=== PATIENT | male | born 1940 | race Caucasian/White ===

== ENCOUNTER 2018-03-21 10:46 | Observation (INO) | payer MEDICARE ==
[2018-03-21] MEDS ORDERED: SODIUM CHLORIDE 0.9% 500 ML 500 ML IV STA (11:12)
--- NOTE | 2018-03-21 11:24 | ED ---
Syncope HPI - General Chief Complaint: Syncope Stated Complaint: Syncope Time Seen by Provider: 03/21/18 11:11 Source: patient Mode of arrival: ambulatory Limitations: no limitations - History of Present Illness Initial Comments: 77-year-old male past medical history of coronary artery disease, hypertension, hyperlipidemia and lung cancer in remission presenting today for chief complaint of syncope. Patient states that he was in a seated position and went to get up to move around when he felt faint, he states his and daughter grabbed him bringing him to a chair when he passed out. They deny head injury. They state that by time they called emergency department he was alert and oriented 3. Patient denies any chest pain, dyspnea, dyspnea on exertion, lower extremity edema, hemoptysis, cough, nausea, vomiting, upper extremity or paresthesias. He states he doesn't think he has had decreased oral intake. He states that this has happened a couple times in the past 2-3 months upon ambulation. He states he was able to sit down and the symptoms resolved. Patient denies any history of recent chest pain. Remaining review of systems negative, patient denies any recent fever, chills, back pain, abdominal pain, nausea or vomiting, numbness or tingling, dysuria or hematuria, constipation or diarrhea, headaches or visual changes, or any other complaints. Upon arrival pt is well appearing. VS within normal limits. - Related Data Home Medications Medication Instructions Recorded Confirmed Ascorbic Acid [Vitamin C] 500 mg PO DAILY 07/25/15 03/21/18 Aspirin [Adult Low Dose Aspirin EC] 81 mg PO DAILY 07/25/15 03/21/18 Atenolol 25 mg PO DAILY 07/25/15 03/21/18 Atorvastatin [Lipitor] 40 mg PO HS 07/25/15 03/21/18 Levothyroxine Sodium [Synthroid] 100 mcg PO DAILY 07/25/15 03/21/18 Multivitamin [Men's Multi-Vitamin] 1 each PO DAILY 07/25/15 03/21/18 Alendronate Sodium [Fosamax] 70 mg PO TU 03/21/18 03/21/18 Calcium Carbonate/Vitamin D3 1 tab PO DAILY 03/21/18 03/21/18 [Calcium 600-Vit D3 400 Caplet] Cyclobenzaprine [Flexeril] 10 mg PO TID 03/21/18 03/21/18 Gabapentin [Neurontin] 300 mg PO TID 03/21/18 03/21/18 Meloxicam [Mobic] 7.5 mg PO BID 03/21/18 03/21/18 Multivitamins, Thera [Multivitamin 1 tab PO DAILY 03/21/18 03/21/18 (formulary)] Sharon 3-6-9 1 cap PO DAILY 03/21/18 03/21/18 diphenhydrAMINE [Benadryl] 25 mg PO QID PRN 03/21/18 03/21/18 Allergies Allergy/AdvReac Type Severity Reaction Status Date / Time No Known Allergies Allergy Verified 03/21/18 11:48 Review of Systems ROS Statement: Those systems with pertinent positive or pertinent negative responses have been documented in the HPI. ROS Other: All systems not noted in ROS Statement are negative. Past Medical History Past Medical History: Coronary Artery Disease (CAD), Cancer, Chest Pain / Angina , Hearing Disorder / Deafness, Hyperlipidemia, Hypertension, Osteoarthritis (OA) , Thyroid Disorder Additional Past Medical History / Comment(s): LUNG History of Any Multi-Drug Resistant Organisms: None Reported Past Surgical History: Cholecystectomy, Heart Catheterization With Stent, Joint Replacement Additional Past Surgical History / Comment(s): LUNG RESECTION TOP OF LEFT LUNG, LEFT WRIST ORIF 2007, HIP X 2 LEFT HIP, Past Anesthesia/Blood Transfusion Reactions: No Reported Reaction Date of Last Stent Placement:: Past Psychological History: No Psychological Hx Reported Smoking Status: Current every day smoker Past Alcohol Use History: None Reported, Rare Past Drug Use History: None Reported General Exam - General Exam Comments Initial Comments: General: The patient is awake and alert, in no distress, and does not appear acutely ill. Eye: Pupils are equal, round and reactive to light, extra-ocular movements are intact. No nystagmus. There is normal conjunctiva bilaterally. No signs of icterus. Ears, nose, mouth and throat: There are moist mucous membranes and no oral lesions. Neck: The neck is supple, there is no tenderness or JVD. Cardiovascular: There is a regular rate and rhythm. No murmur, rub or gallop is appreciated. Respiratory: Lungs are clear to auscultation, respirations are non-labored, breath sounds are equal. No wheezes, stridor, rales, or rhonchi. Gastrointestinal: Soft, non-distended, non-tender abdomen without masses or organomegaly noted. There is no rebound or guarding present. No CVA tenderness. Bowel sounds are unremarkable. Musculoskeletal: Normal ROM, no tenderness. Strength 5/5. Sensation intact. Radial and DP pulses equal bilaterally 2+. Neurological: A&O x 3. CN II-XII intact, There are no obvious motor or sensory deficits. Coordination appears grossly intact. Speech is normal. Skin: Skin is warm and dry and no rashes or lesions are noted. No lower extremity edema, negative Homans bilaterally Psychiatric: Cooperative, appropriate mood & affect, normal judgment. Limitations: no limitations Course Vital Signs 03/21/18 03/21/18 03/21/18 10:59 11:55 14:34 Temperature 97.0 F L Pulse Rate 70 Pulse Rate [ 79 Horticulture Instructor ] Pulse Rate [ 73 Sitting] Pulse Rate [ 84 Standing] Pulse Rate [ 75 Supine] Respiratory 18 18 Rate Blood Pressure 127/76 Blood Pressure 131/79 [Left Arm Supine] Blood Pressure 126/80 [Sitting] Blood Pressure 104/69 [Standing] O2 Sat by Pulse 98 Oximetry 03/21/18 03/21/18 14:36 17:01 Temperature Pulse Rate 84 87 Pulse Rate [ Horticulture Instructor ] Pulse Rate [ Sitting] Pulse Rate [ Standing] Pulse Rate [ Supine] Respiratory 18 16 Rate Blood Pressure 104/69 140/92 Blood Pressure [Left Arm Supine] Blood Pressure [Sitting] Blood Pressure [Standing] O2 Sat by Pulse 97 94 L Oximetry EKG Findings - EKG Comments: EKG Findings:: A 12-lead EKG was performed and shows the following: Rate is 67bpm, and rhythm is normal sinus. There are normal QRS complexes. ST segments have no elevation or depression, and SD segments appear normal. Nonspecific T- wave. Medical Decision Making - Medical Decision Making Well-appearing 77-year-old male presenting for syncope. EKG revealed no findings concerning for acute coronary syndrome. Troponin negative. Chest x- ray negative. Glucose low given juice, improvement of glucose. Patient did have a systolic drop of >20mmghg after IV hydration consistent with possible orthostatic hypotension. However given patient's coronary artery disease history, with vital episodes throughout the past 2-3 months the patient should be admitted to observation for evaluation by cardiology, as well as telemetry. I discussed the case attending provider Dr. Curtis who agreed to impression and plan. Patient preferred admission, agreed with plan. Continues to deny any symptoms stating he is feeling better. Patient transferred to the floor in stable condition appearing well admission was accepted by admitting provider Dr Zhang - Lab Data Result diagrams: 03/21/18 11:55 03/21/18 11:55 Lab Results 03/21/18 03/21/18 03/21/18 Range/Units 11:55 11:55 11:55 WBC 7.2 (3.8-10.6) k/uL RBC 3.89 L (4.30-5.90) m/uL Hgb 12.3 L (13.0-17.5) gm/dL Hct 35.6 L (39.0-53.0) % MCV 91.7 (80.0-100.0) fL MCH 31.6 (25.0-35.0) pg MCHC 34.5 (31.0-37.0) g/dL RDW 13.5 (11.5-15.5) % Plt Count 217 (150-450) k/uL Neutrophils % 72 % Lymphocytes % 14 % Monocytes % 8 % Eosinophils % 4 % Basophils % 1 % Neutrophils # 5.1 (1.3-7.7) k/uL Lymphocytes # 1.0 (1.0-4.8) k/uL Monocytes # 0.6 (0-1.0) k/uL Eosinophils # 0.3 (0-0.7) k/uL Basophils # 0.1 (0-0.2) k/uL PT (9.0-12.0) sec INR (<1.2) APTT (22.0-30.0) sec Sodium 135 L (137-145) mmol/L Potassium 4.0 (3.5-5.1) mmol/L Chloride 103 (98-107) mmol/L Carbon Dioxide 24 (22-30) mmol/L Anion Gap 8 mmol/L BUN 26 H (9-20) mg/dL Creatinine 0.92 (0.66-1.25) mg/dL Est GFR (CKD-EPI)AfAm >90 (>60 ml/min/1.73 sqM) Est GFR (CKD-EPI)NonAf 80 (>60 ml/min/1.73 sqM) Glucose 63 L (74-99) mg/dL POC Glucose (mg/dL) (75-99) mg/dL POC Glu Aquatic Scientist ID Calcium 8.6 (8.4-10.2) mg/dL Magnesium 1.9 (1.6-2.3) mg/dL Total Bilirubin 0.7 (0.2-1.3) mg/dL AST 44 (17-59) U/L ALT 44 (21-72) U/L Alkaline Phosphatase 89 (38-126) U/L Total Creatine Kinase 116 (55-170) U/L CK-MB (CK-2) 2.0 (0.0-2.4) ng/mL CK-MB (CK-2) Rel Index 1.7 Troponin I <0.012 (0.000-0.034) ng/mL Total Protein 7.1 (6.3-8.2) g/dL Albumin 3.7 (3.5-5.0) g/dL 03/21/18 03/21/18 Range/Units 11:55 15:04 WBC (3.8-10.6) k/uL RBC (4.30-5.90) m/uL Hgb (13.0-17.5) gm/dL Hct (39.0-53.0) % MCV (80.0-100.0) fL MCH (25.0-35.0) pg MCHC (31.0-37.0) g/dL RDW (11.5-15.5) % Plt Count (150-450) k/uL Neutrophils % % Lymphocytes % % Monocytes % % Eosinophils % % Basophils % % Neutrophils # (1.3-7.7) k/uL Lymphocytes # (1.0-4.8) k/uL Monocytes # (0-1.0) k/uL Eosinophils # (0-0.7) k/uL Basophils # (0-0.2) k/uL PT 9.8 (9.0-12.0) sec INR 0.9 (<1.2) APTT 23.5 (22.0-30.0) sec Sodium (137-145) mmol/L Potassium (3.5-5.1) mmol/L Chloride (98-107) mmol/L Carbon Dioxide (22-30) mmol/L Anion Gap mmol/L BUN (9-20) mg/dL Creatinine (0.66-1.25) mg/dL Est GFR (CKD-EPI)AfAm (>60 ml/min/1.73 sqM) Est GFR (CKD-EPI)NonAf (>60 ml/min/1.73 sqM) Glucose (74-99) mg/dL POC Glucose (mg/dL) 135 H (75-99) mg/dL POC Glu Aquatic Scientist ID Ethel Lind Calcium (8.4-10.2) mg/dL Magnesium (1.6-2.3) mg/dL Total Bilirubin (0.2-1.3) mg/dL AST (17-59) U/L ALT (21-72) U/L Alkaline Phosphatase (38-126) U/L Total Creatine Kinase (55-170) U/L CK-MB (CK-2) (0.0-2.4) ng/mL CK-MB (CK-2) Rel Index Troponin I (0.000-0.034) ng/mL Total Protein (6.3-8.2) g/dL Albumin (3.5-5.0) g/dL Disposition Clinical Impression: Syncope Disposition: ADMITTED IP TO THIS [facility] Is patient prescribed a controlled substance at d/c from ED?: No Time of Disposition: 14:00 Decision to Admit Reason: Admit from EC Decision Date: 03/21/18 Decision Time: 14:00
[2018-03-21 12:04] LABS: Basophils # (A) 0.1 k/uL (0-0.2); Basophils % (A) 1 %; Eosinophils # (A) 0.3 k/uL (0-0.7); Eosinophils % (A) 4 %; HCT 35.6 % (39.0-53.0); HGB 12.3 gm/dL (13.0-17.5); Lymphocytes % (A) 14 %; MCH 31.6 pg (25.0-35.0); MCHC 34.5 g/dL (31.0-37.0); MCV 91.7 fL (80.0-100.0); Mean Platelet Volume 8.7; Monocytes # (A) 0.6 k/uL (0-1.0); Monocytes % (A) 8 %; Neutrophils # (A) 5.1 k/uL (1.3-7.7); Neutrophils % (A) 72 %; Platelet Count 217 k/uL (150-450); RBC 3.89 m/uL (4.30-5.90); RDW 13.5 % (11.5-15.5); WBC 7.2 k/uL (3.8-10.6)
[2018-03-21 12:10] LABS: ALT 44 U/L (21-72); AST 44 U/L (17-59); Albumin 3.7 g/dL (3.5-5.0); Alkaline Phosphatase 89 U/L (38-126); Anion Gap 8 mmol/L; Blood Urea Nitrogen 26 mg/dL (9-20); Calcium 8.6 mg/dL (8.4-10.2); Carbon Dioxide 24 mmol/L (22-30); Chloride 103 mmol/L (98-107); Glucose 63 mg/dL (74-99); Magnesium 1.9 mg/dL (1.6-2.3); Sodium 135 mmol/L (137-145); Total Bilirubin 0.7 mg/dL (0.2-1.3); Total Protein 7.1 g/dL (6.3-8.2)
[2018-03-21 12:15] LABS: INR 0.9 (<1.2); Partial Thromboplastin Time 23.5 sec (22.0-30.0); Prothrombin Time 9.8 sec (9.0-12.0)
[2018-03-21 12:18] LABS: Creatine Kinase 116 U/L (55-170)
[2018-03-21 12:31] LABS: Troponin I <0.012 ng/mL (0.000-0.034)
--- NOTE | 2018-03-21 13:42 | XR ---
EXAMINATION TYPE: XR chest 2V DATE OF EXAM: 03/21/2018 COMPARISON: 11/28/2013 HISTORY: Shortness of breath TECHNIQUE: Frontal and lateral views of the chest are obtained. FINDINGS: Scattered senescent parenchymal changes noted. Hyperinflation compatible with COPD. Underlying fibrot ic change noted. No evidence for infiltrate. No evidence for atelectasis. Heart size is stable. Mediastinal structures are stable and grossly unremarkable. No evidence for hilar prominence. Degenerative changes dorsal spine. IMPRESSION: 1. No evidence for acute pulmonary disease. Basilar pulmonary fibrosis.
[2018-03-21] MEDS ORDERED: NALOXONE 0.4 MG/ML 1 ML VIAL IV PRN (15:38)
[2018-03-21] MEDS ORDERED: SODIUM CHLORIDE 0.9% 1,000 ML IV SCH (15:45)
[2018-03-21 15:52] LABS: Glucose,Whole Blood 135 mg/dL (75-99)
--- NOTE | 2018-03-21 17:27 | P.HPIM ---
History of Present Illness Patient is a pleasant 77-year-old gentleman came in with the complaints of lightheadedness and a syncopal episode patient stood up in the after which patient felt lightheaded and the pale and lost consciousness patient does have positive orthostatic vitals patient blood sugar is 65 doesn't take anything for blood sugar patient is on atenolol patient denied any diarrhea nausea vomiting abdominal pain fever chills dysuria. No signs or symptoms of infection area did I do not have an EKG available in a committed will obtain EKG will obtain echo Monitored overnight. Patient denied any chest pain at this time. Review of Systems REVIEW OF SYSTEMS: CONSTITUTIONAL: No fever, no malaise, no fatigue. HEENT: No recent visual problems or hearing problems. Denied any sore throat. CARDIOVASCULAR: No chest pain, orthopnea, PND, no palpitations, PULMONARY: No shortness of breath, no cough, no hemoptysis. GASTROINTESTINAL: No diarrhea, no nausea, no vomiting, no abdominal pain. NEUROLOGICAL: No headaches, no weakness, no numbness. HEMATOLOGICAL: Denies any bleeding or petechiae. GENITOURINARY: Denies any burning micturition, frequency, or urgency. MUSCULOSKELETAL/RHEUMATOLOGICAL: Denies any joint pain, swelling, or any muscle pain. ENDOCRINE: Denies any polyuria or polydipsia. The rest of the 14-point review of systems is negative. Past Medical History Past Medical History: Coronary Artery Disease (CAD), Cancer, Chest Pain / Angina , Hearing Disorder / Deafness, Hyperlipidemia, Hypertension, Osteoarthritis (OA) , Thyroid Disorder Additional Past Medical History / Comment(s): LUNG History of Any Multi-Drug Resistant Organisms: None Reported Past Surgical History: Cholecystectomy, Heart Catheterization With Stent, Joint Replacement Additional Past Surgical History / Comment(s): LUNG RESECTION TOP OF LEFT LUNG, LEFT WRIST ORIF 2007, HIP X 2 LEFT HIP, Past Anesthesia/Blood Transfusion Reactions: No Reported Reaction Date of Last Stent Placement:: Past Psychological History: No Psychological Hx Reported Smoking Status: Current every day smoker Past Alcohol Use History: None Reported, Rare Past Drug Use History: None Reported Medications and Allergies Home Medications Medication Instructions Recorded Confirmed Type Ascorbic Acid [Vitamin C] 500 mg PO DAILY 07/25/15 03/21/18 History Aspirin [Adult Low Dose Aspirin EC] 81 mg PO DAILY 07/25/15 03/21/18 History Atenolol 25 mg PO DAILY 07/25/15 03/21/18 History Atorvastatin [Lipitor] 40 mg PO HS 07/25/15 03/21/18 History Levothyroxine Sodium [Synthroid] 100 mcg PO DAILY 07/25/15 03/21/18 History Multivitamin [Men's Multi-Vitamin] 1 each PO DAILY 07/25/15 03/21/18 History Alendronate Sodium [Fosamax] 70 mg PO TU 03/21/18 03/21/18 History Calcium Carbonate/Vitamin D3 1 tab PO DAILY 03/21/18 03/21/18 History [Calcium 600-Vit D3 400 Caplet] Cyclobenzaprine [Flexeril] 10 mg PO TID 03/21/18 03/21/18 History Gabapentin [Neurontin] 300 mg PO TID 03/21/18 03/21/18 History Meloxicam [Mobic] 7.5 mg PO BID 03/21/18 03/21/18 History Multivitamins, Thera [Multivitamin 1 tab PO DAILY 03/21/18 03/21/18 History (formulary)] [place] 3-6-9 1 cap PO DAILY 03/21/18 03/21/18 History diphenhydrAMINE [Benadryl] 25 mg PO QID PRN 03/21/18 03/21/18 History Allergies Allergy/AdvReac Type Severity Reaction Status Date / Time No Known Allergies Allergy Verified 03/21/18 11:48 Physical Exam Vitals: Vital Signs Temp Pulse Pulse Pulse Pulse Pulse Resp 03/21/18 17:02 87 16 03/21/18 17:01 87 16 03/21/18 14:36 84 18 03/21/18 14:34 73 84 75 18 03/21/18 11:55 79 03/21/18 10:59 97.0 F L 70 18 BP BP BP BP Pulse Ox 03/21/18 17:02 140/92 94 L 03/21/18 17:01 140/92 94 L 03/21/18 14:36 104/69 97 03/21/18 14:34 131/79 126/80 104/69 03/21/18 11:55 03/21/18 10:59 127/76 98 Intake and Output 03/21/18 03/21/18 03/21/18 06:59 14:59 22:59 Other: Weight 66.179 kg PHYSICAL EXAMINATION: GENERAL: The patient is alert and oriented x3, not in any acute distress. Well developed, well nourished. HEENT: Pupils are round and equally reacting to light. EOMI. No scleral icterus. No conjunctival pallor. Normocephalic, atraumatic. No pharyngeal erythema. No thyromegaly. CARDIOVASCULAR: S1 and S2 present. Patient does have a somewhat systolic murmur in the mitral area pansystolic murmur, loud P2. PULMONARY: Chest is clear to auscultation, no wheezing or crackles. ABDOMEN: Soft, nontender, nondistended, normoactive bowel sounds. No palpable organomegaly. MUSCULOSKELETAL: No joint swelling or deformity. EXTREMITIES: No cyanosis, clubbing, or pedal edema. NEUROLOGICAL: Gross neurological examination did not reveal any focal deficits. SKIN: No rashes. Results CBC & Chem 7: 03/21/18 11:55 03/21/18 11:55 Labs: Abnormal Lab Results - Last 24 Hours (Table) 03/21/18 03/21/18 03/21/18 Range/Units 11:55 11:55 15:04 RBC 3.89 L (4.30-5.90) m/uL Hgb 12.3 L (13.0-17.5) gm/dL Hct 35.6 L (39.0-53.0) % Sodium 135 L (137-145) mmol/L BUN 26 H (9-20) mg/dL Glucose 63 L (74-99) mg/dL POC Glucose (mg/dL) 135 H (75-99) mg/dL Assessment and Plan Plan: -Syncope probably due to intravascular volume depletion patient doesn't have any diarrhea patient was started on IV fluids hold off on atenolol for now temporarily will obtain echo cardiac exam monitored on telemetry bed -Coronary artery disease -hypertension -Hyperlipidemia -hypothyroidism For above-mentioned chronic medical problems patient will be resumed on appropriate home medications.
[2018-03-21 17:43] VITALS: BMI 23.5
[2018-03-21] MEDS: CYCLOBENZAPRINE 10 MG TAB PO SCH (20:18)
[2018-03-21] MEDS: GABAPENTIN 300 MG CAP PO SCH (20:18)
[2018-03-21] MEDS ORDERED: ATORVASTATIN 40 MG TAB PO SCH (21:00)
[2018-03-22] MEDS ORDERED: LEVOTHYROXINE 100 MCG TAB PO SCH (06:30)
[2018-03-22 07:36] VITALS: RESP 18
[2018-03-22] MEDS ORDERED: ASPIRIN 81 MG PO SCH (09:00)
[2018-03-22] MEDS ORDERED: OMEGA PO SCH (09:00)
--- NOTE | 2018-03-22 09:07 | CT ---
EXAMINATION TYPE: CT brain wo con DATE OF EXAM: 03/22/2018 HISTORY: Syncope with history of Lung Cancer CT DLP: 1231.4 mGycm. Automated Exposure Control for Dose Reduction was Utilized. TECHNIQUE: CT scan of the head is performed without contrast. COMPARISON: None. FINDINGS: There is no acute intracranial hemorrhage or midline shift identified. There is diffuse v entricular and sulcal prominence consistent with diffuse age-related cerebral atrophy. There is low- attenuation in the periventricular white matter consistent with chronic small vessel ischemic change. Dominant left vertebral artery incidentally noted The globes are intact and the visualized sinuses a re clear. IMPRESSION: No acute intracranial hemorrhage or midline shift. There is moderate diffuse age-relate d cerebral atrophy and mild chronic small vessel ischemic change noted.
[2018-03-22] MEDS: GABAPENTIN 300 MG CAP PO SCH (09:28)
[2018-03-22] MEDS: CYCLOBENZAPRINE 10 MG TAB PO SCH (09:28)
--- NOTE | 2018-03-22 09:48 | P.CRDCN ---
History of Present Illness History of present illness: This is a pleasant 77-year-old male past medical history significant for coronary artery disease s/p stent to LAD in setting of NSTEMI 1997, hypertension, dyslipidemia, history of lung cancer s/p left lobectomy and former nicotine dependence. He used to follow with Dr. Nugent in the office but hasn't been to the office since 2012. We have been asked to see him in consultation secondary to a near syncopal event yesterday at home. The patient states he was at home and he started feeling extremely weak and fatigued. He then started feeling light headed and had to be lowered to the chair by his family members. He states they told him he briefly passed out. However he is unclear if there was any actual LOC. He denies feeling chest pain, shortness of breath, nausea, vomiting, palpitations or diaphoresis prior to or thereafter this episode. He has had no further dizziness since arriving to the ED. He is seen and examined sitting up in bed in no acute distress. He has a generalized tremor. felt increasingly weak and light headed, was able to lower himself to the chair and then his daughter states he passed out briefly. No evidence of arrhythmia on telemetry thus far. EKG reveals sinus mechanism with early repolarization, no acute ST or T-wave abnormalities noted. Chest xray with no acute cardiopulmonary process with pulmonary fibrosis noted. Laboratory data reviewed, WBC 7.2, hemoglobin 12.3, platelets 217, sodium 135, potassium 4.0, creatinine 0.92, magnesium 1.9, cardiac enzymes negative 1. Bilateral carotid duplex study obtained in the office 2012 reveals right with 16 -49% stenosis with greater than 20% diameter stenosis noted, left with 16-49% stenosis greater than 20% diameter stenosis noted. This is unchanged from previous study. Most recent stress test performed in the office 2012 with a Lexiscan stress test which was negative for reversible cardiac ischemia. At the time of my exam: CONSTITUTIONAL: Denies fever. Denies chills. EYES: Denies blurred vision. Denies vision changes. Denies eye pain. EARS, NOSE, MOUTH & THROAT: Denies headache. Denies sore throat. Denies ear pain. CARDIOVASCULAR: Denies chest pain. Denies shortness of breath. Denies orthopnea. Denies PND. Denies palpitations. RESPIRATORY: Denies cough. GASTROINTESTINAL: Denies abdominal pain. Denies diarrhea. Denies constipation. Denies nausea. Denies vomiting. MUSCULOSKELETAL: Denies myalgias. INTEGUMENTARY: Denies pruitis. Denies rash. NEUROLOGIC: Denies numbness. Denies tingling. Denies weakness. PSYCHIATRIC: Denies anxiety. Denies depression. ENDOCRINE: Denies fatigue. Denies weight change. Denies polydipsia. Denies polyurina. GENITOURINARY: Denies burning, hematuria or urgency with micturation. HEMATOLOGIC: Denies history of anemia. Denies bleeding. Blood pressure 126/79 heart rate 74 afebrile maintaining oxygen saturation on room air GENERAL: This is a 77-year-old male in no apparent distress at the time of my examination. HEENT: Head is atraumatic, normocephalic. Pupils are equal, round. Sclerae anicteric. Conjunctivae are clear. Mucous membranes of the mouth are moist. Neck is supple. There is no jugular venous distention. No carotid bruit is heard. LUNGS: Faint rhonchi noted to the right. Clear to auscultation on the left. No rales or wheezes noted bilaterally. No chest wall tenderness is noted on palpation or with deep breathing. Diminished bilaterally. HEART: Regular rate and rhythm without murmurs, rubs or gallops. S1 and S2 heard. ABDOMEN: Soft, nontender. Bowel sounds are heard. No organomegaly noted. EXTREMITIES: No evidence of peripheral edema and no calf tenderness noted. VASCULAR: Radial and dorsalis pedis pulses palpated, no evidence of clubbing. NEUROLOGIC: Patient is awake, alert and oriented x3. ASSESSMENT Near syncope secondary to orthostatic hypotension. Dyslipidemia Hypertension History of lung cancer s/p left lobectomy Hyponatremia History of coronary artery disease s/p stent placement to LAD [address] brain to rule out malignancy considering his history of lung cancer. Obtain 2D echocardiogram and doppler study to assess cardiac structure and function. Repeat orthostatic vital signs. Check d-dimer and second troponin to rule out an acute coronary event. He has received IV hydration since admission which will hopefully improve his orthostatic changes. Increase activity and ambulation in the halls as tolerated. Thank you kindly for this consultation. The above impression and plan of care have been discussed and directed by the signing physician. Debra Conner, nurse practitioner, acting as scribe for signing physician. Past Medical History Past Medical History: Coronary Artery Disease (CAD), Cancer, Chest Pain / Angina , Hearing Disorder / Deafness, Hyperlipidemia, Hypertension, Osteoarthritis (OA) , Thyroid Disorder Additional Past Medical History / Comment(s): LUNG History of Any Multi-Drug Resistant Organisms: None Reported Past Surgical History: Cholecystectomy, Heart Catheterization With Stent, Joint Replacement Additional Past Surgical History / Comment(s): LUNG RESECTION TOP OF LEFT LUNG, LEFT WRIST ORIF 2007, HIP X 2 LEFT HIP, Past Anesthesia/Blood Transfusion Reactions: No Reported Reaction Date of Last Stent Placement:: Past Psychological History: No Psychological Hx Reported Smoking Status: Current every day smoker Past Alcohol Use History: None Reported, Rare Past Drug Use History: None Reported Medications and Allergies Home Medications Medication Instructions Recorded Confirmed Type Ascorbic Acid [Vitamin C] 500 mg PO DAILY 07/25/15 03/21/18 History Aspirin [Adult Low Dose Aspirin EC] 81 mg PO DAILY 07/25/15 03/21/18 History Atenolol 25 mg PO DAILY 07/25/15 03/21/18 History Atorvastatin [Lipitor] 40 mg PO HS 07/25/15 03/21/18 History Levothyroxine Sodium [Synthroid] 100 mcg PO DAILY 07/25/15 03/21/18 History Multivitamin [Men's Multi-Vitamin] 1 each PO DAILY 07/25/15 03/21/18 History Alendronate Sodium [Fosamax] 70 mg PO TU 03/21/18 03/21/18 History Calcium Carbonate/Vitamin D3 1 tab PO DAILY 03/21/18 03/21/18 History [Calcium 600-Vit D3 400 Caplet] Cyclobenzaprine [Flexeril] 10 mg PO TID 03/21/18 03/21/18 History Gabapentin [Neurontin] 300 mg PO TID 03/21/18 03/21/18 History Meloxicam [Mobic] 7.5 mg PO BID 03/21/18 03/21/18 History Multivitamins, Thera [Multivitamin 1 tab PO DAILY 03/21/18 03/21/18 History (formulary)] [place] 3-6-9 1 cap PO DAILY 03/21/18 03/21/18 History diphenhydrAMINE [Benadryl] 25 mg PO QID PRN 03/21/18 03/21/18 History Allergies Allergy/AdvReac Type Severity Reaction Status Date / Time No Known Allergies Allergy Verified 03/21/18 11:48 Physical Exam Vitals: Vital Signs Temp Pulse Pulse Pulse Pulse Pulse Pulse 03/22/18 07:10 97.6 F 74 03/22/18 03:54 98.0 F 80 03/22/18 03:15 03/22/18 00:00 03/21/18 23:51 98.3 F 76 03/21/18 20:00 03/21/18 19:52 97.5 F L 74 03/21/18 17:51 79 78 73 84 75 03/21/18 17:23 97.9 F 78 03/21/18 17:02 97.9 F 87 03/21/18 17:01 87 03/21/18 14:36 84 03/21/18 14:34 73 84 75 03/21/18 11:55 79 03/21/18 10:59 97.0 F L 70 Resp BP BP BP BP BP Pulse Ox 03/22/18 07:10 18 126/79 95 03/22/18 03:54 16 125/64 96 03/22/18 03:15 18 03/22/18 00:00 18 03/21/18 23:51 18 122/70 96 03/21/18 20:00 18 03/21/18 19:52 18 137/82 100 03/21/18 17:51 18 03/21/18 17:23 18 157/72 96 03/21/18 17:02 18 140/92 96 03/21/18 17:01 16 140/92 94 L 03/21/18 14:36 18 104/69 97 03/21/18 14:34 18 131/79 126/80 104/69 03/21/18 11:55 03/21/18 10:59 18 127/76 98 Intake and Output 03/21/18 03/22/18 03/22/18 22:59 06:59 14:59 Intake Total 118 Balance 118 Intake: Oral 118 Other: Voiding Method Toilet Toilet # Voids 1 Results 03/21/18 11:55 03/21/18 11:55 Cardiac Enzymes 03/21/18 03/21/18 Range/Units 11:55 11:55 AST 44 (17-59) U/L CK-MB (CK-2) 2.0 (0.0-2.4) ng/mL Troponin I <0.012 (0.000-0.034) ng/mL Coagulation 03/21/18 Range/Units 11:55 PT 9.8 (9.0-12.0) sec APTT 23.5 (22.0-30.0) sec CBC 03/21/18 Range/Units 11:55 WBC 7.2 (3.8-10.6) k/uL RBC 3.89 L (4.30-5.90) m/uL Hgb 12.3 L (13.0-17.5) gm/dL Hct 35.6 L (39.0-53.0) % Plt Count 217 (150-450) k/uL Comprehensive Metabolic Panel 03/21/18 Range/Units 11:55 Sodium 135 L (137-145) mmol/L Potassium 4.0 (3.5-5.1) mmol/L Chloride 103 (98-107) mmol/L Carbon Dioxide 24 (22-30) mmol/L BUN 26 H (9-20) mg/dL Creatinine 0.92 (0.66-1.25) mg/dL Glucose 63 L (74-99) mg/dL Calcium 8.6 (8.4-10.2) mg/dL AST 44 (17-59) U/L ALT 44 (21-72) U/L Alkaline Phosphatase 89 (38-126) U/L Total Protein 7.1 (6.3-8.2) g/dL Albumin 3.7 (3.5-5.0) g/dL Current Medications Generic Name Dose Route Start Last Admin Trade Name Freq PRN Reason Stop Dose Admin Aspirin 81 mg 03/22/18 09:00 Aspirin PO DAILY NILSON Atorvastatin Calcium 40 mg 03/21/18 21:00 03/21/18 20:18 Lipitor PO 40 mg HS NILSON Administration Cyclobenzaprine HCl 10 mg 03/21/18 22:00 03/21/18 20:18 Flexeril PO 10 mg TID NILSON Administration Gabapentin 300 mg 03/21/18 22:00 03/21/18 20:18 Neurontin PO 300 mg TID NILSON Administration Sodium Chloride 1,000 mls @ 100 mls/hr 03/21/18 15:45 03/21/18 17:30 Saline 0.9% IV 100 mls/hr .Q10H NILSON Administration Levothyroxine Sodium 100 mcg 03/22/18 06:30 03/22/18 06:10 Synthroid PO 100 mcg DAILY@0630 NILSON Administration Naloxone HCl 0.2 mg 03/21/18 15:38 Narcan IV Q2M PRN Opioid Reversal Intake and Output 03/21/18 03/22/18 03/22/18 22:59 06:59 14:59 Intake Total 118 Balance 118 Intake: Oral 118 Other: Voiding Method Toilet Toilet # Voids 1 03/21/18 11:55 03/21/18 11:55
--- NOTE | 2018-03-22 10:27 | ECHOF ---
Referral Reason:syncope MEASUREMENTS -------- HEIGHT: 167.6 cm WEIGHT: 65.8 kg BP: 125/64 IVSd: 1.4 cm (0.6 - 1.1) LVIDd: 3.0 cm (3.9 - 5.3) LVPWd: 1.3 cm (0.6 - 1.1) IVSs: 1.6 cm LVIDs: 1.9 cm LVPWs: 1.8 cm LAESV Index (A-L): 22.90 ml/m Ao Diam: 3.0 cm (2.0 - 3.7) AV Cusp: 2.0 cm (1.5 - 2.6) LA Diam: 4.1 cm (2.7 - 3.8) MV EXCURSION: 16.269 mm (> 18.000) MV EF SLOPE: 73 mm/s (70 - 150) EPSS: 0.6 cm MV E Javed: 0.64 m/s MV DecT: 306 ms MV A Javed: 1.04 m/s MV E/A Ratio: 0.61 AR PHT: 573 ms RAP: 5.00 mmHg RVSP: 28.65 mmHg FINDINGS -------- Sinus rhythm. This was a technically good study. The left ventricular size is normal. There is moderate concentric left ventricular hypertrophy. O verall left ventricular systolic function is normal with, an EF between 55 - 60 %. The right ventricle is normal in size and function. Normal LA size by volume 22+/-6 ml/m2. The right atrium is normal in size. Aortic valve is trileaflet and is mildly thickened. There is mild aortic regurgitation. The mitral valve leaflets are mildly thickened. Mild mitral annular calcification present. Mild m itral regurgitation is present. Mild tricuspid regurgitation present. The right ventricular systolic pressure, as measured by Doppl er, is 28.65mmHg. Trace/mild (physiologic) pulmonic regurgitation. The aortic root size is normal. IVC Not well visulized. The pericardium is normal. CONCLUSIONS -------- 1. Sinus rhythm. 2. This was a technically good study. 3. The left ventricular size is normal. 4. There is moderate concentric left ventricular hypertrophy. 5. Overall left ventricular systolic function is normal with, an EF between 55 - 60 %. 6. The right ventricle is normal in size and function. 7. Normal LA size by volume 22+/-6 ml/m2. 8. The right atrium is normal in size. 9. Aortic valve is trileaflet and is mildly thickened. 10. There is mild aortic regurgitation. 11. The mitral valve leaflets are mildly thickened. 12. Mild mitral annular calcification present. 13. Mild mitral regurgitation is present. 14. Mild tricuspid regurgitation present. 15. The right ventricular systolic pressure, as measured by Doppler, is 28.65mmHg. 16. Trace/mild (physiologic) pulmonic regurgitation. 17. The aortic root size is normal. 18. IVC Not well visulized. 19. The pericardium is normal. PHP CONSULTANT: Raquel Mcmahan RDCS
[2018-03-22 11:53] VITALS: BP 157/76; PULSE 73; TEMP 97.2
--- NOTE | 2018-03-22 13:53 | CT ---
EXAMINATION TYPE: CT angio chest DATE OF EXAM: 03/22/2018 COMPARISON: NONE HISTORY: Elevated d-dimer with syncope and weakness. History of partial left-sided pneumonectomy. CT DLP: 2 647.4 mGycm. Automated Exposure Control for Dose Reduction was Utilized. CONTRAST: CTA scan of the thorax is performed with IV Contrast, patient injected with 55 mL of Isovue 370, pulm onary embolism protocol. MIP Images are created on CT scanner and reviewed. FINDINGS: LUNGS: Moderate to advanced underlying emphysematous change is present. There is honeycombing lateral ly in the left mid to lower lungs with additional end-stage honeycombing in the right lung base. Elev ated left hemidiaphragm is noted. No suspicious nodules or masses are identified. No pleural effusion or pneumothorax is seen. Some areas of mild pleural thickening throughout the left lung are present. Tracheobronchial tree is patent. MEDIASTINUM: There is satisfactory enhancement of the pulmonary artery and its branches, there is no CT evidence for pulmonary embolism. There are enlarged bilateral hilar lymph nodes which may warrant further clinical workup. No suspicious mediastinal adenopathy is seen. No cardiomegaly or pericardi al effusion is seen. There is fairly severe coronary artery calcification noted. There is mild to mod erate calcified plaque of aorta with ectatic course identified. OTHER: Cholecystectomy clips are appreciated. Low dense thickening to left adrenal gland favors benig n hyperplasia. S-shaped scoliosis is seen. Osseous structures are demineralized. There is moderate co mpression fracture T12 level presumed chronic without suspicious lucency. IMPRESSION: 1. No acute pulmonary embolism. 2. Moderate to advanced emphysematous change with bibasilar scarring. No suspicious acute infiltrate.
[2018-03-22 16:17] LABS: T4, Free (Free Thyroxine) 2.17 ng/dL (0.78-2.19)
--- NOTE | 2018-03-22 16:33 | P.DS ---
Providers Date of admission: 03/21/18 15:52 Attending physician: Michelle Zhang Consults: 03/21/18 15:38 Consult Physician Stat Consulting Provider: Saurabh Morales Reason/Comments: syncope Do you want consulting provider notified?: Yes Primary care physician: [place] Hospital Course: Patient is a pleasant 77-year-old gentleman came in with the complaints of lightheadedness and a syncopal episode patient stood up in the after which patient felt lightheaded and the pale and lost consciousness patient does have positive orthostatic vitals patient blood sugar is 65 doesn't take anything for blood sugar patient is on atenolol patient denied any diarrhea nausea vomiting abdominal pain fever chills dysuria. No signs or symptoms of infection area did I do not have an EKG available in a committed will obtain EKG will obtain echo Monitored overnight. Patient denied any chest pain at this time. 03/22/2018 Patient had an echocardiogram which did not show any significant about the patient still has some postural orthostatic vitals patient was increased to drink fluids at home. If he has another syncopal episode will need further evaluation starting with a Holter monitor and probable to table testing as an outpatient. Patient does not have any significant rhythm abnormalities here. Patient had elevated d-dimer because of which underwent a CT angios the chest did not show any pulmonary embolism although he did show honeycombing probably because of that reason patient has some crackles in the right lower lung bases. Patient is being discharged today in stable medical condition to home PHYSICAL EXAMINATION: GENERAL: The patient is alert and oriented x3, not in any acute distress. Well developed, well nourished. HEENT: Pupils are round and equally reacting to light. EOMI. No scleral icterus. No conjunctival pallor. Normocephalic, atraumatic. No pharyngeal erythema. No thyromegaly. CARDIOVASCULAR: S1 and S2 present. No murmurs, rubs, or gallops. PULMONARY: Minimal crackles in right lower lung bases patient is advised to use incentive spirometry at home ABDOMEN: Soft, nontender, nondistended, normoactive bowel sounds. No palpable organomegaly. MUSCULOSKELETAL: No joint swelling or deformity. EXTREMITIES: No cyanosis, clubbing, or pedal edema. NEUROLOGICAL: Gross neurological examination did not reveal any focal deficits. SKIN: No rashes. Assessment and Plan Plan: -Syncope probably due to intravascular volume depletion . Received IV fluids for a day -Coronary artery disease -hypertension -Hyperlipidemia -hypothyroidism Plan - Discharge Summary Discharge Rx Participant: No New Discharge Prescriptions: No Action Atorvastatin [Lipitor] 40 mg PO HS Aspirin [Adult Low Dose Aspirin EC] 81 mg PO DAILY Ascorbic Acid [Vitamin C] 500 mg PO DAILY Levothyroxine Sodium [Synthroid] 100 mcg PO DAILY Atenolol 25 mg PO DAILY Multivitamin [Men's Multi-Vitamin] 1 each PO DAILY diphenhydrAMINE [Benadryl] 25 mg PO QID PRN PRN Reason: Allergy Symptoms Multivitamins, Thera [Multivitamin (formulary)] 1 tab PO DAILY Meloxicam [Mobic] 7.5 mg PO BID Alendronate Sodium [Fosamax] 70 mg PO [place] 3-6-9 1 cap PO DAILY Gabapentin [Neurontin] 300 mg PO TID Cyclobenzaprine [Flexeril] 10 mg PO TID Calcium Carbonate/Vitamin D3 [Calcium 600-Vit D3 400 Caplet] 1 tab PO DAILY Discharge Medication List Ascorbic Acid [Vitamin C] 500 mg PO DAILY 07/25/15 [History] Aspirin [Adult Low Dose Aspirin EC] 81 mg PO DAILY 07/25/15 [History] Atenolol 25 mg PO DAILY 07/25/15 [History] Atorvastatin [Lipitor] 40 mg PO HS 07/25/15 [History] Levothyroxine Sodium [Synthroid] 100 mcg PO DAILY 07/25/15 [History] Multivitamin [Men's Multi-Vitamin] 1 each PO DAILY 07/25/15 [History] Alendronate Sodium [Fosamax] 70 mg PO TU 03/21/18 [History] Calcium Carbonate/Vitamin D3 [Calcium 600-Vit D3 400 Caplet] 1 tab PO DAILY 12/27 [History] Cyclobenzaprine [Flexeril] 10 mg PO TID 03/21/18 [History] Gabapentin [Neurontin] 300 mg PO TID 03/21/18 [History] Meloxicam [Mobic] 7.5 mg PO BID 03/21/18 [History] Multivitamins, Thera [Multivitamin (formulary)] 1 tab PO DAILY 03/21/18 [History ] [place] 3-6-9 1 cap PO DAILY 03/21/18 [History] diphenhydrAMINE [Benadryl] 25 mg PO QID PRN 03/21/18 [History] Follow up Appointment(s)/Referral(s): [facility],Clinic [Primary Care Provider] - 1-2 days Discharge Disposition: HOME SELF-CARE
== END 2018-03-22 14:52 | disposition home or self-care (01) ==
LOC: EC 10:46 → 1SOBS 15:52
PROVIDERS: ADMIT Internal Medicine; ATTEND Internal Medicine
DX: R55 Syncope and collapse (principal); E86.9 Volume depletion, unspecified; E87.1 Hypo-osmolality and hyponatremia; R79.89 Other specified abnormal findings of blood chemistry; I25.10 Atherosclerotic heart disease of native coronary artery without angina pectoris; I10 Essential (primary) hypertension; E78.5 Hyperlipidemia, unspecified; E03.9 Hypothyroidism, unspecified; H91.90 Unspecified hearing loss, unspecified ear; M19.90 Unspecified osteoarthritis, unspecified site; R25.1 Tremor, unspecified; F17.200 Nicotine dependence, unspecified, uncomplicated; Z79.82 Long term (current) use of aspirin; Z79.890 Hormone replacement therapy; Z79.83 Long term (current) use of bisphosphonates; Z79.899 Other long term (current) drug therapy; Z85.118 Personal history of other malignant neoplasm of bronchus and lung; Z90.49 Acquired absence of other specified parts of digestive tract; Z95.5 Presence of coronary angioplasty implant and graft; Z96.60 Presence of unspecified orthopedic joint implant; I25.2 Old myocardial infarction; Z90.2 Acquired absence of lung [part of]
CPT/HCPCS: 99285; 36415; 93005; 93306; 85379; 84439; 80053; 84443; 82550; 82553; 83735; 84484 ×2; 85025; 85610; 85730; 71046; 70450; 71275; G0378 ×2; Q9967

== ENCOUNTER → 2018-09-13 | Outpatient (CLI) | payer OTHER ==
--- NOTE | 2018-09-13 10:50 | MR ---
EXAMINATION TYPE: MR hip RT wo con DATE OF EXAM: 09/13/2018 COMPARISON: rt hip pain HISTORY: age related osteoporosis Standard multiplanar, multisequence MRI departmental protocol Multiplanar, multisequence images of the right hip were acquired. FINDINGS: Marked narrowing of the right hip joint. Exam is severely limited due to artifact. There is marked deformity of the femoral head there is a edema and deformity of the articular surface of the head of the femur suggestive of osteonecrosis. Severe concentric narrowing of the joint space. Nonspecific marrow changes involving the acetabulum and pubic rami may be reactive. Extensive metal artifact is seen in the left hip prostheses distorting images of the pelvis which are nondiagnostic. Hypertrophic and degenerative change of the spine. IMPRESSION: 1. Severely limited exam due to motion artifact demonstrates severe arthropathy of the right hip with findings suspicious for osteonecrosis. 2. Nonspecific marrow changes involving the pubic rami and acetabulum felt most likely reactive secon basil to severe arthritic changes. Correlate with CT scan as clinically warranted given the limitation s of the exam.
== END | disposition home or self-care (01) ==
LOC: RADMRIMAIN 08:59
DX: M16.11 Unilateral primary osteoarthritis, right hip (principal); M81.0 Age-related osteoporosis without current pathological fracture

== ENCOUNTER → 2018-11-02 | Outpatient (CLI) | payer OTHER ==
--- NOTE | 2018-11-02 10:34 | US ---
EXAMINATION TYPE: US prostate transrectal DATE OF EXAM: 11/02/2018 COMPARISON: NONE CLINICAL HISTORY: R97.20 ELEVATED PROSTATE SPECIFIC ANTIGEN PSA. Elevated PSA This examination was performed using the transrectal probe. EXAM MEASUREMENTS: Gland Size: 4.3 x 2.8 x 4.9 cm Volume: 30.9 Predicted PSA: 3.7 Actual PSA (if available):Unknown. Calcifications visualized. Anechoic area in apex measuring .7 x .3 x .7 cm. Initial images of the seminal vesicles show slight prominence. Prostate gland is mildly enlarged with some central calcifications. There is simple thin-walled cyst measuring 7 x 3 mm in the lateral left apex. No suspicious hypoechoic nodule seen. IMPRESSION: As above. Predicted PSA = volume x 0.12 ng/ml Calculated Volume = 0.5236 x L x W x H
== END | disposition home or self-care (01) ==
LOC: RADUSWWP 09:33
PROVIDERS: ATTEND Family Medicine
DX: N42.83 Cyst of prostate (principal); N40.0 Benign prostatic hyperplasia without lower urinary tract symptoms; N42.89 Other specified disorders of prostate
CPT/HCPCS: 76872

== ENCOUNTER 2019-05-17 05:25 | Emergency (ER) | payer MEDICARE, OTHER ==
[2019-05-17 05:36] VITALS: TEMP 97.8
[2019-05-17] MEDS ORDERED: MORPHINE SULFATE 4 MG/ML SYRINGE IV STA (05:53)
--- NOTE | 2019-05-17 06:16 | ED ---
Extremity Problem HPI - General Chief complaint: Extremity Problem,Nontraumatic Stated complaint: Arm pain, SOB Time Seen by Provider: 05/17/19 05:45 Source: patient, EMS Limitations: no limitations - History of Present Illness Initial comments: This patient is 79-year-old man presenting with 2-3 days of worsening right shoulder and arm pain. The patient states she is here tonight because it has now become severe and constant. The pain he states does not seem to be in the s [place] joint itself. He states that he does have good range of motion with it. He is not recalling any sort of injury. He denies weakness or numbness of the arm. He denies fever or chills, cough or shortness of breath area no nausea, vomiting. MD Complaint: extremity pain Onset/Timin -: days(s) Location: right, upper extremity History of Same: No Severity scale (1-10): 10 Quality: aching Consistency: constant Improves with: nothing Worsens with: nothing Associated Symptoms: denies other symptoms - Related Data Home Medications Medication Instructions Recorded Confirmed Ascorbic Acid [Vitamin C] 500 mg PO DAILY 07/25/15 03/21/18 Aspirin [Adult Low Dose Aspirin EC] 81 mg PO DAILY 07/25/15 03/21/18 Atenolol 25 mg PO DAILY 07/25/15 03/21/18 Atorvastatin [Lipitor] 40 mg PO HS 07/25/15 03/21/18 Levothyroxine Sodium [Synthroid] 100 mcg PO DAILY 07/25/15 03/21/18 Multivitamin [Men's Multi-Vitamin] 1 each PO DAILY 07/25/15 03/21/18 Alendronate Sodium [Fosamax] 70 mg PO TU 03/21/18 03/21/18 Calcium Carbonate/Vitamin D3 1 tab PO DAILY 03/21/18 03/21/18 [Calcium 600-Vit D3 400 Caplet] Cyclobenzaprine [Flexeril] 10 mg PO TID 03/21/18 03/21/18 Gabapentin [Neurontin] 300 mg PO TID 03/21/18 03/21/18 Meloxicam [Mobic] 7.5 mg PO BID 03/21/18 03/21/18 Multivitamins, Thera [Multivitamin 1 tab PO DAILY 03/21/18 03/21/18 (formulary)] [place] 3-6-9 1 cap PO DAILY 03/21/18 03/21/18 diphenhydrAMINE [Benadryl] 25 mg PO QID PRN 03/21/18 03/21/18 Allergies Allergy/AdvReac Type Severity Reaction Status Date / Time No Known Allergies Allergy Verified 03/21/18 11:48 Review of Systems ROS Statement: Those systems with pertinent positive or pertinent negative responses have been documented in the HPI. ROS Other: All systems not noted in ROS Statement are negative. Constitutional: Denies: fever, chills, weakness Respiratory: Denies: cough, dyspnea Cardiovascular: Reports: as per HPI, chest pain. Denies: palpitations, edema, syncope Gastrointestinal: Denies: abdominal pain, nausea, vomiting Genitourinary: Denies: dysuria Musculoskeletal: Denies: back pain Skin: Denies: rash Neurological: Denies: headache, weakness, numbness Past Medical History Past Medical History: Coronary Artery Disease (CAD), Cancer, Chest Pain / Angina, Hearing Disorder / Deafness, Hyperlipidemia, Hypertension, Osteoarthrit is (OA), Thyroid Disorder Additional Past Medical History / Comment(s): LUNG CA History of Any Multi-Drug Resistant Organisms: None Reported Past Surgical History: Cholecystectomy, Heart Catheterization With Stent, Joint Replacement Additional Past Surgical History / Comment(s): LUNG RESECTION TOP OF LEFT LUNG, LEFT WRIST ORIF 2007, HIP X 2 LEFT HIP, Past Anesthesia/Blood Transfusion Reactions: No Reported Reaction Date of Last Stent Placement:: Past Psychological History: No Psychological Hx Reported Smoking Status: Current every day smoker Past Alcohol Use History: None Reported, Rare Past Drug Use History: None Reported General Exam Limitations: no limitations General appearance: alert, in no apparent distress Head exam: Present: atraumatic, normocephalic Eye exam: Present: normal appearance. Absent: scleral icterus, conjunctival injection Neck exam: Present: normal inspection, full ROM. Absent: tenderness Respiratory exam: Present: normal lung sounds bilaterally. Absent: respiratory distress, wheezes, rales, rhonchi, stridor Cardiovascular Exam: Present: regular rate, normal rhythm, normal heart sounds. Absent: systolic murmur, diastolic murmur, rubs, gallop GI/Abdominal exam: Present: soft. Absent: distended, tenderness, guarding, rebound, mass Extremities exam: Present: normal inspection, full ROM, normal capillary refill. Absent: tenderness Neurological exam: Present: alert. Absent: motor sensory deficit Skin exam: Present: warm, dry, intact, normal color. Absent: rash Course Vital Signs 05/17/19 05/17/19 05/17/19 05:26 06:30 07:15 Temperature 97.8 F Pulse Rate 71 72 Respiratory 22 18 18 Rate Blood Pressure 178/91 138/80 Blood Pressure 124/83 [Left Arm] Blood Pressure 118/77 [Right Arm] O2 Sat by Pulse 95 97 Oximetry Medical Decision Making - Lab Data Result diagrams: 05/17/19 06:05 05/17/19 06:05 Lab Results 05/17/19 05/17/19 05/17/19 Range/Units 06:05 06:05 06:05 WBC 14.0 H (3.8-10.6) k/uL RBC 3.70 L (4.30-5.90) m/uL Hgb 11.4 L (13.0-17.5) gm/dL Hct 34.2 L (39.0-53.0) % MCV 92.4 (80.0-100.0) fL MCH 30.9 (25.0-35.0) pg MCHC 33.4 (31.0-37.0) g/dL RDW 13.0 (11.5-15.5) % Plt Count 197 (150-450) k/uL Neutrophils % 83 % Lymphocytes % 7 % Monocytes % 7 % Eosinophils % 2 % Basophils % 1 % Neutrophils # 11.6 H (1.3-7.7) k/uL Lymphocytes # 1.0 (1.0-4.8) k/uL Monocytes # 0.9 (0-1.0) k/uL Eosinophils # 0.3 (0-0.7) k/uL Basophils # 0.1 (0-0.2) k/uL D-Dimer 5.26 H (<0.60) mg/L FEU Sodium 134 L (137-145) mmol/L Potassium 4.4 (3.5-5.1) mmol/L Chloride 100 (98-107) mmol/L Carbon Dioxide 25 (22-30) mmol/L Anion Gap 9 mmol/L BUN 18 (9-20) mg/dL Creatinine 0.69 (0.66-1.25) mg/dL Est GFR (CKD-EPI)AfAm >90 (>60 ml/min/1.73 sqM) Est GFR (CKD-EPI)NonAf >90 (>60 ml/min/1.73 sqM) Glucose 85 (74-99) mg/dL Calcium 8.5 (8.4-10.2) mg/dL Total Bilirubin 0.7 (0.2-1.3) mg/dL AST 42 (17-59) U/L ALT 27 (4-49) U/L Alkaline Phosphatase 125 (38-126) U/L Troponin I (0.000-0.034) ng/mL C-Reactive Protein 57.7 H (<10.0) mg/L Total Protein 7.1 (6.3-8.2) g/dL Albumin 3.6 (3.5-5.0) g/dL 05/17/19 Range/Units 06:05 WBC (3.8-10.6) k/uL RBC (4.30-5.90) m/uL Hgb (13.0-17.5) gm/dL Hct (39.0-53.0) % MCV (80.0-100.0) fL MCH (25.0-35.0) pg MCHC (31.0-37.0) g/dL RDW (11.5-15.5) % Plt Count (150-450) k/uL Neutrophils % % Lymphocytes % % Monocytes % % Eosinophils % % Basophils % % Neutrophils # (1.3-7.7) k/uL Lymphocytes # (1.0-4.8) k/uL Monocytes # (0-1.0) k/uL Eosinophils # (0-0.7) k/uL Basophils # (0-0.2) k/uL D-Dimer (<0.60) mg/L FEU Sodium (137-145) mmol/L Potassium (3.5-5.1) mmol/L Chloride (98-107) mmol/L Carbon Dioxide (22-30) mmol/L Anion Gap mmol/L BUN (9-20) mg/dL Creatinine (0.66-1.25) mg/dL Est GFR (CKD-EPI)AfAm (>60 ml/min/1.73 sqM) Est GFR (CKD-EPI)NonAf (>60 ml/min/1.73 sqM) Glucose (74-99) mg/dL Calcium (8.4-10.2) mg/dL Total Bilirubin (0.2-1.3) mg/dL AST (17-59) U/L ALT (4-49) U/L Alkaline Phosphatase (38-126) U/L Troponin I 0.018 (0.000-0.034) ng/mL C-Reactive Protein (<10.0) mg/L Total Protein (6.3-8.2) g/dL Albumin (3.5-5.0) g/dL - EKG Data -: EKG Interpreted by Nv EKG shows normal: sinus rhythm, axis (Normal), intervals (Normal), QRS complexes (Normal), ST-T waves (Normal) Rate: normal (Rate 67 bpm) Interpretation: LVH (Voltage criteria) Disposition Clinical Impression: Pain, arm, right, Lung mass Disposition: HOME SELF-CARE Condition: Fair Instructions (If sedation given, give patient instructions): Arm Pain (ED), Lung Cancer (DC) Is patient prescribed a controlled substance at d/c from ED?: No Referrals: [facility],Clinic [Primary Care Provider] - 1-2 days Keith Grace MD [STAFF PHYSICIAN] - 1-2 days
[2019-05-17 06:22] LABS: Basophils # (A) 0.1 k/uL (0-0.2); Basophils % (A) 1 %; Eosinophils # (A) 0.3 k/uL (0-0.7); Eosinophils % (A) 2 %; HCT 34.2 % (39.0-53.0); HGB 11.4 gm/dL (13.0-17.5); Lymphocytes % (A) 7 %; MCH 30.9 pg (25.0-35.0); MCHC 33.4 g/dL (31.0-37.0); MCV 92.4 fL (80.0-100.0); Mean Platelet Volume 9.4; Monocytes # (A) 0.9 k/uL (0-1.0); Monocytes % (A) 7 %; Neutrophils # (A) 11.6 k/uL (1.3-7.7); Neutrophils % (A) 83 %; Platelet Count 197 k/uL (150-450)
[2019-05-17 06:30] LABS: ALT 27 U/L (4-49); AST 42 U/L (17-59); African American GFR (CKD) >90 (>60 ml/min/1.73 sqM); Albumin 3.6 g/dL (3.5-5.0); Alkaline Phosphatase 125 U/L (38-126); Anion Gap 9 mmol/L; Blood Urea Nitrogen 18 mg/dL (9-20); C Reactive Protein 57.7 mg/L (<10.0); Calcium 8.5 mg/dL (8.4-10.2); Carbon Dioxide 25 mmol/L (22-30); Chloride 100 mmol/L (98-107); Glucose 85 mg/dL (74-99); Non-African American GFR(CKD) >90 (>60 ml/min/1.73 sqM); Potassium 4.4 mmol/L (3.5-5.1); Sodium 134 mmol/L (137-145); Total Bilirubin 0.7 mg/dL (0.2-1.3); Total Protein 7.1 g/dL (6.3-8.2)
[2019-05-17 07:02] VITALS: PULSE 72; RESP 18
[2019-05-17] MEDS ORDERED: KETOROLAC 30 MG/ML 1 ML VIAL IVP STA (07:12)
[2019-05-17] MEDS ORDERED: HYDROmorphone 0.5 MG/0.5 ML SYRINGE IVP STA (07:12)
--- NOTE | 2019-05-17 07:32 | CT ---
EXAMINATION TYPE: CT chest angio for PE DATE OF EXAM: 05/17/2019 COMPARISON: HISTORY: Shortness of breath and Right arm pain CT DLP: 621.8 mGycm CONTRAST: CT chest with contrast and 3D reconstruction with MIP imaging is performed with IV Contrast, patient injected with 125 mL of Isovue 370. Contrast-enhanced CT of the chest was performed through the course of the pulmonary arteries with michelle g and mediastinal window settings submitted. 3D reconstruction with MIP imaging was also performed. PULMONARY ARTERIES: The pulmonary arteries and their major tributaries are patent. I do not see david dence for sizable filling defect to suggest pulmonary embolic process. LUNGS: 3.4 cm right lower lobe pleural-based mass posteriorly. 7 mm right middle lobe pulmonary nodul e. 5 mm left upper lobe pleural-based pulmonary nodule. Left upper lobe pulmonary nodule posteriorly measuring 1.2 cm. 7 mm right upper lobe pulmonary nodule as well as a 4 mm right apical pulmonary nod ule. There are underlying emphysematous change. Scattered subpleural fibrosis. MEDIASTINUM: Perihilar peribronchial lymph nodes identified. Thoracic aorta is of normal caliber,how ever, evaluation is limited given timing of the contrast bolus. If there is concern for thoracic aor tic pathology consider YOLY. Correlate clinically . The heart is not enlarged. No evidence for media stinal mass. No mediastinal lymph nodes greater than 1cm. HILAR STRUCTURES: No evidence for mass. No hilar lymph nodes greater than 1 cm. UPPER ABDOMEN: Left adrenal mass measuring 4.1 cm suspicious for metastatic disease. IMPRESSION: 1. No evidence for Pulmonary embolism at this time. 2. Dominant pleural-based mass right lower lobe with scattered bilateral pulmonary nodules as well as left adrenal mass suspicious for primary pulmonary malignancy with metastatic disease.
[2019-05-17] MEDS ORDERED: NITROGLYCERIN SL TABS 0.4 MG TAB SUBLINGUAL PRN (07:48)
--- NOTE | 2019-05-17 07:59 | CT ---
EXAMINATION TYPE: CT angio upper extremity RT DATE OF EXAM: 05/17/2019 7:31 AM COMPARISON: None HISTORY: Shortness of breath and Right arm pain CT DLP: 621.8 mGycm Automated exposure control for dose reduction was used. TECHNIQUE: Performed with IV Contrast, patient injected with 125 mL of Isovue 370. Reconstruction imaging obtain ed at a separate workstation. . FINDINGS: The right subclavian, right axillary, brachial and deep brachial arteries are patent. There is poor o pacification of the radial and ulnar arteries at the level of the brachial bifurcation which may be t echnical in nature however high grade stenosis or thrombus difficult to exclude. Correlate clinically . Soft tissues are unremarkable. No evidence for fracture or osseous lesion. IMPRESSION: There is poor opacification of the radial and ulnar arteries at the level of the brachial bifurcation which may be technical in nature however high grade stenosis or thrombus difficult to exclude. Corre late clinically.
[2019-05-17] MEDS ORDERED: SODIUM CHLORIDE 0.9% 1,000 ML IV SCH (08:00)
[2019-05-17 08:20] VITALS: BP 115/72
[2019-05-18] MEDS ORDERED: ASPIRIN 325 MG TAB PO SCH (09:00)
== END 2019-05-17 08:23 | disposition home or self-care (01) ==
LOC: EC 05:25 → 3SCARD 07:48 → UNDOADMOB 07:48 → EC 08:23
DX: M79.601 Pain in right arm (principal); R91.8 Other nonspecific abnormal finding of lung field; M25.511 Pain in right shoulder; I25.119 Atherosclerotic heart disease of native coronary artery with unspecified angina pectoris; H91.90 Unspecified hearing loss, unspecified ear; E78.5 Hyperlipidemia, unspecified; I10 Essential (primary) hypertension; M19.90 Unspecified osteoarthritis, unspecified site; E07.9 Disorder of thyroid, unspecified; Z79.1 Long term (current) use of non-steroidal anti-inflammatories (NSAID); Z79.82 Long term (current) use of aspirin; Z79.890 Hormone replacement therapy; Z79.899 Other long term (current) drug therapy; Z85.118 Personal history of other malignant neoplasm of bronchus and lung; Z90.2 Acquired absence of lung [part of]; Z95.5 Presence of coronary angioplasty implant and graft; Z96.60 Presence of unspecified orthopedic joint implant
CPT/HCPCS: 36415; 93005; 85379; 80053; 84484; 85025; 86140; 71275; 73206; 99285; 96374; 96375 ×2; J2270; J1885; J1170; Q9967

== ENCOUNTER 2019-05-29 08:14 | Inpatient (IN) | payer OTHER, MEDICARE ==
[2019-05-29] MEDS ORDERED: HYDROmorphone 1 MG/ML 1 ML SYRINGE IVP STA (08:41)
--- NOTE | 2019-05-29 08:46 | ED ---
General Adult HPI - General Chief complaint: Extremity Injury, Upper Stated complaint: rt arm pain Time Seen by Provider: 05/29/19 08:20 Source: patient, family, RN notes reviewed, old records reviewed Mode of arrival: wheelchair Limitations: no limitations - History of Present Illness Initial comments: This is a 79-year-old male who presents emergency department with past medical history significant for lung cancer on the left side for which she had a lobectomy. Patient comes in today complaining of right arm pain for a little over 2 weeks. Patient states she was seen in emergency department 2 weeks ago and they did a CT of his chest and arm and they thought they might of found a new mass in his right lung. Patient states the arm pain is getting progressively worse. Patient states it starts in the shoulder and radiates down his arm patient states if he keeps in a certain position at his side it's a little better but movement makes it worse. He states his arm is also feeling numb. Patient denies any injury to the arm. Patient denies any fever chills per patient denies any shortness of breath or difficulty breathing. - Related Data Home Medications Medication Instructions Recorded Confirmed Ascorbic Acid [Vitamin C] 500 mg PO DAILY 07/25/15 03/21/18 Aspirin [Adult Low Dose Aspirin EC] 81 mg PO DAILY 07/25/15 03/21/18 Atenolol 25 mg PO DAILY 07/25/15 03/21/18 Atorvastatin [Lipitor] 40 mg PO HS 07/25/15 03/21/18 Levothyroxine Sodium [Synthroid] 100 mcg PO DAILY 07/25/15 03/21/18 Multivitamin [Men's Multi-Vitamin] 1 each PO DAILY 07/25/15 03/21/18 Alendronate Sodium [Fosamax] 70 mg PO TU 03/21/18 03/21/18 Calcium Carbonate/Vitamin D3 1 tab PO DAILY 03/21/18 03/21/18 [Calcium 600-Vit D3 400 Caplet] Cyclobenzaprine [Flexeril] 10 mg PO TID 03/21/18 03/21/18 Gabapentin [Neurontin] 300 mg PO TID 03/21/18 03/21/18 Meloxicam [Mobic] 7.5 mg PO BID 03/21/18 03/21/18 Multivitamins, Thera [Multivitamin 1 tab PO DAILY 03/21/18 03/21/18 (formulary)] [place] 3-6-9 1 cap PO DAILY 03/21/18 03/21/18 diphenhydrAMINE [Benadryl] 25 mg PO QID PRN 03/21/18 03/21/18 Allergies Allergy/AdvReac Type Severity Reaction Status Date / Time No Known Allergies Allergy Verified 03/21/18 11:48 Review of Systems ROS Statement: Those systems with pertinent positive or pertinent negative responses have been documented in the HPI. ROS Other: All systems not noted in ROS Statement are negative. Past Medical History Past Medical History: Coronary Artery Disease (CAD), Cancer, Chest Pain / Angina, Hearing Disorder / Deafness, Hyperlipidemia, Hypertension, Osteoarthritis (OA), Thyroid Disorder Additional Past Medical History / Comment(s): LUNG CA History of Any Multi-Drug Resistant Organisms: None Reported Past Surgical History: Cholecystectomy, Heart Catheterization With Stent, Joint Replacement Additional Past Surgical History / Comment(s): LUNG RESECTION TOP OF LEFT LUNG, LEFT WRIST ORIF 2007, HIP X 2 LEFT HIP, Past Anesthesia/Blood Transfusion Reactions: No Reported Reaction Date of Last Stent Placement:: Past Psychological History: No Psychological Hx Reported Smoking Status: Current every day smoker Past Alcohol Use History: None Reported, Rare Past Drug Use History: None Reported General Exam - General Exam Comments Initial Comments: GENERAL: Patient is well-developed and well-nourished. Patient is nontoxic and well- hydrated and is in moderate distress. ENT: Neck is soft and supple. No significant lymphadenopathy is noted. Neck has full range of motion without eliciting any pain. EYES: The sclera were anicteric and conjunctiva were pink and moist. Extraocular movements were intact and pupils were equal round and reactive to light. Eyelids were unremarkable. PULMONARY: Unlabored respirations. Good breath sounds bilaterally. No audible rales rhonchi or wheezing was noted. CARDIOVASCULAR: There is a regular rate and rhythm without any murmurs gallops or rubs. Patient has very good radial pulses ABDOMEN: Soft and nontender with normal bowel sounds. SKIN: Skin is clear with no lesions or rashes and otherwise unremarkable. NEUROLOGIC: Patient is alert and oriented x3. Cranial nerves II through XII are grossly intact. Motor and sensory are also intact. Normal speech, volume and content. Symmetrical smile. MUSCULOSKELETAL: Normal extremities with adequate strength and full range of motion. Patient's shoulders tender to palpation on the anterior aspect he does have full range of motion however he states it increases the pain. Patient states keeping his arm straight at his side seems to be the most comfortable. LYMPHATICS: No significant lymphadenopathy is noted PSYCHIATRIC: Normal psychiatric evaluation. Limitations: no limitations Course Vital Signs 05/29/19 05/29/19 08:17 09:50 Temperature 97.5 F L Pulse Rate 89 96 Respiratory 20 20 Rate Blood Pressure 137/79 123/86 O2 Sat by Pulse 97 99 Oximetry Medical Decision Making - Medical Decision Making CT of the brain shows no acute abnormality. CT of the C-spine shows severe compression fracture of C6. Patient has a very large white count of 31.9 thousand. Patient chest x-ray shows no acute abnormality. Spoke with because he wanted the patient admitted admitted the patient wrote admitting orders I started the patient on Decadron. - Lab Data Result diagrams: 05/29/19 08:51 05/29/19 08:51 Lab Results 05/29/19 05/29/19 05/29/19 Range/Units 08:51 08:51 09:45 WBC 31.9 H (3.8-10.6) k/uL RBC 4.26 L (4.30-5.90) m/uL Hgb 13.1 (13.0-17.5) gm/dL Hct 38.8 L (39.0-53.0) % MCV 91.0 (80.0-100.0) fL MCH 30.7 (25.0-35.0) pg MCHC 33.7 (31.0-37.0) g/dL RDW 13.1 (11.5-15.5) % Plt Count 302 (150-450) k/uL Neutrophils % (Manual) 85 % Band Neutrophils % 1 % Lymphocytes % (Manual) 6 % Monocytes % (Manual) 8 % Metamyelocytes % 1 % Neutrophils # (Manual) 27.40 H (1.3-7.7) k/uL Lymphocytes # (Manual) 1.91 (1.0-4.8) k/uL Monocytes # (Manual) 2.55 H (0-1.0) k/uL Metamyelocytes # (Man) 0.32 H (0) k/uL Nucleated RBCs 0 (0-0) /100 WBC Manual Slide Review Performed RBC Morphology Normal Sodium 130 L (137-145) mmol/L Potassium 4.4 (3.5-5.1) mmol/L Chloride 94 L (98-107) mmol/L Carbon Dioxide 27 (22-30) mmol/L Anion Gap 9 mmol/L BUN 34 H (9-20) mg/dL Creatinine 0.85 (0.66-1.25) mg/dL Est GFR (CKD-EPI)AfAm >90 (>60 ml/min/1.73 sqM) Est GFR (CKD-EPI)NonAf 83 (>60 ml/min/1.73 sqM) Glucose 93 (74-99) mg/dL Plasma Lactic Acid Jose (0.7-2.0) mmol/L Calcium 9.6 (8.4-10.2) mg/dL Total Bilirubin 0.5 (0.2-1.3) mg/dL AST 47 (17-59) U/L ALT 37 (4-49) U/L Alkaline Phosphatase 111 (38-126) U/L Total Protein 7.1 (6.3-8.2) g/dL Albumin 3.6 (3.5-5.0) g/dL Urine Color Yellow Urine Appearance Clear (Clear) Urine pH 5.5 (5.0-8.0) Ur Specific [place] 1.019 (1.001-1.035) Urine Protein Trace H (Negative) Urine Glucose (UA) Negative (Negative) Urine Ketones Negative (Negative) Urine Blood Negative (Negative) Urine Nitrite Negative (Negative) Urine Bilirubin Negative (Negative) Urine Urobilinogen 2.0 (<2.0) mg/dL Ur Leukocyte Esterase Negative (Negative) 05/29/19 Range/Units 09:45 WBC (3.8-10.6) k/uL RBC (4.30-5.90) m/uL Hgb (13.0-17.5) gm/dL Hct (39.0-53.0) % MCV (80.0-100.0) fL MCH (25.0-35.0) pg MCHC (31.0-37.0) g/dL RDW (11.5-15.5) % Plt Count (150-450) k/uL Neutrophils % (Manual) % Band Neutrophils % % Lymphocytes % (Manual) % Monocytes % (Manual) % Metamyelocytes % % Neutrophils # (Manual) (1.3-7.7) k/uL Lymphocytes # (Manual) (1.0-4.8) k/uL Monocytes # (Manual) (0-1.0) k/uL Metamyelocytes # (Man) (0) k/uL Nucleated RBCs (0-0) /100 WBC Manual Slide Review RBC Morphology Sodium (137-145) mmol/L Potassium (3.5-5.1) mmol/L Chloride (98-107) mmol/L Carbon Dioxide (22-30) mmol/L Anion Gap mmol/L BUN (9-20) mg/dL Creatinine (0.66-1.25) mg/dL Est GFR (CKD-EPI)AfAm (>60 ml/min/1.73 sqM) Est GFR (CKD-EPI)NonAf (>60 ml/min/1.73 sqM) Glucose (74-99) mg/dL Plasma Lactic Acid Jose 1.7 (0.7-2.0) mmol/L Calcium (8.4-10.2) mg/dL Total Bilirubin (0.2-1.3) mg/dL AST (17-59) U/L ALT (4-49) U/L Alkaline Phosphatase (38-126) U/L Total Protein (6.3-8.2) g/dL Albumin (3.5-5.0) g/dL Urine Color Urine Appearance (Clear) Urine pH (5.0-8.0) Ur Specific [place] (1.001-1.035) Urine Protein (Negative) Urine Glucose (UA) (Negative) Urine Ketones (Negative) Urine Blood (Negative) Urine Nitrite (Negative) Urine Bilirubin (Negative) Urine Urobilinogen (<2.0) mg/dL Ur Leukocyte Esterase (Negative) Disposition Clinical Impression: Compression fracture of C6 vertebra, Leukocytosis, Right arm pain Disposition: ADMITTED IP TO THIS [facility] Referrals: [facility],Clinic [Primary Care Provider] - 1-2 days Time of Disposition: 10:28
[2019-05-29 08:59] LABS: HCT 38.8 % (39.0-53.0); HGB 13.1 gm/dL (13.0-17.5); MCH 30.7 pg (25.0-35.0); MCHC 33.7 g/dL (31.0-37.0); Mean Platelet Volume 9.4; Platelet Count 302 k/uL (150-450); RBC 4.26 m/uL (4.30-5.90); RDW 13.1 % (11.5-15.5); WBC 31.9 k/uL (3.8-10.6)
[2019-05-29 09:12] LABS: Band Neutrophils % 1 %; Lymphocytes # (M) 1.91 k/uL (1.0-4.8); Metamyelocytes # (M) 0.32 k/uL (0); Metamyelocytes % 1 %; Monocytes # (M) 2.55 k/uL (0-1.0); Neutrophils % (M) 85 %; Nucleated Red Blood Cells 0 /100 WBC (0-0); Total Cells Counted 200
[2019-05-29 09:14] LABS: ALT 37 U/L (4-49); AST 47 U/L (17-59); African American GFR (CKD) >90 (>60 ml/min/1.73 sqM); Albumin 3.6 g/dL (3.5-5.0); Alkaline Phosphatase 111 U/L (38-126); Anion Gap 9 mmol/L; Blood Urea Nitrogen 34 mg/dL (9-20); Calcium 9.6 mg/dL (8.4-10.2); Carbon Dioxide 27 mmol/L (22-30); Chloride 94 mmol/L (98-107); Glucose 93 mg/dL (74-99); Non-African American GFR(CKD) 83 (>60 ml/min/1.73 sqM); Potassium 4.4 mmol/L (3.5-5.1); Sodium 130 mmol/L (137-145); Total Bilirubin 0.5 mg/dL (0.2-1.3); Total Protein 7.1 g/dL (6.3-8.2)
--- NOTE | 2019-05-29 09:27 | CT ---
EXAMINATION TYPE: CT brain rui galicia DATE OF EXAM: 05/29/2019 COMPARISON: 03/22/2018 HISTORY: Right arm pain, numbness, and weakness CT DLP: 1309.[address] of the brain was performed. The ventricles, basal cisterns and sulci overlying the cerebral convexities demonstrate mild enlargem ent. There is no evidence for intracranial hemorrhage or sulcal effacement. There is decreased attenuatio n about the periventricular white matter and deep white matter of both cerebral hemispheres, compatib le with chronic small vessel ischemia. No mass effects are seen. If symptoms persist consider MRI. Osseous calvarium is intact. IMPRESSION: 1. Age related atrophic and chronic small vessel ischemic change without acute intracranial process seen at this time. CT Cervical Spine: Unenhanced CT of the cervical spine was performed with bone and soft tissue window settings submitted . Coronal and sagittal reconstruction is obtained. There is severe compression fracture noted to involve the C6 vertebral segment with loss of height es timated at at least 90%. There is mild bony retropulsion noted of 3.9 mm. This fracture is of uncerta in age and/or etiology. Posterior elements appear to be intact. C2-3: Mild degenerative narrowing. No herniation central stenosis or foraminal encroachment. C3-4: Severe degenerative disc space narrowing. Posterior disc bulge with mild effacement ventral the myra sac. Bilateral foraminal encroachment. No central stenosis. C4-5: Mild degenerative narrowing. Mild posterior disc bulge. No herniation or central stenosis. Bila teral foraminal encroachment. C5-6: C6 fracture as above. Severe degenerative disc space narrowing. No herniation or central stenos is. Mild left foraminal encroachment. C6-7: Within normal limits C7-T1: Within normal limits IMPRESSION: 1. Severe compression fracture involving C6 of uncertain age and/or etiology with bony retropulsion o f 3.9 mm. No evidence for central stenosis or cord compression at this time. 2. Multilevel degenerative disc disease with disc bulging and foraminal encroachment as noted.
--- NOTE | 2019-05-29 10:15 | XR ---
EXAMINATION TYPE: XR chest 2V DATE OF EXAM: 05/29/2019 COMPARISON: 03/21/2018 HISTORY: Shortness of breath TECHNIQUE: Frontal and lateral views of the chest are obtained. FINDINGS: Scattered senescent parenchymal changes noted. Hyperinflation compatible with COPD. Stable underlying fibrosis without definite infiltrate. Nodular density left upper lobe and right mid lung zone. Heart size is stable. Mediastinal structures are stable and grossly unremarkable. No evidence for hilar prominence. Degenerative changes dorsal spine. Scoliosis thoracic spine. IMPRESSION: 1. Stable underlying fibrosis without definite infiltrate. Nodular density left upper lobe and right midlung zone.
[2019-05-29 10:19] LABS: Appearance,Urine Clear (Clear); Bilirubin,Urine Negative (Negative); Blood,Urine Negative (Negative); Color,Urine Yellow; Glucose,Urine (UA) Negative (Negative); Ketones,Urine Negative (Negative); Leukocyte Esterase,Urine Negative (Negative); Nitrite,Urine Negative (Negative); PH, Urine 5.5 (5.0-8.0); Protein,Urine Trace (Negative); Specific Gravity,Urine 1.019 (1.001-1.035)
[2019-05-29] MEDS ORDERED: DEXAMETHASONE SOD PHOSPHATE 10 MG/ML 1 ML VIAL IV STA (10:26)
[2019-05-29] MEDS ORDERED: SODIUM CHLORIDE 0.9% 1,000 ML IV ONE (10:28)
[2019-05-29] MEDS ORDERED: HYDROmorphone 0.5 MG/0.5 ML SYRINGE IVP STA (10:29)
[2019-05-29] MEDS: KETOROLAC 30 MG/ML 1 ML VIAL IVP PRN ×2 (13:45→23:48)
[2019-05-29] MEDS: FAMOTIDINE 20 MG TAB PO SCH ×2 (13:45→19:57)
--- NOTE | 2019-05-29 14:07 | P.HPIM ---
History of Present Illness 79-year-old male came in with complaints of severe pain in the right thumb has been going on for about 2 weeks unable to lift his arm with severe tingling numbness. Patient is unable to lift his right arm. Patient is comparing of s evere pain in the right arm. Patient had a recent CAT scan earlier this month which showed multiple pulmonary nodules along with the possible metastatic lesion in a dual gland. Patient has history of right lung cancer which was in remission. Patient denied any fever chills patient denied any Dysuria denied any shortness of breath patient had a CT, there is a compression fracture involving the C6 of uncertain age no evidence of central stenosis or Compression and multilevel degenerative disease was seen. I discuss with a spinal surgeon he recommended MRI with contrast which will be obtained. Review of Systems REVIEW OF SYSTEMS: CONSTITUTIONAL: No fever, no malaise, no fatigue. HEENT: No recent visual problems or hearing problems. Denied any sore throat. CARDIOVASCULAR: No chest pain, orthopnea, PND, no palpitations, no syncope. PULMONARY: No shortness of breath, no cough, no hemoptysis. GASTROINTESTINAL: No diarrhea, no nausea, no vomiting, no abdominal pain. NEUROLOGICAL: No headaches, no weakness, no numbness. HEMATOLOGICAL: Denies any bleeding or petechiae. GENITOURINARY: Denies any burning micturition, frequency, or urgency. MUSCULOSKELETAL/RHEUMATOLOGICAL: As mentioned in HPI ENDOCRINE: Denies any polyuria or polydipsia. The rest of the 14-point review of systems is negative. Past Medical History Past Medical History: Coronary Artery Disease (CAD), Cancer, Chest Pain / Angina, Hearing Disorder / Deafness, Hyperlipidemia, Hypertension, Osteoarthritis (OA), Thyroid Disorder Additional Past Medical History / Comment(s): LUNG CA History of Any Multi-Drug Resistant Organisms: None Reported Past Surgical History: Cholecystectomy, Heart Catheterization With Stent, Joint Replacement Additional Past Surgical History / Comment(s): LUNG RESECTION TOP OF LEFT LUNG, LEFT WRIST ORIF 2007, HIP X 2 LEFT HIP, Past Anesthesia/Blood Transfusion Reactions: No Reported Reaction Date of Last Stent Placement:: Past Psychological History: No Psychological Hx Reported Smoking Status: Current every day smoker Past Alcohol Use History: None Reported, Rare Additional Past Alcohol Use History / Comment(s): quit smoking 2008 Past Drug Use History: None Reported - Past Family History Father Family Medical History: AICD/Pacemaker Medications and Allergies Home Medications Medication Instructions Recorded Confirmed Type Ascorbic Acid [Vitamin C] 500 mg PO DAILY 07/25/15 05/29/19 History Aspirin [Adult Low Dose Aspirin EC] 81 mg PO DAILY 07/25/15 05/29/19 History Atenolol 25 mg PO DAILY 07/25/15 05/29/19 History Atorvastatin [Lipitor] 40 mg PO HS 07/25/15 05/29/19 History Alendronate Sodium [Fosamax] 70 mg PO TU 03/21/18 05/29/19 History Cyclobenzaprine [Flexeril] 10 mg PO TID 03/21/18 05/29/19 History Gabapentin [Neurontin] 300 mg PO TID 03/21/18 05/29/19 History Meloxicam [Mobic] 7.5 mg PO BID 03/21/18 05/29/19 History Multivitamins, Thera [Multivitamin 1 tab PO DAILY 03/21/18 05/29/19 History (formulary)] Albuterol Sulfate [Albuterol 1 puff PO RT-QID PRN 05/29/19 05/29/19 History Sulfate Hfa] Budesonide/Formoterol Fumarate 2 puff INHALATION RT-BID 05/29/19 05/29/19 History [Symbicort 160-4.5 Mcg Inhaler] Levothyroxine Sodium [Synthroid] 75 mcg PO DAILY 05/29/19 05/29/19 History Lidocaine 5% Patch [Lidoderm] 1 patch TOPICAL DAILY 05/29/19 05/29/19 History Allergies Allergy/AdvReac Type Severity Reaction Status Date / Time No Known Allergies Allergy Verified 05/29/19 13:03 Physical Exam Vitals: Vital Signs Temp Pulse Resp BP Pulse Ox 05/29/19 11:24 89 16 146/79 99 05/29/19 09:50 96 20 123/86 99 05/29/19 08:17 97.5 F L 89 20 137/79 97 Intake and Output 05/28/19 05/29/19 05/29/19 22:59 06:59 14:59 Other: Weight 64.864 kg PHYSICAL EXAMINATION: GENERAL: The patient is alert and oriented x3, not in any acute distress. Well developed, well nourished. HEENT: Pupils are round and equally reacting to light. EOMI. No scleral icterus. No conjunctival pallor. Normocephalic, atraumatic. No pharyngeal erythema. No thyromegaly. CARDIOVASCULAR: S1 and S2 present. No murmurs, rubs, or gallops. PULMONARY: Chest is clear to auscultation, no wheezing or crackles. ABDOMEN: Soft, nontender, nondistended, normoactive bowel sounds. No palpable organomegaly. MUSCULOSKELETAL: No joint swelling or deformity. EXTREMITIES: No cyanosis, clubbing, or pedal edema. Patient has pain tingling numbness in the right arm patient does have weakness strength of of around the 3/5 in the entire right arm. NEUROLOGICAL: Gross neurological examination did not reveal any focal deficits. SKIN: No rashes. Results CBC & Chem 7: 05/29/19 08:51 05/29/19 08:51 Labs: Abnormal Lab Results - Last 24 Hours (Table) 05/29/19 05/29/19 05/29/19 Range/Units 08:51 08:51 09:45 WBC 31.9 H (3.8-10.6) k/uL RBC 4.26 L (4.30-5.90) m/uL Hct 38.8 L (39.0-53.0) % Neutrophils # (Manual) 27.40 H (1.3-7.7) k/uL Monocytes # (Manual) 2.55 H (0-1.0) k/uL Metamyelocytes # (Man) 0.32 H (0) k/uL Sodium 130 L (137-145) mmol/L Chloride 94 L (98-107) mmol/L BUN 34 H (9-20) mg/dL Urine Protein Trace H (Negative) Thrombosis Risk Factor Assmnt - Choose All That Apply Any of the Below Risk Factors Present?: Yes Other Risk Factors: Yes Each Risk Factor Represents 3 Points: Age 75 years or older Thrombosis Risk Factor Assessment Total Risk Factor Score: 3 Thrombosis Risk Factor Assessment Level: Moderate Risk Assessment and Plan Plan: -Right arm pain weakness and numbness: CT showed compression fracture but there is no cord compression. We'll obtain an MRI to assess for any cord compression patient was given a dose of Decadron patient will be continued on Decadron and anti-inflammatory medications along with GI prophylaxis. spinal surgeon was consulted, there is a probability of the metastatic cancer to the spine. Patient symptoms has been going on for 2 weeks. -Hyponatremia possibly of hypomanic. Patient was started on IV fluids will also do workup for hyponatremia -Leukocytosis etiology is not clear no evidence of sepsis at this time patient will not be started on antibiotics we'll repeat the CBC tomorrow if he continues to have significant leukocytosis will need further workup for noninfectious causes of leukocytosis can be related to cancer patient apparently received some steroids because of his pain in the right arm may have contributed to some amount of leukocytosis patient has neutrophilic predominance -History of lung cancer in remission but patient has new pulmonary nodules along with the a suspicious lesion in the adrenal gland, consult pulmonary patient probably will need an outpatient bronchoscopy again -Coronary disease next and heparin hypertension Hyperlipidemia -Hypothyroidism For these chronic medical problems patient will be started on appropriate home medications
[2019-05-29] MEDS: CYCLOBENZAPRINE 10 MG TAB PO SCH ×2 (17:43→21:32)
[2019-05-29] MEDS: DEXAMETHASONE 4 MG TAB PO SCH ×2 (17:43→21:32)
[2019-05-29] MEDS: GABAPENTIN 300 MG CAP PO SCH ×2 (17:43→21:32)
[2019-05-29 18:09] LABS: Creatinine,Urine Random 39.5 mg/dL
[2019-05-29] MEDS: HYDROcodone/APAP 10-325MG 1 EACH TAB PO PRN (19:57)
[2019-05-29] MEDS: ATORVASTATIN 40 MG TAB PO SCH (19:57)
[2019-05-29] MEDS: HEPARIN SODIUM,PORCINE 5,000 UNIT/ML 1 ML VIAL SQ SCH (19:58)
--- NOTE | 2019-05-29 21:08 | P.CNPUL ---
History of Present Illness Consult date: 05/29/19 Reason for consult: lung mass History of present illness: 79-year-old male patient is being seen in consultation for lung mass. The patient is known to have history of lung cancer. The patient came into the hospital because of pain and numbness in his right upper extremity extending to his right thumb and this is been going on for the past 2 weeks to the point where the patient was unable to lift any objects because of the pain and numbnes s and tingling. His echo was elevated at 31. The calcium level is normal at 9.6. Lactic acid level at time of admission was 1.7. He had a CRP of 57.7 which is quite elevated and this is based on the previous blood work that was done on 05/17/2019. In the ED, the patient had a CAT scan of the brain that showed age-related atrophy and small vessel ischemic changes. An unenhanced CAT scan of the cervical spine also was done and it showed severe compression fracture of the C6 spine of an uncertain age/etiology with bony retropulsion of 3.5 mm. No evidence of any central canal stenosis or cord compression. Multilevel degenerative disc disease was seen with disc bulging and neurominal encroachment severe at the level of C3-C4 and there is also severe degenerative disc narrowing at the level of C5-C6. There is a 90% compression fracture of the T6 spine. Noted the patient was in the emergency department on 05/17/2023 with similar complaints of worsening shoulder and arm pain he was seen in emergency department and the patient underwent a CT angiogram of the upper extremity and it showed poor opacification of the radial and ulnar arteries at the level of the brachial bifurcation which was either technical in nature or high-grade stenosis/thrombosis which could not be completely ruled out. A CAT scan of the chest was also done utilizing a CT angios protocol and the CAT scan showed no evidence of any pulmonary embolism. Nevertheless, there were several for nodules, and a lung mass. There was a 3.4 cm right lower lobe pleural-based mass posteriorly in the right lower lobe area. There was another 7 mm right middle lobe pulmonary nodule, 5 mm left upper lobe pulmonary pleural-based nodule, 7 mm right upper lobe pulmonary nodule and a 4 mm right apical pulmonary nodule. There was extensive emphysema and some scattered subpleural fibrosis. The perihilar/peribronchial lymph nodes were identified. 4.1 cm suspicious lesion of the left adrenal gland was seen suspicious for metastases. This was a new finding monitor the patient's previous CAT scan from 03/22/2018 did not show any lung masses or nodules. There was however some scarring in the lung bases especially on the right in addition to emphysema and some elevation of left hemidiaphragm. S shaped scoliosis was also seen along with osseous demineralization. The patient is afebrile. The patient's pulse ox 99% on room air.: 19 evaluation was negative. Influenza A and B were negative. UA was negative. Review of Systems CONSTITUTIONAL: No fever, no malaise, no fatigue. HEENT: No recent visual problems or hearing problems. Denied any sore throat. CARDIOVASCULAR: No chest pain, orthopnea, PND, no palpitations, no syncope. PULMONARY: No shortness of breath, no cough, no hemoptysis. GASTROINTESTINAL: No diarrhea, no nausea, no vomiting, no abdominal pain. NEUROLOGICAL: No headaches, no weakness, no numbness. HEMATOLOGICAL: Denies any bleeding or petechiae. GENITOURINARY: Denies any burning micturition, frequency, or urgency. MUSCULOSKELETAL/RHEUMATOLOGICAL: As mentioned in HPI ENDOCRINE: Denies any polyuria or polydipsia. The rest of the 14-point review of systems is negative. Past Medical History Past Medical History: Coronary Artery Disease (CAD), Cancer, Chest Pain / Angina, COPD, Hearing Disorder / Deafness, Hyperlipidemia, Hypertension, Osteoarthritis (OA), Thyroid Disorder Additional Past Medical History / Comment(s): LUNG CA History of Any Multi-Drug Resistant Organisms: None Reported Past Surgical History: Cholecystectomy, Heart Catheterization With Stent, Joint Replacement Additional Past Surgical History / Comment(s): LUNG RESECTION TOP OF LEFT LUNG, LEFT WRIST ORIF 2007, HIP X 2 LEFT HIP, Past Anesthesia/Blood Transfusion Reactions: No Reported Reaction Date of Last Stent Placement:: Past Psychological History: No Psychological Hx Reported Smoking Status: Current every day smoker Past Alcohol Use History: None Reported, Rare Additional Past Alcohol Use History / Comment(s): quit smoking 2008 Past Drug Use History: None Reported - Past Family History Father Family Medical History: AICD/Pacemaker Medications and Allergies Home Medications Medication Instructions Recorded Confirmed Type Ascorbic Acid [Vitamin C] 500 mg PO DAILY 07/25/15 05/29/19 History Aspirin [Adult Low Dose Aspirin EC] 81 mg PO DAILY 07/25/15 05/29/19 History Atenolol 25 mg PO DAILY 07/25/15 05/29/19 History Atorvastatin [Lipitor] 40 mg PO HS 07/25/15 05/29/19 History Alendronate Sodium [Fosamax] 70 mg PO TU 03/21/18 05/29/19 History Cyclobenzaprine [Flexeril] 10 mg PO TID 03/21/18 05/29/19 History Gabapentin [Neurontin] 300 mg PO TID 03/21/18 05/29/19 History Meloxicam [Mobic] 7.5 mg PO BID 03/21/18 05/29/19 History Multivitamins, Thera [Multivitamin 1 tab PO DAILY 03/21/18 05/29/19 History (formulary)] Albuterol Sulfate [Albuterol 1 puff PO RT-QID PRN 05/29/19 05/29/19 History Sulfate Hfa] Budesonide/Formoterol Fumarate 2 puff INHALATION RT-BID 05/29/19 05/29/19 History [Symbicort 160-4.5 Mcg Inhaler] Levothyroxine Sodium [Synthroid] 75 mcg PO DAILY 05/29/19 05/29/19 History Lidocaine 5% Patch [Lidoderm] 1 patch TOPICAL DAILY 05/29/19 05/29/19 History Allergies Allergy/AdvReac Type Severity Reaction Status Date / Time No Known Allergies Allergy Verified 05/29/19 13:03 Physical Exam Vitals: Vital Signs Temp Pulse Pulse Resp BP BP Pulse Ox 05/29/19 15:00 97.8 F 91 18 136/85 95 05/29/19 11:55 16 05/29/19 11:24 89 16 146/79 99 05/29/19 09:50 96 20 123/86 99 05/29/19 08:17 97.5 F L 89 20 137/79 97 Intake and Output 05/29/19 05/29/19 05/29/19 06:59 14:59 22:59 Intake Total 400 Balance 400 Intake: Intake, IV Titration 150 Amount Sodium Chloride 0.9% 1, 150 000 ml @ 75 mls/hr IV . [id number] Rx#:[id number] Oral 250 Other: Weight 64.864 kg General: The patient is awake and alert, in no distress, and does not appear a cutely ill. Eye: Pupils are equal, round and reactive to light, extra-ocular movements are intact. No nystagmus. There is normal conjunctiva bilaterally. No signs of icterus. Ears, nose, mouth and throat: There are moist mucous membranes and no oral lesions. Neck: The neck is supple, there is no tenderness or JVD. Cardiovascular: There is a regular rate and rhythm. No murmur, rub or gallop is appreciated. Respiratory: Lungs are clear to auscultation, respirations are non-labored, b reath sounds are equal. No wheezes, stridor, rales, or rhonchi. Gastrointestinal: Soft, non-distended, non-tender abdomen without masses or organomegaly noted. There is no rebound or guarding present. No CVA tenderness. Bowel sounds are unremarkable. Musculoskeletal: Normal ROM, no tenderness. Strength s reduced in the right upper extremity. Sensation intact. Radial and DP pulses equal bilaterally 2+. Neurological: A&O x 3. CN II-XII intact, There are no obvious motor or sensory deficits. Coordination appears grossly intact. Speech is normal. Skin: Skin is warm and dry and no rashes or lesions are noted. No lower extremity edema, negative Homans bilaterally, Patient has pain tingling numbness in the right arm patient does have weakness strength of of around the 3/5 in the entire right arm. Psychiatric: Cooperative, appropriate mood & affect, normal judgment. NEUROLOGICAL: Gross neurological examination did not reveal any focal deficits. Examination of the skin revealed no evidence of significant rashes, suspicious appearing nevi or other concerning lesions. Results - Laboratory Findings CBC and BMP: 05/29/19 08:51 05/29/19 08:51 ABG WBC 31.9 k/uL (3.8-10.6) H 05/29/19 08:51 RBC 4.26 m/uL (4.30-5.90) L 05/29/19 08:51 Hgb 13.1 gm/dL (13.0-17.5) 05/29/19 08:51 Hct 38.8 % (39.0-53.0) L 05/29/19 08:51 MCV 91.0 fL (80.0-100.0) 05/29/19 08:51 MCH 30.7 pg (25.0-35.0) 05/29/19 08:51 MCHC 33.7 g/dL (31.0-37.0) 05/29/19 08:51 RDW 13.1 % (11.5-15.5) 05/29/19 08:51 Plt Count 302 k/uL (150-450) 05/29/19 08:51 Neutrophils % (Manual) 85 % 05/29/19 08:51 Band Neutrophils % 1 % 05/29/19 08:51 Lymphocytes % (Manual) 6 % 05/29/19 08:51 Monocytes % (Manual) 8 % 05/29/19 08:51 Metamyelocytes % 1 % 05/29/19 08:51 Neutrophils # (Manual) 27.40 k/uL (1.3-7.7) H 05/29/19 08:51 Lymphocytes # (Manual) 1.91 k/uL (1.0-4.8) 05/29/19 08:51 Monocytes # (Manual) 2.55 k/uL (0-1.0) H 05/29/19 08:51 Metamyelocytes # (Man) 0.32 k/uL (0) H 05/29/19 08:51 Nucleated RBCs 0 /100 WBC (0-0) 05/29/19 08:51 Manual Slide Review Performed 05/29/19 08:51 RBC Morphology Normal 05/29/19 08:51 Sodium 130 mmol/L (137-145) L 05/29/19 08:51 Potassium 4.4 mmol/L (3.5-5.1) 05/29/19 08:51 Chloride 94 mmol/L (98-107) L 05/29/19 08:51 Carbon Dioxide 27 mmol/L (22-30) 05/29/19 08:51 Anion Gap 9 mmol/L 05/29/19 08:51 BUN 34 mg/dL (9-20) H 05/29/19 08:51 Creatinine 0.85 mg/dL (0.66-1.25) 05/29/19 08:51 Est GFR (CKD-EPI)AfAm >90 (>60 ml/min/1.73 sqM) 05/29/19 08:51 Est GFR (CKD-EPI)NonAf 83 (>60 ml/min/1.73 sqM) 05/29/19 08:51 Glucose 93 mg/dL (74-99) 05/29/19 08:51 Osmolality 275 mosm/kg (280-301) L 05/29/19 08:51 Plasma Lactic Acid Jose 1.7 mmol/L (0.7-2.0) 05/29/19 09:45 Calcium 9.6 mg/dL (8.4-10.2) 05/29/19 08:51 Total Bilirubin 0.5 mg/dL (0.2-1.3) 05/29/19 08:51 AST 47 U/L (17-59) 05/29/19 08:51 ALT 37 U/L (4-49) 05/29/19 08:51 Alkaline Phosphatase 111 U/L (38-126) 05/29/19 08:51 Total Protein 7.1 g/dL (6.3-8.2) 05/29/19 08:51 Albumin 3.6 g/dL (3.5-5.0) 05/29/19 08:51 Urine Color Yellow 05/29/19 09:45 Urine Appearance Clear (Clear) 05/29/19 09:45 Urine pH 5.5 (5.0-8.0) 05/29/19 09:45 Ur Specific [place]ke 1.019 (1.001-1.035) 05/29/19 09:45 Urine Protein Trace (Negative) H 05/29/19 09:45 Urine Glucose (UA) Negative (Negative) 05/29/19 09:45 Urine Ketones Negative (Negative) 05/29/19 09:45 Urine Blood Negative (Negative) 05/29/19 09:45 Urine Nitrite Negative (Negative) 05/29/19 09:45 Urine Bilirubin Negative (Negative) 05/29/19 09:45 Urine Urobilinogen 2.0 mg/dL (<2.0) 05/29/19 09:45 Ur Leukocyte Esterase Negative (Negative) 05/29/19 09:45 Coronavirus (PCR) Not Detected (Not Detectd) 05/29/19 09:50 Influenza Type A RNA Not Detected (Not Detectd) 05/29/19 09:50 Influenza Type B (PCR) Not Detected (Not Detectd) 05/29/19 09:50 Abnormal lab findings: Abnormal Labs 05/29/19 05/29/19 05/29/19 08:51 08:51 08:51 WBC 31.9 H RBC 4.26 L Hct 38.8 L Neutrophils # (Manual) 27.40 H Monocytes # (Manual) 2.55 H Metamyelocytes # (Man) 0.32 H Sodium 130 L Chloride 94 L BUN 34 H Osmolality 275 L Urine Protein 05/29/19 09:45 WBC RBC Hct Neutrophils # (Manual) Monocytes # (Manual) Metamyelocytes # (Man) Sodium Chloride BUN Osmolality Urine Protein Trace H - Diagnostic Findings Chest x-ray: image reviewed CT scan - chest: image reviewed Assessment and Plan Plan: 1 right upper extremity weakness/pain under investigation. Preliminary evaluation with a CAT scan of the cervical spine showed C6 vertebral body compression fracture, at least 90% with a mild bony retropulsion noted to be around 3.5 mm in size and the patient has severe degenerative disc space narrowing at the level of C3-C4 with posterior disc bulge with mild effacement and bilateral foraminal encroachment and C5-C6 without any herniation or canal stenosis. Presence of leukocytosis is obviously raises the concern for infec tion along with an elevated CRP. Possibility of malignancy involving the C- spine with secondary compression cannot be ruled out knowing that the patient has several pulmonary lesions. The patient has severe degenerative disc disease along with posterior disc bulge at the level of C3-C4. 2 right lower lobe mass, pleural based measuring 3.9 cm in addition to several other smaller pulmonary nodules scattered focal lung mahan bilaterally in addition to a left adrenal mass, consider metastatic lung cancer/malignancy. 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 pulmonary fibrosis 6 coronary artery disease with previous coronary stenting 7 S scoliosis of the thoracolumbar spine 8 hyperlipidemia 9 hypertension 11 hypothyroidism 12 impaired hearing Plan MRI of the cervical thoracic spine Spine surgery consultation Decadron for the next 24 hours pending MRI of the spine Regarding the lung masses,the most accessible lung mass for biopsy the mass in the right lower lobe which has a pleural-based location. We'll discuss with interventional radiologist the possibility of obtaining a fine-needle aspirate of this mass for tissue diagnosis. There is an increased likelihood of metastatic lung cancer as the patient has several scattered pulmonary nodules in addition to aadrenal mass which could be potentially malignant. Monitor the white countand check a calcitonin level Monitor the sodium level as the patient has a mild degree of hyponatremia. Rule out SIADH Resume home medications We'll continue to follow
[2019-05-29] MEDS: ALBUTEROL HFA INHALER INHALATION PRN (21:32)
[2019-05-29] MEDS: SYMBICORT 160-4.5 MCG INHALER INHALATION SCH (21:32)
[2019-05-30] MEDS: HYDROcodone/APAP 10-325MG 1 EACH TAB PO PRN (02:41)
[2019-05-30] MEDS: KETOROLAC 30 MG/ML 1 ML VIAL IVP PRN (06:13)
[2019-05-30] MEDS: LEVOTHYROXINE 75 MCG TAB PO SCH (06:13)
[2019-05-30] MEDS: ALBUTEROL HFA INHALER INHALATION PRN ×4 (08:00→19:27)
[2019-05-30] MEDS: SYMBICORT 160-4.5 MCG INHALER INHALATION SCH ×2 (08:00→19:27)
[2019-05-30] MEDS: CYCLOBENZAPRINE 10 MG TAB PO SCH ×3 (08:21→21:53)
[2019-05-30] MEDS: DEXAMETHASONE 4 MG TAB PO SCH ×2 (08:21→16:28)
[2019-05-30] MEDS: ATENOLOL 25 MG TAB PO SCH (08:21)
[2019-05-30] MEDS: ASPIRIN 81 MG PO SCH (08:21)
[2019-05-30] MEDS: HEPARIN SODIUM,PORCINE 5,000 UNIT/ML 1 ML VIAL SQ SCH ×2 (08:21→21:53)
[2019-05-30] MEDS: GABAPENTIN 300 MG CAP PO SCH ×3 (08:21→21:53)
[2019-05-30] MEDS: FAMOTIDINE 20 MG TAB PO SCH ×2 (08:21→21:53)
[2019-05-30] MEDS: LIDOCAINE 5% PATCH TOPICAL SCH (08:22)
[2019-05-30 08:57] LABS: African American GFR (CKD) >90 (>60 ml/min/1.73 sqM); Anion Gap 9 mmol/L; Blood Urea Nitrogen 28 mg/dL (9-20); Calcium 9.3 mg/dL (8.4-10.2); Carbon Dioxide 29 mmol/L (22-30); Chloride 94 mmol/L (98-107); Glucose 99 mg/dL (74-99); Non-African American GFR(CKD) 83 (>60 ml/min/1.73 sqM); Potassium 4.5 mmol/L (3.5-5.1); Sodium 132 mmol/L (137-145)
[2019-05-30 09:14] LABS: HCT 38.7 % (39.0-53.0); HGB 12.6 gm/dL (13.0-17.5); MCH 30.5 pg (25.0-35.0); MCHC 32.5 g/dL (31.0-37.0); MCV 93.7 fL (80.0-100.0); Mean Platelet Volume 9.8; Platelet Count 277 k/uL (150-450); RBC 4.13 m/uL (4.30-5.90); RDW 13.2 % (11.5-15.5); WBC 31.1 k/uL (3.8-10.6)
--- NOTE | 2019-05-30 09:44 | P.CNOR ---
History of Present Illness - HPI Consult date: 05/30/19 Consult reason: neck pain, other History of present illness: Patient is a pleasant 79-year-old male his seen and examined today at bedside in regards to his neck pain and upper extremity weakness. Patient says that he's been having weakness in his arms for the past few weeks. He says that he noticed it more on his right side the left. He denies any specific trauma or injury. He says he did not have prior problems in his upper extremities in the past. He initially presented to his primary care physician in the hospital and was started on some medication and some steroid. He says the treatment did not give him significant improvement and presented to the hospital. He denies any fevers or chills. He denies any night sweats denies any coughing. He says that he does have history of lung cancer for the past. He denies any problems walking. Denies any changes in his lower extremities. Denies any weakness in his lower extremity. Denies any changes in bowel bladder function. The majority of his symptoms are at the base of his neck and extending over his right shoulder and down his right arm. He also has numbness tingling in his left upper extremity. He says his right arm is worse the left. He says he feels weak in the right arm. Review of Systems As stated in HPI. He denies any fevers chills. Denies any persistent cough. Denies any acute trauma. Denies any recent injury or falls. Past Medical History Past Medical History: Coronary Artery Disease (CAD), Cancer, Chest Pain / Angina, COPD, Hearing Disorder / Deafness, Hyperlipidemia, Hypertension, Osteoarthritis (OA), Thyroid Disorder Additional Past Medical History / Comment(s): LUNG CA History of Any Multi-Drug Resistant Organisms: None Reported Past Surgical History: Cholecystectomy, Heart Catheterization With Stent, Joint Replacement Additional Past Surgical History / Comment(s): LUNG RESECTION TOP OF LEFT LUNG, LEFT WRIST ORIF 2007, HIP X 2 LEFT HIP, Past Anesthesia/Blood Transfusion Reactions: No Reported Reaction Date of Last Stent Placement:: Past Psychological History: No Psychological Hx Reported Smoking Status: Current every day smoker Past Alcohol Use History: None Reported, Rare Additional Past Alcohol Use History / Comment(s): quit smoking 2008 Past Drug Use History: None Reported - Past Family History Father Family Medical History: AICD/Pacemaker Medications and Allergies Home Medications Medication Instructions Recorded Confirmed Type Ascorbic Acid [Vitamin C] 500 mg PO DAILY 07/25/15 05/29/19 History Aspirin [Adult Low Dose Aspirin EC] 81 mg PO DAILY 07/25/15 05/29/19 History Atenolol 25 mg PO DAILY 07/25/15 05/29/19 History Atorvastatin [Lipitor] 40 mg PO HS 07/25/15 05/29/19 History Alendronate Sodium [Fosamax] 70 mg PO TU 03/21/18 05/29/19 History Cyclobenzaprine [Flexeril] 10 mg PO TID 03/21/18 05/29/19 History Gabapentin [Neurontin] 300 mg PO TID 03/21/18 05/29/19 History Meloxicam [Mobic] 7.5 mg PO BID 03/21/18 05/29/19 History Multivitamins, Thera [Multivitamin 1 tab PO DAILY 03/21/18 05/29/19 History (formulary)] Albuterol Sulfate [Albuterol 1 puff PO RT-QID PRN 05/29/19 05/29/19 History Sulfate Hfa] Budesonide/Formoterol Fumarate 2 puff INHALATION RT-BID 05/29/19 05/29/19 History [Symbicort 160-4.5 Mcg Inhaler] Levothyroxine Sodium [Synthroid] 75 mcg PO DAILY 05/29/19 05/29/19 History Lidocaine 5% Patch [Lidoderm] 1 patch TOPICAL DAILY 05/29/19 05/29/19 History Allergies Allergy/AdvReac Type Severity Reaction Status Date / Time No Known Allergies Allergy Verified 05/29/19 13:03 Physical Examination Osteopathic Statement: *. No significant issues noted on an osteopathic structural exam other than those noted in the History and Physical/Consult. - C Spine: dermatomal strength & reflexes bilateral Strength: assistant professor of religion: 3/5 (At his neck is nontender to palpation posteriorly. He holds his neck in some flexion. He is able to move his head around pretty well. He is able to extend and look up and down side to side without significant tracey n. His upper extremities he is able to lift his arms up over his head but he is some weakness at the right shoulder about 4 out of 5 abduction. At his right upper extremity his assistant professor of religion is about 3 out of 5 his biceps is about 3 out of 5 his triceps is 2-3 out of 5. Left side has 5 out of 5 strength. He has no hyperreflexia. He does not have clonus in his upper extremity. His skin is intact. His neck his scans intact there is no erythema there is no swelling.) Results - Labs Labs: Abnormal Lab Results - Last 24 Hours (Table) 05/29/19 05/29/19 05/29/19 Range/Units 08:51 08:51 09:45 WBC (3.8-10.6) k/uL RBC (4.30-5.90) m/uL Hgb (13.0-17.5) gm/dL Hct (39.0-53.0) % Sodium (137-145) mmol/L Chloride (98-107) mmol/L BUN (9-20) mg/dL Osmolality 275 L (280-301) mosm/kg C-Reactive Protein 18.4 H (<10.0) mg/L Urine Protein Trace H (Negative) 05/30/19 05/30/19 Range/Units 08:04 08:04 WBC 31.1 H (3.8-10.6) k/uL RBC 4.13 L (4.30-5.90) m/uL Hgb 12.6 L (13.0-17.5) gm/dL Hct 38.7 L (39.0-53.0) % Sodium 132 L (137-145) mmol/L Chloride 94 L (98-107) mmol/L BUN 28 H (9-20) mg/dL Osmolality (280-301) mosm/kg C-Reactive Protein (<10.0) mg/L Urine Protein (Negative) H & H 05/29/19 05/30/19 Range/Units 08:51 08:04 Hgb 13.1 12.6 L (13.0-17.5) gm/dL Hct 38.8 L 38.7 L (39.0-53.0) % Result Diagrams: 05/30/19 08:04 05/30/19 08:04 - Diagnostic results CT scan - cervical: image reviewed (He had a computed tomography scan of his head and neck and reviewed in terms of his cervical spine. There is evidence of compression deformity at C6 with about 70% height loss. There may be some bony change posteriorly with some posterior protrusion possibly to 3 mm. There is significant disc height loss at C3 4.) Assessment and Plan Assessment: C6 compression fracture, possible pathologic Right lower extremity weakness, acute Bilateral upper extremity radiculopathy History of lung CA Neck pain C3 4 degenerative disc disease Plan: C6 compression fracture, possible pathologic Right lower extremity weakness, acute Bilateral upper extremity radiculopathy History of lung CA Neck pain C3 4 degenerative disc disease The patient has new weakness in his right upper extremity and is having radiculopathy bilaterally. His computed tomography scan shows evidence of a C6 compression fracture which based on his history appears to be pathologic. He denies any specific trauma or injury. He needs to have a MRI scan as soon as possible to fully delineate the possible extent of the neural compression and to Identify If There Is a Pathologic Process at the Site Itself. He Is Scheduled to Undergo an MRI Today. If there is significant compression on his cord we will have consider acute intervention for decompression and likely fusion. With his new weakness he has significant potential of worsening rapidly if there is significant compression left untreated. He is having minimal improvement despite IV steroids and medication. We placed him in a hard cervical collar to help protect his cervical spine and I helped him with fitting today at the bedside. Hopefully the MRI we'll able to be completed today and I'll be able to review it later today for possible planning. We would consider surgery as early as tomorrow if the MRI shows significant compression and he were to get cleared. He may be a candidate for anterior cervical decompression with corpectomy of C6 and fusion from C5 to 7. I discussed the possibility of surgery with him and he understands. I discussed the risks, patient alternatives benefits of surgery including but not limited to the risk of bleeding risk of infection risk and need for further surgery risk of decreased loss of motion loss function malunion nonunion hardware failure neural damage paralysis heart attack blindness and as well as fact that surgery may not alleviate his symptoms was explained to him. Answered his questions and he is interested in proceeding. We will follow the results of the MRI and have further recommendations to follow. I will go ahead and make him nothing by mouth after midnight tonight. Time with Patient: Greater than 30
[2019-05-30 10:06] LABS: INR 0.9 (<1.2); Partial Thromboplastin Time 22.5 sec (22.0-30.0); Prothrombin Time 9.7 sec (9.0-12.0)
--- NOTE | 2019-05-30 11:22 | XR ---
EXAMINATION TYPE: XR cervical spine limited DATE OF EXAM: 05/30/2019 COMPARISON: 05/29/2019 HISTORY: Cervical compression deformity C6 TECHNIQUE: Cervical spine is examined in lateral AP and odontoid views. FINDINGS: There is a compression deformity of C6 with greater than 70% loss of anterior vertebral bod y height. Posterior wall displacement is not identified on this view. Disc space changes are noted at C5-6 C6-7 posteriorly and loss of disc height is noted C3-4 and posteriorly at C4-5. Scoliosis is pr esent. Vascular calcifications at the carotid bifurcation regions. Odontoid is visualized is somewhat limited but appears otherwise unremarkable IMPRESSION: 1. Compression deformity C6 present on the CT examination of 05/29/2019.
--- NOTE | 2019-05-30 12:47 | P.PN ---
Subjective Progress Note Date: 05/30/19 79-year-old male patient is being seen in consultation for lung mass. The rashmi ent is known to have history of lung cancer. The patient came into the hospital because of pain and numbness in his right upper extremity extending to his right thumb and this is been going on for the past 2 weeks to the point where the patient was unable to lift any objects because of the pain and numbness and tingling. His echo was elevated at 31. The calcium level is normal at 9.6. Lactic acid level at time of admission was 1.7. He had a CRP of 57.7 which is quite elevated and this is based on the previous blood work that was done on 05/17/2019. In the ED, the patient had a CAT scan of the brain that showed age-related atrophy and small vessel ischemic changes. An unenhanced CAT scan of the cervical spine also was done and it showed severe compression fracture of the C6 spine of an uncertain age/etiology with bony retropulsion of 3.5 mm. No evidence of any central canal stenosis or cord compression. Multilevel degenerative disc disease was seen with disc bulging and neurominal encroachment severe at the level of C3-C4 and there is also severe degenerative disc narrowing at the level of C5-C6. There is a 90% compression fracture of the T6 spine. Noted the patient was in the emergency department on 05/17/2023 with similar complaints of worsening shoulder and arm pain he was seen in emergency department and the patient underwent a CT angiogram of the upper extre mity and it showed poor opacification of the radial and ulnar arteries at the level of the brachial bifurcation which was either technical in nature or high- grade stenosis/thrombosis which could not be completely ruled out. A CAT scan of the chest was also done utilizing a CT angios protocol and the CAT scan showed no evidence of any pulmonary embolism. Nevertheless, there were several for nodules, and a lung mass. There was a 3.4 cm right lower lobe pleural-based mass posteriorly in the right lower lobe area. There was another 7 mm right middle lobe pulmonary nodule, 5 mm left upper lobe pulmonary pleural-based nodule, 7 mm right upper lobe pulmonary nodule and a 4 mm right apical pulmonary nodule. There was extensive emphysema and some scattered subpleural fibrosis. The perihilar/peribronchial lymph nodes were identified. 4.1 cm suspicious lesion of the left adrenal gland was seen suspicious for metastases. This was a new finding monitor the patient's previous CAT scan from 03/22/2018 did not show any lung masses or nodules. There was however some scarring in the lung bases especially on the right in addition to emphysema and some elevation of left hemidiaphragm. S shaped scoliosis was also seen along with osseous demineralization. The patient is afebrile. The patient's pulse ox 99% on room air.: 19 evaluation was negative. Influenza A and B were negative. UA was negative. On today's evaluation of 05/30/2019, the patient was seen by spine surgery and the patient was given a neck brace. His pain is under good control. He is awaiting MRI of the cervical spine. The white cell count remains elevated. The pro-calcitonin level is low. He is still feeling weakness in the right upper extremity. A fine-needle aspirate of the lung metastatic to be considered and will going to consult interventional radiology. Objective - Vital Signs Vital signs: Vital Signs Temp 97.5 F L 05/30/19 07:00 Pulse 86 05/30/19 07:00 Resp 18 05/30/19 07:00 BP 153/87 05/30/19 07:00 Pulse Ox 96 05/30/19 07:00 Intake & Output 05/29/19 05/30/19 05/30/19 18:59 06:59 18:59 Intake Total 400 580 Balance 400 580 Weight 64.864 kg Intake: Intake, IV Titration 150 Amount Sodium Chloride 0.9% 1, 150 000 ml @ 75 mls/hr IV . [id number] ONE Rx#:[id number] Oral 250 580 Other: Voiding Method Urinal # Voids 1 - Exam General: The patient is awake and alert, in no distress, and does not appear acutely ill. Eye: Pupils are equal, round and reactive to light, extra-ocular movements are intact. No nystagmus. There is normal conjunctiva bilaterally. No signs of icterus. Ears, nose, mouth and throat: There are moist mucous membranes and no oral lesions. Neck: The neck is supple, there is no tenderness or JVD. Cardiovascular: There is a regular rate and rhythm. No murmur, rub or gallop is appreciated. Respiratory: Lungs are clear to auscultation, respirations are non-labored, breath sounds are equal. No wheezes, stridor, rales, or rhonchi. Gastrointestinal: Soft, non-distended, non-tender abdomen without masses or organomegaly noted. There is no rebound or guarding present. No CVA tenderness. Bowel sounds are unremarkable. Musculoskeletal: Normal ROM, no tenderness. Strength s reduced in the right upper extremity. Sensation intact. Radial and DP pulses equal bilaterally 2+. Neurological: A&O x 3. CN II-XII intact, There are no obvious motor or sensory deficits. Coordination appears grossly intact. Speech is normal. Skin: Skin is warm and dry and no rashes or lesions are noted. No lower extremity edema, negative Homans bilaterally, Patient has pain tingling numbness in the right arm patient does have weakness strength of of around the 3/5 in the entire right arm. Psychiatric: Cooperative, appropriate mood & affect, normal judgment. NEUROLOGICAL: Gross neurological examination did not reveal any focal deficits. Examination of the skin revealed no evidence of significant rashes, suspicious appearing nevi or other concerning lesions. - Labs CBC & Chem 7: 05/30/19 08:04 05/30/19 08:04 Labs: Abnormal Lab Results - Last 24 Hours (Table) 05/29/19 05/29/19 05/30/19 Range/Units 08:51 08:51 08:04 WBC 31.1 H (3.8-10.6) k/uL RBC 4.13 L (4.30-5.90) m/uL Hgb 12.6 L (13.0-17.5) gm/dL Hct 38.7 L (39.0-53.0) % Sodium (137-145) mmol/L Chloride (98-107) mmol/L BUN (9-20) mg/dL Osmolality 275 L (280-301) mosm/kg C-Reactive Protein 18.4 H (<10.0) mg/L 05/30/19 Range/Units 08:04 WBC (3.8-10.6) k/uL RBC (4.30-5.90) m/uL Hgb (13.0-17.5) gm/dL Hct (39.0-53.0) % Sodium 132 L (137-145) mmol/L Chloride 94 L (98-107) mmol/L BUN 28 H (9-20) mg/dL Osmolality (280-301) mosm/kg C-Reactive Protein (<10.0) mg/L Microbiology - Last 24 Hours (Table) 05/29/19 09:45 Blood Culture - Preliminary Blood No Growth after 24 hours Assessment and Plan Plan: 1 right upper extremity weakness/pain under investigation. Preliminary evaluation with a CAT scan of the cervical spine showed C6 vertebral body compression fracture, at least 90% with a mild bony retropulsion noted to be around 3.5 mm in size and the patient has severe degenerative disc space narrowing at the level of C3-C4 with posterior disc bulge with mild effacement and bilateral foraminal encroachment and C5-C6 without any herniation or canal stenosis. Presence of leukocytosis is obviously raises the concern for infection along with an elevated CRP. Possibility of malignancy involving the C-spine with secondary compression cannot be ruled out knowing that the patient has several pulmonary lesions. The patient has severe degenerative disc disease along with posterior disc bulge at the level of C3-C4. 2 right lower lobe mass, pleural based measuring 3.9 cm in addition to several other smaller pulmonary nodules scattered focal lung mahan bilaterally in addition to a left adrenal mass, consider metastatic lung cancer/malignancy. 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 pulmonary fibrosis 6 coronary artery disease with previous coronary stenting 7 S scoliosis of the thoracolumbar spine 8 hyperlipidemia 9 hypertension 11 hypothyroidism 12 impaired hearing Plan MRI of the cervical thoracic spine Spine surgery consultation was done and the patient was given a cervical neck brace Decadron to be continued Regarding the lung masses,the most accessible lung mass for biopsy the mass in the right lower lobe which has a pleural-based location. We'll discuss with interventional radiologist the possibility of obtaining a fine-needle aspirate of this mass for tissue diagnosis. There is an increased likelihood of metastatic lung cancer as the patient has several scattered pulmonary nodules in addition to aadrenal mass which could be potentially malignant. Monitor the white which remains to be elevated. Nevertheless, the focus troponin came back low We'll continue to follow.
--- NOTE | 2019-05-30 12:55 | P.PN ---
Subjective 79-year-old male came in with complaints of severe pain in the right thumb has been going on for about 2 weeks unable to lift his arm with severe tingling numbness. Patient is unable to lift his right arm. Patient is comparing of severe pain in the right arm. Patient had a recent CAT scan earlier this month which showed multiple pulmonary nodules along with the possible metastatic lesion in a dual gland. Patient has history of right lung cancer which was in remission. Patient denied any fever chills patient denied any Dysuria denied any shortness of breath patient had a CT, there is a compression fracture involving the C6 of uncertain age no evidence of central stenosis or Compression and multilevel degenerative disease was seen. I discuss with a spinal surgeon he recommended MRI with contrast which will be obtained. 05/30/2019 Patient still complaining from weakness and numbness in his right upper extremity with pain about 7/10 today, he still have difficulty dropping stuff with his hand although he can use both hands for eating and he can move his right upper extremity. No other specific complaints, no chest pain or dyspnea. Patient has been evaluated by pulmonary and spinal surgery teams. MRI of the cervical spine is recommended which is done and the result is pending. In the meantime he remains on Decadron and normal saline Vitas looks stable History of have leukocytosis of 31K, has INR 0.9, sodium improved 132. Influenza and call the 20. Procolcitoin is low at 0.05. Her ears CBC showing leukocytosis significant elevation with metamyelocyte so will call Also interventional radiology was called by pulmonary team for possible lung biopsy Review of systems CONSTITUTIONAL: No fever, no malaise, no fatigue. HEENT: No recent visual problems or hearing problems. Denied any sore throat. CARDIOVASCULAR: No orthopnea, PND, no palpitations, no syncope. PULMONARY: No shortness of breath, no cough, no hemoptysis. GASTROINTESTINAL: No diarrhea, no nausea, no vomiting, no abdominal pain. Nor moactive bowel sounds. NEUROLOGICAL: No headaches, no weakness, no numbness. HEMATOLOGICAL: Denies any bleeding or petechiae. GENITOURINARY: Denies any burning micturition, frequency, or urgency. MUSCULOSKELETAL/RHEUMATOLOGICAL: Denies any joint pain, swelling, or any muscle pain. ENDOCRINE: Denies any polyuria or polydipsia. Active Medications Generic Name Dose Route Start Last Admin Trade Name Freq PRN Reason Stop Dose Admin Hydrocodone Bitart/Acetaminophen 1 each 05/29/19 12:28 05/30/19 02:41 [place] 10 PO 1 each Q6H PRN Administration Pain Albuterol Sulfate 2 puff 05/29/19 13:48 05/30/19 12:04 Ventolin Hfa Inhaler INHALATION 2 puff RT-QID PRN Administration Shortness Of Breath Aspirin 81 mg 05/30/19 09:00 05/30/19 08:21 Aspirin PO 81 mg DAILY NILSON Administration Atenolol 25 mg 05/30/19 09:00 05/30/19 08:21 Tenormin PO 25 mg DAILY NILSON Administration Atorvastatin Calcium 40 mg 05/29/19 21:00 05/29/19 19:57 Lipitor PO 40 mg HS NILSON Administration Budesonide/Formoterol Fumarate 2 puff 05/29/19 20:00 05/30/19 08:00 Symbicort 160-4.5 Mcg Inhaler INHALATION 2 puff RT-BID NILSON Administration Cyclobenzaprine HCl 10 mg 05/29/19 16:00 05/30/19 08:21 Flexeril PO 10 mg TID NILSON Administration Dexamethasone 4 mg 05/29/19 16:00 05/30/19 08:21 Hexadrol PO 4 mg TID NILSON Administration Famotidine 20 mg 05/29/19 12:30 05/30/19 08:21 Pepcid PO 20 mg BID NILSON Administration Gabapentin 300 mg 05/29/19 16:00 05/30/19 08:21 Neurontin PO 300 mg TID NILSON Administration Heparin Sodium (Porcine) 5,000 unit 05/29/19 21:00 05/30/19 08:21 Heparin SQ 5,000 unit Q12HR NILSON Administration Ketorolac Tromethamine 15 mg 05/29/19 12:27 05/30/19 06:13 Toradol IVP 06/03/19 12:28 15 mg Q6HR PRN Administration Pain Levothyroxine Sodium 75 mcg 05/30/19 06:30 05/30/19 06:13 Synthroid PO 75 mcg 0630 NILSON Administration Lidocaine 1 patch 05/30/19 09:00 05/30/19 08:22 Lidoderm TOPICAL Not Given DAILY [facility] Objective - Vital Signs Vital signs: Vital Signs Temp 97.5 F L 05/30/19 07:00 Pulse 86 04/21/20 07:00 Resp 18 05/30/19 07:00 BP 153/87 05/30/19 07:00 Pulse Ox 96 05/30/19 07:00 Intake & Output 05/29/19 05/30/19 05/30/19 18:59 06:59 18:59 Intake Total 400 580 Balance 400 580 Weight 64.864 kg Intake: Intake, IV Titration 150 Amount Sodium Chloride 0.9% 1, 150 000 ml @ 75 mls/hr IV . [id number] ONE Rx#:[id number] Oral 250 580 Other: Voiding Method Urinal # Voids 1 - Exam GENERAL: The patient is alert and oriented x3, not in any acute distress. Well developed, well nourished. HEENT: Pupils are round and equally reacting to light. EOMI. No scleral icterus. No conjunctival pallor. Normocephalic, atraumatic. No pharyngeal erythema. No thyromegaly. CARDIOVASCULAR: S1 and S2 present. No murmurs, rubs, or gallops. PULMONARY: Chest is clear to auscultation, no wheezing or crackles. ABDOMEN: Soft, nontender, nondistended, normoactive bowel sounds. No palpable organomegaly. MUSCULOSKELETAL: No joint swelling or deformity. -EXTREMITIES: No cyanosis, clubbing, or pedal edema. Patient has pain tingling numbness in the right arm patient does have weakness strength of of around the 3/5 in the entire right arm. NEUROLOGICAL: Gross neurological examination did not reveal any focal deficits. SKIN: No rashes. - Labs CBC & Chem 7: 05/30/19 08:04 05/30/19 08:04 Labs: Abnormal Lab Results - Last 24 Hours (Table) 05/29/19 05/29/19 05/30/19 Range/Units 08:51 08:51 08:04 WBC 31.1 H (3.8-10.6) k/uL RBC 4.13 L (4.30-5.90) m/uL Hgb 12.6 L (13.0-17.5) gm/dL Hct 38.7 L (39.0-53.0) % Sodium (137-145) mmol/L Chloride (98-107) mmol/L BUN (9-20) mg/dL Osmolality 275 L (280-301) mosm/kg C-Reactive Protein 18.4 H (<10.0) mg/L 05/30/19 Range/Units 08:04 WBC (3.8-10.6) k/uL RBC (4.30-5.90) m/uL Hgb (13.0-17.5) gm/dL Hct (39.0-53.0) % Sodium 132 L (137-145) mmol/L Chloride 94 L (98-107) mmol/L BUN 28 H (9-20) mg/dL Osmolality (280-301) mosm/kg C-Reactive Protein (<10.0) mg/L Microbiology - Last 24 Hours (Table) 05/29/19 09:45 Blood Culture - Preliminary Blood No Growth after 24 hours Assessment and Plan Assessment: -C6 compression fracture: Right arm pain weakness and numbness, CT showed compression fracture but there is no cord compression. Spinal surgery/orthopedic team consult is noted. MRI to assess for any cord compression: Pending. Continue with Decadron patient will be continued on Decadron leukocytosis and metamyelocyte -pulmonary nodules, pulmonary team on the case and they recommended pulmonary biopsy -Leukocytosis with metamyelocyte, consult hematology -Hyponatremia possibly of hypomanic. Patient was started on IV fluids, im proving -History of lung cancer in remission but patient has new pulmonary nodules along with the a suspicious lesion in the adrenal gland, consult pulmonary patient probably will need an outpatient bronchoscopy again -Coronary disease next and heparin hypertension Hyperlipidemia -Hypothyroidism DVT prophylaxis: Heparin GI prophylaxis: Pepcid Prognosis guarded
--- NOTE | 2019-05-30 13:09 | MR ---
EXAMINATION TYPE: MR cervical spine wo/w con DATE OF EXAM: 05/30/2019 COMPARISON: CT cervical spine 05/29/2019 HISTORY: Severe neck/arm pain, C6 compression fx, mets CONTRAST: Performed utilizing 6.5 mL intravenous Gadavist gadolinium contrast. TECHNIQUE: Multiplanar multiecho imaging on a 3.0 Ximena magnet is performed through the cervical spin e. FINDINGS: The craniovertebral junction is normal. Vertebral body alignment is exaggerated lordosis w ith kyphosis in the upper thoracic spine. There is a compression deformity of C6. Vertebral body is essentially not visualized. On postcontrast imaging posterior to the C6 level there is enhancement predominantly on the right. This area measure s approximately 1.8 cm cranial caudal by 6.0 cm in AP dimension in the axial plane there appears to b e some mild right paracentral spinal cord impression. The cord itself appears without signal abnormal ity. This appears to cross the midline with a smaller area on the left. Differential diagnosis would primarily include a metastatic lesion. This appears elongated an enhanci ng. In the face of trauma, hematoma could be considered. Infection is considered less likely as there appears not apparent enhancement of disc space. No posterior bony displacement is identified. Remaining vertebral body heights are preserved. There is diffuse loss of disc height through the uppe r cervical spine. No suspicious disc herniation is identified. Some mild broad-based bulge may be pre sent C3-4. IMPRESSIONS: 1. Elongated enhancement posterior to the C6 disc space has moderate anterior thecal sac compression and some cord compression greater on the right paracentral region. A enhancing metastatic lesion is f avored within the differential. Please see above discussion. 2. C6 vertebral body collapse. 3. Minimal broad-based disc bulge C3-4 without significant thecal sac compression.
[2019-05-30] MEDS ORDERED: fentaNYL (PF) 50 MCG/ML 2 ML AMP IV PRN (14:12)
[2019-05-30] MEDS ORDERED: ONDANSETRON 4 MG/2 ML VIAL IVP ONE (14:12)
--- NOTE | 2019-05-30 15:56 | P.CONS ---
History of Present Illness - Reason for Consult Consult date: 05/30/19 Myeloproliferative Disorder Requesting physician: Ab E Sheet - Chief Complaint neurological complaints - History of Present Illness Myeloproliferative Disorder HPI : 79 yr old WM who was originally referred to Dr. Lesly morrow in 2011, last time he was seen in office 2013. He had MRI's of the spine done in 03/22 and then in 08/19, which showed persistent marrow changes raising the possibility of metastases or myeloproliferative disorder. The pt had an early stage lung cancer treated with resection alone, in 2008. He had no history of any blood disorders. He presented to hospital with pain and numbness in his RUE that extended to his right thumb, states worsening over past two weeks. the patient was unable to lift any objects because of the pain and numbness and tingling. An non-contrasted CAT scan of the cervical spine also was done and it showed severe compression fracture of the C6 spine of an uncertain age/etiology with bony retropulsion of 3.5 mm. No evidence of any central canal stenosis or cord compression. Multilevel degenerative disc disease was seen with disc bulging and neurominal encroachment severe at the level of C3-C4 and there is also severe degenerative disc narrowing at the level of C5-C6. There is a 90% compression fracture of the T6 spine. Noted the patient was in the emergency department on May 16, with similar complaints of worsening shoulder and arm pain he was seen in emergency department and the patient underwent a CT angiogram of the upper extremity and it showed poor opacification of the radial and ulnar arteries at the level of the brachial bifurcation which was either technical in nature or high-grade stenosis/thrombosis which could not be completely ruled out. A CAT scan of the chest was also done utilizing a CT angios protocol and the CAT scan showed no evidence of any pulmonary embolism. Nevertheless, there were several for nodules, and a lung mass. There was a 3.4 cm right lower lobe pleur al-based mass posteriorly in the right lower lobe area. There was another 7 mm right middle lobe pulmonary nodule, 5 mm left upper lobe pulmonary pleural-based nodule, 7 mm right upper lobe pulmonary nodule and a 4 mm right apical pulmonary nodule. There was extensive emphysema and some scattered subpleural fibrosis. The perihilar/peribronchial lymph nodes were identified. 4.1 cm suspicious le john of the left adrenal gland was seen suspicious for metastases. This was a new finding monitor the patient's previous CAT scan from 03/22/2018 did not show any lung masses or nodules. Because of these findings Pulmonary is following in consult and oncology has been consulted. Review of Systems A 14 point review of systems assessed and completed and all negative except hpi Past Medical History Past Medical History: Coronary Artery Disease (CAD), Cancer, Chest Pain / Angina, COPD, Hearing Disorder / Deafness, Hyperlipidemia, Hypertension, Osteoarthritis (OA), Thyroid Disorder Additional Past Medical History / Comment(s): LUNG CA History of Any Multi-Drug Resistant Organisms: None Reported Past Surgical History: Cholecystectomy, Heart Catheterization With Stent, Joint Replacement Additional Past Surgical History / Comment(s): LUNG RESECTION TOP OF LEFT LUNG, LEFT WRIST ORIF 2007, HIP X 2 LEFT HIP, Past Anesthesia/Blood Transfusion Reactions: No Reported Reaction Date of Last Stent Placement:: Past Psychological History: No Psychological Hx Reported Smoking Status: Current every day smoker Past Alcohol Use History: None Reported, Rare Additional Past Alcohol Use History / Comment(s): quit smoking 2008 Past Drug Use History: None Reported - Past Family History Father Family Medical History: AICD/Pacemaker Medications and Allergies Home Medications Medication Instructions Recorded Confirmed Type Ascorbic Acid [Vitamin C] 500 mg PO DAILY 07/25/15 05/29/19 History Aspirin [Adult Low Dose Aspirin EC] 81 mg PO DAILY 07/25/15 05/29/19 History Atenolol 25 mg PO DAILY 07/25/15 05/29/19 History Atorvastatin [Lipitor] 40 mg PO HS 07/25/15 05/29/19 History Alendronate Sodium [Fosamax] 70 mg PO TU 03/21/18 05/29/19 History Cyclobenzaprine [Flexeril] 10 mg PO TID 03/21/18 05/29/19 History Gabapentin [Neurontin] 300 mg PO TID 03/21/18 05/29/19 History Meloxicam [Mobic] 7.5 mg PO BID 03/21/18 05/29/19 History Multivitamins, Thera [Multivitamin 1 tab PO DAILY 03/21/18 05/29/19 History (formulary)] Albuterol Sulfate [Albuterol 1 puff PO RT-QID PRN 05/29/19 05/29/19 History Sulfate Hfa] Budesonide/Formoterol Fumarate 2 puff INHALATION RT-BID 05/29/19 05/29/19 History [Symbicort 160-4.5 Mcg Inhaler] Levothyroxine Sodium [Synthroid] 75 mcg PO DAILY 05/29/19 05/29/19 History Lidocaine 5% Patch [Lidoderm] 1 patch TOPICAL DAILY 05/29/19 05/29/19 History Allergies Allergy/AdvReac Type Severity Reaction Status Date / Time No Known Allergies Allergy Verified 05/29/19 13:03 Physical Exam Vitals: Vital Signs Temp Pulse Resp BP Pulse Ox 05/30/19 15:00 98.4 F 88 18 155/96 99 05/30/19 07:00 97.5 F L 86 18 153/87 96 05/30/19 02:25 97.7 F 95 19 159/92 97 05/29/19 19:07 98.0 F 93 20 149/80 92 L Intake and Output 05/30/19 05/30/19 05/30/19 06:59 14:59 22:59 Intake Total 580 Balance 580 Intake: Oral 580 Other: Voiding Method Urinal # Voids 1 Gen: Alert, NAD Head: NCNT Neck: Supple Lungs: Mild increase, CTA Heart: RRR Abdomen: S/ND Ext: No edema Mood: Calm Results CBC & Chem 7: 05/31/19 06:48 05/31/19 06:48 Labs: Abnormal Lab Results - Last 24 Hours (Table) 05/29/19 05/30/19 05/30/19 Range/Units 08:51 08:04 08:04 WBC 31.1 H (3.8-10.6) k/uL RBC 4.13 L (4.30-5.90) m/uL Hgb 12.6 L (13.0-17.5) gm/dL Hct 38.7 L (39.0-53.0) % Sodium 132 L (137-145) mmol/L Chloride 94 L (98-107) mmol/L BUN 28 H (9-20) mg/dL C-Reactive Protein 18.4 H (<10.0) mg/L Microbiology - Last 24 Hours (Table) 05/29/19 09:45 Blood Culture Gram Stain - Preliminary Blood 05/29/19 09:45 Blood Culture - Final Blood Assessment and Plan Plan: Assessment and Recommendations: 1. Right Lobe Pulmonary Mass with additional smaller masses: - Pulmonary is following - WIth history of lung cancer will need biopsy tissue of new finding as concerning for recurrent picture of cancer, malignancy - Will defer Bronch versus other to pulmonary for tissue biopsy Concern for cord compression: MRI pending - Possibility of malignancy involving the C-spine with secondary compression cannot be ruled out knowing that the patient has several pulmonary lesions. Dexamethasone is ordered and once tissue biopsy proven malignancy will consult radiation oncology 2. Leukocytocytosis: - Neutrophilia, Lymphocytopenia - His labs show no alarming abnormality other than very slightly elevated monocytes which was present in past and increased WBC likely reactive to acute process - However light chain ratio and kappa light chain increased in past therefore will repeat. Check urine immunofixation - Underwent evaluation in 2011 and found to be benign at that time. Plan: - Rec MRI Spine: Cervical and Thoracic - CT Abdomen and Pelvis full staging - MRI Brain - Discussed with ortho - plan for surgical intervention tomorrow - Radiation Oncology possible after surgical intervention - Biopsy IR lung Lesion THank you for allowing us to participate in the care of this patient we will follow along with you Physician Attest: I have completed the complete history and physical and agree with above, dictated as a scribe
[2019-05-30] MEDS ORDERED: VANCOMYCIN IV PER PHARMACY 1 EACH MISC MISCELLANE PRN (15:59)
[2019-05-30 16:20] LABS: Uric Acid 3.3 mg/dL (3.5-8.5)
[2019-05-30] MEDS: IOPAMIDOL CONTRAST (ORAL USE) VIAL PO PRN ×2 (17:08→17:36)
[2019-05-30] MEDS: VANCOMYCIN 1,500 MG in SODIUM CHLORIDE 0.9% 250 ML IVPB ONE ×2 (17:11→17:40)
[2019-05-30] MEDS: PANTOPRAZOLE 40 MG/10 ML VIAL IVP SCH (17:19)
[2019-05-30] MEDS ORDERED: DEXAMETHASONE SOD PHOSPHATE 4 MG/ML 1 ML VIAL IM SCH (18:00)
--- NOTE | 2019-05-30 18:47 | CONS ---
CONSULTATION DATE OF SERVICE: 05/30/2019 REASON FOR CONSULTATION: Metastatic lung cancer with bone metastases. HISTORY OF PRESENT ILLNESS: Geoffrey Cohen is a 79-year-old male who has a history of cancer of the lung, status post surgery completed approximately 10 years ago. The patient has done well for many years. He reports over the last one month he began having problems with pain in his lower neck and shoulders, worse on the right than the left. The patient was seen for additional testing. CT scan of the cervical spine revealed a compression fracture of C6. There was bony retropulsion. MRI was performed. There was evidence of degenerative disc disease. There was evidence of a 90% compression of the T6 vertebral body. The patient was admitted to the hospital. He does complain of pain within the right upper extremity. The patient had a CT scan of the chest. This reveals multiple pulmonary nodules, a 3.4 cm right lower lobe pleural-based mass. The patient otherwise reports that his appetite and energy level have been stable. PAST MEDICAL HISTORY: 1. Hypertension. 2. Hypercholesterolemia. 3. Peripheral neuropathy. 4. Arthritis. 5. Thyroid disease. 6. COPD. PAST SURGICAL HISTORY: Left lower lobectomy, cholecystectomy, cardiac catheterization with stent placement, left hip replacement x2, left wrist surgery in 2007. OUTPATIENT MEDICATIONS: Vitamin C, aspirin a day, atenolol, atorvastatin, alendronate, cyclobenzaprine, gabapentin, meloxicam, multivitamins, albuterol, budesonide, levothyroxine, lidocaine patch. ALLERGIES: NO KNOWN DRUG ALLERGIES. SOCIAL HISTORY: The patient lives in his own home. He is retired from the [employer]. The patient does have a history of tobacco use in the past. He denies significant history of alcohol abuse. The patient discontinued tobacco use in 2008. REVIEW OF SYSTEMS: Contributory for pain within the neck and shoulder, discomfort in the right arm, history of arthritis. Otherwise noted as per the review of systems in the hospital chart. FAMILY HISTORY: Contributory for father with a history of pacemaker. Negative for lung cancer. PHYSICAL EXAMINATION: Mr. Cohen is resting in a hospital bed. He appears alert and oriented x3. The patient has a BP of approximately 130/80, pulse is approximately 80, respiration is 18. He is afebrile. The patient has a neck brace in place. Head is otherwise atraumatic, normocephalic. Eyes: PERRLA, EOMI. Neck with no palpable cervical or supraclavicular adenopathy. Lungs reveal decreased breath sounds at the base of the lungs bilaterally. HEART: Heart sounds. Abdomen is benign with no palpable masses or organomegaly. Extremity examination reveals full range of motion with no cyanosis, clubbing or edema detected. Neurologic examination reveals cranial nerves 2 through 10 intact. Strength appears to be grossly intact, although slightly reduced in the right upper extremity. Deep tendon reflexes are diffusely intact. Skin/integument examination reveals no lesions. Psychiatric evaluation reveals no mood disorders. IMPRESSION: Geoffrey Cohen is a 79-year-old male presenting with a pathologic compression fracture of C6 with some retropulsion of bony tissue and fragments of tissue into the anterior spinal canal. The patient does have a neck brace in place. He has undergone evaluation with Spine Surgery. The patient otherwise has additional ongoing medical problems, includin. Hypertension. 2. Arthritis. 3. Hypercholesterolemia. 4. Chronic obstructive pulmonary disease. 5. Thyroid disease. 6. Peripheral neuropathy. Pain scale evaluation approximately 4/10. Pain control is gabapentin and meloxicam. PLAN: The patient has been evaluated by Neurosurgery. He does appear to have bony fragments with tumor and retropulsion of bone and tissue to the anterior portion of the spinal canal. The patient is having significant discomfort but appears to be neurologically stable. Therefore he will undergo further evaluation by Spine Surgery. The patient may potentially benefit from corpectomy of C6 and possible reconstructive surgery. The patient's case was discussed with Medical Oncology. Medical Oncology did discuss the case as well with the spine surgeon. We will await the results of the patient's ongoing workup and treatment. The patient may potentially benefit from additional therapy such as radiotherapy to the postoperative bed after completion of his above surgery. Thank you again for allowing me to participate in the care of Geoffrey Cohen. MMODL / IJN: [id number] /
--- NOTE | 2019-05-30 19:35 | CT ---
EXAMINATION TYPE: CT abdomen pelvis wo/w con DATE OF EXAM: 05/30/2019 COMPARISON: Prior CT abdomen and pelvis November 16, 2012 HISTORY: Metastatic work up, lung CA CT DLP: 1334.4 mGycm, Automated Exposure Control for Dose Reduction was Utilized. CONTRAST: CT scan of the abdomen and pelvis is performed with oral and without and with IV Contrast, patient in jected with 100 mL of Isovue 300. FINDINGS: LUNG BASES: Background Chronic emphysematous change with mild to moderate linear fibrotic and/or jarvis nge noted. Scattered pulmonary nodules bilaterally along with posterior right basilar 3.7 x 2.8 cm steve ng mass. Coronary artery calcification is present which is noted marked underlying coronary artery di sease. LIVER/GB: Cholecystectomy clips are seen. PANCREAS: No significant abnormality is seen. SPLEEN: No significant abnormality is seen. ADRENALS: Redemonstration of new small right adrenal 2.1 x 1.5 cm mass axial image [address] an d larger 5.4 x 4.1 cm left adrenal mass axial image 24 [address] Lesion stable from re cent chest CT. KIDNEYS: Scattered simple-appearing thin-walled cysts throughout both kidneys. No nephrolithiasis. Sy mmetric cortical medullary uptake and excretion without concerning mass or hydronephrosis bilaterally . BOWEL: The oral contrast does not reach level of terminal ileum. No suspicious small or large bowel d ilatation. Scattered colonic diverticula. Prominent sigmoid colonic diverticulosis without CT evidenc e for acute diverticulitis. Some prominence of fecal material in the right colon and cecum. PROSTATE/SEMINAL VESICLES: Mildly enlarged prostate gland consistent with BPH with central calcificat ion. LYMPH NODES: No greater than 1cm abdominal or pelvic lymph nodes are appreciated. OSSEOUS STRUCTURES: Metallic hardware from left hip arthroplasty causes streak artifact limiting eval uation of pelvic structures. Osseous structures are demineralized. Moderate to advanced axial joint s pace loss and right hip with moderate spurring. Evidence of avascular necrosis with superior linear s clerotic are in the right femoral head. Moderate to advanced chronic compression type fracture deformity at L1 level. Mild to moderate compre ssion type fracture deformities at T12 and L2 level all are thought chronic. Facet arthropathy lower lumbar levels. No definitive suspicious lytic or sclerotic osseous lesion. OTHER: Moderate calcified plaque of the aorta extends into small branch vessels. IMPRESSION: Suspect high-grade primary lung neoplasm with bilateral pulmonary nodules and dominant po sterior right basilar lung mass. Bilateral adrenal metastatic lesions, left larger than right.
[2019-05-30] MEDS: ATORVASTATIN 40 MG TAB PO SCH (21:53)
[2019-05-30 22:57] LABS: Protein, Total 6.2 g/dL (6.2-8.2)
[2019-05-30 23:13] LABS: % Iron Saturation 24.22 (15.00-50.00)
[2019-05-30 23:21] LABS: Ferritin 393.6 ng/mL (22.0-322.0)
[2019-05-30 23:27] LABS: Folate, Serum 17.5 ng/mL
[2019-05-30] MEDS: DEXAMETHASONE SOD PHOSPHATE 10 MG/ML 1 ML VIAL IV SCH (23:51)
--- NOTE | 2019-05-31 00:16 | CONS ---
CONSULTATION DATE OF SERVICE: 05/30/2019 REASON FOR CONSULTATION: Gram-positive bacteremia. HISTORY OF PRESENT ILLNESS: The patient is a 79-year-old male presented to hospital yesterday morning with chief complaints of neck pain that has been going on for about 2 weeks and has been noticing getting worse. The patient has pain to the neck and some radiation to the right shoulder area with intensity almost 7 to 8/10 and was severe with some weakness in the right arm. The patient denies having any history of any trauma or any swelling redness to the neck area. The patient denies high-grade fever, rigors or chills. With these symptoms, the patient was evaluated by ER physician. On arrival to the ER, the patient has been afebrile. He was noted to have elevated white count 31.9 thousand. The patient did have a normal kidney function. CRP of 18.4, procalcitonin 0.05. Coronavirus and influenza PCR were negative. The patient did have a cervical spine CT which shows age-related atrophic and small vessel ischemic changes and severe compression fracture involving C6 of uncertain age with bony retropulsion. The patient subsequently has been evaluated by orthopedic surgery and a cervical spine MRI has been ordered, which has been compression deformity of the C6 with elongated enhanced posterior to the C6 disc space with concern for metastatic lesion versus abscess. The patient did have blood cultures done which came positive gram-positive cocci that prompted this infectious disease consultation. The patient denies having any chest pain or shortness of breath or cough. No nausea, vomiting, abdominal pain or diarrhea. REVIEW OF SYSTEMS: Positive points have been mentioned in HPI. Rest of systems are negative. PAST MEDICAL HISTORY: Coronary artery disease, diabetes, hyperlipidemia, hypertension, osteoarthritis, history of lung cancer. PAST SURGICAL HISTORY: Cholecystectomy, PTCA with stent, joint placement. SOCIAL HISTORY: Current every day smoker. No drinking or drug use. FAMILY HISTORY: Father with history of arrhythmia, status post pacemaker placement. ALLERGIES: No known drug allergies. MEDICATIONS: The patient is currently on [place], aspirin, Tenormin, Lipitor, Symbicort, Flexeril, Decadron, Pepcid, Neurontin, heparin, Toradol, Synthroid, Claritin, Protonix. PHYSICAL EXAMINATION: On examination, blood pressure 169/87 with a pulse of 82, temperature 97.8. He is 97% on room air. General description is an elderly male lying in bed in no distress. No tachypnea or accessory muscle of respiration use. HEENT: Examination shows pallor no scleral icterus. Oral mucous membrane is dry. No pharyngeal erythema or thrush. NECK: Trachea central. No thyromegaly. LUNGS: Unlabored breathing, clear to auscultation. No wheeze. HEART: S1, S2. Regular rate and rhythm. ABDOMEN: Soft, no tenderness. No guarding or rigidity. EXTREMITIES: No edema of feet. SKIN EXAMINATION: No rash or mass palpable. NEUROLOGIC: The patient is awake, alert, oriented x3. Mood and affect normal. LABS: Hemoglobin is 12.6, white count 31.1, BUN of 28, creatinine 0.84. Influenza and coronavirus PCR was negative. Blood culture with gram-positive cocci. DIAGNOSTIC IMPRESSION AND PLAN: The patient presented to hospital with neck pain in this patient who did have history of lung cancer with evidence of C6 destruction with question of possible metastatic lesion. However, the MRI did show elongated enhancing lesion underlying abscess not entirely excluded in view of the positive blood culture with gram-positive cocci. PLAN: 1. Blood cultures will be repeated to document clearance of bacteremia. 2. We will add vancomycin, pharmacy to dose, target of 15, while watching his kidney function. Monitor closely. 3. MRI and case have been discussed with the Orthopedic Spine surgery, who is planning for surgery in the morning with deep cultures and possible stabilize the cervical spine. 4. We will follow on his clinical condition and his culture to further adjust medication if needed. Thank you for this consultation. Will follow the patient along with you. MMODL / IJN: [id number] / KAI
[2019-05-31 02:47] LABS: Reticulocyte % 1.59 % (0.10-1.80)
[2019-05-31] MEDS: DEXAMETHASONE SOD PHOSPHATE 10 MG/ML 1 ML VIAL IV SCH ×3 (05:36→18:11)
[2019-05-31] MEDS: LEVOTHYROXINE 75 MCG TAB PO SCH (05:36)
[2019-05-31] MEDS: VANCOMYCIN 1,250 MG in SODIUM CHLORIDE 0.9% 250 ML IVPB SCH ×2 (05:37→18:11)
[2019-05-31 07:27] LABS: Basophils % (A) 0 %; Eosinophils % (A) 0 %; HCT 40.3 % (39.0-53.0); HGB 13.4 gm/dL (13.0-17.5); Lymphocytes # (A) 1.3 k/uL (1.0-4.8); Lymphocytes % (A) 4 %; MCH 30.2 pg (25.0-35.0); MCHC 33.3 g/dL (31.0-37.0); MCV 90.7 fL (80.0-100.0); Mean Platelet Volume 9.3; Monocytes # (A) 0.8 k/uL (0-1.0); Monocytes % (A) 2 %; Neutrophils % (A) 93 %; Platelet Count 333 k/uL (150-450); RBC 4.45 m/uL (4.30-5.90); RDW 12.9 % (11.5-15.5)
[2019-05-31 07:38] LABS: WBC 32.8 k/uL (3.8-10.6)
[2019-05-31 07:39] LABS: Neutrophils # (A) 30.5 k/uL (1.3-7.7)
[2019-05-31 07:43] LABS: African American GFR (CKD) >90 (>60 ml/min/1.73 sqM); Anion Gap 6 mmol/L; Blood Urea Nitrogen 23 mg/dL (9-20); Calcium 9.4 mg/dL (8.4-10.2); Carbon Dioxide 30 mmol/L (22-30); Chloride 93 mmol/L (98-107); Glucose 95 mg/dL (74-99); Non-African American GFR(CKD) 88 (>60 ml/min/1.73 sqM); Potassium 4.3 mmol/L (3.5-5.1); Sodium 129 mmol/L (137-145)
[2019-05-31] MEDS ORDERED: HYDROmorphone 1 MG/ML 1 ML SYRINGE IVP PRN (08:05)
[2019-05-31] MEDS: ALBUTEROL HFA INHALER INHALATION PRN ×3 (08:21→19:28)
[2019-05-31] MEDS: SYMBICORT 160-4.5 MCG INHALER INHALATION SCH ×2 (08:21→19:28)
[2019-05-31] MEDS: LACTATED RINGERS 1,000 ML IV SCH ×2 (08:46→14:41)
[2019-05-31] MEDS: ATENOLOL 25 MG TAB PO SCH (08:48)
[2019-05-31] MEDS: PANTOPRAZOLE 40 MG/10 ML VIAL IVP SCH (08:48)
[2019-05-31 09:52] LABS: Free Kappa Lt Chain Qnt, Serum 1.93 mg/dL (0.33-1.94)
[2019-05-31] MEDS: LIDOCAINE 5% PATCH TOPICAL SCH (12:00)
[2019-05-31] MEDS: CYCLOBENZAPRINE 10 MG TAB PO SCH ×3 (12:00→20:28)
[2019-05-31] MEDS: ASPIRIN 81 MG PO SCH (12:00)
[2019-05-31] MEDS: HEPARIN SODIUM,PORCINE 5,000 UNIT/ML 1 ML VIAL SQ SCH ×2 (12:00→20:28)
[2019-05-31] MEDS: GABAPENTIN 300 MG CAP PO SCH ×3 (12:00→20:27)
[2019-05-31 13:48] LABS: Albumin 2.91 g/dL (3.80-4.90); Gamma Globulin 1.05 g/dL (0.70-1.50)
--- NOTE | 2019-05-31 14:06 | P.PN ---
Subjective Progress Note Date: 05/31/19 Principal diagnosis: Right upper extremity weakness/pain related to a mild bony retropulsion of the cervical spine at the level of C6, patient has severe degenerative spine disease with disc space narrowing at the C3-C4 with posterior disc bulge 79-year-old male patient is being seen in consultation for lung mass. The patient is known to have history of lung cancer. The patient came into the hospital because of pain and numbness in his right upper extremity extending to his right thumb and this is been going on for the past 2 weeks to the point where the patient was unable to lift any objects because of the pain and numbness and tingling. His echo was elevated at 31. The calcium level is normal at 9.6. Lactic acid level at time of admission was 1.7. He had a CRP of 57.7 which is quite elevated and this is based on the previous blood work that was done on 05/17/2019. In the ED, the patient had a CAT scan of the brain that showed age-related atrophy and small vessel ischemic changes. An unenhanced CAT scan of the cervical spine also was done and it showed severe compression fracture of the C6 spine of an uncertain age/etiology with bony retropulsion of 3.5 mm. No evidence of any central canal stenosis or cord compression. Multilevel degenerative disc disease was seen with disc bulging and neurominal encroachment severe at the level of C3-C4 and there is also severe degenerative disc narrowing at the level of C5-C6. There is a 90% compression fracture of the T6 spine. Noted the patient was in the emergency department on 05/17/2023 with similar complaints of worsening shoulder and arm pain he was seen in emergency department and the patient underwent a CT angiogram of the upper extremity and it showed poor opacification of the radial and ulnar arteries at the level of the brachial bifurcation which was either technical in nature or h igh-grade stenosis/thrombosis which could not be completely ruled out. A CAT scan of the chest was also done utilizing a CT angios protocol and the CAT scan showed no evidence of any pulmonary embolism. Nevertheless, there were several for nodules, and a lung mass. There was a 3.4 cm right lower lobe pleural-based mass posteriorly in the right lower lobe area. There was another 7 mm right middle lobe pulmonary nodule, 5 mm left upper lobe pulmonary pleural-based nodule, 7 mm right upper lobe pulmonary nodule and a 4 mm right apical pulmonary nodule. There was extensive emphysema and some scattered subpleural fibrosis. The perihilar/peribronchial lymph nodes were identified. 4.1 cm suspicious lesion of the left adrenal gland was seen suspicious for metastases. This was a new finding monitor the patient's previous CAT scan from 03/22/2018 did not show any lung masses or nodules. There was however some scarring in the lung bases especially on the right in addition to emphysema and some elevation of left hemidiaphragm. S shaped scoliosis was also seen along with osseous deminer alization. The patient is afebrile. The patient's pulse ox 99% on room air.: 19 evaluation was negative. Influenza A and B were negative. UA was negative. On today's evaluation of 05/30/2019, the patient was seen by spine surgery and the patient was given a neck brace. His pain is under good control. He is awaiting MRI of the cervical spine. The white cell count remains elevated. The pro-calcitonin level is low. He is still feeling weakness in the right upper extremity. A fine-needle aspirate of the lung metastatic to be considered and will going to consult interventional radiology. On 05/31/2019 patient seen in follow-up on general medical floor, still complaining of weakness in his arms and neck pain. Patient has a c-collar that he is wearing [id number], his imaging showed significant compression of his spinal cord. Patient was evaluated by orthopedic service and surgical decompression and spinal fusion was recommended and the patient is scheduled for his surgery today. Patient was also evaluated by radiation oncology, and he may need radiotherapy to the postoperative bed after completion of the above surgery, from pulmonary perspective, his breathing seems to be nonlabored, he is on room air, with a pulse ox of 96%, lung sounds are diminished, no rhonchi or wheezing, patient has been afebrile, today's labs have been reviewed showing white blood cell count of 32.8, hemoglobin 13.4, neutrophil count is 30.5, influenza and coronavirus PCR were negative, patient is receiving IV Decadron, patient is on vancomycin, blood culture showed coagulase-negative staph. Objective - Vital Signs Vital signs: Vital Signs Temp 98.0 F 05/31/19 07:00 Pulse 87 05/31/19 07:00 Resp 15 05/31/19 07:00 BP 131/86 05/31/19 07:00 Pulse Ox 96 05/31/19 07:00 Intake & Output 05/30/19 05/31/19 05/31/19 18:59 06:59 18:59 Intake Total 580 Output Total 750 950 Balance -170 -950 Intake: Oral 580 Output: Urine 750 950 Other: Voiding Method Urinal Urinal Urinal # Voids 1 - Exam GENERAL EXAM: Alert, pleasant, 79-year-old white male, in the c-collar, appears chronically ill, but no acute distress, on room air, with a pulse ox of 96% comfortable in no apparent distress. HEAD: Normocephalic/atraumatic. EYES: Normal reaction of pupils, equal size. Conjunctiva pink, sclera white. NOSE: Clear with pink turbinates. THROAT: No erythema or exudates. NECK: No masses, no JVD, no thyroid enlargement, no adenopathy. Patient has a c-collar in place CHEST: No chest wall deformity. Symmetrical expansion. LUNGS: Equal air entry with no crackles, wheeze, rhonchi or dullness. CVS: Regular rate and rhythm, normal S1 and S2, no gallops, no murmurs, no rubs ABDOMEN: Soft, nontender. No hepatosplenomegaly, normal bowel sounds, no guarding or rigidity. EXTREMITIES: No clubbing, no edema, no cyanosis, 2+ pulses and upper and lower extremities. MUSCULOSKELETAL: Muscle strength and tone normal. SPINE: No scoliosis or deformity SKIN: No rashes CENTRAL NERVOUS SYSTEM: Alert and oriented -3. No focal deficits, tone is normal in all 4 extremities. PSYCHIATRIC: Alert and oriented -3. Appropriate affect. Intact judgment and insight. - Labs CBC & Chem 7: 05/31/19 06:48 05/31/19 06:48 Labs: Abnormal Lab Results - Last 24 Hours (Table) 05/30/19 05/30/19 05/31/19 Range/Units 08:04 08:04 06:48 WBC 32.8 H (3.8-10.6) k/uL Neutrophils # 30.5 H (1.3-7.7) k/uL Sodium (137-145) mmol/L Chloride (98-107) mmol/L BUN (9-20) mg/dL Uric Acid 3.3 L (3.5-8.5) mg/dL Ferritin 393.6 H (22.0-322.0) ng/mL Vitamin B12 3039.0 H (200.0-944.0) pg/mL IgA 667.0 H (60.0-350.0) mg/dL 05/31/19 Range/Units 06:48 WBC (3.8-10.6) k/uL Neutrophils # (1.3-7.7) k/uL Sodium 129 L (137-145) mmol/L Chloride 93 L (98-107) mmol/L BUN 23 H (9-20) mg/dL Uric Acid (3.5-8.5) mg/dL Ferritin (22.0-322.0) ng/mL Vitamin B12 (200.0-944.0) pg/mL IgA (60.0-350.0) mg/dL Microbiology - Last 24 Hours (Table) 05/29/19 09:45 Blood Culture Gram Stain - Preliminary Blood Blood Culture - Preliminary Coagulase Negative Staph 05/29/19 09:45 Blood Culture - Final Blood Assessment and Plan Plan: Assessment: 1 right upper extremity weakness/pain related to C6 compression fracture, and significant compression of the spinal cord awaiting surgical intervention. Preliminary evaluation with a CAT scan of the cervical spine showed C6 vertebral body compression fracture, at least 90% with a mild bony retropulsion noted to be around 3.5 mm in size and the patient has severe degenerative disc space narrowing at the level of C3-C4 with posterior disc bulge with mild effacement and bilateral foraminal encroachment and C5-C6 without any herniation or canal s tenosis. Presence of leukocytosis is obviously raises the concern for infection along with an elevated CRP. Possibility of malignancy involving the C-spine with secondary compression cannot be ruled out knowing that the patient has several pulmonary lesions. The patient has severe degenerative disc disease along with posterior disc bulge at the level of C3-C4. 2 right lower lobe mass, pleural based measuring 3.9 cm in addition to several other smaller pulmonary nodules scattered focal lung mahan bilaterally in addition to a left adrenal mass, consider metastatic lung cancer/malignancy. 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 pulmonary fibrosis 6 coronary artery disease with previous coronary stenting 7 S scoliosis of the thoracolumbar spine 8 hyperlipidemia 9 hypertension 11 hypothyroidism 12 impaired hearing Plan: Patient is going to surgery today for surgical decompression and possible fusion of his spinal cord. C-collar is in place, and his pulmonary status seems to be stable right now, he is on room air. No worsening dyspnea, he has been afebrile. We'll follow the patient in the postoperative period, medical oncology, radiation oncology and orthopedic surgery consultations were noted. I performed a history & physical examination of the patient and discussed their management with my nurse practitioner, Opal Alcantar. I reviewed the nurse pra ctitioner's note and agree with the documented findings and plan of care. Lung sounds are positive for clear breath sounds. The findings and the impression was discussed with the patient. I attest to the documentation by the nurse practitioner. Time with Patient: Less than 30
[2019-05-31] MEDS ORDERED: IV FLUID CONTINUATION 1,000 ML IV ONE (14:20)
[2019-05-31] MEDS ORDERED: HYDROmorphone (PF) 1 MG/ML ONE (14:20)
[2019-05-31] MEDS ORDERED: NEOSTIGMINE 1 MG/ML 10 ML VIAL ONE (14:20)
[2019-05-31] MEDS ORDERED: SUCCINYLCHOLINE CHLORIDE 100 MG/5 ML SYR IV ONE (14:20)
[2019-05-31] MEDS ORDERED: MIDAZOLAM 2 MG/2 ML VIAL ONE (14:20)
[2019-05-31] MEDS ORDERED: PROPOFOL 10 MG/ML 20 ML VIAL IV ONE (14:20)
[2019-05-31] MEDS ORDERED: ALFENTANIL 500 MCG/ML 2 ML AMP IV ONE (14:20)
[2019-05-31] MEDS ORDERED: fentaNYL (PF) 50 MCG/ML 2 ML AMP ONE (14:20)
[2019-05-31] MEDS ORDERED: ROCURONIUM BROMIDE 10 MG/ML 5 ML VIAL IV ONE (14:20)
[2019-05-31] MEDS ORDERED: GLYCOPYRROLATE 0.2 MG/ML 2 ML VIAL ONE (14:20)
[2019-05-31] MEDS ORDERED: LIDOCAINE 1% INJ 10MG/ML (20 ML MDV) ONE (14:20)
--- NOTE | 2019-05-31 14:24 | P.PN ---
Subjective Progress Note Date: 05/31/19 Principal diagnosis: impending cord compression, picture of metastatic cancer Recovering well after surgical intervention of C6 with ortho today. Objective - Vital Signs Vital signs: Vital Signs Temp 98.0 F 05/31/19 07:00 Pulse 87 05/31/19 07:00 Resp 15 05/31/19 07:00 BP 131/86 05/31/19 07:00 Pulse Ox 96 05/31/19 07:00 Intake & Output 05/30/19 05/31/19 05/31/19 18:59 06:59 18:59 Intake Total 580 Output Total 750 950 Balance -170 -950 Intake: Oral 580 Output: Urine 750 950 Other: Voiding Method Urinal Urinal Urinal # Voids 1 400 - Exam Gen: Alert, NAD Head: NCNT Neck: Supple, C collar inplace Lungs: Mild increase, CTA Heart: RRR Abdomen: S/ND Ext: No edema weakness right sided strength Mood: Calm - Labs CBC & Chem 7: 05/31/19 06:48 05/31/19 06:48 Labs: Abnormal Lab Results - Last 24 Hours (Table) 05/30/19 05/30/19 05/30/19 Range/Units 08:04 08:04 08:04 WBC (3.8-10.6) k/uL Neutrophils # (1.3-7.7) k/uL Sodium (137-145) mmol/L Chloride (98-107) mmol/L BUN (9-20) mg/dL Uric Acid 3.3 L (3.5-8.5) mg/dL Ferritin 393.6 H (22.0-322.0) ng/mL Albumin (PEP) 2.91 L (3.80-4.90) g/dL Vitamin B12 3039.0 H (200.0-944.0) pg/mL IgA 667.0 H (60.0-350.0) mg/dL 05/31/19 05/31/19 Range/Units 06:48 06:48 WBC 32.8 H (3.8-10.6) k/uL Neutrophils # 30.5 H (1.3-7.7) k/uL Sodium 129 L (137-145) mmol/L Chloride 93 L (98-107) mmol/L BUN 23 H (9-20) mg/dL Uric Acid (3.5-8.5) mg/dL Ferritin (22.0-322.0) ng/mL Albumin (PEP) (3.80-4.90) g/dL Vitamin B12 (200.0-944.0) pg/mL IgA (60.0-350.0) mg/dL Microbiology - Last 24 Hours (Table) 05/29/19 09:45 Blood Culture Gram Stain - Preliminary Blood Blood Culture - Preliminary Coagulase Negative Staph 05/29/19 09:45 Blood Culture - Final Blood Assessment and Plan Plan: Assessment and Recommendations: 1. Right Lobe Pulmonary Mass with additional smaller masses: - Pulmonary is following - WIth history of lung cancer will need biopsy tissue of new finding as concerning for recurrent picture of cancer, malignancy - Will defer Bronch versus other to pulmonary for tissue biopsy Concern for cord compression: MRI pending - Possibility of malignancy involving the C-spine with secondary compression cannot be ruled out knowing that the patient has several pulmonary lesions. Dexamethasone is ordered and once tissue biopsy proven malignancy will consult radiation oncology - cT abdomen and pelvis reveal bilateral adrenal massess, appears picture of recurrent metastatic lung cancer. Await path from ortho surgery, if further tissue needed will likely as pulm or IR for intervention 2. Leukocytocytosis: - Neutrophilia, Lymphocytopenia - His labs show no alarming abnormality other than very slightly elevated monocytes which was present in past and increased WBC likely reactive to acute process - However light chain ratio and kappa light chain increased in past therefore will repeat. Check urine immunofixation - Underwent evaluation in 2011 and found to be benign at that time. Plan: - Await path and imaging - Recover from intervention today. - Radiation oncology recs - Cont dex and PPI Physician Attest: I have completed the complete history and physical and agree with above, dictated as a scribe
[2019-05-31] MEDS ORDERED: BUPIVACAIN-EPI 0.25%-1:200,000 30 ML VIAL SQ ONE ×2 (14:57)
--- NOTE | 2019-05-31 15:19 | P.PN ---
Subjective 79-year-old male came in with complaints of severe pain in the right thumb has been going on for about 2 weeks unable to lift his arm with severe tingling numbness. Patient is unable to lift his right arm. Patient is comparing of severe pain in the right arm. Patient had a recent CAT scan earlier this month which showed multiple pulmonary nodules along with the possible metastatic lesion in a dual gland. Patient has history of right lung cancer which was in remission. Patient denied any fever chills patient denied any Dysuria denied any shortness of breath patient had a CT, there is a compression fracture involving the C6 of uncertain age no evidence of central stenosis or Compression and multilevel degenerative disease was seen. I discuss with a spinal surgeon he recommended MRI with contrast which will be obtained. 05/30/2019 Patient still complaining from weakness and numbness in his right upper extremity with pain about 7/10 today, he still have difficulty dropping stuff with his hand although he can use both hands for eating and he can move his right upper extremity. No other specific complaints, no chest pain or dyspnea. Patient has been evaluated by pulmonary and spinal surgery teams. MRI of the cervical spine is recommended which is done and the result is pending. In the meantime he remains on Decadron and normal saline Vitas looks stable History of have leukocytosis of 31K, has INR 0.9, sodium improved 132. Influenza and call the 20. Procolcitoin is low at 0.05. 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 Patient is going for corpectomy and reconstructive surgery today. Afebrile. Still have leukocytosis of 30 2.8K. Sodium 129 Medical oncology and orthopedic surgeon and radiation oncology R following case. Review of systems CONSTITUTIONAL: No fever, no malaise, no fatigue. HEENT: No recent visual problems or hearing problems. Denied any sore throat. CARDIOVASCULAR: No orthopnea, PND, no palpitations, no syncope. PULMONARY: No shortness of breath, no cough, no hemoptysis. GASTROINTESTINAL: No diarrhea, no nausea, no vomiting, no abdominal pain. Normoactive bowel sounds. NEUROLOGICAL: No headaches, no weakness, no numbness. HEMATOLOGICAL: Denies any bleeding or petechiae. GENITOURINARY: Denies any burning micturition, frequency, or urgency. MUSCULOSKELETAL/RHEUMATOLOGICAL: Denies any joint pain, swelling, or any muscle pain. ENDOCRINE: Denies any polyuria or polydipsia. Active Medications Generic Name Dose Route Start Last Admin Trade Name Freq PRN Reason Stop Dose Admin Hydrocodone Bitart/Acetaminophen 1 each 05/29/19 12:28 05/30/19 02:41 [place] 10 PO 1 each Q6H PRN Administration Pain Albuterol Sulfate 2 puff 05/29/19 13:48 05/31/19 11:00 Ventolin Hfa Inhaler INHALATION 2 puff RT-QID PRN Administration Shortness Of Breath Aspirin 81 mg 05/30/19 09:00 05/31/19 12:00 Aspirin PO Not Given DAILY NILSON Atenolol 25 mg 05/30/19 09:00 05/31/19 08:48 Tenormin PO 25 mg DAILY NILSON Administration Atorvastatin Calcium 40 mg 05/29/19 21:00 05/30/19 21:53 Lipitor PO 40 mg HS NILSON Administration Budesonide/Formoterol Fumarate 2 puff 05/29/19 20:00 05/31/19 08:21 Symbicort 160-4.5 Mcg Inhaler INHALATION 2 puff RT-BID NILSON Administration Cyclobenzaprine HCl 10 mg 05/29/19 16:00 05/31/19 12:00 Flexeril PO Not Given TID [facility] Dexamethasone Sodium Phosphate 6 mg 05/31/19 00:00 05/31/19 14:41 Decadron IV Not Given Q6HR [facility] Gabapentin 300 mg 05/29/19 16:00 05/31/19 12:00 Neurontin PO Not Given TID [facility] Heparin Sodium (Porcine) 5,000 unit 05/29/19 21:00 05/31/19 12:00 Heparin SQ Not Given Q12HR [facility] Hydromorphone HCl 1 - 2 mg 05/31/19 08:05 05/31/19 08:47 Dilaudid IVP 1 mg Q4HR PRN Administration Pain Lactated Ringer's 1,000 mls @ 20 mls/hr 05/30/19 14:15 05/31/19 14:41 Lactated Ringers IV Not Given .Q24H NILSON Vancomycin HCl 1,250 mg/ 250 mls @ 125 mls/hr 05/31/19 06:00 05/31/19 05:37 Sodium Chloride IVPB 125 mls/hr Q12H NILSON Administration Ketorolac Tromethamine 15 mg 05/29/19 12:27 05/30/19 06:13 Toradol IVP 06/03/19 12:28 15 mg Q6HR PRN Administration Pain Levothyroxine Sodium 75 mcg 05/30/19 06:30 05/31/19 05:36 Synthroid PO 75 mcg 0630 NILSON Administration Lidocaine 1 patch 05/30/19 09:00 05/31/19 12:00 Lidoderm TOPICAL Not Given DAILY [facility] Miscellaneous Information 0 each 06/01/19 05:00 Vancomycin Trough Due MISCELLANE 06/01/19 05:01 DIRECTED ONE Pantoprazole Sodium 40 mg 05/30/19 16:15 05/31/19 08:48 Protonix IVP 40 mg DAILY NILSON Administration Objective - Vital Signs Vital signs: Vital Signs Temp 98.0 F 05/31/19 07:00 Pulse 87 05/31/19 07:00 Resp 15 05/31/19 07:00 BP 131/86 05/31/19 07:00 Pulse Ox 96 05/31/19 07:00 Intake & Output 05/30/19 05/31/19 05/31/19 18:59 06:59 18:59 Intake Total 580 500 Output Total 750 950 Balance -170 -950 500 Intake: IV 500 Oral 580 Output: Urine 750 950 Other: Voiding Method Urinal Urinal Urinal # Voids 1 400 - Exam GENERAL: The patient is alert and oriented x3, not in any acute distress. Well developed, well nourished. HEENT: Pupils are round and equally reacting to light. EOMI. No scleral icterus. No conjunctival pallor. Normocephalic, atraumatic. No pharyngeal erythema. No thyromegaly. CARDIOVASCULAR: S1 and S2 present. No murmurs, rubs, or gallops. PULMONARY: Chest is clear to auscultation, no wheezing or crackles. ABDOMEN: Soft, nontender, nondistended, normoactive bowel sounds. No palpable organomegaly. MUSCULOSKELETAL: No joint swelling or deformity. -EXTREMITIES: No cyanosis, clubbing, or pedal edema. Patient has pain tingling numbness in the right arm patient does have weakness strength of of around the 3/5 in the entire right arm. NEUROLOGICAL: Gross neurological examination did not reveal any focal deficits. SKIN: No rashes. - Labs CBC & Chem 7: 05/31/19 06:48 05/31/19 06:48 Labs: Abnormal Lab Results - Last 24 Hours (Table) 05/30/19 05/30/19 05/30/19 Range/Units 08:04 08:04 08:04 WBC (3.8-10.6) k/uL Neutrophils # (1.3-7.7) k/uL Sodium (137-145) mmol/L Chloride (98-107) mmol/L BUN (9-20) mg/dL Uric Acid 3.3 L (3.5-8.5) mg/dL Ferritin 393.6 H (22.0-322.0) ng/mL Albumin (PEP) 2.91 L (3.80-4.90) g/dL Vitamin B12 3039.0 H (200.0-944.0) pg/mL IgA 667.0 H (60.0-350.0) mg/dL 05/31/19 05/31/19 Range/Units 06:48 06:48 WBC 32.8 H (3.8-10.6) k/uL Neutrophils # 30.5 H (1.3-7.7) k/uL Sodium 129 L (137-145) mmol/L Chloride 93 L (98-107) mmol/L BUN 23 H (9-20) mg/dL Uric Acid (3.5-8.5) mg/dL Ferritin (22.0-322.0) ng/mL Albumin (PEP) (3.80-4.90) g/dL Vitamin B12 (200.0-944.0) pg/mL IgA (60.0-350.0) mg/dL Microbiology - Last 24 Hours (Table) 05/29/19 09:45 Blood Culture Gram Stain - Preliminary Blood Blood Culture - Preliminary Coagulase Negative Staph 05/29/19 09:45 Blood Culture - Final Blood Assessment and Plan Assessment: -C6 compression fracture: Right arm pain weakness and numbness, CT showed compression fracture but there is no cord compression. Spinal surgery/orthopedic team consult is noted. MRI to assess for any cord compression: Pending. Continue with Decadron patient will be continued on Decadron leukocytosis and metamyelocyte -pulmonary nodules, pulmonary team on the case and they recommended pulmonary biopsy -Positive blood culture with staph bacteremia. Infectious disease consulted to start patient on IV vancomycin. -Leukocytosis with metamyelocyte, consult hematology -Hyponatremia possibly of hypomanic. Patient was started on IV fluids, improving -History of lung cancer in remission but patient has new pulmonary nodules along with the a suspicious lesion in the adrenal gland, consult pulmonary patient probably will need an outpatient bronchoscopy again -Coronary disease next and heparin hypertension Hyperlipidemia -Hypothyroidism DVT prophylaxis: Heparin GI prophylaxis: Pepcid Prognosis guarded
[2019-05-31] MEDS ORDERED: LACTATED RINGERS 1,000 ML IV ONE (15:28)
[2019-05-31] MEDS: FAMOTIDINE 20 MG TAB PO SCH (15:32)
--- NOTE | 2019-05-31 15:39 | XR ---
EXAMINATION TYPE: XR cervical spine 1V DATE OF EXAM: 05/31/2019 COMPARISON: Cervical spine x-ray one day earlier. HISTORY: Neck pain and cervical stenosis. TECHNIQUE: Single portable crosstable lateral view of cervical spine obtained intraoperatively. FINDINGS: Exam is for localization purposes for surgical planning. Metallic pointer is localized over the C4-C5 disc space. IMPRESSION: As above.
[2019-05-31] MEDS ORDERED: MAGNESIUM HYDROXIDE 2,400 MG/10 ML CUP PO PRN (16:43)
[2019-05-31] MEDS ORDERED: BENZOCAINE/MENTHOL LOZENG 1 EACH LOZENGE MUCOUS MEM PRN (16:43)
[2019-05-31] MEDS ORDERED: ONDANSETRON 4 MG/2 ML VIAL IVP PRN (16:44)
[2019-05-31] MEDS ORDERED: MAG HYDROX/AL HYDROX/SIMETH 30 ML CUP PO PRN (16:44)
[2019-05-31] MEDS ORDERED: ACETAMINOPHEN TAB 325 MG TAB PO PRN (16:44)
--- NOTE | 2019-05-31 16:47 | XR ---
EXAMINATION TYPE: XR cervical spine 1V DATE OF EXAM: 05/31/2019 CLINICAL HISTORY: pain TECHNIQUE: Single portable crosstable lateral view of cervical spine obtained intraoperatively. COMPARISON: Earlier in the day FINDINGS: Postoperative changes of ACDF extending from C5 through C7 with anterior fixation plate in place. Spacers noted and alignment is within normal limits. IMPRESSION: As above
--- NOTE | 2019-05-31 17:24 | P.OP ---
Date of Procedure: 05/31/19 Preoperative Diagnosis: C6 pathologic compression fracture, upper extremity weakness, severe cervical stenosis, bacteremia, neck pain, upper extremity pain Postoperative Diagnosis: Same with findings of anterior soft tissue mass and comminuted burst fracture of C6 Anesthesia: GETA Pathology: other (C6 vertebral body and C6 posterior longitudinal ligament sent to pathology, deep cultures of C6 2 cm microbiology) Disposition: other (Patient remains in the operating room for recovery to go directly back up to his room after recovery in the operating room due to precautions for Covid 19) Description of Procedure: BRIEF OPERATIVE NOTE Preoperative Diagnosis:C6 pathologic compression fracture, upper extremity weakness, severe cervical stenosis, bacteremia, neck pain, upper extremity pain Postoperative Diagnosis: Same with findings of anterior soft tissue mass and comminuted burst fracture of C6 Procedure: Anterior cervical decompression with discectomy and fusion C5 6 and C6 7 Corpectomy of C6 Subtotal corpectomy of C5 Excision of soft tissue mass anterior to C6 Internal fixation of the C6 comminuted fracture via excision and fusion from C5 to C7 Placement of interbody graft with a peek cage from C5 to C7 Application of anterior cervical plate C5 to 7 Biopsy of the vertebral body of C6 Culture of vertebral body of C6 Surgeon: Dr. Flores Advertising Operations Manager: Jacqueline Rowe is present throughout the entire the case persistence during positioning, dissection, exposure, visualization, and all crucial elements of the case as well as closure. Anesthesia: General anesthesia per Dr. Mas Estimated blood loss: Approximately 100 mL Complications: None apparent Components implanted: K2M peek cage measuring 26 mm with a [place] anterior cervical plate and [address] Specimen: Tissue from anterior mass of C6 and C6 vertebral body as well as posterior longitudinal ligament sent to pathology. Deep specimen of culture from C6 vertebral body sent to pathology Disposition: Patient remains in the operating room for appropriate recovery in the operating room for precautions due to Covid 19. Patient tested negative to Covid preoperatively. OPERATIVE INDICATIONS The patient has had severe issues in their neck and upper extremities that he states started just within the past few weeks.. The patient presented to his primary care doctor and then to the hospital due to his pain and his weakness of his upper extremities. He is having worsening of his symptoms despite conservative treatment. He was noticing weakness particularly at his right upper extremity. He is having pain down his arms at the base of his neck. Today he was having worsening pain at his bilateral upper extremities including his left upper extremity. He continued to have weakness and was not having improvement despite medication. He was found have bacteremia as well. He had tested negative for chronic virus. He has a history of lung cancer without any known history of metastasis. His imaging was found to have severe stenosis at C6 with collapse and burst fracture of C6. There is some posterior signal behi nd C6 vertebral body and was unsure as to whether this was abscess or swelling versus possibility of mass. With the patient's severe findings as well as his neurologic deficit which was new for him, we felt that surgical intervention would be the best treatment for him to provide relief of his neural structures as well as gain access to the specimen and potentially clean out if there is any abscess at the area. We discussed various treatment options including surgery, and the patient wishes to proceed with surgery We discussed the risk, patient's alternatives and benefits of surgery including but not limited to, risk of bleeding risk of infection, risk of need for further surgery, risk of decreased, loss of motion, muscle function, malunion nonunion, hardware failure, nerve damage, paralysis, heart attack, and . We'll see discussed with him the fact that there is a current pandemic and there is no guarantee his exposure or lack of exposure. He understood these issues. I discussed the case with him as well as with his daughter at the patient's request. OPERATIVE SUMMARY After discussing all the risks, patient alternatives and benefits at length, the patient elected to proceed with surgical intervention, signed informed consent, and presented for their procedure. The patient was seen and examined in the preoperative holding area and the surgical site was marked. The patient was given antibiotics and brought to the operating room. The patient was positioned on the operating room table in a supine position being careful to pad any bony prominences and pressure points. The patient was sedated and intubated by anesthesia in standard fashion. Once the airway and C- spine were stabilized the patient's arms were padded and tucked at her side, with her shoulders gently taped. The head was placed in a donut pad with the neck in good neutral alignment and position. We were careful to maintain the patient's cervical spine and good neutral alignment and position throughout. The patient was prepped and draped in a normal standard fashion. An appropriate timeout and keystone protocol performed. We were able to proceed with the surgery. The local wound area was infiltrated with local anesthetic. An incision was made transversely approximately 2-1/2 cm over the appropriate levels of C6. Dissection was taken down subcutaneously to the level of the plat ysma which was split in line with its fibers. Dissection was taken with a carotid approach, with the trachea and esophagus medial and the carotid sheath laterally. We dissected down to the anterior surface of the vertebral bodies. Note was made of obvious soft tissue change anterior to the vertebral body of C6. There is a full mass of pale yellow fibrous tissue. It extended over C6 and over the disc of C5 6. Intraoperative x-ray was taken which showed a marker at the level of C4 5 where I was able to find a normalized disc. After the x- ray was able to further dissect down and identify C6 and C5 and C7 positively. With the appropriate level positively confirmed, we were able to proceed with decompression at the appropriate levels. All of the operative levels were exposed appropriately. The patient had all their twitches back, and there was no evidence of recurrent laryngeal issue. The wound was copiously irrigated and suctioned dry as had been done periodically throughout the case. With the mass anterior to C6 was able to isolate it and remove significant aspects of soft tissue. It extended laterally and I was not able to gain full access to the lateral aspects on the right side. At the appropriate level/levels at C5 and C7, I established an annulotomy with an 11 blade scalpel. There is obvious multiple bony fractures fragments of C6 within the soft tissue mass. There is no evidence of any bony healing. There is no maintain structure at C6 apparent. I went ahead and performed a corpectomy of C6 as well as discectomy at C5 6 and C6 7. A discectomy and corpectomy was performed with a combination of pituitary rongeurs, curettes, a high-speed bur, and [place] rongeurs. I was able to expose the posterior longitudinal ligament The posterior longitudinal ligament was taken down from C5 to C7 as were any posterior osteophytes at C5 6 and C6 7. This gave good central and bilateral foraminal decompression. There is no evidence of any dural tear or leak. I did not find any abscess or gross pus within the vertebral body or at the epidural space. The endplates were prepared with a high-speed bur. The bony structure at C5 and C7 were significantly soft and felt osteoporotic. There is some cystic structure within the vertebral body inferiorly of C5 and this was curetted out. There was some loose fragments of bone within the inferior aspect of C5. I was able to do a partial corpectomy of C5 1 possibly half of C5 was removed to get down to good bony structure. The superior aspect of C5 appeared to be adequately stable. With the endplates in good parallel position, I was able to size for the appropriate size interbody graft. The wound was irrigated and suctioned dry the graft was prepared and malleted into position. It had good alignment and position with the anterior surface flush with the anterior surface of the vertebral bodies. This was done similarly the appropriate levels. With the grafts intact, I was able to measure and contour and appropriate sized plate. The plate was positioned at the midline over the appropriate levels from C5 to C7. Screw holes were established with a hand drill and drill guide. Bone was significantly soft. Screws were placed in good alignment and position with adequate bony purchase. They were seated under the locking device. The construct was checked and found to be stable. Intraoperative x-ray was taken which showed good alignment and position of the implants at the appropriate levels from C5 to C7. There was no evidence of any dural tear or leak. Good hemostasis was maintained. The wound was copiously irrigated and suctioned dry as had been done periodically throughout the case. The platysma was closed with absorbable suture. The subcutaneous tissue was closed. The subcuticular tissue was closed with absorbable suture. The wound was cleaned and dried and dressed appropriately. A soft cervical collar was placed appropriately. The patient was woken up by anesthesia, extubated, transferred back gently to their hospital bed and brought to the recovery room in good stable condition. The patient will be admitted to the hospital for appropriate postoperative care, medical management and monitoring. We will continue to follow them closely about the postoperative course.
[2019-05-31] MEDS: SODIUM CHLORIDE 0.9% 1,000 ML IV SCH (18:11)
--- NOTE | 2019-05-31 18:12 | PN ---
PROGRESS NOTE DATE OF SERVICE: 05/31/2019 REASON FOR FOLLOWUP: Positive blood culture. INTERVAL HISTORY: The patient was seen on rounds early this afternoon. The patient has been afebrile. Neck pain is currently controlled. The patient was waiting for his surgery. The patient denies having any chest pain or shortness of breath or cough. No nausea, vomiting, abdominal pain or diarrhea. PHYSICAL EXAMINATION: Blood pressure 130/86, pulse of 87, temperature 98. He is 96% on room air. General description is an elderly male lying in bed in no distress. RESPIRATORY SYSTEM: Unlabored breathing. Clear to auscultation anteriorly. HEART: S1, S2. Regular rate and rhythm. ABDOMEN: Soft. No tenderness. LABS: Blood culture has been coagulase-negative Staph. Repeat blood culture currently pending. DIAGNOSTIC IMPRESSION AND PLAN: Patient with a positive blood culture with coagulase-negative Staph in this patient admitted to hospital with C6 pathological fracture with concern for possible osteomyelitis. Will wait for the OR cultures to be finalized and keep the patient on vancomycin and monitor his clinical course closely. Continue with supportive care. MMODL / IJN: [id number] /
[2019-05-31] MEDS: HYDROcodone/APAP 10-325MG 1 EACH TAB PO PRN (20:27)
[2019-05-31] MEDS: ATORVASTATIN 40 MG TAB PO SCH (20:28)
[2019-06-01] MEDS: DEXAMETHASONE SOD PHOSPHATE 10 MG/ML 1 ML VIAL IV SCH ×4 (00:55→17:32)
[2019-06-01] MEDS ORDERED: VANCOMYCIN TROUGH DUE 1 EACH MISC MISCELLANE ONE (05:00)
[2019-06-01] MEDS: LEVOTHYROXINE 75 MCG TAB PO SCH (05:43)
[2019-06-01] MEDS: SYMBICORT 160-4.5 MCG INHALER INHALATION SCH ×2 (07:07→19:33)
[2019-06-01] MEDS: ALBUTEROL HFA INHALER INHALATION PRN ×4 (07:07→19:33)
[2019-06-01] MEDS: HEPARIN SODIUM,PORCINE 5,000 UNIT/ML 1 ML VIAL SQ SCH ×2 (07:38→20:33)
[2019-06-01] MEDS: KETOROLAC 30 MG/ML 1 ML VIAL IVP PRN (07:38)
[2019-06-01] MEDS: PANTOPRAZOLE 40 MG/10 ML VIAL IVP SCH (07:38)
[2019-06-01] MEDS: ATENOLOL 25 MG TAB PO SCH (07:39)
[2019-06-01] MEDS: CYCLOBENZAPRINE 10 MG TAB PO SCH ×3 (07:39→20:34)
[2019-06-01] MEDS: GABAPENTIN 300 MG CAP PO SCH ×3 (07:39→20:34)
[2019-06-01] MEDS: SENNOSIDES-DOCUSATE SODIUM 1 EACH TAB PO SCH (07:39)
[2019-06-01] MEDS: ASPIRIN 81 MG PO SCH (07:40)
[2019-06-01 07:53] LABS: HCT 38.6 % (39.0-53.0); HGB 12.3 gm/dL (13.0-17.5); MCH 29.6 pg (25.0-35.0); MCHC 31.9 g/dL (31.0-37.0); MCV 92.7 fL (80.0-100.0); Mean Platelet Volume 9.4; Platelet Count 307 k/uL (150-450); RBC 4.16 m/uL (4.30-5.90); RDW 13.1 % (11.5-15.5); WBC 39.2 k/uL (3.8-10.6)
[2019-06-01 08:02] LABS: African American GFR (CKD) >90 (>60 ml/min/1.73 sqM); Anion Gap 7 mmol/L; Blood Urea Nitrogen 30 mg/dL (9-20); Carbon Dioxide 28 mmol/L (22-30); Chloride 96 mmol/L (98-107); Glucose 107 mg/dL (74-99); Non-African American GFR(CKD) 85 (>60 ml/min/1.73 sqM); Potassium 4.3 mmol/L (3.5-5.1); Sodium 131 mmol/L (137-145)
[2019-06-01] MEDS: HYDROcodone/APAP 10-325MG 1 EACH TAB PO PRN ×2 (09:00→16:02)
[2019-06-01] MEDS: VANCOMYCIN 1,250 MG in SODIUM CHLORIDE 0.9% 250 ML IVPB SCH ×2 (09:00→17:33)
[2019-06-01] MEDS: SODIUM CHLORIDE 0.9% 1,000 ML IV SCH ×2 (09:03→20:34)
[2019-06-01 09:31] LABS: Lymphocytes # (M) 1.18 k/uL (1.0-4.8); Monocytes # (M) 1.18 k/uL (0-1.0); Neutrophils # (M) 36.85 k/uL (1.3-7.7); Neutrophils % (M) 94 %; Nucleated Red Blood Cells 0 /100 WBC (0-0); Total Cells Counted 100
[2019-06-01] MEDS: HYDROmorphone 0.5 MG/0.5 ML SYRINGE IVP PRN (11:56)
[2019-06-01] MEDS: LIDOCAINE 5% PATCH TOPICAL SCH (11:58)
--- NOTE | 2019-06-01 13:47 | P.PN ---
Subjective Progress Note Date: 06/01/19 Principal diagnosis: Right upper extremity weakness/pain related to a mild bony retropulsion of the cervical spine at the level of C6, patient has severe degenerative spine disease with disc space narrowing at the C3-C4 with posterior disc bulge 79-year-old male patient is being seen in consultation for lung mass. The patient is known to have history of lung cancer. The patient came into the hospital because of pain and numbness in his right upper extremity extending to his right thumb and this is been going on for the past 2 weeks to the point where the patient was unable to lift any objects because of the pain and numbness and tingling. His echo was elevated at 31. The calcium level is normal at 9.6. Lactic acid level at time of admission was 1.7. He had a CRP of 57.7 which is quite elevated and this is based on the previous blood work that was done on 05/17/2019. In the ED, the patient had a CAT scan of the brain that showed age-related atrophy and small vessel ischemic changes. An unenhanced CAT scan of the cervical spine also was done and it showed severe compression fracture of the C6 spine of an uncertain age/etiology with bony retropulsion of 3.5 mm. No evidence of any central canal stenosis or cord compression. Multilevel degenerative disc disease was seen with disc bulging and neurominal encroachment severe at the level of C3-C4 and there is also severe degenerative disc narrowing at the level of C5-C6. There is a 90% compression fracture of the T6 spine. Noted the patient was in the emergency department on 05/17/2023 with similar complaints of worsening shoulder and arm pain he was seen in emergency department and the patient underwent a CT angiogram of the upper extremity and it showed poor opacification of the radial and ulnar arteries at the level of the brachial bifurcation which was either technical in nature or h igh-grade stenosis/thrombosis which could not be completely ruled out. A CAT scan of the chest was also done utilizing a CT angios protocol and the CAT scan showed no evidence of any pulmonary embolism. Nevertheless, there were several for nodules, and a lung mass. There was a 3.4 cm right lower lobe pleural-based mass posteriorly in the right lower lobe area. There was another 7 mm right middle lobe pulmonary nodule, 5 mm left upper lobe pulmonary pleural-based nodule, 7 mm right upper lobe pulmonary nodule and a 4 mm right apical pulmonary nodule. There was extensive emphysema and some scattered subpleural fibrosis. The perihilar/peribronchial lymph nodes were identified. 4.1 cm suspicious lesion of the left adrenal gland was seen suspicious for metastases. This was a new finding monitor the patient's previous CAT scan from 03/22/2018 did not show any lung masses or nodules. There was however some scarring in the lung bases especially on the right in addition to emphysema and some elevation of left hemidiaphragm. S shaped scoliosis was also seen along with osseous deminer alization. The patient is afebrile. The patient's pulse ox 99% on room air.: 19 evaluation was negative. Influenza A and B were negative. UA was negative. On today's evaluation of 05/30/2019, the patient was seen by spine surgery and the patient was given a neck brace. His pain is under good control. He is awaiting MRI of the cervical spine. The white cell count remains elevated. The pro-calcitonin level is low. He is still feeling weakness in the right upper extremity. A fine-needle aspirate of the lung metastatic to be considered and will going to consult interventional radiology. On 05/31/2019 patient seen in follow-up on general medical floor, still complaining of weakness in his arms and neck pain. Patient has a c-collar that he is wearing [id number], his imaging showed significant compression of his spinal cord. Patient was evaluated by orthopedic service and surgical decompression and spinal fusion was recommended and the patient is scheduled for his surgery today. Patient was also evaluated by radiation oncology, and he may need radiotherapy to the postoperative bed after completion of the above surgery, from pulmonary perspective, his breathing seems to be nonlabored, he is on room air, with a pulse ox of 96%, lung sounds are diminished, no rhonchi or wheezing, patient has been afebrile, today's labs have been reviewed showing white blood cell count of 32.8, hemoglobin 13.4, neutrophil count is 30.5, influenza and coronavirus PCR were negative, patient is receiving IV Decadron, patient is on vancomycin, blood culture showed coagulase-negative staph. On 06/01/2019 patient seen in follow-up on medical floor, he is postop day 1 status post anterior cervical decompression with discectomy and fusion of C5, C6 and C6 and C7. He is awake and alert, in no acute distress, room air pulse ox is 94%, he sitting up in the recliner, calm and comfortable, he is afebrile, vital signs are stable. Breathing is unlabored. Bone biopsy from the vertebral body of C6 and culture of vertebral body of the 6 are pending at this time. Today's labs have been reviewed showing white blood cell, 39.2, hemoglobin of 12.3, sodium 131, potassium is 4.3, chloride is 96, B1 is 30 creatinine 0.8. Patient is on cefepime and vancomycin for antibiotic coverage, ID service is following. Patient had blood culture with coagulase-negative staph, B blood cultures pending. Objective - Vital Signs Vital signs: Vital Signs Temp 97.6 F 06/01/19 09:00 Pulse 94 06/01/19 09:00 Resp 18 06/01/19 09:00 BP 112/81 06/01/19 09:00 Pulse Ox 94 L 06/01/19 09:00 Intake & Output 05/31/19 06/01/19 06/01/19 18:59 06:59 18:59 Intake Total 1000 Output Total 250 Balance 750 Intake: IV 1000 Output: Urine 150 Estimated Blood Loss 100 Other: Voiding Method Urinal Urinal Urinal # Voids 400 1 - Exam GENERAL EXAM: Alert, pleasant, 79-year-old white male, in the c-collar, appears chronically ill, but no acute distress, on room air, with a pulse ox of 96% comfortable in no apparent distress. HEAD: Normocephalic/atraumatic. EYES: Normal reaction of pupils, equal size. Conjunctiva pink, sclera white. NOSE: Clear with pink turbinates. THROAT: No erythema or exudates. NECK: No masses, no JVD, no thyroid enlargement, no adenopathy. Patient has a c-collar in place CHEST: No chest wall deformity. Symmetrical expansion. LUNGS: Equal air entry with no crackles, wheeze, rhonchi or dullness. CVS: Regular rate and rhythm, normal S1 and S2, no gallops, no murmurs, no rubs ABDOMEN: Soft, nontender. No hepatosplenomegaly, normal bowel sounds, no guarding or rigidity. EXTREMITIES: No clubbing, no edema, no cyanosis, 2+ pulses and upper and lower extremities. MUSCULOSKELETAL: Muscle strength and tone normal. SPINE: No scoliosis or deformity SKIN: No rashes CENTRAL NERVOUS SYSTEM: Alert and oriented -3. No focal deficits, tone is normal in all 4 extremities. PSYCHIATRIC: Alert and oriented -3. Appropriate affect. Intact judgment and insight. - Labs CBC & Chem 7: 06/01/19 07:32 06/01/19 07:32 Labs: Abnormal Lab Results - Last 24 Hours (Table) 05/30/19 06/01/19 06/01/19 Range/Units 08:04 07:32 07:32 WBC 39.2 H (3.8-10.6) k/uL RBC 4.16 L (4.30-5.90) m/uL Hgb 12.3 L (13.0-17.5) gm/dL Hct 38.6 L (39.0-53.0) % Neutrophils # (Manual) 36.85 H (1.3-7.7) k/uL Monocytes # (Manual) 1.18 H (0-1.0) k/uL Sodium 131 L (137-145) mmol/L Chloride 96 L (98-107) mmol/L BUN 30 H (9-20) mg/dL Glucose 107 H (74-99) mg/dL Albumin (PEP) 2.91 L (3.80-4.90) g/dL Microbiology - Last 24 Hours (Table) 05/31/19 15:39 Gram Stain - Preliminary Other - Other Wound Culture - Preliminary 05/31/19 14:28 Gram Stain - Preliminary Other - Other Wound Culture - Preliminary 05/31/19 14:28 Anaerobic Culture - Preliminary Other - Other 05/31/19 15:39 Anaerobic Culture - Preliminary Other - Other 05/30/19 18:07 Blood Culture - Preliminary Blood No Growth after 24 hours Assessment and Plan Plan: Assessment: 1 right upper extremity weakness/pain related to C6 compression fracture, and significant compression of the spinal cord awaiting surgical intervention. Preliminary evaluation with a CAT scan of the cervical spine showed C6 vertebral body compression fracture, at least 90% with a mild bony retropulsion noted to be around 3.5 mm in size and the patient has severe degenerative disc space narrowing at the level of C3-C4 with posterior disc bulge with mild effacement and bilateral foraminal encroachment and C5-C6 without any herniation or canal stenosis. Presence of leukocytosis is obviously raises the concern for infection along with an elevated CRP. Possibility of malignancy involving the C-spine with secondary compression cannot be ruled out knowing that the patient has several pulmonary lesions. The patient has severe degenerative disc disease along with posterior disc bulge at the level of C3-C4. Patient is status post anterior cervical decompression with discectomy and fusion of C5, 6, and C6 and 7, biopsy of the vertebral body of C6, and culture of the vertebral body of C6 collected and sent, and are pending at this time 2 right lower lobe mass, pleural based measuring 3.9 cm in addition to several other smaller pulmonary nodules scattered focal lung mahan bilaterally in addition to a left adrenal mass, consider metastatic lung cancer/malignancy. 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 pulmonary fibrosis 6 coronary artery disease with previous coronary stenting 7 S scoliosis of the thoracolumbar spine 8 hyperlipidemia 9 hypertension 11 hypothyroidism 12 impaired hearing 13 blood culture with coagulase-negative staph on 05/29/2019, follow-up blood cultures pending, negative thus far. Plan: Vital signs remain stable, no worsening dyspnea, breathing seems to be comfortable, patient is on room air. Canceled biopsy of the right lower lobe mass by the interventional radiology, will await results of the bone biopsy of the C6 vertebral body bone biopsy and cultures. We'll continue to follow I performed a history & physical examination of the patient and discussed their management with my nurse practitioner, Opal Alcantar. I reviewed the nurse practitioner's note and agree with the documented findings and plan of care. Lung sounds are positive for clear breath sounds. The findings and the impression was discussed with the patient. I attest to the documentation by the nurse practitioner. Time with Patient: Less than 30
[2019-06-01] MEDS: CEFEPIME 2 GM in SODIUM CHLORIDE 0.9% 100 ML IVPB SCH (14:47)
--- NOTE | 2019-06-01 14:55 | P.PN ---
Progress Note - Text Progress Note Date: 06/01/19 Orthopedic Spine: History of present illness: Patient is a pleasant 79-year-old male who is seen at the bedside following C5-6 and C6-7 anterior cervical decompression and fusion with corpectomy of C6 performed yesterday. Patient states they are doing well postsurgically. He continues to have some pain over the shoulders bilaterally greater on the right than the left. He continues to have numbness in the right hand. Overall he feels his symptoms have had significant improvement postoperatively. He continues to keep his hard cervical collar intact. He does have some difficulty with swallowing postoperatively. He has been able to eat his food after being cut into smaller pieces. He is currently very happy with his progress postoperatively. Currently does not complain of nausea, vomiting, fever, or chills. Patient states pain has been adequately controlled. Patient is eating and voiding freely without difficulty. Patient was recently brought back to his room after undergoing a thoracic MRI. Patient continues to be seen by multiple medical providers including medicine, pulmonology, and oncology. He is undergoing further evaluation with oncology for possible metastatic cancer. Patient is known to have a right lobe pulmonary mass with additional smaller masses. Patient's recent blood culture was positive for staph hominis sub species hominis. Patient is currently on vancomycin IV. Physical Exam Cervical Fusion: Status post surgical day number 1 Patient is awake, alert, and oriented 3 Vital signs stable Adequate chest excursion with deep inspiration and expiration Certified Phlebotomy Technician strength, thumb strength, interosseous strength, biceps strength, triceps strength, and shoulder strength positive sustained bilaterally Motor strength of the right upper extremity is 4-/5 including booster plant operator Dressing is clean, dry, and intact; no erythema, purulence, or signs of infection Hard cervical collar is intact No pain with palpation of the posterior cervical spine or upper thoracic spine Assessment: Status post C5-6 and C6-7 anterior cervical decompression and fusion with corpectomy of C6 C6 pathologic compression fracture Right upper extremity radiculopathy Bilateral shoulder pain greater on the right than the left Right upper extremity weakness Right lobe pulmonary mass with additional smaller masses Positive blood culture for staph hominis sub species homini Bacteremia Plan: 1. Ambulate as tolerated; work with Physical Therapy to increase mobilization 2. Continue pain control with oral [place] and IV Dilaudid as needed 3. Patient may shower with Tegaderm dressing; patient may remove Tegaderm in 4 days and shower without a dressing at that time 4. Patient must continue to keep hard cervical collar intact at all times; we will plan to keep his hard cervical collar intact postoperatively for approximately 12 weeks and may plan to transition to a soft cervical collar pending on the patient's progress. 5. Patient will continue to be seen and examined by multiple other medical providers including oncology, pulmonology, and medicine for his other significant medical diagnoses 6. Following discharge, patient may follow-up with Ric Cunningham PA-C or Dr. Yamil Flores at [facility] in 1-2 weeks following discharge 7. We will continue to follow patient closely during his admission
--- NOTE | 2019-06-01 15:32 | P.PN ---
Subjective 79-year-old male came in with complaints of severe pain in the right thumb has been going on for about 2 weeks unable to lift his arm with severe tingling numbness. Patient is unable to lift his right arm. Patient is comparing of severe pain in the right arm. Patient had a recent CAT scan earlier this month which showed multiple pulmonary nodules along with the possible metastatic lesion in a dual gland. Patient has history of right lung cancer which was in remission. Patient denied any fever chills patient denied any Dysuria denied any shortness of breath patient had a CT, there is a compression fracture involving the C6 of uncertain age no evidence of central stenosis or Compression and multilevel degenerative disease was seen. I discuss with a spinal surgeon he recommended MRI with contrast which will be obtained. 05/30/2019 Patient still complaining from weakness and numbness in his right upper extremity with pain about 7/10 today, he still have difficulty dropping stuff with his hand although he can use both hands for eating and he can move his right upper extremity. No other specific complaints, no chest pain or dyspnea. Patient has been evaluated by pulmonary and spinal surgery teams. MRI of the cervical spine is recommended which is done and the result is pending. In the meantime he remains on Decadron and normal saline Vitas looks stable History of have leukocytosis of 31K, has INR 0.9, sodium improved 132. Influenza and call the 20. Procolcitoin is low at 0.05. 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 Patient is going for corpectomy and reconstructive surgery today. Afebrile. Still have leukocytosis of 30 2.8K. Sodium 129 Medical oncology and orthopedic surgeon and radiation oncology R following case. 06/01/2019 Patient is a status post corpectomy of C6, with discectomy and fusion of C5-6 and C6-7, with biopsy and culture obtained, with excision of soft tissue mass anterior to C6. Today is postoperative day #1. Possible patient was doing good, he was sitting in chair having his meal when I saw him. He states that his pain is less by about 60%, numbness improved with arm and the arm is better. No chest pain dyspnea. Hemodynamics stable. WBCs still trending up at 39, hemoglobin is stable at 12.3. Sodium improved to 131, creatinine 0.8 Blood culture is positive for staph hominis, is currently on cefepime antibiotics by our ID team, and the vancomycin continue. Patient is followed closely by several consultants Review of systems CONSTITUTIONAL: No fever, no malaise, no fatigue. HEENT: No recent visual problems or hearing problems. Denied any sore throat. CARDIOVASCULAR: No orthopnea, PND, no palpitations, no syncope. PULMONARY: No shortness of breath, no cough, no hemoptysis. GASTROINTESTINAL: No diarrhea, no nausea, no vomiting, no abdominal pain. Normoactive bowel sounds. NEUROLOGICAL: No headaches, no weakness, no numbness. HEMATOLOGICAL: Denies any bleeding or petechiae. GENITOURINARY: Denies any burning micturition, frequency, or urgency. MUSCULOSKELETAL/RHEUMATOLOGICAL: Denies any joint pain, swelling, or any muscle pain. ENDOCRINE: Denies any polyuria or polydipsia. Active Medications Generic Name Dose Route Start Last Admin Trade Name Freq PRN Reason Stop Dose Admin Acetaminophen 650 mg 05/31/19 16:44 Tylenol Tab PO Q6HR PRN Fever and/ or Pain Hydrocodone Bitart/Acetaminophen 1 each 05/29/19 12:28 06/01/19 09:00 [place] 10 PO 1 each Q6H PRN Administration Pain Hydrocodone Bitart/Acetaminophen 1 each 05/31/19 16:44 [place] 5-325 PO Q4HR PRN Moderate Pain Al Hydroxide/Mg Hydroxide 30 ml 05/31/19 16:44 Maalox PO Q4HR PRN Indigestion Albuterol Sulfate 2 puff 05/29/19 13:48 06/01/19 11:09 Ventolin Hfa Inhaler INHALATION 2 puff RT-QID PRN Administration Shortness Of Breath Aspirin 81 mg 05/30/19 09:00 06/01/19 07:40 Aspirin PO 81 mg DAILY NILSON Administration Atenolol 25 mg 05/30/19 09:00 06/01/19 07:39 Tenormin PO 25 mg DAILY NILSON Administration Atorvastatin Calcium 40 mg 05/29/19 21:00 05/31/19 20:28 Lipitor PO 40 mg HS NILSON Administration Benzocaine/Menthol 1 each 05/31/19 16:43 Cepacol Lozenge MUCOUS MEM Q4HR PRN Sore Throat Budesonide/Formoterol Fumarate 2 puff 05/29/19 20:00 06/01/19 07:07 Symbicort 160-4.5 Mcg Inhaler INHALATION 2 puff RT-BID NILSON Administration Cyclobenzaprine HCl 10 mg 05/29/19 16:00 06/01/19 07:39 Flexeril PO 10 mg TID NILSON Administration Dexamethasone Sodium Phosphate 6 mg 05/31/19 00:00 06/01/19 11:55 Decadron IV 6 mg Q6HR NILSON Administration Gabapentin 300 mg 05/29/19 16:00 06/01/19 07:39 Neurontin PO 300 mg TID NILSON Administration Heparin Sodium (Porcine) 5,000 unit 05/29/19 21:00 06/01/19 07:38 Heparin SQ 5,000 unit Q12HR NILSON Administration Hydromorphone HCl 0.5 mg 05/31/19 16:43 06/01/19 11:56 Dilaudid IVP 0.5 mg Q4HR PRN Administration Pain Hydromorphone HCl 1 mg 05/31/19 16:43 Dilaudid IVP Q4HR PRN Pain Lactated Ringer's 1,000 mls @ 20 mls/hr 05/30/19 14:15 05/31/19 14:41 Lactated Ringers IV Not Given .Q24H NILSON Vancomycin HCl 1,250 mg/ 250 mls @ 125 mls/hr 05/31/19 06:00 06/01/19 09:00 Sodium Chloride IVPB 125 mls/hr Q12H NILSON Administration Sodium Chloride 1,000 mls @ 75 mls/hr 05/31/19 16:45 06/01/19 09:03 Saline 0.9% IV 75 mls/hr .[id number] NILSON Administration Cefepime HCl 2 gm/ Sodium 100 mls @ 200 mls/hr 06/01/19 11:00 06/01/19 14:47 Chloride IVPB 200 mls/hr Q12HR NILSON Administration Ketorolac Tromethamine 15 mg 05/29/19 12:27 06/01/19 07:38 Toradol IVP 06/03/19 12:28 15 mg Q6HR PRN Administration Pain Levothyroxine Sodium 75 mcg 05/30/19 06:30 06/01/19 05:43 Synthroid PO 75 mcg 0630 NILSON Administration Lidocaine 1 patch 05/30/19 09:00 06/01/19 11:58 Lidoderm TOPICAL Not Given DAILY NILSON Magnesium Hydroxide 2,400 mg 05/31/19 16:43 Milk Of Magnesia PO DAILY PRN Constipation Ondansetron HCl 4 mg 05/31/19 16:44 Zofran IVP Q8HR PRN Nausea And Vomiting Pantoprazole Sodium 40 mg 05/30/19 16:15 06/01/19 07:38 Protonix IVP 40 mg DAILY NILSON Administration Senna/Docusate Sodium 1 each 06/01/19 09:00 06/01/19 07:39 Senokot-S PO 1 each DAILY NILSON Administration Objective - Vital Signs Vital signs: Vital Signs Temp 97.7 F 06/01/19 15:12 Pulse 89 06/01/19 15:12 Resp 19 06/01/19 15:12 BP 116/68 06/01/19 15:12 Pulse Ox 93 L 06/01/19 15:12 Intake & Output 05/31/19 06/01/19 06/01/19 18:59 06:59 18:59 Intake Total 1000 Output Total 250 Balance 750 Intake: IV 1000 Output: Urine 150 Estimated Blood Loss 100 Other: Voiding Method Urinal Urinal Urinal # Voids 400 1 - Exam GENERAL: The patient is alert and oriented x3, not in any acute distress. Well developed, well nourished. HEENT: Pupils are round and equally reacting to light. EOMI. No scleral icterus. No conjunctival pallor. Normocephalic, atraumatic. No pharyngeal erythema. No thyromegaly. CARDIOVASCULAR: S1 and S2 present. No murmurs, rubs, or gallops. PULMONARY: Chest is clear to auscultation, no wheezing or crackles. ABDOMEN: Soft, nontender, nondistended, normoactive bowel sounds. No palpable organomegaly. MUSCULOSKELETAL: No joint swelling or deformity. -EXTREMITIES: No cyanosis, clubbing, or pedal edema. Patient has pain tingling numbness in the right arm patient does have weakness strength of of around the 3/5 in the entire right arm. NEUROLOGICAL: Gross neurological examination did not reveal any focal deficits. SKIN: No rashes. - Labs CBC & Chem 7: 06/01/19 07:32 06/01/19 07:32 Labs: Abnormal Lab Results - Last 24 Hours (Table) 06/01/19 06/01/19 Range/Units 07:32 07:32 WBC 39.2 H (3.8-10.6) k/uL RBC 4.16 L (4.30-5.90) m/uL Hgb 12.3 L (13.0-17.5) gm/dL Hct 38.6 L (39.0-53.0) % Neutrophils # (Manual) 36.85 H (1.3-7.7) k/uL Monocytes # (Manual) 1.18 H (0-1.0) k/uL Sodium 131 L (137-145) mmol/L Chloride 96 L (98-107) mmol/L BUN 30 H (9-20) mg/dL Glucose 107 H (74-99) mg/dL Microbiology - Last 24 Hours (Table) 05/29/19 09:45 Blood Culture Gram Stain - Final Blood Blood Culture - Final Staph hominis sub sp. hominis 05/31/19 15:39 Gram Stain - Preliminary Other - Other Wound Culture - Preliminary 05/31/19 14:28 Gram Stain - Preliminary Other - Other Wound Culture - Preliminary 05/31/19 14:28 Anaerobic Culture - Preliminary Other - Other 05/31/19 15:39 Anaerobic Culture - Preliminary Other - Other 05/30/19 18:07 Blood Culture - Preliminary Blood No Growth after 24 hours Assessment and Plan Assessment: -C6 compression fracture:status post corpectomy of C6, with discectomy and fusion of C5-6 and C6-7,with excision of soft tissue mass anterior to C6 Right arm pain weakness and numbness, patient followed closely by surgery team -pulmonary nodules, pulmonary team on the case and they recommended pulmonary biopsy -Positive blood culture with staph bacteremia. Infectious disease consulted to start patient on IV vancomycin. -Leukocytosis with metamyelocyte, consult hematology -Hyponatremia possibly of hypomanic. Patient was started on IV fluids, improving -History of lung cancer in remission but patient has new pulmonary nodules along with the a suspicious lesion in the adrenal gland, consult pulmonary patient probably will need an outpatient bronchoscopy again -Coronary disease next and heparin hypertension Hyperlipidemia -Hypothyroidism DVT prophylaxis: Heparin GI prophylaxis: Pepcid Prognosis guarded
--- NOTE | 2019-06-01 15:36 | MR ---
EXAMINATION TYPE: MR brain wo/w con DATE OF EXAM: 06/01/2019 COMPARISON: NONE HISTORY: 79-year-old male Lung cancer, metastatic evaluation TECHNIQUE: Multiplanar, multisequence images of the brain and brainstem were acquired before and aft er administration of 6.5 mL IV Gadavist. Diffusion weighted imaging is performed. FINDINGS: Moderate generalized atrophy. T2/FLAIR weighted sequences show moderate scattered foci of bright white matter change in the subcort ical and deep white matter regions of both cerebral hemispheres and patchy changes in the bilateral p aramedian haja. No evidence for acute infarction, hemorrhage, mass, mass effect, midline shift, herniation, effacemen t of basal cisterns, or extra-axial fluid collection. Dominant left vertebral artery. Midline structures demonstrate normal morphology. The craniocervical junction is normal. There is some image degradation due to patient motion. Sequences were repeated. Post contrast images demonstrate no evidence of pathologic enhancement. Dural venous sinuses are patent. The visualized sinuses are clear and the globes are intact. IMPRESSION: Moderate generalized atrophy and scattered changes of chronic small vessel ischemic disease. No enha ncing intracranial lesions visualized.
--- NOTE | 2019-06-01 16:17 | MR ---
EXAMINATION TYPE: MR thoracic spine wo/w con DATE OF EXAM: 06/01/2019 COMPARISON: None HISTORY: 79-year-old male Lung cancer, metastatic evaluation Technique: Multiplanar, multisequence images of the thoracic spine were obtained before and after adm inistration of 6.5 mL intravenous Gadavist gadolinium contrast. FINDINGS: The technologist reports that the patient has cervical fusion done on 05/31/2019 and had difficulty ho lding still. S-shaped scoliosis is present. Accentuated upper thoracic kyphosis. Heterogeneous marrow without definite suspicious bone marrow replacement. Chronic appearing vertebral compression deformities of T11, T12, and L1. Mild superior endplate defor mity of T5 also appears chronic without marrow replacement. Chronic superior endplate Schmorl's node of T11. Fatty matrix hemangioma of T10 and L3. Mild retropulsion into the ventral spinal canal at the T11 level with mild overall spinal canal steno sis. Mild multilevel degenerative disc disease with variable disc desiccation and disc bulging. This mildl y narrows the spinal canal at the T7-T8 level. Moderate spinal canal stenosis at L1-L2 secondary to diffuse disc bulge and ligamentum flavum thicken ing. This crowds the cauda equina nerve roots. Scattered facet arthropathy. Minimal moderate neuroforaminal stenoses, particularly on the right. Normal signal intensity of the thoracic spinal cord. Alignment is maintained. Bilateral renal cysts measuring up to 4.1 cm on the right. Known adrenal masses measuring up to 5.0 cm and the left and 2.4 cm on the right. Known posterior right basilar mass measuring at least 4.2 cm. Coronal series shows known bilateral p ulmonary nodules. IMPRESSION: 1. No convincing osseous metastatic disease to the thoracic spine or definite suspicious enhancement within the spinal canal. 2. S-shaped scoliosis with moderate degenerative disc disease. This causes mild spinal canal stenosis at T7-T8 and moderate spinal canal stenosis at L1-L2. 3. There is also mild spinal canal stenosis at the T11 level secondary to a chronic appearing vertebr al compression deformity at this level. Additional chronic appearing endplate and compression deformi ties involving T5, T12, and L1. 4. Known posterior right base lung mass, bilateral pulmonary nodules, and bilateral adrenal metastase s.
[2019-06-01] MEDS: ATORVASTATIN 40 MG TAB PO SCH (20:34)
--- NOTE | 2019-06-01 20:35 | P.PN ---
Subjective Progress Note Date: 06/01/19 Principal diagnosis: impending cord compression, picture of metastatic cancer Overall doing well today. Discussed case with radiation oncology and plan will be to follow-up for outpatient radiaiotn post discharge. Objective - Vital Signs Vital signs: Vital Signs Temp 98.6 F 06/01/19 19:30 Pulse 66 06/01/19 19:30 Resp 20 06/01/19 19:30 BP 121/80 06/01/19 19:30 Pulse Ox 95 06/01/19 19:30 Intake & Output 06/01/19 06/01/19 06/02/19 06:59 18:59 06:59 Intake Total 340 Balance 340 Intake: Oral 340 Other: Voiding Method Urinal Urinal # Voids 1 - Exam Gen: Alert, NAD Head: NCNT Neck: Supple, C collar inplace Lungs: Mild increase, CTA Heart: RRR Abdomen: S/ND Ext: No edema weakness right sided strength Mood: Calm - Labs CBC & Chem 7: 06/01/19 07:32 06/01/19 07:32 Labs: Abnormal Lab Results - Last 24 Hours (Table) 06/01/19 06/01/19 Range/Units 07:32 07:32 WBC 39.2 H (3.8-10.6) k/uL RBC 4.16 L (4.30-5.90) m/uL Hgb 12.3 L (13.0-17.5) gm/dL Hct 38.6 L (39.0-53.0) % Neutrophils # (Manual) 36.85 H (1.3-7.7) k/uL Monocytes # (Manual) 1.18 H (0-1.0) k/uL Sodium 131 L (137-145) mmol/L Chloride 96 L (98-107) mmol/L BUN 30 H (9-20) mg/dL Glucose 107 H (74-99) mg/dL Microbiology - Last 24 Hours (Table) 05/30/19 18:07 Blood Culture - Preliminary Blood No Growth after 48 hours 05/29/19 09:45 Blood Culture Gram Stain - Final Blood Blood Culture - Final Staph hominis sub sp. hominis 05/31/19 15:39 Gram Stain - Preliminary Other - Other Wound Culture - Preliminary 05/31/19 14:28 Gram Stain - Preliminary Other - Other Wound Culture - Preliminary 05/31/19 14:28 Anaerobic Culture - Preliminary Other - Other 05/31/19 15:39 Anaerobic Culture - Preliminary Other - Other Assessment and Plan Plan: Assessment and Recommendations: 1. Right Lobe Pulmonary Mass with additional smaller masses: - Pulmonary is following - WIth history of lung cancer will need biopsy tissue of new finding as concerning for recurrent picture of cancer, malignancy - Will defer Bronch versus other to pulmonary for tissue biopsy Concern for cord compression: MRI pending - Possibility of malignancy involving the C-spine with secondary compression cannot be ruled out knowing that the patient has several pulmonary lesions. Dexamethasone is ordered and once tissue biopsy proven malignancy will consult radiation oncology - cT abdomen and pelvis reveal bilateral adrenal massess, appears picture of recurrent metastatic lung cancer. Await path from ortho surgery, if further tissue needed will likely as pulm or IR for intervention 2. Leukocytocytosis: - Neutrophilia, Lymphocytopenia - His labs show no alarming abnormality other than very slightly elevated monocytes which was present in past and increased WBC likely reactive to acute process - However light chain ratio and kappa light chain increased in past therefore will repeat. Check urine immunofixation - Underwent evaluation in 2011 and found to be benign at that time. Plan: - Await path and imaging - Recover from intervention today. - Radiation oncology recs after discharge prob short course 3-5 fractions - Cont dex and PPI - Review of THoracic and Brain MRI without identification of diffuse ossous or intracranial mets
--- NOTE | 2019-06-01 22:32 | PN ---
PROGRESS NOTE DATE OF SERVICE: 06/01/2019 REASON FOR FOLLOWUP: 1. Positive blood culture. 2. Leukocytosis. INTERVAL HISTORY: The patient is currently afebrile. The patient was taken to the OR yesterday; this patient who is status post C5-C6 and C6-C7 anterior cervical decompression and fusion with corpectomy of C6. Soft tissue mass with it has been cultured. The patient tolerated the procedure. Pain is currently controlled. No chest pain. Occasional cough. No abdominal pain or diarrhea. PHYSICAL EXAMINATION: Blood pressure 121/80 with a pulse of 66, temperature 98.6. He is 95% on room air. General description is an elderly male lying in bed in no distress. RESPIRATORY SYSTEM: Unlabored breathing. Clear to auscultation anteriorly. HEART: S1, S2. Regular rate and rhythm. ABDOMEN: Soft. No tenderness. LABS: Hemoglobin is 12.3, white count 39.2, BUN of 30, creatinine 0.81. Blood culture with coagulase-negative Staph. Blood culture repeat has been negative so far. DIAGNOSTIC IMPRESSION AND PLAN: 1. Patient with positive coagulase-negative Staphylococcus, possible contamination. Repeat blood culture has been negative. 2. Patient with elevated white count in this patient who did have a pathologic infection of C6, possibly related to the inflammation associated with trauma plus/minus steroids, as the patient was started on Decadron. We will add cefepime to cover for the Gram-negative while waiting for the repeat culture to finalize and monitor his clinical course closely. MMODL / IJN: [id number] /
[2019-06-02] MEDS: DEXAMETHASONE SOD PHOSPHATE 10 MG/ML 1 ML VIAL IV SCH ×4 (00:58→17:06)
[2019-06-02] MEDS: CEFEPIME 2 GM in SODIUM CHLORIDE 0.9% 100 ML IVPB SCH ×3 (00:59→21:00)
[2019-06-02] MEDS: HYDROcodone/APAP 10-325MG 1 EACH TAB PO PRN ×3 (01:06→21:00)
[2019-06-02] MEDS: LEVOTHYROXINE 75 MCG TAB PO SCH (05:22)
[2019-06-02] MEDS: VANCOMYCIN 1,250 MG in SODIUM CHLORIDE 0.9% 250 ML IVPB SCH ×2 (05:22→17:08)
[2019-06-02] MEDS: LACTATED RINGERS 1,000 ML IV SCH ×2 (07:19→12:36)
[2019-06-02 08:31] LABS: Basophils % (A) 0 %; Eosinophils # (A) 0.1 k/uL (0-0.7); Eosinophils % (A) 0 %; HCT 34.3 % (39.0-53.0); HGB 11.4 gm/dL (13.0-17.5); Lymphocytes # (A) 0.9 k/uL (1.0-4.8); Lymphocytes % (A) 3 %; MCH 31.4 pg (25.0-35.0); MCHC 33.2 g/dL (31.0-37.0); MCV 94.4 fL (80.0-100.0); Mean Platelet Volume 9.5; Monocytes # (A) 0.8 k/uL (0-1.0); Monocytes % (A) 2 %; Neutrophils # (A) 35.5 k/uL (1.3-7.7); Neutrophils % (A) 95 %; Platelet Count 272 k/uL (150-450); RBC 3.64 m/uL (4.30-5.90); RDW 13.2 % (11.5-15.5); WBC 37.5 k/uL (3.8-10.6)
[2019-06-02 08:42] LABS: African American GFR (CKD) >90 (>60 ml/min/1.73 sqM); Anion Gap 6 mmol/L; Blood Urea Nitrogen 28 mg/dL (9-20); Calcium 8.6 mg/dL (8.4-10.2); Carbon Dioxide 27 mmol/L (22-30); Chloride 97 mmol/L (98-107); Glucose 104 mg/dL (74-99); Non-African American GFR(CKD) 88 (>60 ml/min/1.73 sqM); Potassium 4.5 mmol/L (3.5-5.1); Sodium 130 mmol/L (137-145)
[2019-06-02] MEDS: SYMBICORT 160-4.5 MCG INHALER INHALATION SCH ×2 (08:43→20:00)
[2019-06-02] MEDS: ALBUTEROL HFA INHALER INHALATION PRN ×2 (08:43→11:50)
[2019-06-02] MEDS: CYCLOBENZAPRINE 10 MG TAB PO SCH ×3 (08:47→21:00)
[2019-06-02] MEDS: SENNOSIDES-DOCUSATE SODIUM 1 EACH TAB PO SCH (08:47)
[2019-06-02] MEDS: ATENOLOL 25 MG TAB PO SCH (08:47)
[2019-06-02] MEDS: GABAPENTIN 300 MG CAP PO SCH ×3 (08:47→21:00)
[2019-06-02] MEDS: ASPIRIN 81 MG PO SCH (08:47)
[2019-06-02] MEDS: HEPARIN SODIUM,PORCINE 5,000 UNIT/ML 1 ML VIAL SQ SCH ×2 (08:50→21:00)
[2019-06-02] MEDS: SODIUM CHLORIDE 0.9% 1,000 ML IV SCH (08:50)
[2019-06-02] MEDS: PANTOPRAZOLE 40 MG/10 ML VIAL IVP SCH (08:51)
[2019-06-02] MEDS: LIDOCAINE 5% PATCH TOPICAL SCH (09:00)
[2019-06-02] MEDS: HYDROmorphone 0.5 MG/0.5 ML SYRINGE IVP PRN (09:11)
[2019-06-02] MEDS: KETOROLAC 30 MG/ML 1 ML VIAL IVP PRN (12:04)
[2019-06-02] MEDS: IPRATROPIUM-ALBUTEROL 3 ML NEB INHALATION SCH ×2 (12:24→20:00)
[2019-06-02] MEDS: guaiFENesin 600 MG TABLET.ER PO SCH ×2 (12:47→21:00)
--- NOTE | 2019-06-02 13:58 | P.PN ---
Subjective Progress Note Date: 06/02/19 Principal diagnosis: Right upper extremity weakness/pain related to a mild bony retropulsion of the cervical spine at the level of C6, patient has severe degenerative spine disease with disc space narrowing at the C3-C4 with posterior disc bulge 79-year-old male patient is being seen in consultation for lung mass. The patient is known to have history of lung cancer. The patient came into the hospital because of pain and numbness in his right upper extremity extending to his right thumb and this is been going on for the past 2 weeks to the point where the patient was unable to lift any objects because of the pain and numbness and tingling. His echo was elevated at 31. The calcium level is normal at 9.6. Lactic acid level at time of admission was 1.7. He had a CRP of 57.7 which is quite elevated and this is based on the previous blood work that was done on 05/17/2019. In the ED, the patient had a CAT scan of the brain that showed age-related atrophy and small vessel ischemic changes. An unenhanced CAT scan of the cervical spine also was done and it showed severe compression fracture of the C6 spine of an uncertain age/etiology with bony retropulsion of 3.5 mm. No evidence of any central canal stenosis or cord compression. Multilevel degenerative disc disease was seen with disc bulging and neurominal encroachment severe at the level of C3-C4 and there is also severe degenerative disc narrowing at the level of C5-C6. There is a 90% compression fracture of the T6 spine. Noted the patient was in the emergency department on 05/17/2023 with similar complaints of worsening shoulder and arm pain he was seen in emergency department and the patient underwent a CT angiogram of the upper extremity and it showed poor opacification of the radial and ulnar arteries at the level of the brachial bifurcation which was either technical in nature or h igh-grade stenosis/thrombosis which could not be completely ruled out. A CAT scan of the chest was also done utilizing a CT angios protocol and the CAT scan showed no evidence of any pulmonary embolism. Nevertheless, there were several for nodules, and a lung mass. There was a 3.4 cm right lower lobe pleural-based mass posteriorly in the right lower lobe area. There was another 7 mm right middle lobe pulmonary nodule, 5 mm left upper lobe pulmonary pleural-based nodule, 7 mm right upper lobe pulmonary nodule and a 4 mm right apical pulmonary nodule. There was extensive emphysema and some scattered subpleural fibrosis. The perihilar/peribronchial lymph nodes were identified. 4.1 cm suspicious lesion of the left adrenal gland was seen suspicious for metastases. This was a new finding monitor the patient's previous CAT scan from 03/22/2018 did not show any lung masses or nodules. There was however some scarring in the lung bases especially on the right in addition to emphysema and some elevation of left hemidiaphragm. S shaped scoliosis was also seen along with osseous deminer alization. The patient is afebrile. The patient's pulse ox 99% on room air.: 19 evaluation was negative. Influenza A and B were negative. UA was negative. On today's evaluation of 05/30/2019, the patient was seen by spine surgery and the patient was given a neck brace. His pain is under good control. He is awaiting MRI of the cervical spine. The white cell count remains elevated. The pro-calcitonin level is low. He is still feeling weakness in the right upper extremity. A fine-needle aspirate of the lung metastatic to be considered and will going to consult interventional radiology. On 05/31/2019 patient seen in follow-up on general medical floor, still complaining of weakness in his arms and neck pain. Patient has a c-collar that he is wearing [id number], his imaging showed significant compression of his spinal cord. Patient was evaluated by orthopedic service and surgical decompression and spinal fusion was recommended and the patient is scheduled for his surgery today. Patient was also evaluated by radiation oncology, and he may need radiotherapy to the postoperative bed after completion of the above surgery, from pulmonary perspective, his breathing seems to be nonlabored, he is on room air, with a pulse ox of 96%, lung sounds are diminished, no rhonchi or wheezing, patient has been afebrile, today's labs have been reviewed showing white blood cell count of 32.8, hemoglobin 13.4, neutrophil count is 30.5, influenza and coronavirus PCR were negative, patient is receiving IV Decadron, patient is on vancomycin, blood culture showed coagulase-negative staph. On 06/01/2019 patient seen in follow-up on medical floor, he is postop day 1 status post anterior cervical decompression with discectomy and fusion of C5, C6 and C6 and C7. He is awake and alert, in no acute distress, room air pulse ox is 94%, he sitting up in the recliner, calm and comfortable, he is afebrile, vital signs are stable. Breathing is unlabored. Bone biopsy from the vertebral body of C6 and culture of vertebral body of the 6 are pending at this time. Today's labs have been reviewed showing white blood cell, 39.2, hemoglobin of 12.3, sodium 131, potassium is 4.3, chloride is 96, B1 is 30 creatinine 0.8. Patient is on cefepime and vancomycin for antibiotic coverage, ID service is following. Patient had blood culture with coagulase-negative staph, B blood cultures pending. On 06/02/2019 patient seen in follow-up on general medical floor, and today is postoperative day 2, status post anterior cervical decompression with discectomy and fusion of C5, 6, and C6 and C7, biopsy of the vertebral body of C6 and the culture of the vertebral body of C6. Biopsy results are still pending, cultures are negative thus far. Patient is afebrile, she is on 2 L of oxygen and the pulse ox of 96%, he still is complaining of some numbness and weakness in his right wrist, and some shortness of breath, and inability to clear phlegm, his lungs are clear, no wheezing, no rhonchi, he is already on Decadron. He is on cefepime and vancomycin for antibiotics, he is on breathing treatments, will add Mucinex. Objective - Vital Signs Vital signs: Vital Signs Temp 97.7 F 06/02/19 12:02 Pulse 84 06/02/19 12:02 Resp 22 06/02/19 12:02 BP 130/83 06/02/19 12:02 Pulse Ox 96 06/02/19 12:02 Intake & Output 06/01/19 06/02/19 06/02/19 18:59 06:59 18:59 Intake Total 340 200 Balance 340 200 Intake: Oral 340 200 Other: Voiding Method Urinal Urinal # Voids 4 - Exam GENERAL EXAM: Alert, pleasant, 79-year-old white male, in the c-collar, appears chronically ill, but no acute distress, on room air, with a pulse ox of 96% comfortable in no apparent distress. HEAD: Normocephalic/atraumatic. EYES: Normal reaction of pupils, equal size. Conjunctiva pink, sclera white. NOSE: Clear with pink turbinates. THROAT: No erythema or exudates. NECK: No masses, no JVD, no thyroid enlargement, no adenopathy. Patient has a c-collar in place CHEST: No chest wall deformity. Symmetrical expansion. LUNGS: Equal air entry with no crackles, wheeze, rhonchi or dullness. CVS: Regular rate and rhythm, normal S1 and S2, no gallops, no murmurs, no rubs ABDOMEN: Soft, nontender. No hepatosplenomegaly, normal bowel sounds, no guard ing or rigidity. EXTREMITIES: No clubbing, no edema, no cyanosis, 2+ pulses and upper and lower extremities. MUSCULOSKELETAL: Muscle strength and tone normal. SPINE: No scoliosis or deformity SKIN: No rashes CENTRAL NERVOUS SYSTEM: Alert and oriented -3. No focal deficits, tone is normal in all 4 extremities. PSYCHIATRIC: Alert and oriented -3. Appropriate affect. Intact judgment and insight. - Labs CBC & Chem 7: 06/02/19 07:45 06/02/19 07:45 Labs: Abnormal Lab Results - Last 24 Hours (Table) 06/02/19 06/02/19 Range/Units 07:45 07:45 WBC 37.5 H (3.8-10.6) k/uL RBC 3.64 L (4.30-5.90) m/uL Hgb 11.4 L (13.0-17.5) gm/dL Hct 34.3 L (39.0-53.0) % Neutrophils # 35.5 H (1.3-7.7) k/uL Lymphocytes # 0.9 L (1.0-4.8) k/uL Sodium 130 L (137-145) mmol/L Chloride 97 L (98-107) mmol/L BUN 28 H (9-20) mg/dL Glucose 104 H (74-99) mg/dL Microbiology - Last 24 Hours (Table) 05/30/19 18:07 Blood Culture - Preliminary Blood No Growth after 48 hours 05/29/19 09:45 Blood Culture Gram Stain - Final Blood Blood Culture - Final Staph hominis sub sp. hominis Assessment and Plan Plan: Assessment: 1 right upper extremity weakness/pain related to C6 compression fracture, and significant compression of the spinal cord awaiting surgical intervention. Preliminary evaluation with a CAT scan of the cervical spine showed C6 vertebral body compression fracture, at least 90% with a mild bony retropulsion noted to be around 3.5 mm in size and the patient has severe degenerative disc space narrowing at the level of C3-C4 with posterior disc bulge with mild effacement and bilateral foraminal encroachment and C5-C6 without any herniation or canal stenosis. Presence of leukocytosis is obviously raises the concern for infection along with an elevated CRP. Possibility of malignancy involving the C-spine with secondary compression cannot be ruled out knowing that the patient has several pulmonary lesions. The patient has severe degenerative disc disease along with posterior disc bulge at the level of C3-C4. Patient is status post anterior cervical decompression with discectomy and fusion of C5, 6, and C6 and 7, biopsy of the vertebral body of C6, and culture of the vertebral body of C6 collected and sent, and are pending at this time 2 right lower lobe mass, pleural based measuring 3.9 cm in addition to several other smaller pulmonary nodules scattered focal lung mahan bilaterally in addition to a left adrenal mass, consider metastatic lung cancer/malignancy. 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 pulmonary fibrosis 6 coronary artery disease with previous coronary stenting 7 S scoliosis of the thoracolumbar spine 8 hyperlipidemia 9 hypertension 11 hypothyroidism 12 impaired hearing 13 blood culture with coagulase-negative staph on 05/29/2019, follow-up blood cultures pending, negative thus far. Plan: Biopsy results are still pending, cultures are pending, patient is covered with empiric antibiotics, he is on cefepime and vancomycin, [facility] stable, patient afebrile, complaining of sensation of phlegm and not being able to bring the phlegm up, we'll add some Mucinex, continue with nebulized bronchodilators, patient is already on IV steroids. We'll continue to follow I performed a history & physical examination of the patient and discussed their management with my nurse practitioner, Opal Alcantar. I reviewed the nurse practitioner's note and agree with the documented findings and plan of care. Lung sounds are positive for clear breath sounds. The findings and the impression was discussed with the patient. I attest to the documentation by the nurse practitioner. Time with Patient: Less than 30
--- NOTE | 2019-06-02 14:55 | P.PN ---
Progress Note - Text Progress Note Date: 06/02/19 Postoperative day #2 Patient is seen and examined today at bedside. The patient has some pain around the surgical site as expected. he has some trouble swallowing but has been able have some soft foods. He says he has some soreness in his arms but this is better than prior to surgery. He has been able to move his legs. He is wearing his hard collar. Pain is being controlled with medication. Physical Exam Afebrile with stable vital signs Abdomen is soft nontender. Chest has good excursion deep and space expiration The incision site is clean dry and intact. No erythema there is no purulence.his neck is soft and supple. There is no drainage or sooner and swelling. Extremities have motion bilaterally. He has some weakness at his bilateral upper extremities diffusely which has not significantly changed from prior to surgery. He is certainly not worse in terms of his neurologic status and his upper extremity. Calves and thighs were soft nontender without evidence of DVT. Assessment/Plan Postoperative day #2 status post anterior cervical decompression with corpectomy of C6 and fusion from C5 to 7 for his compression burst fracture at C6 with severe cervical stenosis and upper extremity weakness. the patient has made some progress from his decompression and fusion. His neurologic status seems to be slowly improving. He is certainly not having worsening at this point of his neurologic status. He feels his arm symptoms are improved.Patient is progressing as expected from the surgeryin terms of wound site itself. 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 We will continue to increase the patient's mobilization with therapy. We will continue pain control with oral or IV medications. he is continue management for his other medical issues including his lung cancer workup and his bacteremia. His initial cultures from his wound site did not show any organisms and I do not find any gross pus at the site of the cervical spine. The pathology of the area still pending. I was able to review the MRI scan of the thoracic spine which shows some chronic compression deformities at T11-T12 and L1 without significant stenosis. There is no obvious evidence of metastatic disease on the thoracic MRI in terms of the spine. I do not plan any further workup or specific intervention for his thoracic spine from a spine standpoint at this time. We'll continue to follow patient closely.
--- NOTE | 2019-06-02 15:12 | P.PN ---
Subjective 79-year-old male came in with complaints of severe pain in the right thumb has been going on for about 2 weeks unable to lift his arm with severe tingling numbness. Patient is unable to lift his right arm. Patient is comparing of severe pain in the right arm. Patient had a recent CAT scan earlier this month which showed multiple pulmonary nodules along with the possible metastatic lesion in a dual gland. Patient has history of right lung cancer which was in remission. Patient denied any fever chills patient denied any Dysuria denied any shortness of breath patient had a CT, there is a compression fracture involving the C6 of uncertain age no evidence of central stenosis or Compression and multilevel degenerative disease was seen. I discuss with a spinal surgeon he recommended MRI with contrast which will be obtained. 05/30/2019 Patient still complaining from weakness and numbness in his right upper extremity with pain about 7/10 today, he still have difficulty dropping stuff with his hand although he can use both hands for eating and he can move his right upper extremity. No other specific complaints, no chest pain or dyspnea. Patient has been evaluated by pulmonary and spinal surgery teams. MRI of the cervical spine is recommended which is done and the result is pending. In the meantime he remains on Decadron and normal saline Vitas looks stable History of have leukocytosis of 31K, has INR 0.9, sodium improved 132. Influenza and call the 20. Procolcitoin is low at 0.05. 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 Patient is going for corpectomy and reconstructive surgery today. Afebrile. Still have leukocytosis of 30 2.8K. Sodium 129 Medical oncology and orthopedic surgeon and radiation oncology R following case. 06/01/2019 Patient is a status post corpectomy of C6, with discectomy and fusion of C5-6 and C6-7, with biopsy and culture obtained, with excision of soft tissue mass anterior to C6. Today is postoperative day #1. Possible patient was doing good, he was sitting in chair having his meal when I saw him. He states that his pain is less by about 60%, numbness improved with arm and the arm is better. No chest pain dyspnea. Hemodynamics stable. WBCs still trending up at 39, hemoglobin is stable at 12.3. Sodium improved to 131, creatinine 0.8 Blood culture is positive for staph hominis, is currently on cefepime antibiotics by our ID team, and the vancomycin continue. Patient is followed closely by several consultants 06/02/2019 Patient is a status post corpectomy of C6, with discectomy and fusion of C5-6 and C6-7, with biopsy and culture obtained, with excision of soft tissue mass anterior to C6. Today is postoperative day #2. His right arm pain and numbness improving gradually however he still has pain rating about 8/10 by patient, movement looks better and his arm. Soft tissue biopsy and culture are still pending. His WBC is 37.5 but patient isn't steroids as well In the meantime patient on broad-spectrum antibiotics Objective - Vital Signs Vital signs: Vital Signs Temp 97.7 F 06/02/19 12:02 Pulse 84 06/02/19 12:02 Resp 22 06/02/19 12:02 BP 130/83 06/02/19 12:02 Pulse Ox 96 06/02/19 12:02 Intake & Output 06/01/19 06/02/19 06/02/19 18:59 06:59 18:59 Intake Total 340 200 Balance 340 200 Intake: Oral 340 200 Other: Voiding Method Urinal Urinal # Voids 4 - Exam GENERAL: The patient is alert and oriented x3, not in any acute distress. Well developed, well nourished. HEENT: Pupils are round and equally reacting to light. EOMI. No scleral icterus. No conjunctival pallor. Normocephalic, atraumatic. No pharyngeal erythema. No thyromegaly. CARDIOVASCULAR: S1 and S2 present. No murmurs, rubs, or gallops. PULMONARY: Chest is clear to auscultation, no wheezing or crackles. ABDOMEN: Soft, nontender, nondistended, normoactive bowel sounds. No palpable o rganomegaly. MUSCULOSKELETAL: No joint swelling or deformity. -EXTREMITIES: No cyanosis, clubbing, or pedal edema. Patient has pain tingling numbness in the right arm patient does have weakness strength of of around the 3/5 in the entire right arm. NEUROLOGICAL: Gross neurological examination did not reveal any focal deficits. SKIN: No rashes. - Labs CBC & Chem 7: 06/02/19 07:45 06/02/19 07:45 Labs: Abnormal Lab Results - Last 24 Hours (Table) 06/02/19 06/02/19 Range/Units 07:45 07:45 WBC 37.5 H (3.8-10.6) k/uL RBC 3.64 L (4.30-5.90) m/uL Hgb 11.4 L (13.0-17.5) gm/dL Hct 34.3 L (39.0-53.0) % Neutrophils # 35.5 H (1.3-7.7) k/uL Lymphocytes # 0.9 L (1.0-4.8) k/uL Sodium 130 L (137-145) mmol/L Chloride 97 L (98-107) mmol/L BUN 28 H (9-20) mg/dL Glucose 104 H (74-99) mg/dL Microbiology - Last 24 Hours (Table) 05/30/19 18:07 Blood Culture - Preliminary Blood No Growth after 48 hours 05/29/19 09:45 Blood Culture Gram Stain - Final Blood Blood Culture - Final Staph hominis sub sp. hominis Assessment and Plan Assessment: -C6 compression fracture:status post corpectomy of C6, with discectomy and fusion of C5-6 and C6-7,with excision of soft tissue mass anterior to C6 Right arm pain weakness and numbness, patient followed closely by surgery team -pulmonary nodules, pulmonary team on the case and they recommended pulmonary biopsy -Positive blood culture with staph bacteremia. Infectious disease consulted to start patient on IV vancomycin. -Leukocytosis with metamyelocyte, consult hematology -Hyponatremia possibly of hypomanic. Patient was started on IV fluids, improving -History of lung cancer in remission but patient has new pulmonary nodules along with the a suspicious lesion in the adrenal gland, consult pulmonary patient probably will need an outpatient bronchoscopy again -Coronary disease next and heparin hypertension Hyperlipidemia -Hypothyroidism DVT prophylaxis: Heparin GI prophylaxis: Pepcid Prognosis guarded
--- NOTE | 2019-06-02 16:56 | P.PN ---
Subjective Progress Note Date: 06/02/19 Principal diagnosis: impending cord compression, picture of metastatic cancer He is still recovering from recent surgery with increased complaints of pain at surgical site and numbness through right arm. Ortho is following. Objective - Vital Signs Vital signs: Vital Signs Temp 98.6 F 06/02/19 15:30 Pulse 88 06/02/19 15:30 Resp 16 06/02/19 15:30 BP 132/75 06/02/19 15:30 Pulse Ox 95 06/02/19 15:30 Intake & Output 06/01/19 06/02/19 06/02/19 18:59 06:59 18:59 Intake Total 340 200 Output Total 400 Balance 340 200 -400 Intake: Oral 340 200 Output: Urine 400 Other: Voiding Method Urinal Urinal # Voids 4 - Exam Gen: Alert, NAD Head: NCNT Neck: Supple, C collar inplace Lungs: Mild increase, CTA Heart: RRR Abdomen: S/ND Ext: No edema weakness right sided strength Mood: Calm - Labs CBC & Chem 7: 06/02/19 07:45 06/02/19 07:45 Labs: Abnormal Lab Results - Last 24 Hours (Table) 06/02/19 06/02/19 Range/Units 07:45 07:45 WBC 37.5 H (3.8-10.6) k/uL RBC 3.64 L (4.30-5.90) m/uL Hgb 11.4 L (13.0-17.5) gm/dL Hct 34.3 L (39.0-53.0) % Neutrophils # 35.5 H (1.3-7.7) k/uL Lymphocytes # 0.9 L (1.0-4.8) k/uL Sodium 130 L (137-145) mmol/L Chloride 97 L (98-107) mmol/L BUN 28 H (9-20) mg/dL Glucose 104 H (74-99) mg/dL Microbiology - Last 24 Hours (Table) 05/30/19 18:07 Blood Culture - Preliminary Blood No Growth after 48 hours 05/29/19 09:45 Blood Culture Gram Stain - Final Blood Blood Culture - Final Staph hominis sub sp. hominis Assessment and Plan Plan: Assessment and Recommendations: 1. Right Lobe Pulmonary Mass with additional smaller masses: - Pulmonary is following - WIth history of lung cancer will need biopsy tissue of new finding as concerning for recurrent picture of cancer, malignancy - Will defer Bronch versus other to pulmonary for tissue biopsy Concern for cord compression: MRI pending - Possibility of malignancy involving the C-spine with secondary compression cannot be ruled out knowing that the patient has several pulmonary lesions. Dexamethasone is ordered and once tissue biopsy proven malignancy will consult radiation oncology - cT abdomen and pelvis reveal bilateral adrenal massess, appears picture of recurrent metastatic lung cancer. Await path from ortho surgery, if further tissue needed will likely as pulm or IR for intervention 2. Leukocytocytosis: - Neutrophilia, Lymphocytopenia - His labs show no alarming abnormality other than very slightly elevated monocytes which was present in past and increased WBC likely reactive to acute process - However light chain ratio and kappa light chain increased in past therefore will repeat. Check urine immunofixation - Underwent evaluation in 2011 and found to be benign at that time. Plan: - Continue pain and symptom management post operative per ortho - Plan for radiation starting next week with radiation oncology, appt is made with Dr. Jones for this time next week to undergo SRS to brain met - After radiation therapy completed cl plan to initiate systemic thang mo/immunotherapy per Dr. Styles primary oncologist - Cont dex and PPI - Review of Thoracic and Brain MRI without identification of diffuse osseous or intracranial mets Physician Attest: I have completed the full history and physical and developed the full assessment and recommendations, agree with dictation by Lyla Anaya NP. Dictated as a scribe
[2019-06-02] MEDS: ATORVASTATIN 40 MG TAB PO SCH (21:00)
--- NOTE | 2019-06-02 22:54 | PN ---
PROGRESS NOTE DATE OF SERVICE: 06/02/2019 REASON FOR FOLLOWUP: Leukocytosis and a question of osteomyelitis. INTERVAL HISTORY: The patient is currently afebrile, has been breathing comfortably. Neck pain is currently controlled. No chest pain. Occasional cough. No abdominal pain or diarrhea. PHYSICAL EXAMINATION: Blood pressure 153/96 with a pulse of 93, temperature 98.2. He is 93% on 4 L nasal cannula. General description is an elderly male lying in bed in no distress. RESPIRATORY SYSTEM: Unlabored breathing. Clear to auscultation anteriorly. HEART: S1, S2. Regular rate and rhythm. ABDOMEN: Soft. No tenderness. LABS: Hemoglobin 11.4, white count 37.5. BUN of 28, creatinine 0.74. DIAGNOSTIC IMPRESSION AND PLAN: 1. Patient with positive blood culture with Staphylococcus hominis, likely skin contaminant. Follow-up blood culture has been negative. 2. Patient with a C6 pathological fracture with concern for possible osteomyelitis, though clinically not behaving as such. Will wait for the culture to finalize to determine need for any further antibiotic therapy. 3. Leukocytosis, possible reactive and steroid-related. Keep the patient on vancomycin and cefepime while waiting for the culture to finalize and monitor his clinical course closely. MMODL / IJN: [id number] /
[2019-06-03] MEDS: SODIUM CHLORIDE 0.9% 1,000 ML IV SCH ×2 (00:30→11:32)
[2019-06-03] MEDS: DEXAMETHASONE SOD PHOSPHATE 10 MG/ML 1 ML VIAL IV SCH ×4 (00:32→18:22)
[2019-06-03] MEDS: HYDROmorphone 1 MG/ML 1 ML SYRINGE IVP PRN ×3 (00:32→11:48)
[2019-06-03] MEDS: VANCOMYCIN 1,250 MG in SODIUM CHLORIDE 0.9% 250 ML IVPB SCH (05:16)
[2019-06-03] MEDS: LEVOTHYROXINE 75 MCG TAB PO SCH (06:15)
[2019-06-03] MEDS: IPRATROPIUM-ALBUTEROL 3 ML NEB INHALATION SCH ×3 (07:36→18:59)
[2019-06-03] MEDS: SYMBICORT 160-4.5 MCG INHALER INHALATION SCH ×3 (07:36→18:58)
[2019-06-03 07:55] LABS: Glucose,Whole Blood 164 mg/dL (75-99)
[2019-06-03] MEDS: ATENOLOL 25 MG TAB PO SCH (07:56)
[2019-06-03] MEDS: HYDROcodone/APAP 10-325MG 1 EACH TAB PO PRN (08:05)
[2019-06-03] MEDS: guaiFENesin 600 MG TABLET.ER PO SCH ×2 (08:22→20:53)
[2019-06-03] MEDS: CEFEPIME 2 GM in SODIUM CHLORIDE 0.9% 100 ML IVPB SCH (08:26)
--- NOTE | 2019-06-03 08:26 | P.PN ---
Progress Note - Text Progress Note Date: 06/03/19 Postoperative day #3 Patient is seen and examined today at bedside. Pain is being controlled with medication. feels that he is having a little bit of copiously with his breathing this morning. He is having some difficulty with his swallowing which she says feels a little bit worse than it was yesterday. The nurse is at bedside she says that he took off his collar overnight and removed his oxygen last night as well. His oxygen saturation without the nasal cannula was only 85. He returned to 95 and 97 with 2 L nasal cannula. He is not complaining of new changes in his arms. He was able to get up yesterday but has not been up out of bed today. He has not tried to eat today but feels he is having some difficulty with his swallowing. Physical Exam Afebrile. on 2 L nasal cannula he has saturating 97%. his respirations are somewhat gurgling it is difficult to tell if this coming f rom his neck. He has occasional cough which is producing some clear sputum. He is seeming to have to concentrate a little bit on his breathing. Abdomen is soft nontender. The incision site is clean dry. There is some ecchymosis around the area. There is some diffuse swelling. It is not tense. It is soft and nontender. No erythema there is no purulence. Extremities have not had neurologic change from prior to surgery.he is able to move his arms around and control the incentive spirometry and use his hands. He does not seem to have any increased strength. He is not having worsening of his neurologic status. Calves and thighs were soft nontender without evidence of DVT. 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 his surgical site itself has some diffuse swelling but does not appear to be tense. The site itself does not seem to be compromising his breathing significantly. he was desaturating without his oxygen to the mid 80s responds easily with small amounts of supplemental nasal cannula oxygen. He may be having some atelectasis with his mobility but his respirations are somewhat garbled. His difficult to tell if this is coming from his neck or from his chest and I think a new x-ray chest x-ray is worthwhile. We'll obtain this portable x-ray now. He did have his cervical collar off overnight. He is not having any new ne urologic changes I would like a follow-up x-ray of the cervical spine to check on the position of the hardware and site. With his desaturation I think it is worthwhile to have him on telemetry for bhupendra ser monitoring. We will continue to increase the patient's mobilization with therapy. We will continue pain control with oral or IV medications. We'll continue to follow patient closely.
[2019-06-03 08:54] LABS: African American GFR (CKD) >90 (>60 ml/min/1.73 sqM); Anion Gap 11 mmol/L; Blood Urea Nitrogen 26 mg/dL (9-20); Calcium 8.7 mg/dL (8.4-10.2); Carbon Dioxide 25 mmol/L (22-30); Chloride 92 mmol/L (98-107); Glucose 108 mg/dL (74-99); Non-African American GFR(CKD) >90 (>60 ml/min/1.73 sqM); Potassium 4.8 mmol/L (3.5-5.1); Sodium 128 mmol/L (137-145)
[2019-06-03 08:58] LABS: HCT 35.8 % (39.0-53.0); HGB 11.8 gm/dL (13.0-17.5); MCH 31.1 pg (25.0-35.0); MCHC 33.1 g/dL (31.0-37.0); MCV 94.2 fL (80.0-100.0); Mean Platelet Volume 10.4; Platelet Count 334 k/uL (150-450); RDW 12.9 % (11.5-15.5)
[2019-06-03 09:07] LABS: WBC 56.6 k/uL (3.8-10.6)
--- NOTE | 2019-06-03 09:28 | XR ---
EXAMINATION TYPE: XR chest 1V portable DATE OF EXAM: 06/03/2019 HISTORY: gurgling respirations follow-up status post fusion. REFERENCE: Previous study dated 05/29/2019. FINDINGS: There is fibrotic changes throughout both lungs. There is some prominence of the right para tracheal soft tissues which is likely secondary to ectatic vessels. I do not see evidence of superimp osed pneumonia or edema. No definite pleural fluid is seen. The heart is not enlarged. Note is made of a previous ACDF in the lower cervical spine. IMPRESSION: EVIDENCE OF PULMONARY FIBROSIS. EARLY INFILTRATE AT THE LEFT LUNG BASE IS NOT EXCLUDED.
[2019-06-03 10:03] LABS: Lymphocytes # (M) 0.57 k/uL (1.0-4.8); Neutrophils # (M) 54.34 k/uL (1.3-7.7); Neutrophils % (M) 96 %; Nucleated Red Blood Cells 0 /100 WBC (0-0); Total Cells Counted 101
[2019-06-03] MEDS: LIDOCAINE 5% PATCH TOPICAL SCH (10:36)
[2019-06-03] MEDS: HEPARIN SODIUM,PORCINE 5,000 UNIT/ML 1 ML VIAL SQ SCH ×2 (10:40→20:53)
[2019-06-03] MEDS: CYCLOBENZAPRINE 10 MG TAB PO SCH ×3 (10:42→20:53)
[2019-06-03] MEDS: SENNOSIDES-DOCUSATE SODIUM 1 EACH TAB PO SCH (10:43)
[2019-06-03] MEDS: GABAPENTIN 300 MG CAP PO SCH ×3 (11:25→20:53)
[2019-06-03] MEDS: PANTOPRAZOLE 40 MG/10 ML VIAL IVP SCH (11:26)
[2019-06-03] MEDS: ASPIRIN 81 MG PO SCH (11:26)
[2019-06-03] MEDS: LACTATED RINGERS 1,000 ML IV SCH (11:33)
--- NOTE | 2019-06-03 12:49 | P.PN ---
<Lorna Carrasco - Last Filed: 06/03/19 12:16> Subjective Progress Note Date: 06/03/19 Principal diagnosis: Right upper extremity weakness/pain related to a mild bony retropulsion of the cervical spine at the level of C6, patient has severe degenerative spine disease with disc space narrowing at the C3-C4 with posterior disc bulge 79-year-old male patient is being seen in consultation for lung mass. The patient is known to have history of lung cancer. The patient came into the hospital because of pain and numbness in his right upper extremity extending to his right thumb and this is been going on for the past 2 weeks to the point where the patient was unable to lift any objects because of the pain and numbness and tingling. His echo was elevated at 31. The calcium level is normal at 9.6. Lactic acid level at time of admission was 1.7. He had a CRP of 57.7 which is quite elevated and this is based on the previous blood work that was done on 05/17/2019. In the ED, the patient had a CAT scan of the brain that showed age-related atrophy and small vessel ischemic changes. An unenhanced CAT scan of the cervical spine also was done and it showed severe compression fracture of the C6 spine of an uncertain age/etiology with bony retropulsion of 3.5 mm. No evidence of any central canal stenosis or cord compression. Multilevel degenerative disc disease was seen with disc bulging and neurominal encroachment severe at the level of C3-C4 and there is also severe degenerative disc narrowing at the level of C5-C6. There is a 90% compression fracture of the T6 spine. Noted the patient was in the emergency department on 05/17/2023 with similar complaints of worsening shoulder and arm pain he was seen in emergency department and the patient underwent a CT angiogram of the upper extremity and it showed poor opacification of the radial and ulnar arteries at the level of the brachial bifurcation which was either technical in nature or high-grade stenosis/thrombosis which could not be completely ruled out. A CAT scan of the chest was also done utilizing a CT angios protocol and the CAT scan showed no evidence of any pulmonary embolism. Nevertheless, there were several for nodules, and a lung mass. There was a 3.4 cm right lower lobe pleural-based mass posteriorly in the right lower lobe area. There was another 7 mm right middle lobe pulmonary nodule, 5 mm left upper lobe pulmonary pleural-based nodule, 7 mm right upper lobe pulmonary nodule and a 4 mm right apical pulmonary nodule. There was extensive emphysema and some scattered subpleural fibrosis. The perihilar/peribronchial lymph nodes were identified. 4.1 cm suspicious lesion of the left adrenal gland was seen suspicious for metastases. This was a new finding monitor the patient's previous CAT scan from 03/22/2018 did not show any lung masses or nodules. There was however some scarring in the lung bases especially on the right in addition to emphysema and some elevation of left hemidiaphragm. S shaped scoliosis was also seen along with osseous demineralization. The patient is afebrile. The patient's pulse ox 99% on room air.: 19 evaluation was negative. Influenza A and B were negative. UA was negative. On today's evaluation of 05/30/2019, the patient was seen by spine surgery and the patient was given a neck brace. His pain is under good control. He is awaiting MRI of the cervical spine. The white cell count remains elevated. The pro-calcitonin level is low. He is still feeling weakness in the right upper extremity. A fine-needle aspirate of the lung metastatic to be considered and will going to consult interventional radiology. On 05/31/2019 patient seen in follow-up on general medical floor, still complaining of weakness in his arms and neck pain. Patient has a c-collar that he is wearing [id number], his imaging showed significant compression of his spinal cord. Patient was evaluated by orthopedic service and surgical decompression and spinal fusion was recommended and the patient is scheduled for his surgery today. Patient was also evaluated by radiation oncology, and he may need radiotherapy to the postoperative bed after completion of the above surgery, from pulmonary perspective, his breathing seems to be nonlabored, he is on room air, with a pulse ox of 96%, lung sounds are diminished, no rhonchi or wheezing, patient has been afebrile, today's labs have been reviewed showing white blood cell count of 32.8, hemoglobin 13.4, neutrophil count is 30.5, influenza and coronavirus PCR were negative, patient is receiving IV Decadron, patient is on vancomycin, blood culture showed coagulase-negative staph. On 06/01/2019 patient seen in follow-up on medical floor, he is postop day 1 status post anterior cervical decompression with discectomy and fusion of C5, C6 and C6 and C7. He is awake and alert, in no acute distress, room air pulse ox is 94%, he sitting up in the recliner, calm and comfortable, he is afebrile, vital signs are stable. Breathing is unlabored. Bone biopsy from the vertebral body of C6 and culture of vertebral body of the 6 are pending at this time. Today's labs have been reviewed showing white blood cell, 39.2, hemoglobin of 12.3, sodium 131, potassium is 4.3, chloride is 96, B1 is 30 creatinine 0.8. Patient is on cefepime and vancomycin for antibiotic coverage, ID service is following. Patient had blood culture with coagulase-negative staph, B blood cultures pending. On 06/02/2019 patient seen in follow-up on general medical floor, and today is postoperative day 2, status post anterior cervical decompression with discectomy and fusion of C5, 6, and C6 and C7, biopsy of the vertebral body of C6 and the culture of the vertebral body of C6. Biopsy results are still pending, cultures are negative thus far. Patient is afebrile, she is on 2 L of oxygen and the pulse ox of 96%, he still is complaining of some numbness and weakness in his right wrist, and some shortness of breath, and inability to clear phlegm, his lungs are clear, no wheezing, no rhonchi, he is already on Decadron. He is on cefepime and vancomycin for antibiotics, he is on breathing treatments, will add Mucinex. The patient is seen today 06/03/2019 in follow-up on the regular medical floor. He is currently sitting up in bed. Awake and alert. He is having some mucus and was coughing up quite a bit of phlegm today. He is maintaining O2 saturations in the 90s on 4 L/m per nasal cannula. White count 56.6. Hemoglobin 11.8. Neutrophils 54. Sodium 138. Potassium 4.8. Creatinine 0.58. He is continued on vancomycin and cefepime. Continued on IV Decadron. Continued on Mucinex. Requested he received his breathing treatment now. Objective - Vital Signs Vital signs: Vital Signs Temp 97.9 F 06/03/19 07:44 Pulse 88 06/03/19 11:52 Resp 22 06/03/19 11:52 BP 138/79 06/03/19 11:52 Pulse Ox 98 06/03/19 11:52 Intake & Output 06/02/19 06/03/19 06/03/19 18:59 06:59 18:59 Intake Total 150 Output Total 400 400 Balance -400 -250 Intake: Oral 150 Output: Urine 400 400 Other: Voiding Method Urinal # Voids 1 - Exam GENERAL EXAM: Alert, pleasant, 79-year-old male patient, in the c-collar, appears chronically ill, but no acute distress, on 4 L nasal cannula, with a pulse ox of 98% comfortable in no apparent distress. HEAD: Normocephalic/atraumatic. EYES: Normal reaction of pupils, equal size. Conjunctiva pink, sclera white. NOSE: Clear with pink turbinates. THROAT: No erythema or exudates. NECK: No masses, no JVD, no thyroid enlargement, no adenopathy. Patient has a c-collar in place CHEST: No chest wall deformity. Symmetrical expansion. LUNGS: Equal air entry with bilateral scattered rhonchi CVS: Regular rate and rhythm, normal S1 and S2, no gallops, no murmurs, no rubs ABDOMEN: Soft, nontender. No hepatosplenomegaly, normal bowel sounds, no guarding or rigidity. EXTREMITIES: No clubbing, no edema, no cyanosis, 2+ pulses and upper and lower extremities. MUSCULOSKELETAL: Muscle strength and tone normal. SPINE: No scoliosis or deformity SKIN: No rashes CENTRAL NERVOUS SYSTEM: No focal deficits, tone is normal in all 4 extremities. PSYCHIATRIC: Alert and oriented -3. Appropriate affect. Intact judgment and insight. - Labs CBC & Chem 7: 06/03/19 07:30 06/03/19 07:30 Labs: Abnormal Lab Results - Last 24 Hours (Table) 06/03/19 06/03/19 06/03/19 Range/Units 07:30 07:30 07:53 WBC 56.6 H* (3.8-10.6) k/uL RBC 3.80 L (4.30-5.90) m/uL Hgb 11.8 L (13.0-17.5) gm/dL Hct 35.8 L (39.0-53.0) % Neutrophils # (Manual) 54.34 H (1.3-7.7) k/uL Lymphocytes # (Manual) 0.57 L (1.0-4.8) k/uL Monocytes # (Manual) 1.70 H (0-1.0) k/uL Sodium 128 L (137-145) mmol/L Chloride 92 L (98-107) mmol/L BUN 26 H (9-20) mg/dL Creatinine 0.58 L (0.66-1.25) mg/dL Glucose 108 H (74-99) mg/dL POC Glucose (mg/dL) 164 H (75-99) mg/dL Microbiology - Last 24 Hours (Table) 05/30/19 18:07 Blood Culture - Preliminary Blood No Growth after 72 hours 05/31/19 15:39 Gram Stain - Final Other - Other Wound Culture - Final 05/31/19 14:28 Gram Stain - Final Other - Other Wound Culture - Final Assessment and Plan Assessment: 1 right upper extremity weakness/pain related to C6 compression fracture, and significant compression of the spinal cord awaiting surgical intervention. Preliminary evaluation with a CAT scan of the cervical spine showed C6 vertebral body compression fracture, at least 90% with a mild bony retropulsion noted to be around 3.5 mm in size and the patient has severe degenerative disc space narrowing at the level of C3-C4 with posterior disc bulge with mild effacement and bilateral foraminal encroachment and C5-C6 without any herniation or canal stenosis. Presence of leukocytosis is obviously raises the concern for infection along with an elevated CRP. Possibility of malignancy involving the C-spine with secondary compression cannot be ruled out knowing that the patient has several pulmonary lesions. The patient has severe degenerative disc disease along with posterior disc bulge at the level of C3-C4. Patient is status post anterior cervical decompression with discectomy and fusion of C5, 6, and C6 and 7, biopsy of the vertebral body of C6, and culture of the vertebral body of C6 collected and sent, and are pending at this time 2 right lower lobe mass, pleural based measuring 3.9 cm in addition to several other smaller pulmonary nodules scattered focal lung mahan bilaterally in addition to a left adrenal mass, consider metastatic lung cancer/malignancy. 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 pulmonary fibrosis 6 coronary artery disease with previous coronary stenting 7 S scoliosis of the thoracolumbar spine 8 hyperlipidemia 9 hypertension 11 hypothyroidism 12 impaired hearing 13 blood culture with coagulase-negative staph on 05/29/2019, follow-up blood cultures pending, negative thus far. Plan: The patient was seen and evaluated by Dr. Nogueira Chest x-ray reviewed Now on 4 L nasal cannula Requested RT to give breathing treatments now Continues with increased sputum production Continue Mucinex Continue antibiotics There is some concerns regarding him protecting his airway. C-collar remains in place He will be transferred to the ICU for closer monitoring We will continue to follow I, the cosigning physician, performed a history & physical examination of the patient. Lungs sounds with bilateral scattered rhonchi. Maintaining good O2 saturations in the 90s on 4 L/m per nasal cannula. I discussed the assessment and plan of care with my nurse practitioner, Lorna Carrasco. I attest to the above note as dictated by her. <Lashae Nogueira - Last Filed: 06/03/19 15:43> Objective - Vital Signs Vital signs: Vital Signs Temp 98.2 F 06/03/19 12:58 Pulse 86 06/03/19 15:15 Resp 17 06/03/19 15:15 BP 94/58 06/03/19 15:15 Pulse Ox 100 06/03/19 15:15 Intake & Output 06/02/19 06/03/19 06/03/19 18:59 06:59 18:59 Intake Total 150 1030 Output Total 400 400 205 Balance -400 -250 825 Intake: IV 1030 0.9 30 Bolus 1000 Oral 150 Output: Urine 400 400 205 Other: Voiding Method Urinal Urinal # Voids 1 ABP, PAP, CO, CI - Last Documented Arterial Blood Pressure 85/46 - Labs CBC & Chem 7: 06/03/19 07:30 06/03/19 07:30 Labs: Abnormal Lab Results - Last 24 Hours (Table) 06/03/19 06/03/19 06/03/19 Range/Units 07:30 07:30 07:53 WBC 56.6 H* (3.8-10.6) k/uL RBC 3.80 L (4.30-5.90) m/uL Hgb 11.8 L (13.0-17.5) gm/dL Hct 35.8 L (39.0-53.0) % Neutrophils # (Manual) 54.34 H (1.3-7.7) k/uL Lymphocytes # (Manual) 0.57 L (1.0-4.8) k/uL Monocytes # (Manual) 1.70 H (0-1.0) k/uL ABG pO2 (83-108) mmHg ABG Total CO2 (19-24) mmol/L ABG O2 Saturation (94-97) % Sodium 128 L (137-145) mmol/L Chloride 92 L (98-107) mmol/L BUN 26 H (9-20) mg/dL Creatinine 0.58 L (0.66-1.25) mg/dL Glucose 108 H (74-99) mg/dL POC Glucose (mg/dL) 164 H (75-99) mg/dL Urine Protein (Negative) Urine Ketones (Negative) Urine Bacteria (None) /hpf Hyaline Casts (0-2) /lpf Urine Mucus (None) /hpf 06/03/19 06/03/19 06/03/19 Range/Units 12:56 13:05 13:32 WBC (3.8-10.6) k/uL RBC (4.30-5.90) m/uL Hgb (13.0-17.5) gm/dL Hct (39.0-53.0) % Neutrophils # (Manual) (1.3-7.7) k/uL Lymphocytes # (Manual) (1.0-4.8) k/uL Monocytes # (Manual) (0-1.0) k/uL ABG pO2 53 L* (83-108) mmHg ABG Total CO2 25 H (19-24) mmol/L ABG O2 Saturation 84.4 L (94-97) % Sodium (137-145) mmol/L Chloride (98-107) mmol/L BUN (9-20) mg/dL Creatinine (0.66-1.25) mg/dL Glucose (74-99) mg/dL POC Glucose (mg/dL) 202 H (75-99) mg/dL Urine Protein 1+ H (Negative) Urine Ketones Trace H (Negative) Urine Bacteria Rare H (None) /hpf Hyaline Casts 7 H (0-2) /lpf Urine Mucus Few H (None) /hpf Microbiology - Last 24 Hours (Table) 04/21/20 18:07 Blood Culture - Preliminary Blood No Growth after 72 hours 05/31/19 15:39 Gram Stain - Final Other - Other Wound Culture - Final 05/31/19 14:28 Gram Stain - Final Other - Other Wound Culture - Final Assessment and Plan Plan: This is an addendum to the dictation that was done by the nurse practitioner. The patient was initially seen on the medical floor. Subsequently his condition got worse. I was informed that he was having significant respiratory distress and I made recommendations to transfer this patient intensive care unit. Subsequently I was informed that the patient was having excess amount of secretions and noisy breathing in his upper airway and neck area. I saw the patient in the ICU again for the second time. The patient was having significant respiratory distress. He was tachypneic. The respiratory therapist is already suction out some foamy whitish material from his back of his throat. That point, I decided to do an upper airway evaluation. I did a bedside bronchoscopy on this patient utilizing a total of 2 mg of Versed and 20 of etomidate. Based on my airway inspection, the upper airway was full of whitish material consistent with milk or milk-like products. The patient could've had significant aspiration and this white material was present in his posterior oropharynx, larynx, epiglottis and the cords. Lesser extent some of the material was also present in the upper subglottic area. Airway inspection was done. The cords were mobile. There are joints were swollen. The epiglottis was enlarged and redundant. After completion of the airway inspection both upper and lower, the patient was observed and monitored in the ICU. He was still short of breath. At that point I decided to intubate the patient placed on mechanical ventilation. Chest x-ray and blood gases to follow. For now the patient airway secured. This intubation was done while the patient's neck was secured using a hard collar. The patient will be sedated with propofol. Diflucan will be added. Antibiotic coverage 4 times a day. We'll follow. This evaluation was done and more than 45 minutes excluding time to do any procedu res. Time with Patient: Greater than 30
[2019-06-03 12:59] LABS: Glucose,Whole Blood 202 mg/dL (75-99)
[2019-06-03 13:18] LABS: ABG Base Excess -1.9 mmol/L; ABG HCO3 24 mmol/L (21-25); ABG Oxygen Saturation 84.4 % (94-97); ABG PCO2 43 mmHg (35-45); ABG PH 7.35 (7.35-7.45); ABG TCO2 25 mmol/L (19-24); Allen Test Performed? Yes
[2019-06-03 13:22] LABS: ABG PO2 53 mmHg (83-108)
[2019-06-03 13:49] LABS: Appearance,Urine Clear (Clear); Bacteria,Urine Rare /hpf; Bilirubin,Urine Negative (Negative); Blood,Urine Negative (Negative); Color,Urine Yellow; Glucose,Urine (UA) Negative (Negative); Granular Casts,Urine 3 /lpf (0); Hyaline Casts,Urine 7 /lpf (0-2); Ketones,Urine Trace (Negative); Leukocyte Esterase,Urine Negative (Negative); Mucus,Urine Few /hpf; Nitrite,Urine Negative (Negative); PH, Urine 5.5 (5.0-8.0); Protein,Urine 1+ (Negative); RBC,Urine 1 /hpf (0-5); Specific Gravity,Urine 1.025 (1.001-1.035); Squamous Epithelial Cell,Urine <1 /hpf (0-4); Urobilinogen,Urine <2.0 mg/dL (<2.0); WBC,Urine 2 /hpf (0-5)
--- NOTE | 2019-06-03 13:49 | XR ---
EXAMINATION TYPE: XR chest 1V DATE OF EXAM: 06/03/2019 HISTORY: SOB . REFERENCE: Previous study of earlier today. FINDINGS: There has been a previous ACDF of the lower cervical spine. The study is quite rotated. There is airspace disease present bilaterally, unchanged from previous. H eart size upper limits of normal. Pleural spaces are clear. IMPRESSION: NO INTERVAL CHANGE IN THE APPEARANCE OF THE CHEST.
--- NOTE | 2019-06-03 14:46 | P.PN ---
Subjective 79-year-old male came in with complaints of severe pain in the right thumb has been going on for about 2 weeks unable to lift his arm with severe tingling numbness. Patient is unable to lift his right arm. Patient is comparing of severe pain in the right arm. Patient had a recent CAT scan earlier this month which showed multiple pulmonary nodules along with the possible metastatic lesion in a dual gland. Patient has history of right lung cancer which was in remission. Patient denied any fever chills patient denied any Dysuria denied any shortness of breath patient had a CT, there is a compression fracture involving the C6 of uncertain age no evidence of central stenosis or Compression and multilevel degenerative disease was seen. I discuss with a spinal surgeon he recommended MRI with contrast which will be obtained. 05/30/2019 Patient still complaining from weakness and numbness in his right upper extremity with pain about 7/10 today, he still have difficulty dropping stuff with his hand although he can use both hands for eating and he can move his right upper extremity. No other specific complaints, no chest pain or dyspnea. Patient has been evaluated by pulmonary and spinal surgery teams. MRI of the cervical spine is recommended which is done and the result is pending. In the meantime he remains on Decadron and normal saline Vitas looks stable History of have leukocytosis of 31K, has INR 0.9, sodium improved 132. Influenza and call the 20. Procolcitoin is low at 0.05. 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 Patient is going for corpectomy and reconstructive surgery today. Afebrile. Still have leukocytosis of 30 2.8K. Sodium 129 Medical oncology and orthopedic surgeon and radiation oncology R following case. 06/01/2019 Patient is a status post corpectomy of C6, with discectomy and fusion of C5-6 and C6-7, with biopsy and culture obtained, with excision of soft tissue mass anterior to C6. Today is postoperative day #1. Possible patient was doing good, he was sitting in chair having his meal when I saw him. He states that his pain is less by about 60%, numbness improved with arm and the arm is better. No chest pain dyspnea. Hemodynamics stable. WBCs still trending up at 39, hemoglobin is stable at 12.3. Sodium improved to 131, creatinine 0.8 Blood culture is positive for staph hominis, is currently on cefepime antibiotics by our ID team, and the vancomycin continue. Patient is followed closely by several consultants 06/02/2019 Patient is a status post corpectomy of C6, with discectomy and fusion of C5-6 and C6-7, with biopsy and culture obtained, with excision of soft tissue mass anterior to C6. Today is postoperative day #2. His right arm pain and numbness improving gradually however he still has pain rating about 8/10 by patient, movement looks better and his arm. Soft tissue biopsy and culture are still pending. His WBC is 37.5 but patient isn't steroids as well In the meantime patient on broad-spectrum antibiotics 06/02/2019 Today patient get more hypoxic and he has to be placed on 15 L oxygen via nonrebreather with saturating 9800% however he was tachypneic and tachycardic with a respiratory rate of around 30-35, patient did not stop because of dyspnea and his peripheral fingers since Looks mottled and bluish hue, however patient was fully awake and oriented, repeat chest x-ray showing pulmonary fibrosis with possible early infiltrate suspicious for aspiration pneumonia patient was transferred to the intensive care unit with pulmonary team evaluated the patient. C-collar is in place. His WBC went up to 50 6.6K, hemoglobin 11.8, sodium went down to 128, creatinine normal 0.58, sugar control. Continue on dexamethasone, with IV vancomycin and cefepime normal saline at 75 mL/h Objective - Vital Signs Vital signs: Vital Signs Temp 98.2 F 06/03/19 12:58 Pulse 111 H 06/03/19 14:00 Resp 33 H 06/03/19 14:00 BP 157/107 06/03/19 14:00 Pulse Ox 100 06/03/19 14:00 Intake & Output 06/02/19 06/03/19 06/03/19 18:59 06:59 18:59 Intake Total 150 30 Output Total 400 400 175 Balance -400 -250 -145 Intake: IV 30 0.9 30 Oral 150 Output: Urine 400 400 175 Other: Voiding Method Urinal Urinal # Voids 1 - Exam GENERAL: The patient is alert and oriented x3, not in any acute distress. Well developed, well nourished. HEENT: Pupils are round and equally reacting to light. EOMI. No scleral icterus. No conjunctival pallor. Normocephalic, atraumatic. No pharyngeal erythema. No thyromegaly. CARDIOVASCULAR: S1 and S2 present. No murmurs, rubs, or gallops. PULMONARY: Chest is clear to auscultation, no wheezing or crackles. ABDOMEN: Soft, nontender, nondistended, normoactive bowel sounds. No palpable organomegaly. MUSCULOSKELETAL: No joint swelling or deformity. -EXTREMITIES: No cyanosis, clubbing, or pedal edema. Patient has pain tingling numbness in the right arm patient does have weakness strength of of around the 3/5 in the entire right arm. NEUROLOGICAL: Gross neurological examination did not reveal any focal deficits. SKIN: No rashes. - Labs CBC & Chem 7: 06/03/19 07:30 06/03/19 07:30 Labs: Abnormal Lab Results - Last 24 Hours (Table) 06/03/19 06/03/19 06/03/19 Range/Units 07:30 07:30 07:53 WBC 56.6 H* (3.8-10.6) k/uL RBC 3.80 L (4.30-5.90) m/uL Hgb 11.8 L (13.0-17.5) gm/dL Hct 35.8 L (39.0-53.0) % Neutrophils # (Manual) 54.34 H (1.3-7.7) k/uL Lymphocytes # (Manual) 0.57 L (1.0-4.8) k/uL Monocytes # (Manual) 1.70 H (0-1.0) k/uL ABG pO2 (83-108) mmHg ABG Total CO2 (19-24) mmol/L ABG O2 Saturation (94-97) % Sodium 128 L (137-145) mmol/L Chloride 92 L (98-107) mmol/L BUN 26 H (9-20) mg/dL Creatinine 0.58 L (0.66-1.25) mg/dL Glucose 108 H (74-99) mg/dL POC Glucose (mg/dL) 164 H (75-99) mg/dL Urine Protein (Negative) Urine Ketones (Negative) Urine Bacteria (None) /hpf Hyaline Casts (0-2) /lpf Urine Mucus (None) /hpf 06/03/19 06/03/19 06/03/19 Range/Units 12:56 13:05 13:32 WBC (3.8-10.6) k/uL RBC (4.30-5.90) m/uL Hgb (13.0-17.5) gm/dL Hct (39.0-53.0) % Neutrophils # (Manual) (1.3-7.7) k/uL Lymphocytes # (Manual) (1.0-4.8) k/uL Monocytes # (Manual) (0-1.0) k/uL ABG pO2 53 L* (83-108) mmHg ABG Total CO2 25 H (19-24) mmol/L ABG O2 Saturation 84.4 L (94-97) % Sodium (137-145) mmol/L Chloride (98-107) mmol/L BUN (9-20) mg/dL Creatinine (0.66-1.25) mg/dL Glucose (74-99) mg/dL POC Glucose (mg/dL) 202 H (75-99) mg/dL Urine Protein 1+ H (Negative) Urine Ketones Trace H (Negative) Urine Bacteria Rare H (None) /hpf Hyaline Casts 7 H (0-2) /lpf Urine Mucus Few H (None) /hpf Microbiology - Last 24 Hours (Table) 05/30/19 18:07 Blood Culture - Preliminary Blood No Growth after 72 hours 05/31/19 15:39 Gram Stain - Final Other - Other Wound Culture - Final 05/31/19 14:28 Gram Stain - Final Other - Other Wound Culture - Final Assessment and Plan Assessment: -C6 compression fracture:status post corpectomy of C6, with discectomy and fusion of C5-6 and C6-7,with excision of soft tissue mass anterior to C6 Right arm pain weakness and numbness, patient followed closely by surgery team -Worsening acute hypoxic respiratory failure suspicious for aspiration pneumonitis. Patient already on antibiotics -pulmonary nodules, pulmonary team on the case and they recommended pulmonary biopsy -Positive blood culture with staph bacteremia. Infectious disease consulted to start patient on IV vancomycin. -Leukocytosis with metamyelocyte, consult hematology -Hyponatremia possibly of hypomanic. Patient was started on IV fluids, improving -History of lung cancer in remission but patient has new pulmonary nodules along with the a suspicious lesion in the adrenal gland, consult pulmonary patient probably will need an outpatient bronchoscopy again -Coronary disease next and heparin hypertension Hyperlipidemia -Hypothyroidism DVT prophylaxis: Heparin GI prophylaxis: Pepcid Prognosis guarded
[2019-06-03] MEDS ORDERED: SODIUM CHLORIDE 0.9% 1,000 ML IV ONE (14:50)
[2019-06-03] MEDS: PROPOFOL 1,000 MG in EMPTY BAG 1 BAG IV SCH ×2 (15:00→21:47)
--- NOTE | 2019-06-03 15:06 | XR ---
EXAMINATION TYPE: XR chest 1V portable DATE OF EXAM: 06/03/2019 Comparison: 06/03/2019 Clinical History: 79-year-old male tube placement Findings: ACDF hardware. ET tube tip is low just above the edison. It should be pulled back by 4 cm and reasses sed at follow-up. NG tube courses below the diaphragm. Surgical clips at the left hilum. Increasing i nterstitial infiltrates throughout the left lung and similar interstitial density on the right. Some volume loss and asymmetric elevation left hemidiaphragm. Impression: 1. ET tube is low, tip at the edison. Pull back 4 cm and reassess at follow-up. 2. Increasing interstitial infiltrate on the left with similar interstitial density on the right. Collins e increasing volume loss at the left base. A [place] level critical message alert has been initiated for Lashae Nogueira via the [facility] Results System on 06/03/2019 3:04 PM. This message alert has been sent to Lashae Nogueira via the preferences provided by the clinician for the receipt of Radiology Critical Findings. Message ID [id number].
[2019-06-03] MEDS: NOREPINEPHRINE 4 MG in SODIUM CHLORIDE 0.9% 250 ML IV SCH (15:10)
[2019-06-03] MEDS ORDERED: ETOMIDATE 2 MG/ML 10 ML VIAL ONE (15:43)
[2019-06-03] MEDS ORDERED: MIDAZOLAM 1 MG/ML 5 ML VIAL ONE (15:43)
[2019-06-03 15:49] LABS: ABG Base Excess -4.2 mmol/L; ABG HCO3 22 mmol/L (21-25); ABG Oxygen Saturation 98.5 % (94-97); ABG PCO2 43 mmHg (35-45); ABG PH 7.32 (7.35-7.45); ABG PO2 118 mmHg (83-108); ABG TCO2 23 mmol/L (19-24); Allen Test Performed? Yes
--- NOTE | 2019-06-03 15:54 | P.PCN ---
Date of Procedure: 06/03/19 Preoperative Diagnosis: Acute respiratory distress, aspiration Postoperative Diagnosis: Acute respiratory distress, aspiration Procedure(s) Performed: Flexible bronchoscopy, intubation and insertion of orotracheal tube, insertion of a triple-lumen catheter, insertion of arterial line catheter Anesthesia: JOSE Surgeon: Lashae Nogueira Pathology: none sent Condition: critical Disposition: ICU Operative Findings: Flexible bronchoscopy Indication: Aspiration with excessive rest or secretions and the patient's airway. The patient is post cervical spine surgery, and there was also concern for upper airway obstruction, vocal cord paralysis on a laxative bronchoscope was indicated. This was done in intensive care unit. The patient was given a total of 2 mg of Versed IV and a total of 20 mg of etomidate. After achieving adequate sedation, the flexible bronchoscope was introduced through the right nostril and was advanced into the posterior pharynx and larynx. This procedure was done with the patient wearing his hard neck collar. As the bronchoscope was moved, it was obvious that the patient has aspirated significant amount of material which probably is milk or milk byproducts. There was copious amount of material in the posterior oropharynx with intermixed with mucus and some thick respiratory secretions. This material was present in the posterior oropharynx, larynx and this was present circumferentially along the laryngeal wall and was also occupying the epiglottis and vocal cords. The epiglottis was redundant and large. The arytenoids were swollen. Vocal cords were noted and there were functional and mobile and there was no evidence of any vocal cord paralysis. There was normal abduction and adduction. Her regular suctioning was done and this for him material were aspirated as much as possible securing patency of the upper airway. Following that, an evaluation of the subglottic area was done and there was quite inflammation especially in the lateral wall of the subglottic trachea. This could be an area where there is some ET tube induced trauma at a time of surgery. This could be also induced by the balloon from the orotracheal tube. In any rate, tra an airway inspection was done and the entire trachea, bilateral mainstem bronchi, right upper right middle right lower lobe and left upper and left lower lobe bronchi were all inspected. There was a component of mild tracheobronchomalacia. No endobronchial tumors or abnormalities noted. The rest or secretions were all suctioned out and the bronchoscope was removed. Patient was monitored further and after monitoring this patient for around 15-20 minutes the patient was still struggling with his breathing and he was having significant tachypnea respiratory distress. At that point we'll decide to have this patient intubated> Intubation I utilized the Glidoscope to intubate this patient. The procedure was done while the patient being supine and the patient was still awaiting his neck collar. Using a Glidoscope and a size 7.5 endotracheal tube with stylet, the patient was intubated on the 1 attempt. The stylet was removed and cuff balloon was inflated. Appropriate endotracheal tube position was confirmed by direct visualization of vocal cord passage, fogging of the tube, CO2 colometric indicator and symmetric breath sounds. The tube was secured at 22 cm at the lips. Post intubation chest x-ray showed that the tube was given a trachea. There was extracted by around 1 cm. Indication: Hemodynamic monitoring/Intravenous access. A time-out was completed verifying correct patient, procedure, site, positioning, and implant(s) or special equipment if applicable. The patient was placed in a dependent position appropriate for central line placement based on the vein to be cannulated. The patient right groin was prepped and draped in sterile fashion. 1% Lidocaine was used to anesthetize the surrounding skin area. A triple lumen 9F Cordis catheter was introduced into the right common femoral vein using Seldinger technique. The catheter was threaded smoothly over the guide wire and appropriate blood return was obtained. Each lumen of the catheter was evacuated of air and flushed with sterile saline. The catheter was then sutured in place to the skin and a sterile dressing applied. Perfusion to the extremity distal to the point of catheter insertion was checked and found to be adequate. The patient tolerated the procedure well and there were no complications. Indication: Hemodynamic monitoring. A time-out was completed verifying correct patient, procedure, site, positioning, and implant(s) or special equipment if applicable. Allens test was performed to ensure adequate perfusion. The patients left wrist was prepped and draped in sterile fashion. 1% Lidocaine was used to anesthetize the area. An 18G Arrow arterial line was introduced into the radial artery. The catheter was threaded over the guide wire and the needle was remove d with appropriate pulsatile blood return. Blood loss was minimal. The catheter was then sutured in place to the skin and a sterile dressing applied. Perfusion to the extremity distal to the point of catheter insertion was checked and found to be adequate. The patient tolerated the procedure well and there were no complications.
[2019-06-03] MEDS: PIPERACILLIN-TAZOBACTAM 3.375 GM in SODIUM CHLORIDE 0.9% 100 ML IVPB SCH (16:33)
--- NOTE | 2019-06-03 16:53 | XR ---
EXAMINATION TYPE: XR cervical spine limited DATE OF EXAM: 06/03/2019 COMPARISON: 05/31/2019 HISTORY: 79-year-old male follow-up status post fusion TECHNIQUE: 2 views FINDINGS: ET tube tip appears 8 mm from the edison. There is some upper thoracic curvature obliquing the projected position of the ACDF. C5-C7 ACDF is partially obscured by the patient's shoulders. IMPRESSION: 1. C5-C7 ACDF remains partially obscured by the patient's shoulders and is obliqued in orientation du e to S-shaped scoliosis. 2. Note low position of ET tube, approximately 8 mm from the edison. Appropriate repositioning recomm ended.
--- NOTE | 2019-06-03 17:19 | PN ---
PROGRESS NOTE DATE OF SERVICE: 06/03/2019 REASON FOR FOLLOWUP: Possible aspiration pneumonia. INTERVAL HISTORY: The patient did go into respiratory distress this morning. The patient apparently has aspirated and ended up getting intubated. The patient has been bronched and was noted to have significant amount of food particles in his airway. The patient has been suctioned and is currently in the ICU on pressors and on the vent. PHYSICAL EXAMINATION: Blood pressure is 94/58 with a pulse of 76, temperature of 98.2. He is 100% on 40% FiO2. General description is an elderly male, intubated on the vent. Respiratory system: Unlabored breathing. Coarse breath sounds at the base. No wheeze. HEART: S1, S2. Regular rate and rhythm. Abdomen soft, no distention. LABS: Hemoglobin is 11.8, white count 56.6, BUN of 26, creatinine 0.58. DIAGNOSTIC IMPRESSION AND PLAN: 1. Patient with acute respiratory failure, likely multifactorial with likely component of aspiration pneumonitis. Sputum culture has been requested. Antibiotic will be adjusted to Zosyn and monitor clinical course closely. 2. The patient with abnormality seen on the C6 more likely pathologic infection from underlying malignancy. Clinically not behaving as discitis or osteo. Culture so far negative. 3. We will monitor clinical course closely. MMODL / IJN: [id number] / MTDD
[2019-06-03 18:19] LABS: Glucose,Whole Blood 132 mg/dL (75-99)
[2019-06-03] MEDS: INSULIN ASPART (NovoLOG) 100 UNIT/ML VIAL SQ SCH ×2 (18:22→23:47)
[2019-06-03] MEDS: ATORVASTATIN 40 MG TAB PO SCH (20:53)
[2019-06-03] MEDS: CHLORHEXIDINE GLUCONATE 15 ML CUP MUCOUS MEM SCH (20:53)
[2019-06-03 23:41] LABS: Glucose,Whole Blood 140 mg/dL (75-99)
[2019-06-04] MEDS: DEXAMETHASONE SOD PHOSPHATE 10 MG/ML 1 ML VIAL IV SCH ×5 (00:01→23:47)
[2019-06-04] MEDS: PIPERACILLIN-TAZOBACTAM 3.375 GM in SODIUM CHLORIDE 0.9% 100 ML IVPB SCH ×4 (00:01→23:48)
[2019-06-04] MEDS: SODIUM CHLORIDE 0.9% 1,000 ML IV SCH ×2 (00:02→14:15)
[2019-06-04] MEDS: NOREPINEPHRINE 4 MG in SODIUM CHLORIDE 0.9% 250 ML IV SCH ×3 (00:11→23:48)
[2019-06-04] MEDS: PROPOFOL 1,000 MG in EMPTY BAG 1 BAG IV SCH ×5 (03:21→20:02)
[2019-06-04 04:56] LABS: HCT 25.2 % (39.0-53.0); MCHC 34.3 g/dL (31.0-37.0); MCV 90.3 fL (80.0-100.0); Mean Platelet Volume 10.4; Platelet Count 270 k/uL (150-450); RBC 2.79 m/uL (4.30-5.90); RDW 13.3 % (11.5-15.5)
[2019-06-04 04:57] LABS: ABG Base Excess -3.9 mmol/L; ABG HCO3 21 mmol/L (21-25); ABG Oxygen Saturation 99.2 % (94-97); ABG PCO2 32 mmHg (35-45); ABG PH 7.42 (7.35-7.45); ABG PO2 149 mmHg (83-108); ABG TCO2 22 mmol/L (19-24); Allen Test Performed? Yes
[2019-06-04] MEDS ORDERED: VANCOMYCIN TROUGH DUE 1 EACH MISC MISCELLANE ONE (05:00)
[2019-06-04 05:01] LABS: HGB 8.7 gm/dL (13.0-17.5); WBC 57.1 k/uL (3.8-10.6)
[2019-06-04 05:07] LABS: African American GFR (CKD) >90 (>60 ml/min/1.73 sqM); Anion Gap 5 mmol/L; Blood Urea Nitrogen 34 mg/dL (9-20); Calcium 7.8 mg/dL (8.4-10.2); Carbon Dioxide 21 mmol/L (22-30); Chloride 105 mmol/L (98-107); Glucose 120 mg/dL (74-99); Non-African American GFR(CKD) 82 (>60 ml/min/1.73 sqM); Potassium 4.1 mmol/L (3.5-5.1); Sodium 131 mmol/L (137-145)
[2019-06-04 05:30] LABS: Lymphocytes # (M) 0.57 k/uL (1.0-4.8); Neutrophils # (M) 52.53 k/uL (1.3-7.7); Neutrophils % (M) 92 %; Nucleated Red Blood Cells 0 /100 WBC (0-0); Total Cells Counted 100
[2019-06-04 05:53] LABS: Glucose,Whole Blood 119 mg/dL (75-99)
[2019-06-04] MEDS: INSULIN ASPART (NovoLOG) 100 UNIT/ML VIAL SQ SCH ×4 (05:58→23:35)
[2019-06-04] MEDS: LEVOTHYROXINE 75 MCG TAB PO SCH (05:59)
--- NOTE | 2019-06-04 06:48 | XR ---
EXAMINATION TYPE: XR chest 1V portable DATE OF EXAM: 06/04/2019 HISTORY: Tube placement. REFERENCE: Previous study dated 06/03/2019. FINDINGS: Unfortunately, the patient's head projects over the chest. There has been a previous ACDF in the lower cervical spine. The patient is ET tube remains low-lying approximately 2.4 cm from the edison. An NG tube is in place and its tip is in the stomach. The heart is not enlarged. There are interstitial infiltrates present greater on the left than the ri ght. No definite pleural fluid is seen. IMPRESSION: 1. CONTINUING LOW-LYING ET TUBE. 2. ESSENTIALLY STABLE INTERSTITIAL INFILTRATES, BOTH LUNGS.
[2019-06-04] MEDS: CYCLOBENZAPRINE 10 MG TAB PO SCH ×3 (08:01→20:01)
[2019-06-04] MEDS: ASPIRIN 81 MG PO SCH (08:02)
[2019-06-04] MEDS: CHLORHEXIDINE GLUCONATE 15 ML CUP MUCOUS MEM SCH ×2 (08:02→19:37)
[2019-06-04] MEDS: HEPARIN SODIUM,PORCINE 5,000 UNIT/ML 1 ML VIAL SQ SCH ×2 (08:02→20:01)
[2019-06-04] MEDS: PANTOPRAZOLE 40 MG/10 ML VIAL IVP SCH (08:02)
[2019-06-04] MEDS: guaiFENesin 600 MG TABLET.ER PO SCH ×2 (08:02→20:01)
[2019-06-04] MEDS: GABAPENTIN 300 MG CAP PO SCH ×3 (08:03→20:01)
[2019-06-04] MEDS: LIDOCAINE 5% PATCH TOPICAL SCH (08:03)
[2019-06-04] MEDS: SENNOSIDES-DOCUSATE SODIUM 1 EACH TAB PO SCH (08:03)
[2019-06-04] MEDS: ATENOLOL 25 MG TAB PO SCH (08:06)
[2019-06-04] MEDS: IPRATROPIUM-ALBUTEROL 3 ML NEB INHALATION SCH ×3 (08:13→19:48)
[2019-06-04] MEDS: SYMBICORT 160-4.5 MCG INHALER INHALATION SCH (08:14)
[2019-06-04] MEDS: HYDROmorphone 1 MG/ML 1 ML SYRINGE IVP PRN (09:06)
[2019-06-04 12:19] LABS: Glucose,Whole Blood 121 mg/dL (75-99)
[2019-06-04] MEDS: HYDROmorphone 0.5 MG/0.5 ML SYRINGE IVP PRN (12:32)
--- NOTE | 2019-06-04 13:08 | P.PN ---
Subjective Progress Note Date: 06/04/19 Principal diagnosis: S/P ACDF C5-C7 with corpectomy of C6 for pathologic fracture with myelopathy, weakness and bacteremia Patient is seen at bedside this am in the ICU. He S/P ACDF C5-C7 with corpectomy of C6 on 05/31/19 for pathologic fracture with stenosis, myelopathy and weakness. He was intubated yesterday after having continued difficulty with breathing. He appears to be resting comfortably this morning. Objective - Vital Signs Vital signs: Vital Signs Temp 98.3 F 06/04/19 12:00 Pulse 103 H 06/04/19 12:00 Resp 24 06/04/19 12:00 BP 109/73 06/04/19 06:00 Pulse Ox 97 06/04/19 12:00 Intake & Output 06/03/19 06/04/19 06/04/19 18:59 06:59 18:59 Intake Total 1613.955 2654.356 476.902 Output Total 295 943 255 Balance 7433.623 4688.356 221.902 Weight 66.224 kg 66.224 kg Intake: IV 1255 1900 285 0.9 255 900 245 Bolus 1000 1000 Sodium Chloride 0.9% 1, 40 000 ml @ 20 mls/hr IV . Q24H [facility] Rx#:[id number] Intake, IV Titration 43.083 513.356 191.902 Amount Norepinephrine 4 mg In 43.083 369.877 73.398 Sodium Chloride 0.9% 250 ml @ 0.05 MCG/KG/MIN 12. 357 mls/hr IV .[id number] [facility] Rx#:[id number] Propofol 1,000 mg In 143.479 118.504 Empty Bag 1 bag @ Titrate IV .Q0M [facility]SON Rx#: [id number] Output: Urine 295 943 255 Other: Voiding Method Indwelling Catheter Indwelling Catheter Indwelling Catheter ABP, PAP, CO, CI - Last Documented Arterial Blood Pressure 112/50 - Exam GEN: NAD, Intubated with ET tube in place and on ventilator Neck: Newcomb cervical collar in place. Neutral alignment. Surgical wound is benign. No active bleeding or drainage. No evidence of hematoma Neuro not examined due to his current ventilator status - Constitutional General appearance: Present: no acute distress - Labs CBC & Chem 7: 06/04/19 04:40 06/04/19 04:40 Labs: Abnormal Lab Results - Last 24 Hours (Table) 06/03/19 06/03/19 06/03/19 Range/Units 12:56 13:05 13:32 WBC (3.8-10.6) k/uL RBC (4.30-5.90) m/uL Hgb (13.0-17.5) gm/dL Hct (39.0-53.0) % Neutrophils # (Manual) (1.3-7.7) k/uL Lymphocytes # (Manual) (1.0-4.8) k/uL Monocytes # (Manual) (0-1.0) k/uL ABG pH (7.35-7.45) ABG pCO2 (35-45) mmHg ABG pO2 53 L* (83-108) mmHg ABG Total CO2 25 H (19-24) mmol/L ABG O2 Saturation 84.4 L (94-97) % Sodium (137-145) mmol/L Carbon Dioxide (22-30) mmol/L BUN (9-20) mg/dL Glucose (74-99) mg/dL POC Glucose (mg/dL) 202 H (75-99) mg/dL Calcium (8.4-10.2) mg/dL Urine Protein 1+ H (Negative) Urine Ketones Trace H (Negative) Urine Bacteria Rare H (None) /hpf Hyaline Casts 7 H (0-2) /lpf Urine Mucus Few H (None) /hpf 06/03/19 06/03/19 06/03/19 Range/Units 15:45 18:18 23:40 WBC (3.8-10.6) k/uL RBC (4.30-5.90) m/uL Hgb (13.0-17.5) gm/dL Hct (39.0-53.0) % Neutrophils # (Manual) (1.3-7.7) k/uL Lymphocytes # (Manual) (1.0-4.8) k/uL Monocytes # (Manual) (0-1.0) k/uL ABG pH 7.32 L (7.35-7.45) ABG pCO2 (35-45) mmHg ABG pO2 118 H (83-108) mmHg ABG Total CO2 (19-24) mmol/L ABG O2 Saturation 98.5 H (94-97) % Sodium (137-145) mmol/L Carbon Dioxide (22-30) mmol/L BUN (9-20) mg/dL Glucose (74-99) mg/dL POC Glucose (mg/dL) 132 H 140 H (75-99) mg/dL Calcium (8.4-10.2) mg/dL Urine Protein (Negative) Urine Ketones (Negative) Urine Bacteria (None) /hpf Hyaline Casts (0-2) /lpf Urine Mucus (None) /hpf 06/04/19 06/04/19 06/04/19 Range/Units 04:40 04:40 04:51 WBC 57.1 H* (3.8-10.6) k/uL RBC 2.79 L (4.30-5.90) m/uL Hgb 8.7 L D (13.0-17.5) gm/dL Hct 25.2 L (39.0-53.0) % Neutrophils # (Manual) 52.53 H (1.3-7.7) k/uL Lymphocytes # (Manual) 0.57 L (1.0-4.8) k/uL Monocytes # (Manual) 4.00 H (0-1.0) k/uL ABG pH (7.35-7.45) ABG pCO2 32 L (35-45) mmHg ABG pO2 149 H (83-108) mmHg ABG Total CO2 (19-24) mmol/L ABG O2 Saturation 99.2 H (94-97) % Sodium 131 L (137-145) mmol/L Carbon Dioxide 21 L (22-30) mmol/L BUN 34 H (9-20) mg/dL Glucose 120 H (74-99) mg/dL POC Glucose (mg/dL) (75-99) mg/dL Calcium 7.8 L (8.4-10.2) mg/dL Urine Protein (Negative) Urine Ketones (Negative) Urine Bacteria (None) /hpf Hyaline Casts (0-2) /lpf Urine Mucus (None) /hpf 06/04/19 06/04/19 Range/Units 05:52 12:17 WBC (3.8-10.6) k/uL RBC (4.30-5.90) m/uL Hgb (13.0-17.5) gm/dL Hct (39.0-53.0) % Neutrophils # (Manual) (1.3-7.7) k/uL Lymphocytes # (Manual) (1.0-4.8) k/uL Monocytes # (Manual) (0-1.0) k/uL ABG pH (7.35-7.45) ABG pCO2 (35-45) mmHg ABG pO2 (83-108) mmHg ABG Total CO2 (19-24) mmol/L ABG O2 Saturation (94-97) % Sodium (137-145) mmol/L Carbon Dioxide (22-30) mmol/L BUN (9-20) mg/dL Glucose (74-99) mg/dL POC Glucose (mg/dL) 119 H 121 H (75-99) mg/dL Calcium (8.4-10.2) mg/dL Urine Protein (Negative) Urine Ketones (Negative) Urine Bacteria (None) /hpf Hyaline Casts (0-2) /lpf Urine Mucus (None) /hpf Microbiology - Last 24 Hours (Table) 06/03/19 19:15 Sputum Culture - Preliminary Sputum 05/30/19 18:07 Blood Culture - Preliminary Blood No Growth after 96 hours Assessment and Plan (1) Compression fracture of C6 vertebra Narrative/Plan: Patient appears to be comfortable and exchanging air well on current ventilator status. His cervical Xrays appear stable. Continue wound care and cervical collar at all times. Will continue to follow closely Current Visit: Yes Status: Acute Code(s): S12.590A - OTH DISP FX OF SIXTH CERVICAL VERTEBRA, INIT FOR CLOS FX SNOMED Code(s): 902971023 (2) Leukocytosis Current Visit: Yes Status: Acute Code(s): D72.829 - ELEVATED WHITE BLOOD CELL COUNT, UNSPECIFIED SNOMED Code(s): 613620944 (3) Lung mass Current Visit: No Status: Acute Code(s): R91.8 - OTHER NONSPECIFIC ABNORMAL FINDING OF LUNG FIELD SNOMED Code(s): 200542011 Time with Patient: Less than 30
--- NOTE | 2019-06-04 13:17 | P.PN ---
Subjective Progress Note Date: 06/04/19 Right upper extremity weakness/pain related to a mild bony retropulsion of the cervical spine at the level of C6, patient has severe degenerative spine disease with disc space narrowing at the C3-C4 with posterior disc bulge 79-year-old male patient is being seen in consultation for lung mass. The patient is known to have history of lung cancer. The patient came into the hospital because of pain and numbness in his right upper extremity extending to his right thumb and this is been going on for the past 2 weeks to the point where the patient was unable to lift any objects because of the pain and numbness and tingling. His echo was elevated at 31. The calcium level is normal at 9.6. Lactic acid level at time of admission was 1.7. He had a CRP of 57.7 which is quite elevated and this is based on the previous blood work that was done on 05/17/2019. In the ED, the patient had a CAT scan of the brain that showed age-related atrophy and small vessel ischemic changes. An unenhanced CAT scan of the cervical spine also was done and it showed severe compression fracture of the C6 spine of an uncertain age/etiology with bony retropulsion of 3.5 mm. No evidence of any central canal stenosis or cord compression. Multilevel degenerative disc disease was seen with disc bulging and neurominal encroachment severe at the level of C3-C4 and there is also severe degenerative disc narrowing at the level of C5-C6. There is a 90% compression fracture of the T6 spine. Noted the patient was in the emergency department on 05/17/2023 with similar complaints of worsening shoulder and arm pain he was seen in emergency department and the patient underwent a CT angiogram of the upper extremity and it showed poor opacification of the radial and ulnar arteries at the level of the brachial bifurcation which was either technical in nature or high-grade stenosis/thrombosis which could not be completely ruled out. A CAT scan of the chest was also done utilizing a CT angios protocol and the CAT scan showed no evidence of any pulmonary embolism. Nevertheless, there were several for nodules, and a lung mass. There was a 3.4 cm right lower lobe pleural-based mass posteriorly in the right lower lobe area. There was another 7 mm right middle lobe pulmonary nodule, 5 mm left upper lobe pulmonary pleural-based nodule, 7 mm right upper lobe pulmonary nodule and a 4 mm right apical pulmonary nodule. There was extensive emphysema and some scattered subpleural fibrosis. The perihilar/peribronchial lymph nodes were identified. 4.1 cm suspicious lesion of the left adrenal gland was seen suspicious for metastases. This was a new finding monitor the patient's previous CAT scan from 03/22/2018 did not show any lung masses or nodules. There was however some scarring in the lung bases especially on the right in addition to emphysema and some elevation of left hemidiaphragm. S shaped scoliosis was also seen along with osseous demineralization. The patient is afebrile. The patient's pulse ox 99% on room air.: 19 evaluation was negative. Influenza A and B were negative. UA was negative. On today's evaluation of 05/30/2019, the patient was seen by spine surgery and the patient was given a neck brace. His pain is under good control. He is a waiting MRI of the cervical spine. The white cell count remains elevated. The pro-calcitonin level is low. He is still feeling weakness in the right upper extremity. A fine-needle aspirate of the lung metastatic to be considered and will going to consult interventional radiology. On 05/31/2019 patient seen in follow-up on general medical floor, still complaining of weakness in his arms and neck pain. Patient has a c-collar that he is wearing [id number], his imaging showed significant compression of his spinal cord. Patient was evaluated by orthopedic service and surgical decompression and spinal fusion was recommended and the patient is scheduled for his surgery today. Patient was also evaluated by radiation oncology, and he may need radiotherapy to the postoperative bed after completion of the above surgery, from pulmonary perspective, his breathing seems to be nonlabored, he is on room air, with a pulse ox of 96%, lung sounds are diminished, no rhonchi or wheezing, patient has been afebrile, today's labs have been reviewed showing white blood cell count of 32.8, hemoglobin 13.4, neutrophil count is 30.5, influenza and coronavirus PCR were negative, patient is receiving IV Decadron, patient is on vancomycin, blood culture showed coagulase-negative staph. On 06/01/2019 patient seen in follow-up on medical floor, he is postop day 1 status post anterior cervical decompression with discectomy and fusion of C5, C6 and C6 and C7. He is awake and alert, in no acute distress, room air pulse ox is 94%, he sitting up in the recliner, calm and comfortable, he is afebrile, vital signs are stable. Breathing is unlabored. Bone biopsy from the vertebral body of C6 and culture of vertebral body of the 6 are pending at this time. Today's labs have been reviewed showing white blood cell, 39.2, hemoglobin of 12.3, sodium 131, potassium is 4.3, chloride is 96, B1 is 30 creatinine 0.8. Patient is on cefepime and vancomycin for antibiotic coverage, ID service is following. Patient had blood culture with coagulase-negative staph, B blood cultures pending. On 06/02/2019 patient seen in follow-up on general medical floor, and today is postoperative day 2, status post anterior cervical decompression with discectomy and fusion of C5, 6, and C6 and C7, biopsy of the vertebral body of C6 and the culture of the vertebral body of C6. Biopsy results are still pending, cultures are negative thus far. Patient is afebrile, she is on 2 L of oxygen and the pulse ox of 96%, he still is complaining of some numbness and weakness in his right wrist, and some shortness of breath, and inability to clear phlegm, his lungs are clear, no wheezing, no rhonchi, he is already on Decadron. He is on cefepime and vancomycin for antibiotics, he is on breathing treatments, will add Mucinex. The patient is seen today 06/03/2019 in follow-up on the regular medical floor. He is currently sitting up in bed. Awake and alert. He is having some mucus and was coughing up quite a bit of phlegm today. He is maintaining O2 saturations in the 90s on 4 L/m per nasal cannula. White count 56.6. Hemoglobin 11.8. Neutrophils 54. Sodium 138. Potassium 4.8. Creatinine 0.58. He is continued on vancomycin and cefepime. Continued on IV Decadron. Continued on Mucinex. Requested he received his breathing treatment now. On 05/31/2019, I'm seeing the patient in follow-up in the intensive care unit. The patient is currently intubated on a mechanical ventilator. He is well sedated with propofol. He is calm and comfortable. He is currently on propofol at 50 g. He is on low-dose norepinephrine infusion normal pressure control. Is also normal saline at the rate of 75 mL an hour. He has been covered with broad-spectrum antibiotics regarding his aspiration. He is currently on vancomycin and Zosyn. Infectious diseases on the case. He is still awaiting a hard neck collar. The patient is on assist control mode of ventilation. This tidal volume is at 400 with a rate of 22 and FiO2 of 35% with a PEEP of 5. PH is 7.42 with a pCO2 of 32 and pO2 of 149. Chest x-ray shows Scoliosis of the chest. ET tube is around 1 cm above the edison and the patient has no evidence of any acute back the pulmonary infiltrates or pneumonias. The patient is on Decadron. The patient on DuoNeb neb last treatment [id number]. No significant bronchospasm wheezing unlike yesterday. The patient be started on enteral feeding for nutritional support. His adequate urine output. His surgical wound site over the right neck areas clean and intact. Motor function the right upper extremity cannot be assessed or evaluated today as the patient is currently intubated on a mechanical ventilator. Objective - Vital Signs Vital signs: Vital Signs Temp 98.3 F 06/04/19 12:00 Pulse 103 H 06/04/19 12:00 Resp 24 06/04/19 12:00 BP 109/73 06/04/19 06:00 Pulse Ox 97 06/04/19 12:00 Intake & Output 06/03/19 06/04/19 06/04/19 18:59 06:59 18:59 Intake Total 4305.143 0406.356 533.854 Output Total 295 943 255 Balance 6351.195 5697.356 278.854 Weight 66.224 kg 66.224 kg Intake: IV 1255 1900 285 0.9 255 900 245 Bolus 1000 1000 Sodium Chloride 0.9% 1, 40 000 ml @ 20 mls/hr IV . Q24H [facility] Rx#:[id number] Intake, IV Titration 43.083 513.356 248.854 Amount Norepinephrine 4 mg In 43.083 369.877 73.398 Sodium Chloride 0.9% 250 ml @ 0.05 MCG/KG/MIN 12. 357 mls/hr IV .[id number] [facility] Rx#:[id number] Propofol 1,000 mg In 143.479 175.456 Empty Bag 1 bag @ Titrate IV .Q0M REPLACED BY [facility] Rx#: [id number] Output: Urine 295 943 255 Other: Voiding Method Indwelling Catheter Indwelling Catheter Indwelling Catheter ABP, PAP, CO, CI - Last Documented Arterial Blood Pressure 112/50 - Exam General: The patient is sedated, comfortable likely distress, currently on a mechanical ventilator. He is still awaiting a hard neck collar. He is arous able and he is able to arouse from sedation without any issues. Orogastric and orotracheal tube are both in place. Eye: Pupils are equal, round and reactive to light, extra-ocular movements are intact. No nystagmus. There is normal conjunctiva bilaterally. No signs of icterus. Ears, nose, mouth and throat: There are moist mucous membranes and no oral lesions. Neck: The neck is supple, there is no tenderness or JVD. Cardiovascular: There is a regular rate and rhythm. No murmur, rub or gallop is appreciated. Respiratory: Lungs are clear to auscultation, respirations are non-labored, breath sounds are equal. No wheezes, stridor, rales, or rhonchi. Gastrointestinal: Soft, non-distended, non-tender abdomen without masses or organomegaly noted. There is no rebound or guarding present. No CVA tenderness. Bowel sounds are unremarkable. Musculoskeletal: Unable to do a motor function evaluation of the right upper extremity. Nevertheless, he had improvement in the motor weakness in the right upper extremity although he was still having some numbness and some residual weakness in the right upper extremity. NEUROLOGICAL: Sedated, comfortable likely distress Examination of the skin revealed no evidence of significant rashes, suspicious appearing nevi or other concerning lesions. - Labs CBC & Chem 7: 06/04/19 04:40 06/04/19 04:40 Labs: Abnormal Lab Results - Last 24 Hours (Table) 06/03/19 06/03/19 06/03/19 Range/Units 13:05 13:32 15:45 WBC (3.8-10.6) k/uL RBC (4.30-5.90) m/uL Hgb (13.0-17.5) gm/dL Hct (39.0-53.0) % Neutrophils # (Manual) (1.3-7.7) k/uL Lymphocytes # (Manual) (1.0-4.8) k/uL Monocytes # (Manual) (0-1.0) k/uL ABG pH 7.32 L (7.35-7.45) ABG pCO2 (35-45) mmHg ABG pO2 53 L* 118 H (83-108) mmHg ABG Total CO2 25 H (19-24) mmol/L ABG O2 Saturation 84.4 L 98.5 H (94-97) % Sodium (137-145) mmol/L Carbon Dioxide (22-30) mmol/L BUN (9-20) mg/dL Glucose (74-99) mg/dL POC Glucose (mg/dL) (75-99) mg/dL Calcium (8.4-10.2) mg/dL Urine Protein 1+ H (Negative) Urine Ketones Trace H (Negative) Urine Bacteria Rare H (None) /hpf Hyaline Casts 7 H (0-2) /lpf Urine Mucus Few H (None) /hpf 06/03/19 06/03/19 06/04/19 Range/Units 18:18 23:40 04:40 WBC 57.1 H* (3.8-10.6) k/uL RBC 2.79 L (4.30-5.90) m/uL Hgb 8.7 L D (13.0-17.5) gm/dL Hct 25.2 L (39.0-53.0) % Neutrophils # (Manual) 52.53 H (1.3-7.7) k/uL Lymphocytes # (Manual) 0.57 L (1.0-4.8) k/uL Monocytes # (Manual) 4.00 H (0-1.0) k/uL ABG pH (7.35-7.45) ABG pCO2 (35-45) mmHg ABG pO2 (83-108) mmHg ABG Total CO2 (19-24) mmol/L ABG O2 Saturation (94-97) % Sodium (137-145) mmol/L Carbon Dioxide (22-30) mmol/L BUN (9-20) mg/dL Glucose (74-99) mg/dL POC Glucose (mg/dL) 132 H 140 H (75-99) mg/dL Calcium (8.4-10.2) mg/dL Urine Protein (Negative) Urine Ketones (Negative) Urine Bacteria (None) /hpf Hyaline Casts (0-2) /lpf Urine Mucus (None) /hpf 06/04/19 06/04/19 06/04/19 Range/Units 04:40 04:51 05:52 WBC (3.8-10.6) k/uL RBC (4.30-5.90) m/uL Hgb (13.0-17.5) gm/dL Hct (39.0-53.0) % Neutrophils # (Manual) (1.3-7.7) k/uL Lymphocytes # (Manual) (1.0-4.8) k/uL Monocytes # (Manual) (0-1.0) k/uL ABG pH (7.35-7.45) ABG pCO2 32 L (35-45) mmHg ABG pO2 149 H (83-108) mmHg ABG Total CO2 (19-24) mmol/L ABG O2 Saturation 99.2 H (94-97) % Sodium 131 L (137-145) mmol/L Carbon Dioxide 21 L (22-30) mmol/L BUN 34 H (9-20) mg/dL Glucose 120 H (74-99) mg/dL POC Glucose (mg/dL) 119 H (75-99) mg/dL Calcium 7.8 L (8.4-10.2) mg/dL Urine Protein (Negative) Urine Ketones (Negative) Urine Bacteria (None) /hpf Hyaline Casts (0-2) /lpf Urine Mucus (None) /hpf 06/04/19 Range/Units 12:17 WBC (3.8-10.6) k/uL RBC (4.30-5.90) m/uL Hgb (13.0-17.5) gm/dL Hct (39.0-53.0) % Neutrophils # (Manual) (1.3-7.7) k/uL Lymphocytes # (Manual) (1.0-4.8) k/uL Monocytes # (Manual) (0-1.0) k/uL ABG pH (7.35-7.45) ABG pCO2 (35-45) mmHg ABG pO2 (83-108) mmHg ABG Total CO2 (19-24) mmol/L ABG O2 Saturation (94-97) % Sodium (137-145) mmol/L Carbon Dioxide (22-30) mmol/L BUN (9-20) mg/dL Glucose (74-99) mg/dL POC Glucose (mg/dL) 121 H (75-99) mg/dL Calcium (8.4-10.2) mg/dL Urine Protein (Negative) Urine Ketones (Negative) Urine Bacteria (None) /hpf Hyaline Casts (0-2) /lpf Urine Mucus (None) /hpf Microbiology - Last 24 Hours (Table) 06/03/19 19:15 Sputum Culture - Preliminary Sputum 05/30/19 18:07 Blood Culture - Preliminary Blood No Growth after 96 hours Assessment and Plan Plan: 1 acute hypoxic respiratory failure. The patient had significant aspiration and this was noted on a bronchoscopy that was done in the intensive care unit where food material and milk was seen in the upper airway and therapy care was suctioning was done and all of these foreign bodies was aspirated from the upper airway. Subsequently, the patient continued to be short of breath. Airway inspection of the upper airways showed no evidence of any vocal cord paralysis. The arytenoids were slightly swollen, nevertheless, the vocal cord function was adequate. The patient was intubated and placed on a mechanical ventilator and currently is being treated for a COPD exacerbation and aspiration. Chest x-ray is free of any acute pulmonary infiltrates. 2 status post anterior cervical decompression with discectomy and fusion of the C5, 6 and 7 along with corpectomy of C6, subtotal corpectomy C5, excision of a soft tissue mass at the anterior level of C6, internal fixation of C6, placement of interbody graft from C5 to C7, application of anterior cervical plate C5 through C7 and biopsy of the vertebral body at the level of C6. Cultures of the vertebral body at the level of C6 was also done. The patient is postop day #4. Noted the patient presented to us with a right upper extremity weakness and C6 pathologic fracture/compression fracture with upper extremity weakness and cervical stenosis. There was also concern of bacteremia the patient was sent home with elevated. Nevertheless the pro-calcitonin level was low and the patient was afebrile. There is a positive blood culture with staph hominis and the patient was covered with a combination of Zosyn and vancomycin. 2 right lower lobe mass, pleural based measuring 3.9 cm in addition to several other smaller pulmonary nodules scattered focal lung mahan bilaterally in ad dition to a left adrenal mass, consider metastatic lung cancer/malignancy. 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 pulmonary fibrosis 6 coronary artery disease with previous coronary stenting 7 S scoliosis of the thoracolumbar spine 8 hyperlipidemia 9 hypertension 11 hypothyroidism 12 impaired hearing 13 blood culture with coagulase-negative staph on 05/29/2019, follow-up blood cultures showing staph hominis. Plan: Continue ventilator support The chest x-ray and a blood gas was noted Continue bronchodilators Continue Decadron Initiate enteral feeding for nutritional support Give the patient another 24 hour of treatment prior to considering any extubation. Keep the hard neck collar in place and limit the mobilization of the neck especially in the extension form Wean off pressors and this continue IV fluids to KVO IV Protonix and DVT prophylaxis with heparin subcu Propofol for sedation Dilaudid for pain control We'll continue to follow make further recommendations based on his progress. Condition is critical in this evaluation was done and more than 30 minutes. Time with Patient: Greater than 30
--- NOTE | 2019-06-04 14:35 | P.PN ---
Subjective 79-year-old male came in with complaints of severe pain in the right thumb has been going on for about 2 weeks unable to lift his arm with severe tingling numbness. Patient is unable to lift his right arm. Patient is comparing of severe pain in the right arm. Patient had a recent CAT scan earlier this month which showed multiple pulmonary nodules along with the possible metastatic lesion in a dual gland. Patient has history of right lung cancer which was in remission. Patient denied any fever chills patient denied any Dysuria denied any shortness of breath patient had a CT, there is a compression fracture involving the C6 of uncertain age no evidence of central stenosis or Compression and multilevel degenerative disease was seen. I discuss with a spinal surgeon he recommended MRI with contrast which will be obtained. 05/30/2019 Patient still complaining from weakness and numbness in his right upper extremity with pain about 7/10 today, he still have difficulty dropping stuff with his hand although he can use both hands for eating and he can move his right upper extremity. No other specific complaints, no chest pain or dyspnea. Patient has been evaluated by pulmonary and spinal surgery teams. MRI of the cervical spine is recommended which is done and the result is pending. In the meantime he remains on Decadron and normal saline Vitas looks stable History of have leukocytosis of 31K, has INR 0.9, sodium improved 132. Influenza and call the 20. Procolcitoin is low at 0.05. 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 Patient is going for corpectomy and reconstructive surgery today. Afebrile. Still have leukocytosis of 30 2.8K. Sodium 129 Medical oncology and orthopedic surgeon and radiation oncology R following case. 06/01/2019 Patient is a status post corpectomy of C6, with discectomy and fusion of C5-6 and C6-7, with biopsy and culture obtained, with excision of soft tissue mass anterior to C6. Today is postoperative day #1. Possible patient was doing good, he was sitting in chair having his meal when I saw him. He states that his pain is less by about 60%, numbness improved with arm and the arm is better. No chest pain dyspnea. Hemodynamics stable. WBCs still trending up at 39, hemoglobin is stable at 12.3. Sodium improved to 131, creatinine 0.8 Blood culture is positive for staph hominis, is currently on cefepime antibiotics by our ID team, and the vancomycin continue. Patient is followed closely by several consultants 06/02/2019 Patient is a status post corpectomy of C6, with discectomy and fusion of C5-6 and C6-7, with biopsy and culture obtained, with excision of soft tissue mass anterior to C6. Today is postoperative day #2. His right arm pain and numbness improving gradually however he still has pain rating about 8/10 by patient, movement looks better and his arm. Soft tissue biopsy and culture are still pending. His WBC is 37.5 but patient isn't steroids as well In the meantime patient on broad-spectrum antibiotics 06/03/2019 Today patient get more hypoxic and he has to be placed on 15 L oxygen via nonrebreather with saturating 9800% however he was tachypneic and tachycardic with a respiratory rate of around 30-35, patient did not stop because of dyspnea and his peripheral fingers since Looks mottled and bluish hue, however patient was fully awake and oriented, repeat chest x-ray showing pulmonary fibrosis with possible early infiltrate suspicious for aspiration pneumonia patient was transferred to the intensive care unit with pulmonary team evaluated the patient. C-collar is in place. His WBC went up to 50 6.6K, hemoglobin 11.8, sodium went down to 128, creatinine normal 0.58, sugar control. Continue on dexamethasone, with IV vancomycin and cefepime normal saline at 75 mL/h 06/04/2019 Patient currently in the ICU intubated and sedated, he could not provide information. No plan for weaning today, his currently on FiO2 of 35% Liver fortis currently discontinue it, it has been on and off earlier Push it at times he got agitated and he got Dilaudid, also he is on lidocaine patch Patient still has elevated WBC at 50 7K, hemoglobin 8.7, platelet normal, sodium 131, creatinine normal. He is on dexamethasone, IV vancomycin and IV Zosyn, normal saline was discontinued Patient follow up closely by ID, pulmonary and spine surgeon Review of system: N/a Active Medications Generic Name Dose Route Start Last Admin Trade Name Freq PRN Reason Stop Dose Admin Acetaminophen 650 mg 05/31/19 16:44 Tylenol Tab PO Q6HR PRN Fever and/ or Pain Hydrocodone Bitart/Acetaminophen 1 each 05/29/19 12:28 06/03/19 08:05 [place] 10 PO 1 each Q6H PRN Administration Pain Hydrocodone Bitart/Acetaminophen 1 each 05/31/19 16:44 [place] 5-325 PO Q4HR PRN Moderate Pain Al Hydroxide/Mg Hydroxide 30 ml 05/31/19 16:44 Maalox PO Q4HR PRN Indigestion Albuterol/Ipratropium 3 ml 06/02/19 13:00 06/04/19 11:36 Duoneb 0.5 Mg-3 Mg/3 Ml Soln INHALATION 3 ml RT-TID NILSON Administration Albuterol/Ipratropium 3 ml 06/02/19 12:00 Duoneb 0.5 Mg-3 Mg/3 Ml Soln INHALATION RT-Q2H PRN Shortness Of Breath Or Wheezing Aspirin 81 mg 05/30/19 09:00 06/04/19 08:02 Aspirin PO 81 mg DAILY NILSON Administration Atenolol 25 mg 05/30/19 09:00 06/04/19 08:06 Tenormin PO Not Given DAILY [facility] Atorvastatin Calcium 40 mg 05/29/19 21:00 06/03/19 20:53 Lipitor PO 40 mg HS NILSON Administration Benzocaine/Menthol 1 each 05/31/19 16:43 Cepacol Lozenge MUCOUS MEM Q4HR PRN Sore Throat Chlorhexidine Gluconate 15 ml 06/03/19 21:00 06/04/19 08:02 Peridex MUCOUS MEM 15 ml BID NILSON Administration Cyclobenzaprine HCl 10 mg 05/29/19 16:00 06/04/19 08:01 Flexeril PO 10 mg TID NILSON Administration Dexamethasone Sodium Phosphate 6 mg 05/31/19 00:00 06/04/19 12:19 Decadron IV 6 mg Q6HR NILSON Administration Gabapentin 300 mg 05/29/19 16:00 06/04/19 08:03 Neurontin PO 300 mg TID NILSON Administration Guaifenesin 1,200 mg 06/02/19 13:00 06/04/19 08:02 Mucinex PO Not Given Q12HR [facility] Heparin Sodium (Porcine) 5,000 unit 05/29/19 21:00 06/04/19 08:02 Heparin SQ 5,000 unit Q12HR NILSON Administration Hydromorphone HCl 0.5 mg 05/31/19 16:43 06/04/19 12:32 Dilaudid IVP 0.5 mg Q4HR PRN Administration Pain Hydromorphone HCl 1 mg 05/31/19 16:43 06/04/19 09:06 Dilaudid IVP 1 mg Q4HR PRN Administration Pain Sodium Chloride 1,000 mls @ 20 mls/hr 05/31/19 16:45 06/04/19 00:02 Saline 0.9% IV 75 mls/hr .Q24H NILSON Administration Norepinephrine Bitartrate 4 mg 254 mls @ 12.357 mls/hr 06/03/19 15:00 06/03 13:55 / Sodium Chloride IV 0.08 mcg/kg/min .[id number] NILSON 19.771 mls/hr Titration Protocol 0.05 MCG/KG/MIN Propofol 1,000 mg/ IV Solution 100 mls @ 0 mls/hr 06/03/19 15:45 06/04/19 12:59 IV 50 mcg/kg/min .Q0M NILSON 19.867 mls/hr Administration Protocol Titrate Piperacillin Sod/Tazobactam 100 mls @ 25 mls/hr 06/03/19 16:00 06/04/19 08:01 Sod 3.375 gm/ Sodium Chloride IVPB 25 mls/hr Q8HR [facility] Administration Insulin Aspart 0 unit 06/03/19 18:00 06/04/19 12:18 Novolog SQ Not Given Q6HR [facility] Protocol Levothyroxine Sodium 75 mcg 05/30/19 06:30 06/04/19 05:59 Synthroid PO 75 mcg 0630 [facility] Administration Lidocaine 1 patch 05/30/19 09:00 06/04/19 08:03 Lidoderm TOPICAL 1 patch DAILY [facility] Administration Magnesium Hydroxide 2,400 mg 05/31/19 16:43 Milk Of Magnesia PO DAILY PRN Constipation Ondansetron HCl 4 mg 05/31/19 16:44 Zofran IVP Q8HR PRN Nausea And Vomiting Pantoprazole Sodium 40 mg 05/30/19 16:15 06/04/19 08:02 Protonix IVP 40 mg DAILY NILSON Administration Senna/Docusate Sodium 1 each 06/01/19 09:00 06/04/19 08:03 Senokot-S PO 1 each DAILY NILSON Administration Objective - Vital Signs Vital signs: Vital Signs Temp 98.3 F 06/04/19 12:00 Pulse 96 06/04/19 14:00 Resp 24 06/04/19 14:00 BP 109/73 06/04/19 06:00 Pulse Ox 99 06/04/19 14:00 Intake & Output 06/03/19 06/04/19 06/04/19 18:59 06:59 18:59 Intake Total 1556.698 8367.356 564.316 Output Total 295 943 315 Balance 0023.327 8299.356 249.316 Weight 66.224 kg 66.224 kg Intake: IV 1255 1900 305 0.9 255 900 245 Bolus 1000 1000 Sodium Chloride 0.9% 1, 60 000 ml @ 20 mls/hr IV . Q24H NILSON Rx#:[id number] Intake, IV Titration 43.083 513.356 259.316 Amount Norepinephrine 4 mg In 43.083 369.877 83.860 Sodium Chloride 0.9% 250 ml @ 0.05 MCG/KG/MIN 12. 357 mls/hr IV .[id number] NILSON Rx#:[id number] Propofol 1,000 mg In 143.479 175.456 Empty Bag 1 bag @ Titrate IV .Q0M NILSON Rx#: [id number] Output: Urine 295 943 315 Other: Voiding Method Indwelling Catheter Indwelling Catheter Indwelling Catheter ABP, PAP, CO, CI - Last Documented Arterial Blood Pressure 100/49 - Exam -GENERAL: The patient is intubated and sedated HEENT: Pupils are round and equally reacting to light. EOMI. No scleral icterus. No conjunctival pallor. Normocephalic, atraumatic. No pharyngeal erythema. No thyromegaly. CARDIOVASCULAR: S1 and S2 present. No murmurs, rubs, or gallops. PULMONARY: Chest is clear to auscultation, no wheezing or crackles. ABDOMEN: Soft, nontender, nondistended, normoactive bowel sounds. No palpable organomegaly. MUSCULOSKELETAL: No joint swelling or deformity. -EXTREMITIES: No cyanosis, clubbing, or pedal edema. Patient has pain tingling numbness in the right arm patient does have weakness strength of of around the 3/5 in the entire right arm. NEUROLOGICAL: Gross neurological examination did not reveal any focal deficits. SKIN: No rashes. - Labs CBC & Chem 7: 06/04/19 04:40 06/04/19 04:40 Labs: Abnormal Lab Results - Last 24 Hours (Table) 06/03/19 06/03/19 06/03/19 Range/Units 15:45 18:18 23:40 WBC (3.8-10.6) k/uL RBC (4.30-5.90) m/uL Hgb (13.0-17.5) gm/dL Hct (39.0-53.0) % Neutrophils # (Manual) (1.3-7.7) k/uL Lymphocytes # (Manual) (1.0-4.8) k/uL Monocytes # (Manual) (0-1.0) k/uL ABG pH 7.32 L (7.35-7.45) ABG pCO2 (35-45) mmHg ABG pO2 118 H (83-108) mmHg ABG O2 Saturation 98.5 H (94-97) % Sodium (137-145) mmol/L Carbon Dioxide (22-30) mmol/L BUN (9-20) mg/dL Glucose (74-99) mg/dL POC Glucose (mg/dL) 132 H 140 H (75-99) mg/dL Calcium (8.4-10.2) mg/dL 06/04/19 06/04/19 06/04/19 Range/Units 04:40 04:40 04:51 WBC 57.1 H* (3.8-10.6) k/uL RBC 2.79 L (4.30-5.90) m/uL Hgb 8.7 L D (13.0-17.5) gm/dL Hct 25.2 L (39.0-53.0) % Neutrophils # (Manual) 52.53 H (1.3-7.7) k/uL Lymphocytes # (Manual) 0.57 L (1.0-4.8) k/uL Monocytes # (Manual) 4.00 H (0-1.0) k/uL ABG pH (7.35-7.45) ABG pCO2 32 L (35-45) mmHg ABG pO2 149 H (83-108) mmHg ABG O2 Saturation 99.2 H (94-97) % Sodium 131 L (137-145) mmol/L Carbon Dioxide 21 L (22-30) mmol/L BUN 34 H (9-20) mg/dL Glucose 120 H (74-99) mg/dL POC Glucose (mg/dL) (75-99) mg/dL Calcium 7.8 L (8.4-10.2) mg/dL 06/04/19 06/04/19 Range/Units 05:52 12:17 WBC (3.8-10.6) k/uL RBC (4.30-5.90) m/uL Hgb (13.0-17.5) gm/dL Hct (39.0-53.0) % Neutrophils # (Manual) (1.3-7.7) k/uL Lymphocytes # (Manual) (1.0-4.8) k/uL Monocytes # (Manual) (0-1.0) k/uL ABG pH (7.35-7.45) ABG pCO2 (35-45) mmHg ABG pO2 (83-108) mmHg ABG O2 Saturation (94-97) % Sodium (137-145) mmol/L Carbon Dioxide (22-30) mmol/L BUN (9-20) mg/dL Glucose (74-99) mg/dL POC Glucose (mg/dL) 119 H 121 H (75-99) mg/dL Calcium (8.4-10.2) mg/dL Microbiology - Last 24 Hours (Table) 06/03/19 19:15 Sputum Culture - Preliminary Sputum 05/30/19 18:07 Blood Culture - Preliminary Blood No Growth after 96 hours Assessment and Plan Assessment: -C6 compression fracture:status post corpectomy of C6, with discectomy and fusion of C5-6 and C6-7,with excision of soft tissue mass anterior to C6 Right arm pain weakness and numbness, patient followed closely by surgery team -Acute hypoxic respiratory failure requiring intubation and mechanical vent ilation -Worsening acute hypoxic respiratory failure suspicious for aspiration pneumonitis. Patient already on antibiotics -pulmonary nodules, pulmonary team on the case and they recommended pulmonary biopsy -Positive blood culture with staph bacteremia. Infectious disease consulted to start patient on IV vancomycin. -Leukocytosis with metamyelocyte, consult hematology -Hyponatremia , improving -History of lung cancer in remission but patient has new pulmonary nodules along with the a suspicious lesion in the adrenal gland, consult pulmonary patient probably will need an outpatient bronchoscopy again -Coronary disease next and heparin hypertension -Hyperlipidemia -Hypothyroidism DVT prophylaxis: Heparin GI prophylaxis: Pepcid Prognosis guarded
[2019-06-04 18:07] LABS: Glucose,Whole Blood 139 mg/dL (75-99)
[2019-06-04] MEDS: ATORVASTATIN 40 MG TAB PO SCH (20:01)
[2019-06-04 23:34] LABS: Glucose,Whole Blood 132 mg/dL (75-99)
[2019-06-04] MEDS: IPRATROPIUM-ALBUTEROL 3 ML NEB INHALATION PRN (23:37)
--- NOTE | 2019-06-04 23:56 | PN ---
PROGRESS NOTE DATE OF SERVICE: 06/04/2019 REASON FOR FOLLOWUP: Aspiration pneumonia. INTERVAL HISTORY: The patient remains to be intubated on the vent. The patient is hemodynamically stable. FiO2 is currently down to 35%. No purulent secretions through ET. He has been started on tube feeds and no diarrhea has been reported. PHYSICAL EXAMINATION: Blood pressure 109/49 with a pulse of 98, temperature of 98.5. He is 99% on 35% FiO2. General description is an elderly male intubated on the vent. RESPIRATORY SYSTEM: Unlabored breathing, decreased breath sounds at the base. No wheeze. HEART: S1, S2. Regular rate and rhythm. ABDOMEN: Soft, no tenderness. LABS: Hemoglobin 8.7, white count 57.1, BUN of 34, creatinine 0.88. Sputum cultures currently pending. DIAGNOSTIC IMPRESSION AND PLAN: Patient with acute vent dependent respiratory failure, which is multifactorial in this patient did have a possible component of aspiration pneumonia. The patient is currently covered with Zosyn to continue while waiting for the culture to finalize and monitor clinical course closely. MMODL / IJN: [id number] / MTDD
[2019-06-04 23:59] LABS: Glucose,Whole Blood 159 mg/dL (75-99)
[2019-06-05] MEDS: PROPOFOL 1,000 MG in EMPTY BAG 1 BAG IV SCH ×5 (02:02→23:51)
[2019-06-05 04:37] LABS: HGB 7.9 gm/dL (13.0-17.5); MCH 30.8 pg (25.0-35.0); MCV 93.4 fL (80.0-100.0); Mean Platelet Volume 10.6; Platelet Count 232 k/uL (150-450); RBC 2.58 m/uL (4.30-5.90); RDW 13.3 % (11.5-15.5); WBC 46.9 k/uL (3.8-10.6)
[2019-06-05 04:52] LABS: African American GFR (CKD) >90 (>60 ml/min/1.73 sqM); Anion Gap 5 mmol/L; Blood Urea Nitrogen 37 mg/dL (9-20); Calcium 7.8 mg/dL (8.4-10.2); Carbon Dioxide 21 mmol/L (22-30); Chloride 106 mmol/L (98-107); Glucose 163 mg/dL (74-99); Non-African American GFR(CKD) 87 (>60 ml/min/1.73 sqM); Potassium 3.8 mmol/L (3.5-5.1); Sodium 132 mmol/L (137-145)
[2019-06-05] MEDS ORDERED: Potassium Replacement Protocol 1 EACH MISC MISCELLANE PRN (04:56)
[2019-06-05] MEDS ORDERED: POTASSIUM CHLORIDE ER 20 MEQ TAB.ER PO SCH (05:00)
[2019-06-05 05:17] LABS: Glucose,Whole Blood 180 mg/dL (75-99)
[2019-06-05 05:19] LABS: ABG Base Excess -2.9 mmol/L; ABG HCO3 21 mmol/L (21-25); ABG Oxygen Saturation 99.5 % (94-97); ABG PCO2 28 mmHg (35-45); ABG PH 7.47 (7.35-7.45); ABG PO2 145 mmHg (83-108); ABG TCO2 22 mmol/L (19-24); Allen Test Performed? Yes
[2019-06-05] MEDS: INSULIN ASPART (NovoLOG) 100 UNIT/ML VIAL SQ SCH ×4 (05:20→23:53)
[2019-06-05] MEDS: DEXAMETHASONE SOD PHOSPHATE 10 MG/ML 1 ML VIAL IV SCH ×4 (05:21→23:52)
[2019-06-05 05:26] LABS: Lymphocytes # (M) 0.94 k/uL (1.0-4.8); Monocytes # (M) 0.94 k/uL (0-1.0); Neutrophils # (M) 45.49 k/uL (1.3-7.7); Neutrophils % (M) 97 %; Nucleated Red Blood Cells 0 /100 WBC (0-0); Total Cells Counted 200
[2019-06-05] MEDS: LEVOTHYROXINE 75 MCG TAB PO SCH (06:22)
[2019-06-05] MEDS: IPRATROPIUM-ALBUTEROL 3 ML NEB INHALATION SCH ×3 (07:34→19:49)
[2019-06-05] MEDS: ATENOLOL 25 MG TAB PO SCH (08:05)
[2019-06-05] MEDS: guaiFENesin 600 MG TABLET.ER PO SCH ×2 (08:06→20:06)
--- NOTE | 2019-06-05 08:13 | XR ---
EXAMINATION TYPE: XR chest 1V portable DATE OF EXAM: 06/05/2019 COMPARISON: 06/04/2019 HISTORY: Endotracheal tube placement TECHNIQUE: Single frontal view of the chest is obtained. FINDINGS: Enteric and endotracheal tubes are similar placement to the prior. There is tortuosity of the mediastinum that may partially relate to patient positioning. Patient's chin obscures the lung ap ices. Cardiomediastinal silhouette is nonenlarged. Fibrotic interstitial change remains at the left c ostophrenic angle and left medial lung base. Pronounced right paratracheal stripe may be from right u pper lobe atelectasis, patient rotation and positioning, or less likely mediastinal mass. Stable. Cer vical fusion device is again noted. Diffuse osseous demineralization. The right posterior lung base m ass with scoliotic curvature of the thoracic spine is S-shaped. Catheter known metastatic pulmonary n odules are again noted. IMPRESSION: 1. No acute finding. 2. Stable tubes. 3. The patient's known right basilar lung mass is difficult to visualize on chest x-ray however bilat eral pulmonary nodules are redemonstrated. Pronounced right paratracheal stripe is likely positional within the prior MR thoracic spine of 06/01/2019 is reviewed versus atelectasis or much less likely me diastinal mass. Findings are unchanged from the prior.
[2019-06-05] MEDS: PIPERACILLIN-TAZOBACTAM 3.375 GM in SODIUM CHLORIDE 0.9% 100 ML IVPB SCH ×2 (08:24→16:31)
[2019-06-05] MEDS: ASPIRIN 81 MG PO SCH (08:25)
[2019-06-05] MEDS: SENNOSIDES-DOCUSATE SODIUM 1 EACH TAB PO SCH (08:25)
[2019-06-05] MEDS: PANTOPRAZOLE 40 MG/10 ML VIAL IVP SCH (08:25)
[2019-06-05] MEDS: HEPARIN SODIUM,PORCINE 5,000 UNIT/ML 1 ML VIAL SQ SCH ×2 (08:25→20:05)
[2019-06-05] MEDS: CHLORHEXIDINE GLUCONATE 15 ML CUP MUCOUS MEM SCH ×2 (08:25→20:06)
[2019-06-05] MEDS: GABAPENTIN 300 MG CAP PO SCH ×3 (08:25→20:06)
[2019-06-05] MEDS: CYCLOBENZAPRINE 10 MG TAB PO SCH ×3 (08:25→20:06)
[2019-06-05] MEDS: HYDROmorphone 0.5 MG/0.5 ML SYRINGE IVP PRN ×2 (09:55→20:05)
[2019-06-05] MEDS: LIDOCAINE 5% PATCH TOPICAL SCH (10:41)
[2019-06-05 12:20] LABS: Glucose,Whole Blood 156 mg/dL (75-99)
[2019-06-05] MEDS: SODIUM CHLORIDE 0.9% 1,000 ML IV SCH (13:17)
--- NOTE | 2019-06-05 13:21 | P.PN ---
Subjective Progress Note Date: 06/05/19 Principal diagnosis: Right upper extremity weakness/pain related to a mild bony retropulsion of the cervical spine at the level of C6, patient has severe degenerative spine disease with disc space narrowing at the C3-C4 with posterior disc bulge 79-year-old male patient is being seen in consultation for lung mass. The patient is known to have history of lung cancer. The patient came into the hospital because of pain and numbness in his right upper extremity extending to his right thumb and this is been going on for the past 2 weeks to the point where the patient was unable to lift any objects because of the pain and numbness and tingling. His echo was elevated at 31. The calcium level is normal at 9.6. Lactic acid level at time of admission was 1.7. He had a CRP of 57.7 which is quite elevated and this is based on the previous blood work that was done on 05/17/2019. In the ED, the patient had a CAT scan of the brain that showed age-related atrophy and small vessel ischemic changes. An unenhanced CAT scan of the cervical spine also was done and it showed severe compression fracture of the C6 spine of an uncertain age/etiology with bony retropulsion of 3.5 mm. No evidence of any central canal stenosis or cord compression. Multilevel degenerative disc disease was seen with disc bulging and neurominal encroachment severe at the level of C3-C4 and there is also severe degenerative disc narrowing at the level of C5-C6. There is a 90% compression fracture of the T6 spine. Noted the patient was in the emergency department on 05/17/2023 with similar complaints of worsening shoulder and arm pain he was seen in emergency department and the patient underwent a CT angiogram of the upper extremity and it showed poor opacification of the radial and ulnar arteries at the level of the brachial bifurcation which was either technical in nature or h igh-grade stenosis/thrombosis which could not be completely ruled out. A CAT scan of the chest was also done utilizing a CT angios protocol and the CAT scan showed no evidence of any pulmonary embolism. Nevertheless, there were several for nodules, and a lung mass. There was a 3.4 cm right lower lobe pleural-based mass posteriorly in the right lower lobe area. There was another 7 mm right middle lobe pulmonary nodule, 5 mm left upper lobe pulmonary pleural-based nodule, 7 mm right upper lobe pulmonary nodule and a 4 mm right apical pulmonary nodule. There was extensive emphysema and some scattered subpleural fibrosis. The perihilar/peribronchial lymph nodes were identified. 4.1 cm suspicious lesion of the left adrenal gland was seen suspicious for metastases. This was a new finding monitor the patient's previous CAT scan from 03/22/2018 did not show any lung masses or nodules. There was however some scarring in the lung bases especially on the right in addition to emphysema and some elevation of left hemidiaphragm. S shaped scoliosis was also seen along with osseous deminer alization. The patient is afebrile. The patient's pulse ox 99% on room air.: 19 evaluation was negative. Influenza A and B were negative. UA was negative. On today's evaluation of 05/30/2019, the patient was seen by spine surgery and the patient was given a neck brace. His pain is under good control. He is awaiting MRI of the cervical spine. The white cell count remains elevated. The pro-calcitonin level is low. He is still feeling weakness in the right upper extremity. A fine-needle aspirate of the lung metastatic to be considered and will going to consult interventional radiology. On 05/31/2019 patient seen in follow-up on general medical floor, still complaining of weakness in his arms and neck pain. Patient has a c-collar that he is wearing [id number], his imaging showed significant compression of his spinal cord. Patient was evaluated by orthopedic service and surgical decompression and spinal fusion was recommended and the patient is scheduled for his surgery today. Patient was also evaluated by radiation oncology, and he may need radiotherapy to the postoperative bed after completion of the above surgery, from pulmonary perspective, his breathing seems to be nonlabored, he is on room air, with a pulse ox of 96%, lung sounds are diminished, no rhonchi or wheezing, patient has been afebrile, today's labs have been reviewed showing white blood cell count of 32.8, hemoglobin 13.4, neutrophil count is 30.5, influenza and coronavirus PCR were negative, patient is receiving IV Decadron, patient is on vancomycin, blood culture showed coagulase-negative staph. On 06/01/2019 patient seen in follow-up on medical floor, he is postop day 1 status post anterior cervical decompression with discectomy and fusion of C5, C6 and C6 and C7. He is awake and alert, in no acute distress, room air pulse ox is 94%, he sitting up in the recliner, calm and comfortable, he is afebrile, vital signs are stable. Breathing is unlabored. Bone biopsy from the vertebral body of C6 and culture of vertebral body of the 6 are pending at this time. Today's labs have been reviewed showing white blood cell, 39.2, hemoglobin of 12.3, sodium 131, potassium is 4.3, chloride is 96, B1 is 30 creatinine 0.8. Patient is on cefepime and vancomycin for antibiotic coverage, ID service is following. Patient had blood culture with coagulase-negative staph, B blood cultures pending. On 06/02/2019 patient seen in follow-up on general medical floor, and today is postoperative day 2, status post anterior cervical decompression with discectomy and fusion of C5, 6, and C6 and C7, biopsy of the vertebral body of C6 and the culture of the vertebral body of C6. Biopsy results are still pending, cultures are negative thus far. Patient is afebrile, she is on 2 L of oxygen and the pulse ox of 96%, he still is complaining of some numbness and weakness in his right wrist, and some shortness of breath, and inability to clear phlegm, his lungs are clear, no wheezing, no rhonchi, he is already on Decadron. He is on cefepime and vancomycin for antibiotics, he is on breathing treatments, will add Mucinex. On 06/05/2019 patient seen in follow-up in the intensive care unit. Patient developed worsening respiratory failure requiring intubation and placement on mechanical ventilator on 06/03/2019 for suspected aspiration. Today on 06/05/2019 patient remains intubated, and sedated. Current vent settings are assist-control mode of ventilation with a rate of 22, tidal volume is 400, FiO2 is 35%, and PEEP of 5, this point his blood gases were reviewed showing pO2 45, pCO2 28, and pH of 7.47, and this was done on FiO2 of 35% and above-mentioned ventilator settings. This morning's chest x-ray has been reviewed, showing known right basilar lung mass, pronounced right paratracheal stripe, stable exam compared yesterday's chest x-ray. No acute pulmonary findings. She remains on empiric antibiotics in the form of Zosyn for possibility of aspiration pneumonia. Sputum culture so far only shows Mireya albicans. Cultures of the bony biopsy showing proprionibacterium acnes, final culture is pending, blood culture from 05/29/2019 showed staph hominis. Current antibiotics in the form of Zosyn, infectious disease is following. Today's labs have been reviewed [facility] blood blood cell count of 46.9, hemoglobin of 7.9, neutrophil count is 45.4, sodium is 132, potassium 3.8, CO2 is 21, B1 is 37 creatinine 0.76. Patient's hemodynamically stable, levo fed is on hold. Urine output is in the order of 50-60 ML per hour, he is tolerating tube feedings in the form of vital HP at a rate of 42 with a goal of 42 with standard water flushes. Bone biopsy of the vertebral body of C6 is still pending at this time Objective - Vital Signs Vital signs: Vital Signs Temp 98.3 F 06/05/19 08:00 Pulse 94 06/05/19 12:00 Resp 29 H 06/05/19 11:30 BP 109/73 06/04/19 06:00 Pulse Ox 100 06/05/19 11:30 Intake & Output 06/04/19 06/05/19 06/05/19 18:59 06:59 18:59 Intake Total 882.569 3625.075 544.606 Output Total 490 620 210 Balance 475.597 467.075 334.606 Weight 66.224 kg Intake: IV 505 260 192 0.9 245 240 Piperacillin-Tazobactam 3 100 100 .375 gm In Sodium Chloride 0.9% 100 ml @ 25 mls/hr IVPB Q8HR [facility] Rx# :[id number] Sodium Chloride 0.9% 1, 160 20 80 000 ml @ 20 mls/hr IV . Q24H [facility] Rx#:[id number] pressure bag 12 Intake, IV Titration 420.597 327.075 154.606 Amount Norepinephrine 4 mg In 146.468 99.595 107.256 Sodium Chloride 0.9% 250 ml @ 0.05 MCG/KG/MIN 12. 357 mls/hr IV .[id number] [facility] Rx#:[id number] Propofol 1,000 mg In 274.129 227.48 47.35 Empty Bag 1 bag @ Titrate IV .Q0M [facility] Rx#: [id number] Tube Feeding 40 410 168 Other 90 30 Output: Urine 490 620 210 Other: Voiding Method Indwelling Catheter Indwelling Catheter Indwelling Catheter ABP, PAP, CO, CI - Last Documented Arterial Blood Pressure 107/48 - Exam GENERAL EXAM: Sedated, intubated, comfortable, in no acute distress 79-year-old white male on mechanical ventilator, in the c-collar, appears chronically ill, but no acute distress, with orogastric and orotracheal tube in place HEAD: Normocephalic/atraumatic. EYES: Normal reaction of pupils, equal size. Conjunctiva pink, sclera white. NOSE: Clear with pink turbinates. THROAT: No erythema or exudates. NECK: No masses, no JVD, no thyroid enlargement, no adenopathy. Patient has a c-collar in place CHEST: No chest wall deformity. Symmetrical expansion. LUNGS: Equal air entry with no crackles, wheeze, rhonchi or dullness. CVS: Regular rate and rhythm, normal S1 and S2, no gallops, no murmurs, no rubs ABDOMEN: Soft, nontender. No hepatosplenomegaly, normal bowel sounds, no guarding or rigidity. EXTREMITIES: No clubbing, no edema, no cyanosis, 2+ pulses and upper and lower extremities. MUSCULOSKELETAL: Muscle strength and tone normal. SPINE: No scoliosis or deformity SKIN: No rashes CENTRAL NERVOUS SYSTEM: Sedated, comfortable No focal deficits, tone is normal in all 4 extremities. - Labs CBC & Chem 7: 06/05/19 04:20 06/05/19 04:20 Labs: Abnormal Lab Results - Last 24 Hours (Table) 06/04/19 06/04/19 06/04/19 Range/Units 18:05 23:33 23:58 WBC (3.8-10.6) k/uL RBC (4.30-5.90) m/uL Hgb (13.0-17.5) gm/dL Hct (39.0-53.0) % Neutrophils # (Manual) (1.3-7.7) k/uL Lymphocytes # (Manual) (1.0-4.8) k/uL ABG pH (7.35-7.45) ABG pCO2 (35-45) mmHg ABG pO2 (83-108) mmHg ABG O2 Saturation (94-97) % Sodium (137-145) mmol/L Carbon Dioxide (22-30) mmol/L BUN (9-20) mg/dL Glucose (74-99) mg/dL POC Glucose (mg/dL) 139 H 132 H 159 H (75-99) mg/dL Calcium (8.4-10.2) mg/dL 06/05/19 06/05/19 06/05/19 Range/Units 04: 04:20 05:16 WBC 46.9 H (3.8-10.6) k/uL RBC 2.58 L (4.30-5.90) m/uL Hgb 7.9 L (13.0-17.5) gm/dL Hct 24.0 L (39.0-53.0) % Neutrophils # (Manual) 45.49 H (1.3-7.7) k/uL Lymphocytes # (Manual) 0.94 L (1.0-4.8) k/uL ABG pH 7.47 H (7.35-7.45) ABG pCO2 28 L (35-45) mmHg ABG pO2 145 H (83-108) mmHg ABG O2 Saturation 99.5 H (94-97) % Sodium 132 L (137-145) mmol/L Carbon Dioxide 21 L (22-30) mmol/L BUN 37 H (9-20) mg/dL Glucose 163 H (74-99) mg/dL POC Glucose (mg/dL) (75-99) mg/dL Calcium 7.8 L (8.4-10.2) mg/dL 06/05/19 06/05/19 Range/Units 05:16 12:18 WBC (3.8-10.6) k/uL RBC (4.30-5.90) m/uL Hgb (13.0-17.5) gm/dL Hct (39.0-53.0) % Neutrophils # (Manual) (1.3-7.7) k/uL Lymphocytes # (Manual) (1.0-4.8) k/uL ABG pH (7.35-7.45) ABG pCO2 (35-45) mmHg ABG pO2 (83-108) mmHg ABG O2 Saturation (94-97) % Sodium (137-145) mmol/L Carbon Dioxide (22-30) mmol/L BUN (9-20) mg/dL Glucose (74-99) mg/dL POC Glucose (mg/dL) 180 H 156 H (75-99) mg/dL Calcium (8.4-10.2) mg/dL Microbiology - Last 24 Hours (Table) 06/03/19 19:15 Gram Stain - Preliminary Sputum Sputum Culture - Preliminary Mireya albicans 05/31/19 14:28 Anaerobic Culture - Final Other - Other Proprionibacterium acnes 05/31/19 15:39 Anaerobic Culture - Final Other - Other Proprionibacterium acnes 05/30/19 18:07 Blood Culture - Preliminary Blood No Growth after 120 hours Assessment and Plan Plan: Assessment: #1. Acute hypoxic respiratory failure. The patient had significant aspiration and this was noted on a bronchoscopy that was done in the intensive care unit where food material and milk was seen in the upper airway and therapy care was suctioning was done and all of these foreign bodies was aspirated from the upper airway. Subsequently, the patient continued to be short of breath. Airway inspection of the upper airways showed no evidence of any vocal cord paralysis. The arytenoids were slightly swollen, nevertheless, the vocal cord function was adequate. The patient was intubated and placed on a mechanical ventilator on all 06/03/2019 and currently is being treated for a COPD exacerbation and aspiration. Chest x-ray is free of any acute pulmonary infiltrates. #2. right upper extremity weakness/pain related to C6 compression fracture, and significant compression of the spinal cord awaiting surgical intervention. Preliminary evaluation with a CAT scan of the cervical spine showed C6 vertebral body compression fracture, at least 90% with a mild bony retropulsion noted to be around 3.5 mm in size and the patient has severe degenerative disc space narrowing at the level of C3-C4 with posterior disc bulge with mild effacement and bilateral foraminal encroachment and C5-C6 without any herniation or canal stenosis. Presence of leukocytosis is obviously raises the concern for infection along with an elevated CRP. Possibility of malignancy involving the C-spine with secondary compression cannot be ruled out knowing that the patient has several pulmonary lesions. The patient has severe degenerative disc disease along with posterior disc bulge at the level of C3-C4. Patient is status post anterior cervical decompression with discectomy and fusion of C5, 6, and C6 and 7, biopsy of the vertebral body of C6, and culture of the vertebral body of C6 collected and sent, and are pending at this time #3. right lower lobe mass, pleural based measuring 3.9 cm in addition to several other smaller pulmonary nodules scattered focal lung mahan bilaterally in addition to a left adrenal mass, consider metastatic lung cancer/malignancy. He is not is no knowing that the patient's previous CAT scan of the chest from 2019 up much of any pulmonary lesions #4. Previous history of lung cancer with a previous left upper lobe resection #5. COPD with diffuse emphysematous changes bilaterally #6. Pulmonary fibrosis #7. Coronary artery disease with previous coronary stenting #8. Scoliosis of the thoracolumbar spine #9. Hyperlipidemia #10. Hypertension #11. Hypothyroidism #12. Impaired hearing #13. Blood culture with coagulase-negative staph on 05/29/2019, follow-up blood cultures pending, negative thus far. Plan: Continue current ventilator support, hemodynamically patient is stable, continue current antibiotics, will follow the cultures, ID service following, patient is afebrile, vasopressor support has been weaned off, continue tube feedings. Awaiting results of the bone biopsy. Continue GI and DVT prophylaxis, bronchodilators, and Decadron. Follow-up chest x-ray in the morning, follow-up labs. We'll continue to follow, no plans for extubation today I performed a history & physical examination of the patient and discussed their management with my nurse practitioner, Opal Alcantar. I reviewed the nurse practitioner's note and agree with the documented findings and plan of care. Lung sounds are positive for clear breath sounds. The findings and the impressi on was discussed with the patient. I attest to the documentation by the nurse practitioner. Time with Patient: Greater than 30
--- NOTE | 2019-06-05 15:38 | P.PN ---
Subjective Progress Note Date: 06/05/19 Principal diagnosis: impending cord compression, picture of metastatic cancer Hemoglobin decreased today 7.9, He remains under ICU care and on mechanical intubation (06/03/19). He is sedated. Continuing on empiric antibiotics with Zosyn.Blood culture from 05/29/2019 showed staph hominis. ID following Current antibiotics in the form of Zosyn, infectious disease is following. Objective - Vital Signs Vital signs: Vital Signs Temp 98.4 F 06/05/19 12:00 Pulse 101 H 06/05/19 14:30 Resp 30 H 06/05/19 14:30 BP 109/73 06/04/19 06:00 Pulse Ox 100 06/05/19 14:30 Intake & Output 06/04/19 06/05/19 06/05/19 18:59 06:59 18:59 Intake Total 754.110 5593.075 773.977 Output Total 490 620 360 Balance 475.597 467.075 413.977 Weight 66.224 kg Intake: IV 505 260 261 0.9 245 240 Piperacillin-Tazobactam 3 100 100 .375 gm In Sodium Chloride 0.9% 100 ml @ 25 mls/hr IVPB Q8HR [facility] Rx# :[id number] Sodium Chloride 0.9% 1, 160 20 140 000 ml @ 20 mls/hr IV . Q24H [facility] Rx#:[id number] pressure bag 21 Intake, IV Titration 420.597 327.075 158.977 Amount Norepinephrine 4 mg In 146.468 99.595 107.256 Sodium Chloride 0.9% 250 ml @ 0.05 MCG/KG/MIN 12. 357 mls/hr IV .[id number] [facility] Rx#:[id number] Propofol 1,000 mg In 274.129 227.48 51.721 Empty Bag 1 bag @ Titrate IV .Q0M [facility] Rx#: [id number] Tube Feeding 40 410 294 Other 90 60 Output: Urine 490 620 360 Other: Voiding Method Indwelling Catheter Indwelling Catheter Indwelling Catheter ABP, PAP, CO, CI - Last Documented Arterial Blood Pressure 110/50 - Exam Gen: Intubated sedated Head: NCNT Neck: Supple, C collar inplace - Labs CBC & Chem 7: 06/05/19 04:20 04/27/20 04:20 Labs: Abnormal Lab Results - Last 24 Hours (Table) 06/04/19 06/04/19 06/04/19 Range/Units 18:05 23:33 23:58 WBC (3.8-10.6) k/uL RBC (4.30-5.90) m/uL Hgb (13.0-17.5) gm/dL Hct (39.0-53.0) % Neutrophils # (Manual) (1.3-7.7) k/uL Lymphocytes # (Manual) (1.0-4.8) k/uL ABG pH (7.35-7.45) ABG pCO2 (35-45) mmHg ABG pO2 (83-108) mmHg ABG O2 Saturation (94-97) % Sodium (137-145) mmol/L Carbon Dioxide (22-30) mmol/L BUN (9-20) mg/dL Glucose (74-99) mg/dL POC Glucose (mg/dL) 139 H 132 H 159 H (75-99) mg/dL Calcium (8.4-10.2) mg/dL 06/05/19 06/05/19 06/05/19 Range/Units 04:20 04:20 05:16 WBC 46.9 H (3.8-10.6) k/uL RBC 2.58 L (4.30-5.90) m/uL Hgb 7.9 L (13.0-17.5) gm/dL Hct 24.0 L (39.0-53.0) % Neutrophils # (Manual) 45.49 H (1.3-7.7) k/uL Lymphocytes # (Manual) 0.94 L (1.0-4.8) k/uL ABG pH 7.47 H (7.35-7.45) ABG pCO2 28 L (35-45) mmHg ABG pO2 145 H (83-108) mmHg ABG O2 Saturation 99.5 H (94-97) % Sodium 132 L (137-145) mmol/L Carbon Dioxide 21 L (22-30) mmol/L BUN 37 H (9-20) mg/dL Glucose 163 H (74-99) mg/dL POC Glucose (mg/dL) (75-99) mg/dL Calcium 7.8 L (8.4-10.2) mg/dL 06/05/19 06/05/19 Range/Units 05:16 12:18 WBC (3.8-10.6) k/uL RBC (4.30-5.90) m/uL Hgb (13.0-17.5) gm/dL Hct (39.0-53.0) % Neutrophils # (Manual) (1.3-7.7) k/uL Lymphocytes # (Manual) (1.0-4.8) k/uL ABG pH (7.35-7.45) ABG pCO2 (35-45) mmHg ABG pO2 (83-108) mmHg ABG O2 Saturation (94-97) % Sodium (137-145) mmol/L Carbon Dioxide (22-30) mmol/L BUN (9-20) mg/dL Glucose (74-99) mg/dL POC Glucose (mg/dL) 180 H 156 H (75-99) mg/dL Calcium (8.4-10.2) mg/dL Microbiology - Last 24 Hours (Table) 06/03/19 19:15 Gram Stain - Preliminary Sputum Sputum Culture - Preliminary Mireya albicans 05/31/19 14:28 Anaerobic Culture - Final Other - Other Proprionibacterium acnes 05/31/19 15:39 Anaerobic Culture - Final Other - Other Proprionibacterium acnes 05/30/19 18:07 Blood Culture - Preliminary Blood No Growth after 120 hours Assessment and Plan Plan: Assessment and Recommendations: 1. Right Lobe Pulmonary Mass with additional smaller masses: - Pulmonary is following - WIth history of lung cancer will need biopsy tissue of new finding as concerning for recurrent picture of cancer, malignancy - Will defer Bronch versus other to pulmonary for tissue biopsy Concern for cord compression: MRI pending - Possibility of malignancy involving the C-spine with secondary compression cannot be ruled out knowing that the patient has several pulmonary lesions. Dexamethasone is ordered and once tissue biopsy proven malignancy will consult radiation oncology - cT abdomen and pelvis reveal bilateral adrenal massess, appears picture of recurrent metastatic lung cancer. Await path from ortho surgery, if further tissue needed will likely as pulm or IR for intervention 2. Leukocytocytosis: - Neutrophilia, Lymphocytopenia - His labs show no alarming abnormality other than very slightly elevated monocytes which was present in past and increased WBC likely reactive to acute process - However light chain ratio and kappa light chain increased in past therefore will repeat. Check urine immunofixation - Underwent evaluation in 2012 and found to be benign at that time. 3. Respiratory Failure: - Intubated in care of iCU 4. Leukocytosis: - Secondary to bacteremia 5. Normocytic Anemia: - Multifacotial likely - Monitor and transfuse less than 7 Plan: - Continue care per ICU - Review of Thoracic and Brain MRI without identification of diffuse osseous or intracranial mets Physician Attest: I have completed the full history and physical and developed the full assessment and recommendations, agree with dictation by Lyla Anaya NP. Dictated as a scribe
--- NOTE | 2019-06-05 16:19 | P.PN ---
Progress Note - Text Progress Note Date: 06/05/19 Postoperative day #5 Patient is seen and examined today at bedside in the intensive care unit. He remains intubated and sedated. Physical Exam Afebrile, intubated Abdomen is soft nontender. Chest has good excursion deep and space expiration The incision site is clean dry and intact. No erythema there is no purulence. At his neck there is some ecchymosis but there is no significant swelling. There is no tension around his neck. The soft tissue is supple. There is no significant fluid collection. 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 The microbiology from preoperative date on 05/30 were positive for Proprionibacterium bacterium. He'll settle blood culture showing staph hominis. These were done preoperatively. At the time surgery we did not find any gross pus or abscess. I discussed case with Dr. Blevins who is present at bedside as well. I do not think a computed tomography scan of his neck with give must indication about his site. Certainly on the computed tomography scan which shows some fluid due to postoperative surgery but I do not feel any significant tension or fluid to merit evaluation at the surgical site or washout or further surgery at this point. His postoperative x-ray showed the hardware which appeared to be stable from C5 to 7. He should continue with his management of his respiratory failure. He continue management as per infectious disease and medicine. I do not plan surgical intervention further this point in time but we will continue to monitor the wound site closely for any change. We'll continue to follow patient closely.
[2019-06-05 17:51] LABS: Glucose,Whole Blood 188 mg/dL (75-99)
--- NOTE | 2019-06-05 18:05 | PN ---
PROGRESS NOTE DATE OF SERVICE: 06/05/2019 This 79-year-old gentleman with a past medical history of multiple medical problems was admitted after surgery with discectomy and fusion, C5-6, but subsequently patient developed acute hypoxic respiratory failure, possibly secondary to aspiration or aspiration pneumonia. The patient was mechanically intubated and the patient is being closely monitored in the ICU at this time. Multiple consultants are following the patient closely. The patient initially had right upper extremity weakness and pain related to bony retropulsion. The patient also was noted to have a right lower lobe mass which was pleural-based with scattered pulmonary nodules. The possibility of malignancy is also being considered. The patient did have previous history of lung cancer with history of left upper lobe resection. The patient also had pulmonary fibrosis. As far as the cultures are concerned, the patient had at least 2 anaerobic cultures grown showing Propionibacterium acnes from the surgical site and Staph hominis from the blood culture on 05/29/2019. Sputum culture showed Mireya albicans. The rest of the cultures are negative. Patient is being closely monitored. The patient is currently on intravenous Zosyn. Past medical history reviewed. Review of systems could not be taken; the patient is mechanically intubated. The final biopsy reports are pending at this time. CURRENT MEDICATIONS: Reviewed. They include: 1. Tylenol 650 q.6 p.r.n. 2. [place] 10 mg q.6 p.r.n. 3. [place] 5 mg. 4. Maalox. 5. DuoNeb q.i.d. and p.r.n. 6. Aspirin 81 mg daily. 7. Tenormin 25 mg p.o. daily. 8. Lipitor 40 mg daily. 9. Cepacol. 10.Peridex. 11.Flexeril. 12.Decadron 6 mg q.6. 13.Neurontin 300 mg p.o. t.i.d. 14.Mucinex. 15.Heparin. 16.Dilaudid. 17.NovoLog. 18.Synthroid. 19.Lidoderm. 20.Milk of Magnesia. 21.Norepinephrine. 22.Zosyn IV. 23.Senokot-S. Doses are reviewed. PHYSICAL EXAMINATION: Patient is mechanically ventilated and sedated. Vent settings are noted. Pulse 102, blood pressure 113/50, respiration 23, temperature 98.3, pulse ox 100% on 35% FiO2. HEENT: Conjunctivae normal. Oral mucosa moist. NECK: Trach collar. Status post surgery. CARDIOVASCULAR SYSTEM: S1, S2 muffled. RESPIRATORY SYSTEM: A few scattered rhonchi. ABDOMEN: Soft. NERVOUS SYSTEM: Patient is sedated. LABS: WBC 46.9, hemoglobin 7.9, and neutrophils are 45.49. Sodium 132, potassium 3.3. ASSESSMENT: 1. Acute hypoxic respiratory failure secondary to possible bilateral aspiration pneumonia, on mechanical ventilation. 2. Possible sepsis and hypotension. 3. Propionibacterium acnes from the anaerobic culture from the surgery. 4. Staphylococcus hominis from the blood. 5. Mireya albicans from the sputum. 6. History of recent cervical decompression and discectomy, fusion, C5, C6, C7 for suspected C6 pathologic compression fracture, upper extremity weakness with previous cervical stenosis, bacteremia and neck pain, upper extremity pain. 7. History of coronary artery disease. 8. Chronic obstructive pulmonary disease. 9. Hypertension. 10.Hyperlipidemia. 11.Rule out right lung cancer with metastases. 12.History of right upper lobe lung cancer and lobectomy. 13.Degenerative joint disease. 14.History of thyroid disorder. 15.History of coronary artery disease, stent. 16.History of nicotine dependence, continued ongoing. 17.FULL CODE. RECOMMENDATIONS AND DISCUSSION: In this 79-year-old gentleman who presented with multiple complex medical issues, we will monitor the patient closely, continue the current medications, continue symptomatic treatment, continue with mechanical ventilation. Continue with the bronchodilators. Continue with empiric antibiotics. DVT prophylaxis. I would also recommend repeat cultures. Discussed with Dr. Flores. Will continue to monitor. I recommend adding Diflucan to the current regimen. Prognosis is guarded because of multiple complex medical issues. Further recommendations to follow. See orders for further details. Discussed with staff. MMODL / IJN: [id number] /
[2019-06-05] MEDS: FLUCONAZOLE IN NACL,ISO-OSM 200 MG in SALINE 1 100ML.BAG IVPB SCH (18:08)
--- NOTE | 2019-06-05 18:47 | PN ---
PROGRESS NOTE DATE OF SERVICE: 06/05/2019 REASON FOR FOLLOWUP: Aspiration pneumonia. INTERVAL HISTORY: The patient is currently afebrile. The patient remains sedated, intubated on the vent. FiO2 is currently at 35%. Hemodynamically stable. No significant purulent secretions through the ET or diarrhea reported. PHYSICAL EXAMINATION: Blood pressure 111/49, pulse 103, temperature 98.3. He is 100% on 35% FiO2. General description is an elderly male lying in bed in no distress. RESPIRATORY SYSTEM: Unlabored breathing with decreased breath sounds at the base. No wheeze. HEART: S1, S2. Regular rate and rhythm. ABDOMEN: Soft. No tenderness. LABS: Hemoglobin 7.9, white count 46.9, BUN of 27, creatinine 1.76. Sputum showing Mireya albicans. Cultures from the cervical spine showing Propionibacterium acnes. DIAGNOSTIC IMPRESSION AND PLAN: Patient initially admitted to hospital with C6 fracture that was thought to be pathological, and concern about possible osteomyelitis. Cultures are now showing propionibacterium in this patient who subsequently did have an episode of aspiration pneumonia. Sputum is not showing any resistant pathogen. Antibiotic will be adjusted to Unasyn 3 grams q.6 hours to cover for both aspiration pneumonia as well as possible C6 spine area osteomyelitis, and we will monitor his clinical course closely. Prognosis remains guarded. MMODL / IJN: [id number] / MTDD
[2019-06-05] MEDS: AMPICILLIN-SULBACTAM 3 GM in SODIUM CHLORIDE 0.9% 100 ML IVPB SCH ×2 (18:51→23:52)
[2019-06-05] MEDS: HYDROcodone/APAP 10-325MG 1 EACH TAB PO PRN (20:06)
[2019-06-05] MEDS: ATORVASTATIN 40 MG TAB PO SCH (20:07)
[2019-06-05 23:43] LABS: Glucose,Whole Blood 145 mg/dL (75-99)
[2019-06-06] MEDS: HYDROmorphone 0.5 MG/0.5 ML SYRINGE IVP PRN
[2019-06-06] MEDS: IPRATROPIUM-ALBUTEROL 3 ML NEB INHALATION PRN (00:22)
[2019-06-06] MEDS: PROPOFOL 1,000 MG in EMPTY BAG 1 BAG IV SCH ×6 (03:09→21:33)
[2019-06-06 05:29] LABS: Basophils % (A) 0 %; Eosinophils # (A) 0.1 k/uL (0-0.7); Eosinophils % (A) 0 %; HCT 20.9 % (39.0-53.0); HGB 7.1 gm/dL (13.0-17.5); Lymphocytes # (A) 0.8 k/uL (1.0-4.8); Lymphocytes % (A) 3 %; MCH 31.4 pg (25.0-35.0); MCHC 33.9 g/dL (31.0-37.0); MCV 92.6 fL (80.0-100.0); Mean Platelet Volume 10.2; Monocytes # (A) 0.8 k/uL (0-1.0); Monocytes % (A) 2 %; Neutrophils # (A) 31.7 k/uL (1.3-7.7); Neutrophils % (A) 95 %; Platelet Count 187 k/uL (150-450); RBC 2.26 m/uL (4.30-5.90); RDW 13.5 % (11.5-15.5); WBC 33.4 k/uL (3.8-10.6)
[2019-06-06 05:39] LABS: Glucose,Whole Blood 165 mg/dL (75-99)
[2019-06-06 05:41] LABS: African American GFR (CKD) >90 (>60 ml/min/1.73 sqM); Anion Gap 2 mmol/L; Blood Urea Nitrogen 40 mg/dL (9-20); Calcium 7.6 mg/dL (8.4-10.2); Carbon Dioxide 24 mmol/L (22-30); Chloride 107 mmol/L (98-107); Glucose 145 mg/dL (74-99); Non-African American GFR(CKD) >90 (>60 ml/min/1.73 sqM); Potassium 4.1 mmol/L (3.5-5.1); Sodium 133 mmol/L (137-145)
[2019-06-06] MEDS: HYDROcodone/APAP 5-325MG 1 EACH TAB PO PRN ×3 (05:44→21:32)
[2019-06-06] MEDS: LEVOTHYROXINE 75 MCG TAB PO SCH (05:44)
[2019-06-06] MEDS: INSULIN ASPART (NovoLOG) 100 UNIT/ML VIAL SQ SCH ×4 (05:44→23:57)
[2019-06-06] MEDS: DEXAMETHASONE SOD PHOSPHATE 10 MG/ML 1 ML VIAL IV SCH ×4 (05:45→23:49)
[2019-06-06] MEDS: HYDROmorphone 1 MG/ML 1 ML SYRINGE IVP PRN ×2 (05:46→08:53)
[2019-06-06] MEDS: AMPICILLIN-SULBACTAM 3 GM in SODIUM CHLORIDE 0.9% 100 ML IVPB SCH ×4 (05:46→23:49)
[2019-06-06 07:36] LABS: ABG Base Excess -1.5 mmol/L; ABG HCO3 23 mmol/L (21-25); ABG Oxygen Saturation 99.2 % (94-97); ABG PCO2 36 mmHg (35-45); ABG PH 7.41 (7.35-7.45); ABG PO2 142 mmHg (83-108); ABG TCO2 24 mmol/L (19-24)
[2019-06-06 07:37] LABS: Allen Test Performed? no
--- NOTE | 2019-06-06 08:08 | XR ---
EXAMINATION TYPE: XR chest 1V portable DATE OF EXAM: 06/06/2019 Comparison: 06/05/2019 Clinical History: 79-year-old male Tube placement Findings: ET tube is satisfactory. NG tube courses below the diaphragm. S-shaped scoliosis. External artifact r ejecting at the left apex limiting assessment here. Increased interstitial density, particularly on t he left there is suggestion of a small left effusion as well. Surgical clips at the left hilum. Impression: Increasing interstitial infiltrate, left greater than right and suggestion of a small left effusion. Correlate for developing interstitial pulmonary edema versus atypical pneumonias.
[2019-06-06] MEDS: LIDOCAINE 5% PATCH TOPICAL SCH (08:52)
[2019-06-06] MEDS: FLUCONAZOLE IN NACL,ISO-OSM 200 MG in SALINE 1 100ML.BAG IVPB SCH (08:52)
[2019-06-06] MEDS: HEPARIN SODIUM,PORCINE 5,000 UNIT/ML 1 ML VIAL SQ SCH ×2 (08:53→21:36)
[2019-06-06] MEDS: GABAPENTIN 300 MG CAP PO SCH ×3 (08:53→21:36)
[2019-06-06] MEDS: ASPIRIN 81 MG PO SCH (08:53)
[2019-06-06] MEDS: CHLORHEXIDINE GLUCONATE 15 ML CUP MUCOUS MEM SCH ×2 (08:53→21:31)
[2019-06-06] MEDS: ATENOLOL 25 MG TAB PO SCH (08:53)
[2019-06-06] MEDS: ATORVASTATIN 40 MG TAB PO SCH (08:53)
[2019-06-06] MEDS: CYCLOBENZAPRINE 10 MG TAB PO SCH ×3 (08:53→21:32)
[2019-06-06] MEDS: PANTOPRAZOLE 40 MG/10 ML VIAL IVP SCH (08:53)
[2019-06-06] MEDS: IPRATROPIUM-ALBUTEROL 3 ML NEB INHALATION SCH ×3 (09:23→18:39)
[2019-06-06] MEDS: guaiFENesin 600 MG TABLET.ER PO SCH ×2 (10:28→21:36)
--- NOTE | 2019-06-06 11:46 | P.PN ---
Subjective Progress Note Date: 06/06/19 Principal diagnosis: Acute hypoxic respiratory failure secondary to aspiration pneumonia. And Postoperative day #6 status post anterior cervical decompression with corpectomy of C6 and fusion from C5 to C7 for his compression burst fracture at C6 and mass at C6 with cervical stenosis and myelopathy and weakness Respiratory failure, intubated 79-year-old male patient is being seen in consultation for lung mass. The patient is known to have history of lung cancer. The patient came into the hospital because of pain and numbness in his right upper extremity extending to his right thumb and this is been going on for the past 2 weeks to the point where the patient was unable to lift any objects because of the pain and numbness and tingling. His echo was elevated at 31. The calcium level is normal at 9.6. Lactic acid level at time of admission was 1.7. He had a CRP of 57.7 which is quite elevated and this is based on the previous blood work that was done on 05/17/2019. In the ED, the patient had a CAT scan of the brain that showed age-related atrophy and small vessel ischemic changes. An unenhanced CAT scan of the cervical spine also was done and it showed severe compression fracture of the C6 spine of an uncertain age/etiology with bony retropulsion of 3.5 mm. No evidence of any central canal stenosis or cord compression. Multilevel degenerative disc disease was seen with disc bulging and neurominal encroachment severe at the level of C3-C4 and there is also severe degenerative disc narrowing at the level of C5-C6. There is a 90% compression fracture of the T6 spine. Noted the patient was in the emergency department on 05/17/2023 with similar complaints of worsening shoulder and arm pain he was seen in emergency department and the patient underwent a CT angiogram of the upper extremity and it showed poor opacification of the radial and ulnar arteries at the level of the brachial bifurcation which was either technical in nature or h igh-grade stenosis/thrombosis which could not be completely ruled out. A CAT scan of the chest was also done utilizing a CT angios protocol and the CAT scan showed no evidence of any pulmonary embolism. Nevertheless, there were several for nodules, and a lung mass. There was a 3.4 cm right lower lobe pleural-based mass posteriorly in the right lower lobe area. There was another 7 mm right middle lobe pulmonary nodule, 5 mm left upper lobe pulmonary pleural-based nodule, 7 mm right upper lobe pulmonary nodule and a 4 mm right apical pulmonary nodule. There was extensive emphysema and some scattered subpleural fibrosis. The perihilar/peribronchial lymph nodes were identified. 4.1 cm suspicious lesion of the left adrenal gland was seen suspicious for metastases. This was a new finding monitor the patient's previous CAT scan from 03/22/2018 did not show any lung masses or nodules. There was however some scarring in the lung bases especially on the right in addition to emphysema and some elevation of left hemidiaphragm. S shaped scoliosis was also seen along with osseous deminer alization. The patient is afebrile. The patient's pulse ox 99% on room air.: 19 evaluation was negative. Influenza A and B were negative. UA was negative. On today's evaluation of 05/30/2019, the patient was seen by spine surgery and the patient was given a neck brace. His pain is under good control. He is awaiting MRI of the cervical spine. The white cell count remains elevated. The pro-calcitonin level is low. He is still feeling weakness in the right upper extremity. A fine-needle aspirate of the lung metastatic to be considered and will going to consult interventional radiology. On 05/31/2019 patient seen in follow-up on general medical floor, still complaining of weakness in his arms and neck pain. Patient has a c-collar that he is wearing [id number], his imaging showed significant compression of his spinal cord. Patient was evaluated by orthopedic service and surgical decompression and spinal fusion was recommended and the patient is scheduled for his surgery today. Patient was also evaluated by radiation oncology, and he may need radiotherapy to the postoperative bed after completion of the above surgery, from pulmonary perspective, his breathing seems to be nonlabored, he is on room air, with a pulse ox of 96%, lung sounds are diminished, no rhonchi or wheezing, patient has been afebrile, today's labs have been reviewed showing white blood cell count of 32.8, hemoglobin 13.4, neutrophil count is 30.5, influenza and coronavirus PCR were negative, patient is receiving IV Decadron, patient is on vancomycin, blood culture showed coagulase-negative staph. On 06/01/2019 patient seen in follow-up on medical floor, he is postop day 1 status post anterior cervical decompression with discectomy and fusion of C5, C6 and C6 and C7. He is awake and alert, in no acute distress, room air pulse ox is 94%, he sitting up in the recliner, calm and comfortable, he is afebrile, vital signs are stable. Breathing is unlabored. Bone biopsy from the vertebral body of C6 and culture of vertebral body of the 6 are pending at this time. Today's labs have been reviewed showing white blood cell, 39.2, hemoglobin of 12.3, sodium 131, potassium is 4.3, chloride is 96, B1 is 30 creatinine 0.8. Patient is on cefepime and vancomycin for antibiotic coverage, ID service is following. Patient had blood culture with coagulase-negative staph, B blood cultures pending. On 06/02/2019 patient seen in follow-up on general medical floor, and today is postoperative day 2, status post anterior cervical decompression with discectomy and fusion of C5, 6, and C6 and C7, biopsy of the vertebral body of C6 and the culture of the vertebral body of C6. Biopsy results are still pending, cultures are negative thus far. Patient is afebrile, she is on 2 L of oxygen and the pulse ox of 96%, he still is complaining of some numbness and weakness in his right wrist, and some shortness of breath, and inability to clear phlegm, his lungs are clear, no wheezing, no rhonchi, he is already on Decadron. He is on cefepime and vancomycin for antibiotics, he is on breathing treatments, will add Mucinex. On 06/05/2019 patient seen in follow-up in the intensive care unit. Patient developed worsening respiratory failure requiring intubation and placement on mechanical ventilator on 06/03/2019 for suspected aspiration. Today on 06/05/2019 patient remains intubated, and sedated. Current vent settings are assist-control mode of ventilation with a rate of 22, tidal volume is 400, FiO2 is 35%, and PEEP of 5, this point his blood gases were reviewed showing pO2 45, pCO2 28, and pH of 7.47, and this was done on FiO2 of 35% and above-mentioned ventilator settings. This morning's chest x-ray has been reviewed, showing known right basilar lung mass, pronounced right paratracheal stripe, stable exam compared yesterday's chest x-ray. No acute pulmonary findings. She remains on empiric antibiotics in the form of Zosyn for possibility of aspiration pneumonia. Sputum culture so far only shows Mireya albicans. Cultures of the bony biopsy showing proprionibacterium acnes, final culture is pending, blood culture from 05/29/2019 showed staph hominis. Current antibiotics in the form of Zosyn, infectious disease is following. Today's labs have been reviewed [facility] blood blood cell count of 46.9, hemoglobin of 7.9, neutrophil count is 45.4, sodium is 132, potassium 3.8, CO2 is 21, B1 is 37 creatinine 0.76. Patient's hemodynamically stable, levo fed is on hold. Urine output is in the order of 50-60 ML per hour, he is tolerating tube feedings in the form of vital HP at a rate of 42 with a goal of 42 with standard water flushes. Bone biopsy of the vertebral body of C6 is still pending at this time Reevaluated today on 06/06/19. Patient remains intubated and mechanically ventilated. He is on assist control rate of 22 tidal volume is 400 FiO2 of 35% PEEP is 5. His peak airway pressure is 23 plateau pressure is 18. Patient is hemodynamically stable, requiring relatively good dose of propofol 60 mcg/kg/m. IV fluid is at KVO. Patient will be awakened today, and will at least try to address his mental status. We'll also try to assess weaning parameters if possible. Hence instructions were given to the nurses to hold his propofol, and at least assess mental status once the propofol is discontinued. ABG today showed a pO2 of 142 pCO2 of 36 pH of 7.41. Basic metabolic profile is normal. WBC count is significantly elevated at 53.4. Hemoglobin is 7.1. His WBC count has been elevated above 30,000 since admission. C-reactive protein is 16.8. The final pathology on his bone biopsy is still pending. Chest x-ray continues to show bilateral interstitial infiltrates and possibly a small left pleural effusion. Objective - Vital Signs Vital signs: Vital Signs Temp 97.8 F 06/06/19 08:00 Pulse 98 06/06/19 11:00 Resp 27 H 06/06/19 11:00 BP 92/59 06/06/19 04:30 Pulse Ox 98 06/06/19 11:00 Intake & Output 06/05/19 06/06/19 06/06/19 18:59 06:59 18:59 Intake Total 5717.806 9796.126 574.668 Output Total 570 662 160 Balance 642.256 787.126 414.668 Weight 66.6 kg 66.6 kg Intake: IV 453 376 292 Ampicillin-Sulbactam 3 gm 100 100 In Sodium Chloride 0.9% 100 ml @ 200 mls/hr IVPB Q6HR [facility] Rx#:[id number] Fluconazole in NaCl,Iso- 100 100 Osm 200 mg In Saline 1 100ml.bag @ 100 mls/hr IVPB DAILY [facility] Rx#: [id number] Piperacillin-Tazobactam 3 100 .375 gm In Sodium Chloride 0.9% 100 ml @ 25 mls/hr IVPB Q8HR [facility] Rx# :[id number] Sodium Chloride 0.9% 1, 220 240 80 000 ml @ 20 mls/hr IV . Q24H [facility] Rx#:[id number] pressure bag 33 36 12 Intake, IV Titration 207.256 479.126 54.668 Amount Norepinephrine 4 mg In 107.256 146.744 Sodium Chloride 0.9% 250 ml @ 0.05 MCG/KG/MIN 12. 357 mls/hr IV .[id number] [facility] Rx#:[id number] Propofol 1,000 mg In 100.000 332.382 54.668 Empty Bag 1 bag @ Titrate IV .Q0M [facility] Rx#: [id number] Oral 60 Tube Feeding 462 504 168 Other 90 90 Output: Urine 570 662 160 Other: Voiding Method Indwelling Catheter Indwelling Catheter Indwelling Catheter ABP, PAP, CO, CI - Last Documented Arterial Blood Pressure 119/52 - Exam GENERAL EXAM: Sedated, intubated, on mechanical ventilation, c-collar is in place. HEENT: PERRLA, EOMI, no icterus. Endotracheal tube and orogastric tube are intact. NECK: No masses, no JVD, no thyroid enlargement, no adenopathy. Patient has a c-collar in place CHEST: No chest wall deformity. Symmetrical expansion. LUNGS: Equal air entry crackles and rhonchi noted bilaterally.. CVS: Regular rate and rhythm, normal S1 and S2, no gallops, no murmurs, no rubs ABDOMEN: Soft, nontender. No hepatosplenomegaly, normal bowel sounds, no guarding or rigidity. EXTREMITIES: No clubbing, no edema, no cyanosis, 2+ pulses and upper and lower extremities. MUSCULOSKELETAL: Could not be assessed patient is sedated. SPINE: No scoliosis or deformity SKIN: No rashes CENTRAL NERVOUS SYSTEM: Sedated, comfortable No focal deficits, tone is normal in all 4 extremities. Psychiatric: Could not be assessed - Labs CBC & Chem 7: 06/06/19 04:40 06/06/19 04:40 Labs: Abnormal Lab Results - Last 24 Hours (Table) 06/05/19 06/05/19 06/05/19 Range/Units 12:18 17:50 23:42 WBC (3.8-10.6) k/uL RBC (4.30-5.90) m/uL Hgb (13.0-17.5) gm/dL Hct (39.0-53.0) % Neutrophils # (1.3-7.7) k/uL Lymphocytes # (1.0-4.8) k/uL ESR (0-15) mm/hr ABG pO2 (83-108) mmHg ABG O2 Saturation (94-97) % Sodium (137-145) mmol/L BUN (9-20) mg/dL Creatinine (0.66-1.25) mg/dL Glucose (74-99) mg/dL POC Glucose (mg/dL) 156 H 188 H 145 H (75-99) mg/dL Calcium (8.4-10.2) mg/dL C-Reactive Protein (<10.0) mg/L 06/06/19 06/06/19 06/06/19 Range/Units 04:40 04:40 04:40 WBC 33.4 H (3.8-10.6) k/uL RBC 2.26 L (4.30-5.90) m/uL Hgb 7.1 L (13.0-17.5) gm/dL Hct 20.9 L (39.0-53.0) % Neutrophils # 31.7 H (1.3-7.7) k/uL Lymphocytes # 0.8 L (1.0-4.8) k/uL ESR 18 H (0-15) mm/hr ABG pO2 (83-108) mmHg ABG O2 Saturation (94-97) % Sodium (137-145) mmol/L BUN (9-20) mg/dL Creatinine (0.66-1.25) mg/dL Glucose (74-99) mg/dL POC Glucose (mg/dL) (75-99) mg/dL Calcium (8.4-10.2) mg/dL C-Reactive Protein 16.8 H (<10.0) mg/L 06/06/19 06/06/19 06/06/19 Range/Units 04:40 05:37 07:31 WBC (3.8-10.6) k/uL RBC (4.30-5.90) m/uL Hgb (13.0-17.5) gm/dL Hct (39.0-53.0) % Neutrophils # (1.3-7.7) k/uL Lymphocytes # (1.0-4.8) k/uL ESR (0-15) mm/hr ABG pO2 142 H (83-108) mmHg ABG O2 Saturation 99.2 H (94-97) % Sodium 133 L (137-145) mmol/L BUN 40 H (9-20) mg/dL Creatinine 0.58 L (0.66-1.25) mg/dL Glucose 145 H (74-99) mg/dL POC Glucose (mg/dL) 165 H (75-99) mg/dL Calcium 7.6 L (8.4-10.2) mg/dL C-Reactive Protein (<10.0) mg/L Microbiology - Last 24 Hours (Table) 06/05/19 18:20 Urine Culture - Preliminary Urine,Catheterized 05/30/19 18:07 Blood Culture - Final Blood No Growth after 144 hours 06/03/19 19:15 Gram Stain - Preliminary Sputum Sputum Culture - Preliminary Mireya albicans Assessment and Plan Assessment: Impression:Postoperative day #6 status post anterior cervical decompression with corpectomy of C6 and fusion from C5 to C7 for his compression burst fracture at C6 and 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 Suspect metastatic bronchogenic carcinoma. History of lung cancer and previous left upper lobe resection. History of severe COPD. Interstitial lung disease is strongly suspected/pulmonary fibrosis. Coronary artery disease and previous coronary artery stenting. History of hypothyroidism. History of benign essential hypertension. Recommendation: Continue ventilatory support. Continue antibiotics for presumptive aspiration, patient is now on Unasyn. Continue GI and DVT prophylaxis. Continue Decadron for his compression fracture and myelopathy. Continue bronchodilators. Awaiting the results of the bone biopsy. Hold sedation and assessment of status, possibly assess weaning parameters and consider trial of weaning if tolerated. Continue to monitor in the ICU. Prognosis overall is extremely poor and guarded considering that the patient may have metastatic lung cancer and pathological fracture of the cervical spine. We'll continue to follow. Critical care time is 34 minutes Time with Patient: Greater than 30
[2019-06-06 11:48] LABS: Glucose,Whole Blood 176 mg/dL (75-99)
[2019-06-06] MEDS: SENNOSIDES-DOCUSATE SODIUM 1 EACH TAB PO SCH (11:58)
--- NOTE | 2019-06-06 12:45 | P.PN ---
Subjective Progress Note Date: 06/06/19 Principal diagnosis: S/P ACDF C5-C7 with corpectomy of C6 for pathologic fracture with myelopathy, weakness and bacteremia Patient is seen at bedside this am in the ICU. He S/P ACDF C5-C7 with corpectomy of C6 on 05/31/19 for pathologic fracture with stenosis, myelopathy, weakness, and infection. He continues to be intubated and ventilated. He appears to be resting comfortably this morning and NAD. Objective - Vital Signs Vital signs: Vital Signs Temp 98.0 F 06/06/19 12:00 Pulse 89 06/06/19 12:30 Resp 19 06/06/19 12:30 BP 92/59 06/06/19 04:30 Pulse Ox 98 06/06/19 12:30 Intake & Output 06/05/19 06/06/19 06/06/19 18:59 06:59 18:59 Intake Total 0184.740 9862.126 825.314 Output Total 570 662 285 Balance 642.256 787.126 540.314 Weight 66.6 kg 66.6 kg Intake: IV 453 376 438 Ampicillin-Sulbactam 3 gm 100 200 In Sodium Chloride 0.9% 100 ml @ 200 mls/hr IVPB Q6HR [facility] Rx#:[id number] Fluconazole in NaCl,Iso- 100 100 Osm 200 mg In Saline 1 100ml.bag @ 100 mls/hr IVPB DAILY [facility] Rx#: [id number] Piperacillin-Tazobactam 3 100 .375 gm In Sodium Chloride 0.9% 100 ml @ 25 mls/hr IVPB Q8HR [facility] Rx# :[id number] Sodium Chloride 0.9% 1, 220 240 120 000 ml @ 20 mls/hr IV . Q24H [facility] Rx#:[id number] pressure bag 33 36 18 Intake, IV Titration 207.256 479.126 75.314 Amount Norepinephrine 4 mg In 107.256 146.744 Sodium Chloride 0.9% 250 ml @ 0.05 MCG/KG/MIN 12. 357 mls/hr IV .[id number] [facility] Rx#:[id number] Propofol 1,000 mg In 100.000 332.382 75.314 Empty Bag 1 bag @ Titrate IV .Q0M [facility] Rx#: [id number] Oral 60 Tube Feeding 462 504 252 Other 90 90 Output: Urine 570 662 285 Other: Voiding Method Indwelling Catheter Indwelling Catheter Indwelling Catheter ABP, PAP, CO, CI - Last Documented Arterial Blood Pressure 106/48 - Exam GEN: NAD, Intubated with ET tube in place and on ventilator Neck: Eggleston cervical collar in place. Neutral alignment. Surgical wound is benign. No active bleeding or drainage. No evidence of hematoma Neuro not examined due to his current ventilator status - Constitutional General appearance: Present: no acute distress - Labs CBC & Chem 7: 06/06/19 04:40 06/06/19 04:40 Labs: Abnormal Lab Results - Last 24 Hours (Table) 06/05/19 06/05/19 06/06/19 Range/Units 17:50 23:42 04:40 WBC (3.8-10.6) k/uL RBC (4.30-5.90) m/uL Hgb (13.0-17.5) gm/dL Hct (39.0-53.0) % Neutrophils # (1.3-7.7) k/uL Lymphocytes # (1.0-4.8) k/uL ESR 18 H (0-15) mm/hr ABG pO2 (83-108) mmHg ABG O2 Saturation (94-97) % Sodium (137-145) mmol/L BUN (9-20) mg/dL Creatinine (0.66-1.25) mg/dL Glucose (74-99) mg/dL POC Glucose (mg/dL) 188 H 145 H (75-99) mg/dL Calcium (8.4-10.2) mg/dL C-Reactive Protein (<10.0) mg/L 06/06/19 06/06/19 06/06/19 Range/Units 04:40 04:40 04:40 WBC 33.4 H (3.8-10.6) k/uL RBC 2.26 L (4.30-5.90) m/uL Hgb 7.1 L (13.0-17.5) gm/dL Hct 20.9 L (39.0-53.0) % Neutrophils # 31.7 H (1.3-7.7) k/uL Lymphocytes # 0.8 L (1.0-4.8) k/uL ESR (0-15) mm/hr ABG pO2 (83-108) mmHg ABG O2 Saturation (94-97) % Sodium 133 L (137-145) mmol/L BUN 40 H (9-20) mg/dL Creatinine 0.58 L (0.66-1.25) mg/dL Glucose 145 H (74-99) mg/dL POC Glucose (mg/dL) (75-99) mg/dL Calcium 7.6 L (8.4-10.2) mg/dL C-Reactive Protein 16.8 H (<10.0) mg/L 06/06/19 06/06/19 06/06/19 Range/Units 05:37 07:31 11:46 WBC (3.8-10.6) k/uL RBC (4.30-5.90) m/uL Hgb (13.0-17.5) gm/dL Hct (39.0-53.0) % Neutrophils # (1.3-7.7) k/uL Lymphocytes # (1.0-4.8) k/uL ESR (0-15) mm/hr ABG pO2 142 H (83-108) mmHg ABG O2 Saturation 99.2 H (94-97) % Sodium (137-145) mmol/L BUN (9-20) mg/dL Creatinine (0.66-1.25) mg/dL Glucose (74-99) mg/dL POC Glucose (mg/dL) 165 H 176 H (75-99) mg/dL Calcium (8.4-10.2) mg/dL C-Reactive Protein (<10.0) mg/L Microbiology - Last 24 Hours (Table) 06/05/19 18:20 Urine Culture - Preliminary Urine,Catheterized 05/30/19 18:07 Blood Culture - Final Blood No Growth after 144 hours 06/03/19 19:15 Gram Stain - Preliminary Sputum Sputum Culture - Preliminary Mireya albicans Assessment and Plan (1) Compression fracture of C6 vertebra Narrative/Plan: Patient appears to be comfortable and exchanging air well on current ventilator status. His wound appears to benign. Awaiting pathology results. Continue wound care and cervical collar at all times. Will continue to follow closely Current Visit: Yes Status: Acute Code(s): S12.590A - OTH DISP FX OF SIXTH CERVICAL VERTEBRA, INIT FOR CLOS FX SNOMED Code(s): 384689838 (2) Leukocytosis Current Visit: Yes Status: Acute Code(s): D72.829 - ELEVATED WHITE BLOOD CELL COUNT, UNSPECIFIED SNOMED Code(s): 351174518 (3) Lung mass Current Visit: No Status: Acute Code(s): R91.8 - OTHER NONSPECIFIC ABNORMAL FINDING OF LUNG FIELD SNOMED Code(s): 157952503
[2019-06-06] MEDS: SODIUM CHLORIDE 0.9% 1,000 ML IV SCH (15:24)
--- NOTE | 2019-06-06 16:19 | PN ---
PROGRESS NOTE DATE OF SERVICE: 06/06/2019 This is a 79-year-old gentleman who had surgery had multiple medical issues including aspiration pneumonia, acute hypoxic respiratory failure. The patient during surgery significant lesions were noted and the culture showed Propionibacterium acnes 2/2 from the operative field. The blood culture showed Staph hominis one time and subsequently sputum culture showed Mireya albicans. The patient will be closely monitored at this time. Still intubated. The weaning parameters are being planned by Pulmonary at this time. The patient also had hypotension on and off and was on Levophed at this time. The patient will be closely monitored. PAST MEDICAL HISTORY: Reviewed. REVIEW OF SYSTEMS: Review of systems cannot be taken, the patient mechanically intubated and sedated. CURRENT MEDICATIONS: 1. Tylenol p.r.n. 2. Hydrocodone 10 mg q.6 p.r.n. 3. Maalox p.r.n. 4. DuoNeb q.i.d. and p.r.n. 5. Unasyn 3 g IV q.6. 6. Aspirin. 7. Tenormin. 8. Lipitor. 9. Peridex. 10.Flexeril. 11.Fluconazole. 12.Dilaudid. 13.Synthroid. 14.Milk of Magnesia. 15.Propofol. 16.Protonix. 17.Doses are reviewed. PHYSICAL EXAM: Patient is alert. Patient mechanically sedated. Pulse is 91, blood pressure 103/46, respiration 19, temperature 98 degrees, pulse ox 99% on 35% FiO2. Mechanical vent settings are noted. HEENT: Conjunctivae normal. NECK: No jugular venous distension. CARDIAC: S1, S2, muffled. RESPIRATION: Breath sounds diminished at the bases, scattered rhonchi, no crackles. ABDOMEN: Soft, nontender. LEGS: No edema, no swelling. NERVOUS SYSTEM: Patient is mechanically sedated. SPINE: Status post surgery. LABS: Investigations WBC 33.2, hemoglobin 7.1. ASSESSMENT: 1. Acute hypoxic respiratory failure secondary to possible bilateral aspiration pneumonia on mechanical ventilation. 2. Possible sepsis and hypotension. 3. Propionibacterium acnes from the anaerobic cultures from the surgery. 4. Possible leukemoid reaction. 5. Staphylococcus hominis from the blood. 6. Mireya albicans from the sputum. 7. History of recent cervical decompression, discectomy fusion C4-5, C6-7 for suspected C6 pathology compression fracture with upper extremity weakness on the right side with previous cervical stenosis, bacteremia, neck pain and upper extremity pain. 8. History of coronary artery disease. 9. Chronic obstructive pulmonary disease. 10.Hypertension. 11.Hyperlipidemia. 12.Rule out right lung cancer with metastasis. 13.History of right upper lobe cancer with lobectomy. 14.Degenerative joint disease. 15.History of thyroid disorder. 16.History of coronary artery disease, stent. 17.History of nicotine dependence, continued ongoing. 18.FULL CODE. RECOMMENDATION: Recommend to continue current medications and symptomatic treatment. Will follow the parameters. Discontinue with empiric antibiotics as mentioned earlier. Otherwise, closely follow with multiple consultants, discussed with Orthopedic Surgery. Discussed with staff. At this time will also explore the biopsy report which was done about a week ago. Otherwise, once again the prognosis extremely guarded. Chest x-ray was reviewed personally by me and further recommendations to follow. The patient also had possible leukemoid reaction, WBC 33.2, hemoglobin 7.1. Will continue to monitor. If hemoglobin falls further, will definitely consider transfusion as well. Once again, the prognosis guarded. MMODL / IJN: [id number] /
--- NOTE | 2019-06-06 17:16 | PN ---
PROGRESS NOTE DATE OF SERVICE: 06/06/2019 REASON FOR FOLLOWUP: 1. Aspiration pneumonia. 2. C6 osteomyelitis. INTERVAL HISTORY: The patient is currently afebrile. The patient is hemodynamically stable, not on pressor support. FiO2 is currently at 35% with the patient with 80 or diarrhea reported. PHYSICAL EXAMINATION: Blood pressure 124/49 with a pulse of 85, temperature is 98, he is 99% on 35% FiO2. General description is an elderly male, lying in bed in no distress. RESPIRATORY SYSTEM: Unlabored breathing, decreased breath sounds in the base, with no wheeze. HEART: S1, S2. Regular rate and rhythm. ABDOMEN: Soft, no tenderness. LABS: White count down to 8.4 with a BUN of 40, creatinine 0.58. DIAGNOSTIC IMPRESSION AND PLAN: Patient with aspiration pneumonia, admitted to the hospital with C6 pathological fracture, now with culture showing Propionibacterium. The patient's antibiotic was adjusted to Unasyn, taken yesterday and white count has shown a downward trend. Will continue to monitor clinical course closely. MMODL / IJN: [id number] / MTDD
[2019-06-06 18:08] LABS: Glucose,Whole Blood 149 mg/dL (75-99)
[2019-06-06 23:49] LABS: Glucose,Whole Blood 159 mg/dL (75-99)
[2019-06-07] MEDS: PROPOFOL 1,000 MG in EMPTY BAG 1 BAG IV SCH ×7 (00:01→22:58)
[2019-06-07] MEDS: HYDROmorphone 0.5 MG/0.5 ML SYRINGE IVP PRN ×2 (02:27→07:46)
[2019-06-07 04:11] LABS: ALT 25 U/L (4-49); AST 46 U/L (17-59); African American GFR (CKD) >90 (>60 ml/min/1.73 sqM); Albumin 2.3 g/dL (3.5-5.0); Alkaline Phosphatase 89 U/L (38-126); Anion Gap 3 mmol/L; Blood Urea Nitrogen 40 mg/dL (9-20); Calcium 7.7 mg/dL (8.4-10.2); Carbon Dioxide 24 mmol/L (22-30); Chloride 108 mmol/L (98-107); Glucose 132 mg/dL (74-99); Non-African American GFR(CKD) >90 (>60 ml/min/1.73 sqM); Potassium 4.1 mmol/L (3.5-5.1); Sodium 135 mmol/L (137-145); Total Bilirubin 0.4 mg/dL (0.2-1.3); Total Protein 4.9 g/dL (6.3-8.2)
[2019-06-07 04:19] LABS: Basophils % (A) 0 %; Eosinophils % (A) 0 %; HCT 21.2 % (39.0-53.0); Lymphocytes # (A) 0.8 k/uL (1.0-4.8); Lymphocytes % (A) 2 %; MCH 31.2 pg (25.0-35.0); MCHC 33.2 g/dL (31.0-37.0); MCV 94.1 fL (80.0-100.0); Mean Platelet Volume 10.1; Monocytes % (A) 3 %; Neutrophils # (A) 36.6 k/uL (1.3-7.7); Neutrophils % (A) 95 %; Platelet Count 196 k/uL (150-450); RBC 2.25 m/uL (4.30-5.90); RDW 14.1 % (11.5-15.5); WBC 38.5 k/uL (3.8-10.6)
[2019-06-07 05:45] LABS: Glucose,Whole Blood 184 mg/dL (75-99)
[2019-06-07] MEDS: NOREPINEPHRINE 4 MG in SODIUM CHLORIDE 0.9% 250 ML IV SCH ×2 (05:46→21:44)
[2019-06-07] MEDS: AMPICILLIN-SULBACTAM 3 GM in SODIUM CHLORIDE 0.9% 100 ML IVPB SCH ×4 (05:51→23:00)
[2019-06-07] MEDS: LEVOTHYROXINE 75 MCG TAB PO SCH (05:52)
[2019-06-07] MEDS: DEXAMETHASONE SOD PHOSPHATE 10 MG/ML 1 ML VIAL IV SCH ×4 (05:52→23:28)
[2019-06-07] MEDS: INSULIN ASPART (NovoLOG) 100 UNIT/ML VIAL SQ SCH ×4 (05:52→23:26)
[2019-06-07] MEDS: HYDROcodone/APAP 5-325MG 1 EACH TAB PO PRN (05:52)
[2019-06-07] MEDS: HYDROmorphone 1 MG/ML 1 ML SYRINGE IVP PRN ×2 (07:07→17:45)
--- NOTE | 2019-06-07 07:13 | XR ---
EXAMINATION TYPE: XR chest 1V portable DATE OF EXAM: 06/07/2019 COMPARISON: 06/06/2019 INDICATION: Line placement TECHNIQUE: Single frontal view of the chest is obtained. FINDINGS: The heart size is normal. The pulmonary vasculature is normal. Scattered increased lung markings are present slightly greater at the lung bases. Findings appear sim ilar to prior. Endotracheal tube tip 2.7 cm above the edison. Nasogastric tube tip is in left upper quadrant of the abdomen. IMPRESSION: 1. Stable diffuse increased lung markings. 2. Lines and catheters discussed above.
[2019-06-07] MEDS: LIDOCAINE 5% PATCH TOPICAL SCH (08:51)
[2019-06-07] MEDS: FLUCONAZOLE IN NACL,ISO-OSM 200 MG in SALINE 1 100ML.BAG IVPB SCH (08:51)
[2019-06-07] MEDS: ASPIRIN 81 MG PO SCH (08:52)
[2019-06-07] MEDS: GABAPENTIN 300 MG CAP PO SCH ×3 (08:52→20:30)
[2019-06-07] MEDS: CYCLOBENZAPRINE 10 MG TAB PO SCH ×3 (08:52→20:30)
[2019-06-07] MEDS: ATENOLOL 25 MG TAB PO SCH (08:52)
[2019-06-07] MEDS: HEPARIN SODIUM,PORCINE 5,000 UNIT/ML 1 ML VIAL SQ SCH ×2 (08:52→20:30)
[2019-06-07] MEDS: SENNOSIDES-DOCUSATE SODIUM 1 EACH TAB PO SCH (08:52)
[2019-06-07] MEDS: CHLORHEXIDINE GLUCONATE 15 ML CUP MUCOUS MEM SCH ×2 (08:52→20:30)
[2019-06-07] MEDS: PANTOPRAZOLE 40 MG/10 ML VIAL IVP SCH (08:52)
[2019-06-07] MEDS: guaiFENesin 600 MG TABLET.ER PO SCH ×2 (08:53→20:30)
[2019-06-07 08:57] LABS: ABG Base Excess 0.6 mmol/L; ABG HCO3 25 mmol/L (21-25); ABG Oxygen Saturation 98.3 % (94-97); ABG PCO2 37 mmHg (35-45); ABG PH 7.43 (7.35-7.45); ABG PO2 113 mmHg (83-108); ABG TCO2 26 mmol/L (19-24); Allen Test Performed? Yes
[2019-06-07] MEDS: IPRATROPIUM-ALBUTEROL 3 ML NEB INHALATION SCH ×3 (09:07→19:38)
[2019-06-07 11:52] LABS: Glucose,Whole Blood 175 mg/dL (75-99)
--- NOTE | 2019-06-07 12:48 | P.PN ---
Subjective Progress Note Date: 06/07/19 Principal diagnosis: Acute hypoxic respiratory failure secondary to aspiration pneumonia. 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 The patient is known to have history of lung cancer. The patient came into the hospital because of pain and numbness in his right upper extremity extending to his right thumb and this is been going on for the past 2 weeks to the point where the patient was unable to lift any objects because of the pain and numbness and tingling. His echo was elevated at 31. The calcium level is normal at 9.6. Lactic acid level at time of admission was 1.7. He had a CRP of 57.7 which is quite elevated and this is based on the previous blood work that was done on 05/17/2019. In the ED, the patient had a CAT scan of the brain that showed age-related atrophy and small vessel ischemic changes. An unenhanced CAT scan of the cervical spine also was done and it showed severe compression fracture of the C6 spine of an uncertain age/etiology with bony retropulsion of 3.5 mm. No evidence of any central canal stenosis or cord compression. Multilevel degenerative disc disease was seen with disc bulging and neurominal encroachment severe at the level of C3-C4 and there is also severe degenerative disc narrowing at the level of C5-C6. There is a 90% compression fracture of the T6 spine. Noted the patient was in the emergency department on 05/17/2023 with similar complaints of worsening shoulder and arm pain he was seen in emergency department and the patient underwent a CT angiogram of the upper extremity and it showed poor opacification of the radial and ulnar arteries at the level of the brachial bifurcation which was either technical in nature or high-grade stenosis/thrombosis which could not be completely ruled out. A CAT scan of the chest was also done utilizing a CT angios protocol and the CAT scan showed no evidence of any pulmonary embolism. Nevertheless, there were several for nodules, and a lung mass. There was a 3.4 cm right lower lobe pleural-based mass posteriorly in the right lower lobe area. There was another 7 mm right middle lobe pulmonary nodule, 5 mm left upper lobe pulmonary pleural-based nodule, 7 mm right upper lobe pulmonary nodule and a 4 mm right apical pulmonary nodule. There was extensive emphysema and some scattered subpleural fibrosis. The perihilar/peribronchial lymph nodes were identified. 4.1 cm suspicious lesion of the left adrenal gland was seen suspicious for metastases. This was a new finding monitor the patient's previous CAT scan from 03/22/2018 did not show any lung masses or nodules. There was however some scarring in the lung bases especially on the right in addition to emphysema and some elevation of left hemidiaphragm. S shaped scoliosis was also seen along with osseous deminerali zation. The patient is afebrile. The patient's pulse ox 99% on room air.: 19 evaluation was negative. Influenza A and B were negative. UA was negative. On today's evaluation of 05/30/2019, the patient was seen by spine surgery and the patient was given a neck brace. His pain is under good control. He is awaiting MRI of the cervical spine. The white cell count remains elevated. The pro-calcitonin level is low. He is still feeling weakness in the right upper extremity. A fine-needle aspirate of the lung metastatic to be considered and will going to consult interventional radiology. On 05/31/2019 patient seen in follow-up on general medical floor, still complaining of weakness in his arms and neck pain. Patient has a c-collar that he is wearing [id number], his imaging showed significant compression of his spinal cord. Patient was evaluated by orthopedic service and surgical decompression and spinal fusion was recommended and the patient is scheduled for his surgery today. Patient was also evaluated by radiation oncology, and he may need radiotherapy to the postoperative bed after completion of the above surgery, from pulmonary perspective, his breathing seems to be nonlabored, he is on room air, with a pulse ox of 96%, lung sounds are diminished, no rhonchi or wheezing, patient has been afebrile, today's labs have been reviewed showing white blood cell count of 32.8, hemoglobin 13.4, neutrophil count is 30.5, influenza and coronavirus PCR were negative, patient is receiving IV Decadron, patient is on vancomycin, blood culture showed coagulase-negative staph. On 06/01/2019 patient seen in follow-up on medical floor, he is postop day 1 status post anterior cervical decompression with discectomy and fusion of C5, C6 and C6 and C7. He is awake and alert, in no acute distress, room air pulse ox is 94%, he sitting up in the recliner, calm and comfortable, he is afebrile, vital signs are stable. Breathing is unlabored. Bone biopsy from the vertebral body of C6 and culture of vertebral body of the 6 are pending at this time. Today's labs have been reviewed showing white blood cell, 39.2, hemoglobin of 12.3, sodium 131, potassium is 4.3, chloride is 96, B1 is 30 creatinine 0.8. Patient is on cefepime and vancomycin for antibiotic coverage, ID service is following. Patient had blood culture with coagulase-negative staph, B blood cultures pending. On 06/02/2019 patient seen in follow-up on general medical floor, and today is postoperative day 2, status post anterior cervical decompression with discectomy and fusion of C5, 6, and C6 and C7, biopsy of the vertebral body of C6 and the culture of the vertebral body of C6. Biopsy results are still pending, cultures are negative thus far. Patient is afebrile, she is on 2 L of oxygen and the pulse ox of 96%, he still is complaining of some numbness and weakness in his right wrist, and some shortness of breath, and inability to clear phlegm, his lungs are clear, no wheezing, no rhonchi, he is already on Decadron. He is on cefepime and vancomycin for antibiotics, he is on breathing treatments, will add Mucinex. On 06/05/2019 patient seen in follow-up in the intensive care unit. Patient developed worsening respiratory failure requiring intubation and placement on mechanical ventilator on 06/03/2019 for suspected aspiration. Today on 06/05/2019 patient remains intubated, and sedated. Current vent settings are assist-control mode of ventilation with a rate of 22, tidal volume is 400, FiO2 is 35%, and PEEP of 5, this point his blood gases were reviewed showing pO2 45, pCO2 28, and pH of 7.47, and this was done on FiO2 of 35% and above-mentioned ventilator settings. This morning's chest x-ray has been reviewed, showing known right basilar lung mass, pronounced right paratracheal stripe, stable exam compared yesterday's chest x-ray. No acute pulmonary findings. She remains on empiric antibiotics in the form of Zosyn for possibility of aspiration pneumonia. Sputum culture so far only shows Mireya albicans. Cultures of the bony biopsy showing proprionibacterium acnes, final culture is pending, blood culture from 05/29/2019 showed staph hominis. Current antibiotics in the form of Zosyn, infectious disease is following. Today's labs have been reviewed showing blood blood cell count of 46.9, hemoglobin of 7.9, neutrophil count is 45.4, sodium is 132, potassium 3.8, CO2 is 21, B1 is 37 creatinine 0.76. Patient's hemodynamically stable, levo fed is on hold. Urine output is in the order of 50-60 ML per hour, he is tolerating tube feedings in the form of vital HP at a rate of 42 with a goal of 42 with standard water flushes. Bone biopsy of the vertebral body of C6 is still pending at this time Reevaluated today on 06/06/19. Patient remains intubated and mechanically ventilated. He is on assist control rate of 22 tidal volume is 400 FiO2 of 35% PEEP is 5. His peak airway pressure is 23 plateau pressure is 18. Patient is hemodynamically stable, requiring relatively good dose of propofol 60 mcg/kg/m. IV fluid is at KVO. Patient will be awakened today, and will at least try to address his mental status. We'll also try to assess weaning parameters if possible. Hence instructions were given to the nurses to hold his propofol, and at least assess mental status once the propofol is discontinued. ABG today showed a pO2 of 142 pCO2 of 36 pH of 7.41. Basic metabolic profile is normal. WBC count is significantly elevated at 53.4. Hemoglobin is 7.1. His WBC count has been elevated above 30,000 since admission. C-reactive protein is 16.8. The final pathology on his bone biopsy is still pending. Chest x-ray continues to show bilateral interstitial infiltrates and possibly a small left pleural effusion. Reevaluated today on 06/07/19, patient remains in the ICU, intubated, and mechanically ventilated. His ventilator settings are assist control rate of 22, tidal volume is 400 FiO2 is 35% and PEEP is 5. His ABG showed a pO2 of 142 pCO2 of 36 and pH of 7.41. Patient remains on propofol at 75 mcg/kg/m. He is hemodynamically stable. However he is quite sedated this morning. Patient seems to be double triggering the ventilator when sedation level is low. Today my plan is to hold sedation, assess mental status, and possibly consider a pressure support of 12 and CPAP trial. Chest x-ray is showing improvement in his by basilar infiltrates. Labs showed WBC count of 38.5 hemoglobin is 7 basic metabolic profile is relatively normal. Renal profile is normal. Bone biopsy is still pending. Objective - Vital Signs Vital signs: Vital Signs Temp 98.9 F 06/07/19 12:00 Pulse 91 06/07/19 12:00 Resp 26 H 06/07/19 12:00 BP 99/54 06/07/19 01:00 Pulse Ox 98 06/07/19 12:00 Intake & Output 06/06/19 06/07/19 06/07/19 18:59 06:59 18:59 Intake Total 7364.702 5199.828 877.592 Output Total 610 557 335 Balance 980.912 519.828 542.592 Weight 66.6 kg 68 kg 68 kg Intake: IV 699 253 288 Ampicillin-Sulbactam 3 gm 300 100 In Sodium Chloride 0.9% 100 ml @ 200 mls/hr IVPB Q6HR [facility] Rx#:[id number] Fluconazole in NaCl,Iso- 100 100 Osm 200 mg In Saline 1 100ml.bag @ 100 mls/hr IVPB DAILY [facility] Rx#: [id number] Sodium Chloride 0.9% 1, 260 220 70 000 ml @ 20 mls/hr IV . Q24H [facility] Rx#:[id number] pressure bag 39 33 18 Intake, IV Titration 243.912 271.828 235.592 Amount Propofol 1,000 mg In 243.912 271.828 235.592 Empty Bag 1 bag @ Titrate IV .Q0M [facility] Rx#: [id number] Oral 60 Tube Feeding 588 462 294 Other 90 60 Output: Urine 610 557 335 Other: Voiding Method Indwelling Catheter Indwelling Catheter Indwelling Catheter ABP, PAP, CO, CI - Last Documented Arterial Blood Pressure 128/58 - Exam GENERAL EXAM: Sedated, intubated, on mechanical ventilation, c-collar is in place. HEENT: PERRLA, EOMI, no icterus. Endotracheal tube and orogastric tube are intact. NECK: No masses, no JVD, no thyroid enlargement, no adenopathy. Patient has a c-collar in place CHEST: No chest wall deformity. Symmetrical expansion. LUNGS: Persistent crackles at the bases, minimal rhonchi and wheezing. CVS: Regular rate and rhythm, normal S1 and S2, no gallops, no murmurs, no rubs ABDOMEN: Soft, nontender. No hepatosplenomegaly, normal bowel sounds, no guarding or rigidity. EXTREMITIES: No clubbing, no edema, no cyanosis, 2+ pulses and upper and lower extremities. MUSCULOSKELETAL: Could not be assessed patient is sedated. SPINE: No scoliosis or deformity SKIN: No rashes CENTRAL NERVOUS SYSTEM: Sedated, comfortable No focal deficits, tone is normal in all 4 extremities. Psychiatric: Could not be assessed - Labs CBC & Chem 7: 06/07/19 03:45 06/07/19 03:45 Labs: Abnormal Lab Results - Last 24 Hours (Table) 06/06/19 06/06/19 06/07/19 Range/Units 18:06 23:48 03:45 WBC 38.5 H (3.8-10.6) k/uL RBC 2.25 L (4.30-5.90) m/uL Hgb 7.0 L (13.0-17.5) gm/dL Hct 21.2 L (39.0-53.0) % Neutrophils # 36.6 H (1.3-7.7) k/uL Lymphocytes # 0.8 L (1.0-4.8) k/uL ABG pO2 (83-108) mmHg ABG Total CO2 (19-24) mmol/L ABG O2 Saturation (94-97) % Sodium (137-145) mmol/L Chloride (98-107) mmol/L BUN (9-20) mg/dL Creatinine (0.66-1.25) mg/dL Glucose (74-99) mg/dL POC Glucose (mg/dL) 149 H 159 H (75-99) mg/dL Calcium (8.4-10.2) mg/dL Total Protein (6.3-8.2) g/dL Albumin (3.5-5.0) g/dL 06/07/19 06/07/19 06/07/19 Range/Units 03:45 05:43 08:55 WBC (3.8-10.6) k/uL RBC (4.30-5.90) m/uL Hgb (13.0-17.5) gm/dL Hct (39.0-53.0) % Neutrophils # (1.3-7.7) k/uL Lymphocytes # (1.0-4.8) k/uL ABG pO2 113 H (83-108) mmHg ABG Total CO2 26 H (19-24) mmol/L ABG O2 Saturation 98.3 H (94-97) % Sodium 135 L (137-145) mmol/L Chloride 108 H (98-107) mmol/L BUN 40 H (9-20) mg/dL Creatinine 0.61 L (0.66-1.25) mg/dL Glucose 132 H (74-99) mg/dL POC Glucose (mg/dL) 184 H (75-99) mg/dL Calcium 7.7 L (8.4-10.2) mg/dL Total Protein 4.9 L (6.3-8.2) g/dL Albumin 2.3 L (3.5-5.0) g/dL 06/07/19 Range/Units 11:49 WBC (3.8-10.6) k/uL RBC (4.30-5.90) m/uL Hgb (13.0-17.5) gm/dL Hct (39.0-53.0) % Neutrophils # (1.3-7.7) k/uL Lymphocytes # (1.0-4.8) k/uL ABG pO2 (83-108) mmHg ABG Total CO2 (19-24) mmol/L ABG O2 Saturation (94-97) % Sodium (137-145) mmol/L Chloride (98-107) mmol/L BUN (9-20) mg/dL Creatinine (0.66-1.25) mg/dL Glucose (74-99) mg/dL POC Glucose (mg/dL) 175 H (75-99) mg/dL Calcium (8.4-10.2) mg/dL Total Protein (6.3-8.2) g/dL Albumin (3.5-5.0) g/dL Microbiology - Last 24 Hours (Table) 06/03/19 19:15 Gram Stain - Preliminary Sputum Sputum Culture - Preliminary Mireya albicans Presumptive Staph aureus 06/05/19 18:20 Urine Culture - Final Urine,Catheterized 06/05/19 18:20 Blood Culture - Preliminary Blood No Growth after 24 hours Assessment and Plan Assessment: Impression:Postoperative day #7 status post anterior cervical decompression with corpectomy of C6 and fusion from C5 to C7 for his compression burst fracture at C6 and 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 Suspect metastatic bronchogenic carcinoma. History of lung cancer and previous left upper lobe resection. History of severe COPD. Interstitial lung disease is strongly suspected/pulmonary fibrosis. Coronary artery disease and previous coronary artery stenting. History of hypothyroidism. History of benign essential hypertension. Recommendation: Continue ventilatory support. Continue Unasyn for aspiration pneumonia. Continue GI and DVT prophylaxis. Continue Decadron for his compression fracture and myelopathy. Continue bronchodilators. Awaiting the results of the bone biopsy. Consider weaning trial today off propofol if tolerated. Continue to monitor in the ICU. Obviously the patient remains critically ill, and prognosis is extremely poor and guarded. We'll continue to follow. Critical care time is 32 minutes Time with Patient: Greater than 30
--- NOTE | 2019-06-07 13:40 | P.PN ---
Subjective Progress Note Date: 06/06/19 Principal diagnosis: impending cord compression, picture of metastatic cancer hemoglobin is decreased further 7.1 today. Transfusion indication if less than 7. He remains under the care of ICU intubated and sedated this am Objective - Vital Signs Vital signs: Vital Signs Temp 98.0 F 06/06/19 12:00 Pulse 89 06/06/19 12:30 Resp 19 06/06/19 12:30 BP 92/59 06/06/19 04:30 Pulse Ox 98 06/06/19 12:30 Intake & Output 06/05/19 06/06/19 06/06/19 18:59 06:59 18:59 Intake Total 9855.805 3141.126 825.314 Output Total 570 662 285 Balance 642.256 787.126 540.314 Weight 66.6 kg 66.6 kg Intake: IV 453 376 438 Ampicillin-Sulbactam 3 gm 100 200 In Sodium Chloride 0.9% 100 ml @ 200 mls/hr IVPB Q6HR [facility] Rx#:[id number] Fluconazole in NaCl,Iso- 100 100 Osm 200 mg In Saline 1 100ml.bag @ 100 mls/hr IVPB DAILY [facility] Rx#: [id number] Piperacillin-Tazobactam 3 100 .375 gm In Sodium Chloride 0.9% 100 ml @ 25 mls/hr IVPB Q8HR [facility] Rx# :[id number] Sodium Chloride 0.9% 1, 220 240 120 000 ml @ 20 mls/hr IV . Q24H [facility] Rx#:[id number] pressure bag 33 36 18 Intake, IV Titration 207.256 479.126 75.314 Amount Norepinephrine 4 mg In 107.256 146.744 Sodium Chloride 0.9% 250 ml @ 0.05 MCG/KG/MIN 12. 357 mls/hr IV [id number] [facility] Rx#:[id number] Propofol 1,000 mg In 100.000 332.382 75.314 Empty Bag 1 bag @ Titrate IV .Q0M [facility] Rx#: [id number] Oral 60 Tube Feeding 462 504 252 Other 90 90 Output: Urine 570 662 285 Other: Voiding Method Indwelling Catheter Indwelling Catheter Indwelling Catheter ABP, PAP, CO, CI - Last Documented Arterial Blood Pressure 106/48 - Exam Gen: Intubated sedated Head: NCNT Neck: Supple, C collar inplace - Labs CBC & Chem 7: 06/06/19 04:40 06/06/19 04:40 Labs: Abnormal Lab Results - Last 24 Hours (Table) 06/05/19 06/05/19 06/06/19 Range/Units 17:50 23:42 04:40 WBC (3.8-10.6) k/uL RBC (4.30-5.90) m/uL Hgb (13.0-17.5) gm/dL Hct (39.0-53.0) % Neutrophils # (1.3-7.7) k/uL Lymphocytes # (1.0-4.8) k/uL ESR 18 H (0-15) mm/hr ABG pO2 (83-108) mmHg ABG O2 Saturation (94-97) % Sodium (137-145) mmol/L BUN (9-20) mg/dL Creatinine (0.66-1.25) mg/dL Glucose (74-99) mg/dL POC Glucose (mg/dL) 188 H 145 H (75-99) mg/dL Calcium (8.4-10.2) mg/dL C-Reactive Protein (<10.0) mg/L 06/06/19 06/06/19 06/06/19 Range/Units 04:40 04:40 04:40 WBC 33.4 H (3.8-10.6) k/uL RBC 2.26 L (4.30-5.90) m/uL Hgb 7.1 L (13.0-17.5) gm/dL Hct 20.9 L (39.0-53.0) % Neutrophils # 31.7 H (1.3-7.7) k/uL Lymphocytes # 0.8 L (1.0-4.8) k/uL ESR (0-15) mm/hr ABG pO2 (83-108) mmHg ABG O2 Saturation (94-97) % Sodium 133 L (137-145) mmol/L BUN 40 H (9-20) mg/dL Creatinine 0.58 L (0.66-1.25) mg/dL Glucose 145 H (74-99) mg/dL POC Glucose (mg/dL) (75-99) mg/dL Calcium 7.6 L (8.4-10.2) mg/dL C-Reactive Protein 16.8 H (<10.0) mg/L 06/06/19 06/06/19 06/06/19 Range/Units 05:37 07:31 11:46 WBC (3.8-10.6) k/uL RBC (4.30-5.90) m/uL Hgb (13.0-17.5) gm/dL Hct (39.0-53.0) % Neutrophils # (1.3-7.7) k/uL Lymphocytes # (1.0-4.8) k/uL ESR (0-15) mm/hr ABG pO2 142 H (83-108) mmHg ABG O2 Saturation 99.2 H (94-97) % Sodium (137-145) mmol/L BUN (9-20) mg/dL Creatinine (0.66-1.25) mg/dL Glucose (74-99) mg/dL POC Glucose (mg/dL) 165 H 176 H (75-99) mg/dL Calcium (8.4-10.2) mg/dL C-Reactive Protein (<10.0) mg/L Microbiology - Last 24 Hours (Table) 06/05/19 18:20 Urine Culture - Preliminary Urine,Catheterized 05/30/19 18:07 Blood Culture - Final Blood No Growth after 144 hours 06/03/19 19:15 Gram Stain - Preliminary Sputum Sputum Culture - Preliminary Mireya albicans Assessment and Plan Plan: Assessment and Recommendations: 1. Right Lobe Pulmonary Mass with additional smaller masses: - Pulmonary is following - WIth history of lung cancer will need biopsy tissue of new finding as concerning for recurrent picture of cancer, malignancy - Will defer Bronch versus other to pulmonary for tissue biopsy Concern for cord compression: MRI pending - Possibility of malignancy involving the C-spine with secondary compression cannot be ruled out knowing that the patient has several pulmonary lesions. Dexamethasone is ordered and once tissue biopsy proven malignancy will consult radiation oncology - cT abdomen and pelvis reveal bilateral adrenal massess, appears picture of recurrent metastatic lung cancer. Await path from ortho surgery, if further tissue needed will likely as pulm or IR for intervention 2. Leukocytocytosis: - Neutrophilia, Lymphocytopenia - His labs show no alarming abnormality other than very slightly elevated monocytes which was present in past and increased WBC likely reactive to acute process - However light chain ratio and kappa light chain increased in past therefore w ill repeat. Check urine immunofixation - Underwent evaluation in 2012 and found to be benign at that time. 3. Respiratory Failure: - Intubated in care of iCU 4. Leukocytosis: - Secondary to bacteremia 5. Normocytic Anemia: 7.1 today - Multifacotial likely - Monitor and transfuse less than 7 - Continued drop, check cmp to incorporate recheck of liver function Plan: - Continue care per ICU - Review of Thoracic and Brain MRI without identification of diffuse osseous or intracranial mets Physician Attest: I have completed the full history and physical and developed the full assessment and recommendations, agree with dictation by Lyla Anaya NP. Dictated as a scribe
--- NOTE | 2019-06-07 13:46 | P.PN ---
Subjective Progress Note Date: 06/07/19 Principal diagnosis: impending cord compression, picture of metastatic cancer Hemoglobin has continue to drop. We are still awaiting path to be resulted. He is still vented and under ICU care. Metabolic panel essentially normal Objective - Vital Signs Vital signs: Vital Signs Temp 98.9 F 06/07/19 12:00 Pulse 96 06/07/19 13:00 Resp 31 H 06/07/19 13:00 BP 99/54 06/07/19 01:00 Pulse Ox 98 06/07/19 13:00 Intake & Output 06/06/19 06/07/19 06/07/19 18:59 06:59 18:59 Intake Total 2046.379 5456.828 895.250 Output Total 610 557 365 Balance 980.912 519.828 530.250 Weight 66.6 kg 68 kg 68 kg Intake: IV 699 253 301 Ampicillin-Sulbactam 3 gm 300 100 In Sodium Chloride 0.9% 100 ml @ 200 mls/hr IVPB Q6HR [facility] Rx#:[id number] Fluconazole in NaCl,Iso- 100 100 Osm 200 mg In Saline 1 100ml.bag @ 100 mls/hr IVPB DAILY [facility] Rx#: [id number] Sodium Chloride 0.9% 1, 260 220 80 000 ml @ 20 mls/hr IV . Q24H [facility] Rx#:[id number] pressure bag 39 33 21 Intake, IV Titration 243.912 271.828 240.250 Amount Propofol 1,000 mg In 243.912 271.828 240.250 Empty Bag 1 bag @ Titrate IV .Q0M [facility] Rx#: [id number] Oral 60 Tube Feeding 588 462 294 Other 90 60 Output: Urine 610 557 365 Other: Voiding Method Indwelling Catheter Indwelling Catheter Indwelling Catheter ABP, PAP, CO, CI - Last Documented Arterial Blood Pressure 137/62 - Exam Gen: Intubated sedated Head: NCNT Neck: Supple, C collar inplace - Labs CBC & Chem 7: 06/07/19 03:45 06/07/19 03:45 Labs: Abnormal Lab Results - Last 24 Hours (Table) 06/06/19 06/06/19 06/07/19 Range/Units 18:06 23:48 03:45 WBC 38.5 H (3.8-10.6) k/uL RBC 2.25 L (4.30-5.90) m/uL Hgb 7.0 L (13.0-17.5) gm/dL Hct 21.2 L (39.0-53.0) % Neutrophils # 36.6 H (1.3-7.7) k/uL Lymphocytes # 0.8 L (1.0-4.8) k/uL ABG pO2 (83-108) mmHg ABG Total CO2 (19-24) mmol/L ABG O2 Saturation (94-97) % Sodium (137-145) mmol/L Chloride (98-107) mmol/L BUN (9-20) mg/dL Creatinine (0.66-1.25) mg/dL Glucose (74-99) mg/dL POC Glucose (mg/dL) 149 H 159 H (75-99) mg/dL Calcium (8.4-10.2) mg/dL Total Protein (6.3-8.2) g/dL Albumin (3.5-5.0) g/dL 06/07/19 06/07/19 06/07/19 Range/Units 03:45 05:43 08:55 WBC (3.8-10.6) k/uL RBC (4.30-5.90) m/uL Hgb (13.0-17.5) gm/dL Hct (39.0-53.0) % Neutrophils # (1.3-7.7) k/uL Lymphocytes # (1.0-4.8) k/uL ABG pO2 113 H (83-108) mmHg ABG Total CO2 26 H (19-24) mmol/L ABG O2 Saturation 98.3 H (94-97) % Sodium 135 L (137-145) mmol/L Chloride 108 H (98-107) mmol/L BUN 40 H (9-20) mg/dL Creatinine 0.61 L (0.66-1.25) mg/dL Glucose 132 H (74-99) mg/dL POC Glucose (mg/dL) 184 H (75-99) mg/dL Calcium 7.7 L (8.4-10.2) mg/dL Total Protein 4.9 L (6.3-8.2) g/dL Albumin 2.3 L (3.5-5.0) g/dL 06/07/19 Range/Units 11:49 WBC (3.8-10.6) k/uL RBC (4.30-5.90) m/uL Hgb (13.0-17.5) gm/dL Hct (39.0-53.0) % Neutrophils # (1.3-7.7) k/uL Lymphocytes # (1.0-4.8) k/uL ABG pO2 (83-108) mmHg ABG Total CO2 (19-24) mmol/L ABG O2 Saturation (94-97) % Sodium (137-145) mmol/L Chloride (98-107) mmol/L BUN (9-20) mg/dL Creatinine (0.66-1.25) mg/dL Glucose (74-99) mg/dL POC Glucose (mg/dL) 175 H (75-99) mg/dL Calcium (8.4-10.2) mg/dL Total Protein (6.3-8.2) g/dL Albumin (3.5-5.0) g/dL Microbiology - Last 24 Hours (Table) 06/03/19 19:15 Gram Stain - Preliminary Sputum Sputum Culture - Preliminary Mireya albicans Presumptive Staph aureus 06/05/19 18:20 Urine Culture - Final Urine,Catheterized 06/05/19 18:20 Blood Culture - Preliminary Blood No Growth after 24 hours Assessment and Plan Plan: Assessment and Recommendations: 1. Right Lobe Pulmonary Mass with additional smaller masses: - Pulmonary is following - With history of lung cancer will need biopsy tissue of new finding as concerning for recurrent picture of cancer, malignancy - Will defer Bronch versus other to pulmonary for tissue biopsy Concern for cord compression: MRI pending - Possibility of malignancy involving the C-spine with secondary compression cannot be ruled out knowing that the patient has several pulmonary lesions. Dexamethasone is ordered and once tissue biopsy proven malignancy will consult radiation oncology - cT abdomen and pelvis reveal bilateral adrenal massess, appears picture of recurrent metastatic lung cancer. Await path from ortho surgery, if further tissue needed will likely as pulm or IR for intervention 2. Leukocytocytosis: - Neutrophilia, Lymphocytopenia - His labs show no alarming abnormality other than very slightly elevated monocytes which was present in past and increased WBC likely reactive to acute process - However light chain ratio and kappa light chain increased in past therefore will repeat. Check urine immunofixation - Underwent evaluation in 2011 and found to be benign at that time. 3. Respiratory Failure: - Intubated in care of iCU 4. Leukocytosis: - Secondary to bacteremia 5. Normocytic Anemia: 7 today - Multifacotial likely - Monitor and transfuse less than 7 - Continued drop, check cmp to incorporate recheck of liver function - Iron studies rechecked today Plan: - Continue care per ICU - Review of Thoracic and Brain MRI without identification of diffuse osseous or intracranial mets Physician Attest: I have completed the full history and physical and developed the full assessment and recommendations, agree with dictation by Lyla Anaya NP. Dictated as a scribe
[2019-06-07] MEDS: SODIUM CHLORIDE 0.9% 1,000 ML IV SCH (14:18)
--- NOTE | 2019-06-07 16:41 | PN ---
PROGRESS NOTE DATE OF SERVICE: 06/07/2019 This 79-year-old gentleman who was admitted with multiple medical problems, including aspiration pneumonia and acute hypoxic respiratory failure, continues to be on mechanical ventilation. The patient also had unusual anaerobic bacteria grown from the culture. Patient is covered by broad-spectrum IV antibiotics. The patient has failed intubation. The patient was breathing over the vent and restless also. The most recent chest x-ray, which was reviewed personally by me, showed bilateral lesions possibly suggestive of aspiration pneumonia. Otherwise, patient is followed by Dr. Pickett as well as Hematology/Oncology. 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 Past medical history reviewed. Review of systems could not be taken; patient is mechanically intubated. CURRENT MEDICATIONS: Reviewed. They include: 1. Tylenol 650 q.6 p.r.n. 2. [place] 10 mg q.6 p.r.n. 3. [place] 5 mg p.r.n. 4. Maalox. 5. DuoNeb q.i.d. and p.r.n. 6. Unasyn 3 grams IV q.6. 7. Aspirin 81 mg daily. 8. Tenormin 25 mg p.o. daily. 9. Lipitor 40 mg at bedtime. 10.Cepacol. 11.Flexeril. 12.Decadron. 13.Fluconazole. 14.Neurontin. 15.Mucinex. 16.Heparin. 17.Dilaudid. 18.Synthroid. 19.Lidoderm. 20.Milk of Magnesia. 21.Levophed drip, which is off. 22.Protonix. 23.Propofol. 24.Senna. PHYSICAL EXAMINATION: Patient is mechanically ventilated and sedated. Pulse 90, blood pressure 130/57, respiration 32, temperature normal. Pulse ox 98%. Mechanical vent settings are noted. PEEP of 5. HEENT: Conjunctivae normal. Oral mucosa moist. NECK: No jugular venous distention. No carotid bruit. No lymph node enlargement. CARDIOVASCULAR SYSTEM: S1, S2 muffled. RESPIRATORY SYSTEM: Breath sounds diminished at the bases. Bilateral scattered rhonchi and crackles. ABDOMEN: Soft, non-tender. LEGS: No edema. No swelling. NERVOUS SYSTEM: Patient is mechanically ventilated and sedated. LABS: Labs at this time show WBC 38.5, hemoglobin 7, pH of 7.43 and sodium is 135. ASSESSMENT: 1. Acute hypoxic respiratory failure secondary to possible bilateral aspiration pneumonia, on mechanical ventilation. 2. Possible sepsis and hypotension and septic shock, present on admission. 3. Propionibacterium acnes from the anaerobic cultures from the surgery. 4. Possible metastatic high-grade malignant neoplasm with epithelioid and spindle cell differentiation in the C6 vertebral body biopsy as well as posterior longitudinal ligament biopsy. 5. Possible leukemoid reaction. 6. Staphylococcus hominis from the blood. 7. Mireya albicans in the sputum. 8. History of recent cervical decompression and discectomy, C4-5, C6-7 with suspected C6 pathology compression fracture as well as upper extremity weakness on the right side with previous cervical stenosis, bacteremia, neck pain and upper extremity pain. 9. History of coronary artery disease. 10.Chronic obstructive pulmonary disease. 11.Hypertension. 12.Hyperlipidemia. 13.Rule out right lung cancer with metastasis. 14.History of right upper lobe cancer with lobectomy previously. 15.Degenerative joint disease. 16.History of thyroid cancer. 17.History of coronary artery disease, stent. 18.History of nicotine dependence, continued and ongoing. 19.FULL CODE. RECOMMENDATIONS AND DISCUSSION: I recommend to continue current medications, continue with the monitoring, symptomatic treatment. Further weaning attempts per Dr. Pickett. Continue with the bronchodilators and empiric antibiotics. Otherwise, chest x-ray reviewed and biopsy report also reviewed. We will follow the patient closely with Hematology/Oncology, who has seen the patient. Chest x-ray was reviewed personally by me. Hematology/Oncology will follow the patient closely. Once again, the prognosis is guarded. Further recommendations to follow. MMODL / IJN: [id number] / [facility]
[2019-06-07 17:42] LABS: Glucose,Whole Blood 134 mg/dL (75-99)
[2019-06-07] MEDS ORDERED: VANCOMYCIN IV PER PHARMACY 1 EACH MISC MISCELLANE PRN (19:44)
[2019-06-07] MEDS: VANCOMYCIN 1,250 MG in SODIUM CHLORIDE 0.9% 250 ML IVPB SCH (20:30)
[2019-06-07] MEDS: ATORVASTATIN 40 MG TAB PO SCH (20:30)
--- NOTE | 2019-06-07 22:01 | PN ---
PROGRESS NOTE DATE OF SERVICE: 06/07/2019 REASON FOR FOLLOWUP: Aspiration pneumonia and C6 osteomyelitis. INTERVAL HISTORY: The patient is currently afebrile. The patient remains intubated on the vent. FiO2 is currently at 35%. No purulent secretion in the ET or any diarrhea has been reported by the nursing staff. Currently not on any pressor support. PHYSICAL EXAMINATION: Blood pressure 114/50 with a pulse of 85, temperature of 98. He is 97% on 35% FiO2. General description is an elderly male lying in bed in no distress. RESPIRATORY SYSTEM: Unlabored breathing with decreased breath sounds at the base. No wheeze. HEART: S1, S2. Regular rate and rhythm. ABDOMEN: Soft. No tenderness. LABS: Hemoglobin 7, white count 38.5, BUN of 14, creatinine 0.61. DIAGNOSTIC IMPRESSION AND PLAN: Patient with acute respiratory failure which is multifactorial in this patient with a possible component of pneumonia, possible aspiration etiology. Sputum is showing Staph aureus, possible MRSA, and Mireya with Propionibacterium. C6 possible osteomyelitis with slight jump in his white count. Sputum showing Staph aureus. Will add vancomycin until the final sensitivities on the Staph aureus. Continue with Unasyn and the Diflucan and monitor clinical course closely. MMODL / IJN: [id number] /
[2019-06-07 22:47] LABS: % Iron Saturation 18.49 (15.00-50.00)
[2019-06-07 23:23] LABS: Ferritin 768.7 ng/mL (22.0-322.0)
[2019-06-07 23:26] LABS: Glucose,Whole Blood 168 mg/dL (75-99)
[2019-06-08] MEDS: PROPOFOL 1,000 MG in EMPTY BAG 1 BAG IV SCH ×2 (03:09→05:30)
[2019-06-08 04:25] LABS: Basophils % (A) 0 %; Eosinophils # (A) 0.2 k/uL (0-0.7); Eosinophils % (A) 0 %; HCT 21.8 % (39.0-53.0); HGB 7.2 gm/dL (13.0-17.5); Lymphocytes # (A) 0.6 k/uL (1.0-4.8); Lymphocytes % (A) 2 %; MCH 31.7 pg (25.0-35.0); MCHC 33.1 g/dL (31.0-37.0); MCV 95.6 fL (80.0-100.0); Mean Platelet Volume 10.7; Monocytes % (A) 2 %; Neutrophils # (A) 40.4 k/uL (1.3-7.7); Neutrophils % (A) 95 %; Platelet Count 202 k/uL (150-450); RBC 2.28 m/uL (4.30-5.90); RDW 14.5 % (11.5-15.5); WBC 42.4 k/uL (3.8-10.6)
[2019-06-08 04:39] LABS: INR 0.9 (<1.2); Partial Thromboplastin Time 27.4 sec (22.0-30.0); Prothrombin Time 9.7 sec (9.0-12.0)
[2019-06-08 04:54] LABS: African American GFR (CKD) >90 (>60 ml/min/1.73 sqM); Anion Gap 3 mmol/L; Blood Urea Nitrogen 44 mg/dL (9-20); Calcium 7.8 mg/dL (8.4-10.2); Carbon Dioxide 25 mmol/L (22-30); Chloride 107 mmol/L (98-107); Glucose 140 mg/dL (74-99); Non-African American GFR(CKD) >90 (>60 ml/min/1.73 sqM); Potassium 4.2 mmol/L (3.5-5.1); Sodium 135 mmol/L (137-145)
[2019-06-08 05:24] LABS: Glucose,Whole Blood 147 mg/dL (75-99)
[2019-06-08] MEDS: LEVOTHYROXINE 75 MCG TAB PO SCH (05:26)
[2019-06-08] MEDS: AMPICILLIN-SULBACTAM 3 GM in SODIUM CHLORIDE 0.9% 100 ML IVPB SCH ×3 (05:26→17:05)
[2019-06-08] MEDS: INSULIN ASPART (NovoLOG) 100 UNIT/ML VIAL SQ SCH ×3 (05:27→21:46)
[2019-06-08] MEDS: DEXAMETHASONE SOD PHOSPHATE 10 MG/ML 1 ML VIAL IV SCH ×3 (05:29→17:05)
--- NOTE | 2019-06-08 06:41 | XR ---
EXAMINATION TYPE: XR chest 1V portable DATE OF EXAM: 06/08/2019 CLINICAL HISTORY: Difficulty breathing progress study. TECHNIQUE: Single AP portable upright view of the chest is obtained. COMPARISON: Chest x-ray from one day earlier and older studies. FINDINGS: Stable endotracheal and orogastric tubes. Chronic parenchymal changes redemonstrated with increased left lung markings on current study. Left hilar surgical clips noted. Cardiac silhouette si ze is stable and within normal limits with atherosclerotic thoracic aorta. Persistent right paratrach eal increased density. Surgical change of the lower cervical spine redemonstrated. Underlying scolios is noted. IMPRESSION: Chronic parenchymal changes bilaterally with increasing diffuse left lung edema and/or in filtrate from most recent x-ray thought present.
[2019-06-08] MEDS: IPRATROPIUM-ALBUTEROL 3 ML NEB INHALATION SCH ×3 (07:22→19:23)
[2019-06-08 07:27] LABS: ABG Base Excess 2.2 mmol/L; ABG HCO3 26 mmol/L (21-25); ABG Oxygen Saturation 98.8 % (94-97); ABG PCO2 35 mmHg (35-45); ABG PH 7.48 (7.35-7.45); ABG PO2 131 mmHg (83-108); ABG TCO2 27 mmol/L (19-24)
[2019-06-08] MEDS: CYCLOBENZAPRINE 10 MG TAB PO SCH ×3 (08:24→21:56)
[2019-06-08] MEDS: guaiFENesin 600 MG TABLET.ER PO SCH ×2 (08:24→21:55)
[2019-06-08] MEDS: PANTOPRAZOLE 40 MG/10 ML VIAL IVP SCH (08:24)
[2019-06-08] MEDS: CHLORHEXIDINE GLUCONATE 15 ML CUP MUCOUS MEM SCH ×2 (08:24→21:50)
[2019-06-08] MEDS: GABAPENTIN 300 MG CAP PO SCH ×3 (08:24→21:55)
[2019-06-08] MEDS: HEPARIN SODIUM,PORCINE 5,000 UNIT/ML 1 ML VIAL SQ SCH ×2 (08:24→21:56)
[2019-06-08] MEDS: ASPIRIN 81 MG PO SCH (08:24)
[2019-06-08] MEDS: LIDOCAINE 5% PATCH TOPICAL SCH (08:24)
[2019-06-08] MEDS: VANCOMYCIN 1,250 MG in SODIUM CHLORIDE 0.9% 250 ML IVPB SCH (08:25)
[2019-06-08] MEDS: ATENOLOL 25 MG TAB PO SCH (08:25)
[2019-06-08] MEDS: FLUCONAZOLE IN NACL,ISO-OSM 200 MG in SALINE 1 100ML.BAG IVPB SCH (08:25)
[2019-06-08] MEDS: SENNOSIDES-DOCUSATE SODIUM 1 EACH TAB PO SCH (08:26)
--- NOTE | 2019-06-08 11:57 | P.PN ---
Progress Note - Text Progress Note Date: 06/07/19 06/07/19 Hx: This is routine Ortho rounds. Patient remains on ventilator so no direct communication is possible. Recently he underwent anterior cerv fusion by Dr. Flores. Nurse reports the collar has been left in place at all times. PE: Employing full COVID PPE precautions, the cervical collar is carefully loosened to check incision. No excess swelling is noted. The bandage is partially loosened for a limited view and the wound looks OK with no infection. Bandage is replaced and collar is closed. The air tube and ventilation equipment was undisturbed. I also examined all extremities for padding which was fine, and any skin problems which I noted none. ASS: PO Ant Cerv Fusion PLAN: I will contact Dr. Flores for further instructions on wound checks. Otherwise maintain cervical collar at all times. Lionel Fulton D.O.
[2019-06-08 12:21] LABS: Glucose,Whole Blood 139 mg/dL (75-99)
--- NOTE | 2019-06-08 12:29 | P.PN ---
Progress Note - Text Progress Note Date: 06/08/19 The patient is seen and examined at bedside. He was able to be extubated this morning but is still requiring significant support. There are moderate him closely in the intensive care unit. THE PATHOLOGY REPORT FROM SURGERY CAME BACK POSITIVE FOR HIGH-GRADE MALIGNANCY FROM HIS CERVICAL SPINE On exam the patient is extubated he is able to follow some simple commands and he is able to move his fingers. His neck has ecchymosis around the incision site but there is no active drainage. It is supple. There is no obvious fluid collection at his neck. Assessment and plan Postoperative day #8 status post anterior cervical decompression with corpectomy of C6 and fusion from C5 to 7 for cervical myelopathy and severe cervical stenosis due to pathologic burst fracture Pathology report with POSITIVE HIGH-GRADE MALIGNANCY CERVICAL SPINE History of lung cancer The patient was able to be extubated today and hopefully his respirations we'll be maintained for his oxygenation and he will be able to stay off the vent. They're following him closely in intensive care unit. He continues to be significantly anemic. His neck incision site appears to be stable overall. The pathology report was positive for high-grade malignancy and he has history of lung cancer. He'll continue management in that regard with oncology medicine. I do not have further plans for surgical intervention at this point. He should continue to use his hard cervical collar at all times to protect his C5 to C7 fusion. It is okay for him to sit up in a chair and to try to mobilize when he is able with the collar on.
[2019-06-08] MEDS: HYDROmorphone 1 MG/ML 1 ML SYRINGE IVP PRN ×2 (12:32→16:37)
--- NOTE | 2019-06-08 13:03 | P.PN ---
Subjective Progress Note Date: 06/08/19 Principal diagnosis: Acute hypoxic respiratory failure secondary to aspiration pneumonia. 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 The patient is known to have history of lung cancer. The patient came into the hospital because of pain and numbness in his right upper extremity extending to his right thumb and this is been going on for the past 2 weeks to the point where the patient was unable to lift any objects because of the pain and numbness and tingling. His echo was elevated at 31. The calcium level is normal at 9.6. Lactic acid level at time of admission was 1.7. He had a CRP of 57.7 which is quite elevated and this is based on the previous blood work that was done on 05/17/2019. In the ED, the patient had a CAT scan of the brain that showed age-related atrophy and small vessel ischemic changes. An unenhanced CAT scan of the cervical spine also was done and it showed severe compression fracture of the C6 spine of an uncertain age/etiology with bony retropulsion of 3.5 mm. No evidence of any central canal stenosis or cord compression. Multilevel degenerative disc disease was seen with disc bulging and neurominal encroachment severe at the level of C3-C4 and there is also severe degenerative disc narrowing at the level of C5-C6. There is a 90% compression fracture of the T6 spine. Noted the patient was in the emergency department on 05/17/2023 with similar complaints of worsening shoulder and arm pain he was seen in emergency department and the patient underwent a CT angiogram of the upper extremity and it showed poor opacification of the radial and ulnar arteries at the level of the brachial bifurcation which was either technical in nature or high-grade stenosis/thrombosis which could not be completely ruled out. A CAT scan of the chest was also done utilizing a CT angios protocol and the CAT scan showed no evidence of any pulmonary embolism. Nevertheless, there were several for nodules, and a lung mass. There was a 3.4 cm right lower lobe pleural-based mass posteriorly in the right lower lobe area. There was another 7 mm right middle lobe pulmonary nodule, 5 mm left upper lobe pulmonary pleural-based nodule, 7 mm right upper lobe pulmonary nodule and a 4 mm right apical pulmonary nodule. There was extensive emphysema and some scattered subpleural fibrosis. The perihilar/peribronchial lymph nodes were identified. 4.1 cm suspicious lesion of the left adrenal gland was seen suspicious for metastases. This was a new finding monitor the patient's previous CAT scan from 03/22/2018 did not show any lung masses or nodules. There was however some scarring in the lung bases especially on the right in addition to emphysema and some elevation of left hemidiaphragm. S shaped scoliosis was also seen along with osseous deminerali zation. The patient is afebrile. The patient's pulse ox 99% on room air.: 19 evaluation was negative. Influenza A and B were negative. UA was negative. On today's evaluation of 05/30/2019, the patient was seen by spine surgery and the patient was given a neck brace. His pain is under good control. He is awaiting MRI of the cervical spine. The white cell count remains elevated. The pro-calcitonin level is low. He is still feeling weakness in the right upper extremity. A fine-needle aspirate of the lung metastatic to be considered and will going to consult interventional radiology. On 05/31/2019 patient seen in follow-up on general medical floor, still complaining of weakness in his arms and neck pain. Patient has a c-collar that he is wearing [id number], his imaging showed significant compression of his spinal cord. Patient was evaluated by orthopedic service and surgical decompression and spinal fusion was recommended and the patient is scheduled for his surgery today. Patient was also evaluated by radiation oncology, and he may need radiotherapy to the postoperative bed after completion of the above surgery, from pulmonary perspective, his breathing seems to be nonlabored, he is on room air, with a pulse ox of 96%, lung sounds are diminished, no rhonchi or wheezing, patient has been afebrile, today's labs have been reviewed showing white blood cell count of 32.8, hemoglobin 13.4, neutrophil count is 30.5, influenza and coronavirus PCR were negative, patient is receiving IV Decadron, patient is on vancomycin, blood culture showed coagulase-negative staph. On 06/01/2019 patient seen in follow-up on medical floor, he is postop day 1 status post anterior cervical decompression with discectomy and fusion of C5, C6 and C6 and C7. He is awake and alert, in no acute distress, room air pulse ox is 94%, he sitting up in the recliner, calm and comfortable, he is afebrile, vital signs are stable. Breathing is unlabored. Bone biopsy from the vertebral body of C6 and culture of vertebral body of the 6 are pending at this time. Today's labs have been reviewed showing white blood cell, 39.2, hemoglobin of 12.3, sodium 131, potassium is 4.3, chloride is 96, B1 is 30 creatinine 0.8. Patient is on cefepime and vancomycin for antibiotic coverage, ID service is following. Patient had blood culture with coagulase-negative staph, B blood cultures pending. On 06/02/2019 patient seen in follow-up on general medical floor, and today is postoperative day 2, status post anterior cervical decompression with discectomy and fusion of C5, 6, and C6 and C7, biopsy of the vertebral body of C6 and the culture of the vertebral body of C6. Biopsy results are still pending, cultures are negative thus far. Patient is afebrile, she is on 2 L of oxygen and the pulse ox of 96%, he still is complaining of some numbness and weakness in his right wrist, and some shortness of breath, and inability to clear phlegm, his lungs are clear, no wheezing, no rhonchi, he is already on Decadron. He is on cefepime and vancomycin for antibiotics, he is on breathing treatments, will add Mucinex. On 06/05/2019 patient seen in follow-up in the intensive care unit. Patient developed worsening respiratory failure requiring intubation and placement on mechanical ventilator on 06/03/2019 for suspected aspiration. Today on 06/05/2019 patient remains intubated, and sedated. Current vent settings are assist-control mode of ventilation with a rate of 22, tidal volume is 400, FiO2 is 35%, and PEEP of 5, this point his blood gases were reviewed showing pO2 45, pCO2 28, and pH of 7.47, and this was done on FiO2 of 35% and above-mentioned ventilator settings. This morning's chest x-ray has been reviewed, showing known right basilar lung mass, pronounced right paratracheal stripe, stable exam compared yesterday's chest x-ray. No acute pulmonary findings. She remains on empiric antibiotics in the form of Zosyn for possibility of aspiration pneumonia. Sputum culture so far only shows Mireya albicans. Cultures of the bony biopsy showing proprionibacterium acnes, final culture is pending, blood culture from 05/29/2019 showed staph hominis. Current antibiotics in the form of Zosyn, infectious disease is following. Today's labs have been reviewed showing blood blood cell count of 46.9, hemoglobin of 7.9, neutrophil count is 45.4, sodium is 132, potassium 3.8, CO2 is 21, B1 is 37 creatinine 0.76. Patient's hemodynamically stable, levo fed is on hold. Urine output is in the order of 50-60 ML per hour, he is tolerating tube feedings in the form of vital HP at a rate of 42 with a goal of 42 with standard water flushes. Bone biopsy of the vertebral body of C6 is still pending at this time Reevaluated today on 06/06/19. Patient remains intubated and mechanically ventilated. He is on assist control rate of 22 tidal volume is 400 FiO2 of 35% PEEP is 5. His peak airway pressure is 23 plateau pressure is 18. Patient is hemodynamically stable, requiring relatively good dose of propofol 60 mcg/kg/m. IV fluid is at KVO. Patient will be awakened today, and will at least try to address his mental status. We'll also try to assess weaning parameters if possible. Hence instructions were given to the nurses to hold his propofol, and at least assess mental status once the propofol is discontinued. ABG today showed a pO2 of 142 pCO2 of 36 pH of 7.41. Basic metabolic profile is normal. WBC count is significantly elevated at 53.4. Hemoglobin is 7.1. His WBC count has been elevated above 30,000 since admission. C-reactive protein is 16.8. The final pathology on his bone biopsy is still pending. Chest x-ray continues to show bilateral interstitial infiltrates and possibly a small left pleural effusion. Reevaluated today on 06/07/19, patient remains in the ICU, intubated, and mechanically ventilated. His ventilator settings are assist control rate of 22, tidal volume is 400 FiO2 is 35% and PEEP is 5. His ABG showed a pO2 of 142 pCO2 of 36 and pH of 7.41. Patient remains on propofol at 75 mcg/kg/m. He is hemodynamically stable. However he is quite sedated this morning. Patient seems to be double triggering the ventilator when sedation level is low. Today my plan is to hold sedation, assess mental status, and possibly consider a pressure support of 12 and CPAP trial. Chest x-ray is showing improvement in his by basilar infiltrates. Labs showed WBC count of 38.5 hemoglobin is 7 basic metabolic profile is relatively normal. Renal profile is normal. Bone biopsy is still pending. Reevaluated today on 06/08/19, patient remains intubated and mechanically ventilated. settings are assist control rate of 22 tidal volume is 400 FiO2 is 35% PEEP is 5. ABG showed a pO2 of 131 pCO2 of 35 pH of 7.48. Lencho choi remains on propofol which I plan to discontinue today, and give the patient a weaning trial if possible. Patient remains on tube feeding, he is hemodynamically stable, and he is in sinus rhythm. 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 The findings do not point to metastatic lung cancer. Although the patient had previous history of lung cancer in the past, and he does have a right lower lobe mass which would have to be evaluated on outpatient basis may even need a CT- guided needle biopsy since the mass is peripheral. In the meantime the patient is being evaluated by oncology, and evaluated by radiation oncology. Chest x- ray today continues to show pneumonic process in both lungs more so in the left midlung. Patient did have documented aspiration pneumonia. Today if the patient tolerates weaning, may consider placing the patient on BiPAP postextubation. He will definitely need a swallow evaluation before any feeding could be initiated. Objective - Vital Signs Vital signs: Vital Signs Temp 98.5 F 06/08/19 12:00 Pulse 83 06/08/19 12:00 Resp 19 06/08/19 12:00 BP 147/91 06/08/19 12:00 Pulse Ox 98 06/08/19 12:00 Intake & Output 06/07/19 06/08/19 06/08/19 18:59 06:59 18:59 Intake Total 0951.348 4575.538 477.938 Output Total 655 900 480 Balance 607.476 693.538 -2.062 Weight 68 kg 69 kg 69 kg Intake: IV 362 716 138 Ampicillin-Sulbactam 3 gm 100 200 In Sodium Chloride 0.9% 100 ml @ 200 mls/hr IVPB Q6HR [facility] Rx#:[id number] Fluconazole in NaCl,Iso- 100 Osm 200 mg In Saline 1 100ml.bag @ 100 mls/hr IVPB DAILY [facility] Rx#: [id number] Sodium Chloride 0.9% 1, 130 230 120 000 ml @ 20 mls/hr IV . Q24H [facility] Rx#:[id number] Vancomycin 1,250 mg In 250 Sodium Chloride 0.9% 250 ml @ 125 mls/hr IVPB Q12H [facility] Rx#:[id number] pressure bag 32 36 18 Intake, IV Titration 338.476 283.538 99.938 Amount Propofol 1,000 mg In 338.476 283.538 99.938 Empty Bag 1 bag @ Titrate IV .Q0M [facility] Rx#: [id number] Tube Feeding 502 504 210 Other 60 90 30 Output: Urine 655 900 480 Other: Voiding Method Indwelling Catheter Indwelling Catheter Indwelling Catheter ABP, PAP, CO, CI - Last Documented Arterial Blood Pressure 175/74 - Exam GENERAL EXAM: Sedated, intubated, on mechanical ventilation, c-collar is in kenney ce. HEENT: PERRLA, EOMI, no icterus. Endotracheal tube and orogastric tube are intact. NECK: No masses, no JVD, no thyroid enlargement, no adenopathy. Patient has a c-collar in place CHEST: No chest wall deformity. Symmetrical expansion. LUNGS: Persistent crackles at the bases, minimal rhonchi and wheezing. CVS: Regular rate and rhythm, normal S1 and S2, no gallops, no murmurs, no rubs ABDOMEN: Soft, nontender. No hepatosplenomegaly, normal bowel sounds, no guarding or rigidity. EXTREMITIES: No clubbing, no edema, no cyanosis, 2+ pulses and upper and lower extremities. MUSCULOSKELETAL: Could not be assessed patient is sedated. SPINE: No scoliosis or deformity SKIN: No rashes CENTRAL NERVOUS SYSTEM: Sedated, comfortable No focal deficits, tone is normal in all 4 extremities. Psychiatric: Could not be assessed - Labs CBC & Chem 7: 06/08/19 04:15 06/08/19 04:15 Labs: Abnormal Lab Results - Last 24 Hours (Table) 04/06/07/19 06/07/19 Range/Units 03:45 17:41 23:23 WBC (3.8-10.6) k/uL RBC (4.30-5.90) m/uL Hgb (13.0-17.5) gm/dL Hct (39.0-53.0) % Neutrophils # (1.3-7.7) k/uL Lymphocytes # (1.0-4.8) k/uL ABG pH (7.35-7.45) ABG pO2 (83-108) mmHg ABG HCO3 (21-25) mmol/L ABG Total CO2 (19-24) mmol/L ABG O2 Saturation (94-97) % Sodium (137-145) mmol/L BUN (9-20) mg/dL Creatinine (0.66-1.25) mg/dL Glucose (74-99) mg/dL POC Glucose (mg/dL) 134 H 168 H (75-99) mg/dL Calcium (8.4-10.2) mg/dL Iron 49 L (65-175) ug/dL Ferritin 768.7 H (22.0-322.0) ng/mL 06/08/19 06/08/19 06/08/19 Range/Units 04:15 04:15 05:23 WBC 42.4 H (3.8-10.6) k/uL RBC 2.28 L (4.30-5.90) m/uL Hgb 7.2 L (13.0-17.5) gm/dL Hct 21.8 L (39.0-53.0) % Neutrophils # 40.4 H (1.3-7.7) k/uL Lymphocytes # 0.6 L (1.0-4.8) k/uL ABG pH (7.35-7.45) ABG pO2 (83-108) mmHg ABG HCO3 (21-25) mmol/L ABG Total CO2 (19-24) mmol/L ABG O2 Saturation (94-97) % Sodium 135 L (137-145) mmol/L BUN 44 H (9-20) mg/dL Creatinine 0.60 L (0.66-1.25) mg/dL Glucose 140 H (74-99) mg/dL POC Glucose (mg/dL) 147 H (75-99) mg/dL Calcium 7.8 L (8.4-10.2) mg/dL Iron (65-175) ug/dL Ferritin (22.0-322.0) ng/mL 06/08/19 06/08/19 Range/Units 07:22 12:19 WBC (3.8-10.6) k/uL RBC (4.30-5.90) m/uL Hgb (13.0-17.5) gm/dL Hct (39.0-53.0) % Neutrophils # (1.3-7.7) k/uL Lymphocytes # (1.0-4.8) k/uL ABG pH 7.48 H (7.35-7.45) ABG pO2 131 H (83-108) mmHg ABG HCO3 26 H (21-25) mmol/L ABG Total CO2 27 H (19-24) mmol/L ABG O2 Saturation 98.8 H (94-97) % Sodium (137-145) mmol/L BUN (9-20) mg/dL Creatinine (0.66-1.25) mg/dL Glucose (74-99) mg/dL POC Glucose (mg/dL) 139 H (75-99) mg/dL Calcium (8.4-10.2) mg/dL Iron (65-175) ug/dL Ferritin (22.0-322.0) ng/mL Microbiology - Last 24 Hours (Table) 06/03/19 19:15 Gram Stain - Final Sputum Sputum Culture - Final Mireya albicans Staphylococcus aureus 06/05/19 18:20 Blood Culture - Preliminary Blood No Growth after 48 hours Assessment and Plan Assessment: Impression:Postoperative day #8status post anterior cervical decompression with corpectomy of C6 and fusion from C5 to C7 for his compression burst fracture at C6 and 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 Compression fracture of cervical spine/pathological fractures secondary to malignancy. Not pulmonary in nature. History of lung cancer and previous left upper lobe resection. Patient does have a right lower lobe mass which will eventually require tissue diagnosis by CT-guided needle biopsy. This is to be done on outpatient basis. History of severe COPD. Interstitial lung disease is strongly suspected/pulmonary fibrosis. Coronary artery disease and previous coronary artery stenting. History of hypothyroidism. History of benign essential hypertension. Recommendation: Continue ventilatory support. However I plan to hold propofol, assess weaning parameters, and if tolerated may consider a trial of pressure support and CPAP, and that's tolerated patient will go to to extubation Continue Unasyn for aspiration pneumonia. Continue GI and DVT prophylaxis. Continue Decadron for his compression fracture and myelopathy. Continue bronchodilators. Oncology to evaluate again for his pathological finding on biopsy of the cervical bones Discontinue propofol for now.. Continue to monitor in the ICU. Remains critically ill, critical care time is 34 minutes Time with Patient: Greater than 30
--- NOTE | 2019-06-08 15:06 | PN ---
PROGRESS NOTE DATE OF SERVICE: 06/08/2019 This is a 79-year-old gentleman who was admitted with multiple medical issues including acute hypoxic respiratory failure with aspiration pneumonia is extubated today. The patient continues to be confused. The patient also had recent surgery with metastatic high-grade mental neoplasm with icterus mucosal inflammation of the C6 vertebral body was also noted in the pathology specimen after surgery and Propionibacterium duglas was also grown from the culture. The patient continues to be afebrile. Blood pressure is well maintained. The most recent chest x-ray which was personally reviewed by me showed bilateral lesions, left more than the right. Multiple consultants following the patient including Orthopedic Surgery and as well as Pulmonary Critical Care. PAST MEDICAL HISTORY: Reviewed. REVIEW OF SYSTEMS: Could not be taken, the patient is confused. CURRENT MEDICATIONS: Reviewed and include: 1. Tylenol 650 q.6 p.r.n. 2. Anderson 10 mg q.6. 3. Anderson 5 mg. 4. Albuterol. 5. DuoNeb q.i.d. and p.r.n. 6. Unasyn 3 g IV q.6. 7. Aspirin. 8. Tenormin 25 mg daily. 9. Lipitor 40 mg q.h.s. 11.Flexeril. 12.Decadron 6 mg IV q.6 hours. 13.Fluconazole. 14.Mucinex. 15.Heparin. 16.NovoLog. 17.Levothyroxine 75 mcg. 18.Magnesium oxide. 19.Zofran. 20.Protonix. 21.Vancomycin. PHYSICAL EXAM: Patient is conscious but confused, post extubation. Pulse 83. Blood pressure 147/91, respiration 19, temperature 98.4, pulse ox 98% on 40% FiO2. HEENT: Conjunctivae normal. NECK: No jugular venous distension. CARDIOVASCULAR SYSTEM: S1, S2, muffled. RESPIRATION: Breath sound diminished at the bases, a few scattered rhonchi, no crackles. ABDOMEN: Soft, nontender. No mass palpable. LEGS: No edema, no swelling. NERVOUS SYSTEM: Higher functions as mentioned earlier. Otherwise, moves all 4 limbs. SKIN: No rash, bleeding, ulcers. JOINTS: No active deforming arthropathy. LABS: WBC is 42.2, hemoglobin is 7.2 and sodium 130, potassium 4.2, calcium 7.8. ASSESSMENT: 1. Acute hypoxic respiratory failure secondary to bilateral aspiration pneumonia, status post mechanical ventilation with possible sepsis and hypotension with severe sepsis present on admission. 2. Propionibacterium acnes from the anaerobic cultures from the surgery. 3. Possible metastatic high-grade malignant neoplasm with epithelioid and spindle cell differentiation in the C6 vertebral body biopsy with posterior longitudinal ligament biopsy as well. 4. Possible leukemoid reaction. 5. Staphylococcus hominis from the blood. 6. Mireya albicans in the sputum. 7. History of recent cervical decompression and discectomy, C4-5, C6-7 with suspected C6 pathology compression fracture as well as upper extremity weakness on the right side with previous cervical canal stenosis, bacteremia, neck pain and upper extremity pain. 8. History of coronary artery disease. 9. History of chronic obstructive pulmonary disease. 10.Hypertension. 11.Hyperlipidemia. 12.Rule out right lung cancer with metastasis. 13.History of right upper lobe malignancy with lobectomy previously. 14.History of degenerative joint disease. 15.History of thyroid cancer. 16.History of CAD stent. 17.History of nicotine dependence, continued ongoing. 18.FULL CODE. RECOMMENDATION: Recommend to continue with the current management and symptomatic treatment. Continue with antibiotics and bronchodilators. Continue with weaning protocol. PT, OT evaluation, possible ECF rehab. Continue the rest of the medications and will follow the patient closely, especially with Hematology, Oncology because of the positive biopsy report as mentioned earlier. Overall prognosis is guarded because of multiple complex medical issues. Further recommendations to follow. MMODL / IJN: [id number] / KAI
[2019-06-08] MEDS: SODIUM CHLORIDE 0.9% 1,000 ML IV SCH (17:06)
--- NOTE | 2019-06-08 18:01 | PN ---
PROGRESS NOTE DATE OF SERVICE: 06/08/2019 REASON FOR FOLLOWUP: 1. Aspiration pneumonia. 2. C6 osteomyelitis. INTERVAL HISTORY: The patient is currently afebrile. The patient has been extubated, now is on a BiPAP and lethargic and did not provide any history. No vomiting or diarrhea reported by the nursing staff. PHYSICAL EXAMINATION: Blood pressure 158/81 with a pulse of 84, temperature of 98.5. He is 97% on BiPAP. General description is an elderly male lying in bed in no distress. RESPIRATORY SYSTEM: Unlabored breathing. Some coarse breath sounds at the base. No wheeze. HEART: S1, S2. Regular rate and rhythm. ABDOMEN: Soft. No tenderness. LABS: Hemoglobin 7.2, white count 42.4. BUN of 44, creatinine 0.60. DIAGNOSTIC IMPRESSION AND PLAN: Patient with acute respiratory failure which is multifactorial in this patient who did have a component of pneumonia. Sputum has been MSSA and Mireya albicans and the patient's white count culture showing Propionibacterium acnes. Patient will continue with Unasyn 3 grams q.6 hours along with fluconazole. Discontinue vancomycin. Monitor his clinical course closely. MMODL / IJN: [id number] /
[2019-06-08] MEDS ORDERED: DILTIAZEM DRIP BOLUS FROM BAG 1 MG SOLN IV ONE (21:05)
[2019-06-08] MEDS: DILTIAZEM 125 MG in SODIUM CHLORIDE 0.9% 100 ML IV SCH (21:40)
[2019-06-08] MEDS: NOREPINEPHRINE 4 MG in SODIUM CHLORIDE 0.9% 250 ML IV SCH (21:47)
[2019-06-08] MEDS: ATORVASTATIN 40 MG TAB PO SCH (21:55)
[2019-06-09] MEDS: DEXAMETHASONE SOD PHOSPHATE 10 MG/ML 1 ML VIAL IV SCH ×5 (00:14→23:18)
[2019-06-09] MEDS: INSULIN ASPART (NovoLOG) 100 UNIT/ML VIAL SQ SCH ×5 (00:15→23:17)
[2019-06-09] MEDS: AMPICILLIN-SULBACTAM 3 GM in SODIUM CHLORIDE 0.9% 100 ML IVPB SCH ×5 (00:15→23:16)
[2019-06-09] MEDS: HYDROmorphone 1 MG/ML 1 ML SYRINGE IVP PRN ×5 (02:28→20:33)
[2019-06-09 06:43] LABS: African American GFR (CKD) >90 (>60 ml/min/1.73 sqM); Anion Gap -1 mmol/L; Blood Urea Nitrogen 45 mg/dL (9-20); Calcium 8.8 mg/dL (8.4-10.2); Carbon Dioxide 31 mmol/L (22-30); Chloride 108 mmol/L (98-107); Glucose 117 mg/dL (74-99); Non-African American GFR(CKD) >90 (>60 ml/min/1.73 sqM); Potassium 4.6 mmol/L (3.5-5.1); Sodium 138 mmol/L (137-145)
[2019-06-09 07:02] LABS: HCT 24.4 % (39.0-53.0); MCH 31.1 pg (25.0-35.0); MCHC 32.8 g/dL (31.0-37.0); MCV 95.1 fL (80.0-100.0); Mean Platelet Volume 11.2; Platelet Count 241 k/uL (150-450); RBC 2.56 m/uL (4.30-5.90); RDW 14.8 % (11.5-15.5)
[2019-06-09 07:09] LABS: WBC 55.9 k/uL (3.8-10.6)
[2019-06-09 07:26] LABS: Band Neutrophils % 1 %; Lymphocytes # (M) 1.12 k/uL (1.0-4.8); Metamyelocytes # (M) 0.56 k/uL (0); Metamyelocytes % 1 %; Monocytes # (M) 3.91 k/uL (0-1.0); Neutrophils % (M) 89 %; Nucleated Red Blood Cells 0 /100 WBC (0-0); Total Cells Counted 200
[2019-06-09 07:50] LABS: Glucose,Whole Blood 117 mg/dL (75-99)
[2019-06-09 07:50] LABS: Glucose,Whole Blood 159 mg/dL (75-99)
[2019-06-09 07:50] LABS: Glucose,Whole Blood 130 mg/dL (75-99)
[2019-06-09 07:50] LABS: Glucose,Whole Blood 111 mg/dL (75-99)
[2019-06-09] MEDS: IPRATROPIUM-ALBUTEROL 3 ML NEB INHALATION SCH ×3 (08:18→20:56)
[2019-06-09] MEDS: SENNOSIDES-DOCUSATE SODIUM 1 EACH TAB PO SCH ×2 (08:25→09:51)
[2019-06-09] MEDS: PANTOPRAZOLE 40 MG/10 ML VIAL IVP SCH (08:25)
[2019-06-09] MEDS: guaiFENesin 600 MG TABLET.ER PO SCH ×2 (08:26→09:51)
[2019-06-09] MEDS: ASPIRIN 81 MG PO SCH ×2 (08:26→11:41)
[2019-06-09] MEDS: ATENOLOL 25 MG TAB PO SCH ×2 (08:26→09:51)
[2019-06-09] MEDS: DILTIAZEM 125 MG in SODIUM CHLORIDE 0.9% 100 ML IV SCH ×2 (08:26→20:38)
[2019-06-09] MEDS: HEPARIN SODIUM,PORCINE 5,000 UNIT/ML 1 ML VIAL SQ SCH ×2 (08:26→20:38)
[2019-06-09] MEDS: CYCLOBENZAPRINE 10 MG TAB PO SCH (08:26)
[2019-06-09] MEDS: GABAPENTIN 300 MG CAP PO SCH ×2 (08:26→09:51)
[2019-06-09] MEDS: LEVOTHYROXINE 75 MCG TAB PO SCH ×2 (08:26→09:51)
[2019-06-09] MEDS: FLUCONAZOLE IN NACL,ISO-OSM 200 MG in SALINE 1 100ML.BAG IVPB SCH (08:27)
[2019-06-09] MEDS: LIDOCAINE 5% PATCH TOPICAL SCH (08:28)
[2019-06-09] MEDS ORDERED: FUROSEMIDE 10 MG/ML 2 ML VIAL IV ONE (09:02)
[2019-06-09] MEDS: LEVOTHYROXINE IVP 100 MCG/5 ML VIAL IV SCH (09:55)
--- NOTE | 2019-06-09 10:20 | XR ---
EXAMINATION TYPE: XR chest 1V portable DATE OF EXAM: 06/09/2019 COMPARISON: 06/08/2019 HISTORY: Shortness of breath TECHNIQUE: Single frontal view of the chest is obtained. FINDINGS: Endotracheal tube and enteric tubes have been removed in the interim. There is tortuosity of the mediastinum similar to the prior. Diffuse interstitial prominence has slightly worsened on the right. Background fibrosis suspected. Very trace pleural effusions blunt the costophrenic angles. Ce rvical fusion device is noted with surgical clips at the left perihilar region. There is diffuse osse ous demineralization. IMPRESSION: Slightly worsening right-sided interstitial prominence and similar diffuse left-sided in terstitial prominence. Atypical pneumonia or interstitial pulmonary edema should be considered on a b ackground of pulmonary fibrosis.
--- NOTE | 2019-06-09 11:15 | P.PN ---
Progress Note - Text Progress Note Date: 06/09/19 Orthopedic Spine: History of present illness: Patient is a pleasant 79-year-old male who is seen at the bedside following C5-6 and C6-7 anterior cervical decompression and fusion with corpectomy of C6 performed last 05/31/2019. The patient was able to be extubated yesterday. He is awake, alert, oriented in the ICU today. He states he is not currently spearing sitting any significant pain with his upper extremities. He does have significant weakness greater on the right than the left. He feels his cervical pain has been adequately controlled. He has his hard cervical collar intact. Nursing states he did have an episode of atrial fibrillation and RVR last evening. She states cardiology may plan to proceed forward with anticoagulation if okayed from an orthopedic standpoint. 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 He is known to have lung cancer. He continues to be seen and examined by multiple providers including oncology, pulmonology, medicine, and cardiology. Patient is currently on Unasyn IV. Physical Exam Cervical Fusion: Status post surgical day number 9 Patient is awake, alert, and oriented 3 Vital signs stable Adequate chest excursion with inspiration and expiration Patient does have significant difficulty with active range of motion of the deltoids bilaterally greater on the right than the left Patient is able to perform some biceps strength and triceps strength bilaterally Motor strength of the upper extremities is 4-/5 including waitstaff bilaterally Dressing has been removed over the surgical site Incision site remains dry without any active drainage and no obvious signs of infection at the surgical site Significant bruising around the surgical site and over the proximal part of the sternum Skin is firm to palpation around the surgical site Hard cervical collar is intact Assessment: Status post C5-6 and C6-7 anterior cervical decompression and fusion with corpectomy of C6 C6 pathologic compression fracture Bilateral upper extremity weakness greater on the right than the left Surgical pathology report shows 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 Ambulate as tolerated; work with Physical Therapy to increase mobilization 2. Continue pain control with oral [place] and IV Dilaudid as needed 3. Dressing has been removed from the patient's surgical site. Patient may shower without a dressing intact at this time. Patient must keep hard cervical collar intact while bathing. 4. Patient must continue to keep hard cervical collar intact at all times; we will plan to keep his hard cervical collar intact postoperatively for approximately 12 weeks and may plan to transition to a soft cervical collar pending on the patient's progress. 5. Patient will continue to be seen and examined by multiple other medical providers including oncology, pulmonology, cardiology and medicine for his other significant medical diagnoses 6. Patient did have an episode of atrial fibrillation and RVR. It is okay from an orthopedic standpoint for the patient to be started on anticoagulation medication as needed and has prescribed by cardiology or other medical providers. 7. Following discharge, patient may follow-up with Ric Cunningham PA-C or Dr. Yamil Flores at [facility] in 1-2 weeks following discharge 7. We will continue to follow patient closely during his admission
[2019-06-09 12:33] LABS: Glucose,Whole Blood 137 mg/dL (75-99)
--- NOTE | 2019-06-09 12:39 | P.CRDCN ---
History of Present Illness History of present illness: This is Rosa Maria Cornejo PA-C scribing on behalf of Dr. Morales The patient was interviewed and examined by Dr. Morales Chart reviewed HPI Patient is a 79-year-old male with a history of COPD, CAD status post stenting, hypertension, hypothyroidism, lung cancer, bone cancer, who underwent anterior cervical decompression of C6 and fusion of C5 to C7 for compression fracture of C6 and cervical stenosis and myelopathy. Cardiology is consulted for management of atrial fibrillation. He has an atrial fibrillation with mild RVR, rates in the 90s to low 100s, currently on IV Cardizem. He is currently unable to swallow and is awaiting a PEG tube placement. Patient is currently alert and denies any chest pain. ROS: No fevers, chills or rigors, no cough, phlegm or expectoration, no nausea, vomiting or diarrhea, no hematuria, dysuria, Positive for joint pain no strokes or seizures, Positive for bruises EXAMINATION: Patient is afebrile, pulse in the 90s, respirations 19, blood pressure 115/78, oxygen saturation 100% on [address] Morales and examined the patient in the ICU Patient is alert but appears uncomfortable Heart is irregular, no audible murmurs Breath sounds equal Multiple bruises noted REVIEW OF LABS, ECG & MEDICAL DATA WBC 55.9, hemoglobin 8, platelets 241, calcium 4.6, 145, creatinine 0.68 IMPRESSION / ASSESSMENT: Atrial fibrillation Status post anterior cervical decompression of C6 and fusion of C5 to C7 for compression fracture of C6 and cervical stenosis and myelopathy History of lung cancer and bone cancer COPD History of CAD status post stenting Hypertension Hypothyroidism Anemia PLAN: Continue IV Cardizem for now, once the PEG tube is placed we'll switch to beta vida Hold off on anticoagulation as patient is status post cervical surgery Patient is a poor candidate for long-term anticoagulation Past Medical History Past Medical History: Coronary Artery Disease (CAD), Cancer, Chest Pain / Angina, COPD, Hearing Disorder / Deafness, Hyperlipidemia, Hypertension, Osteo arthritis (OA), Thyroid Disorder Additional Past Medical History / Comment(s): LUNG CA History of Any Multi-Drug Resistant Organisms: None Reported Past Surgical History: Cholecystectomy, Heart Catheterization With Stent, Joint Replacement Additional Past Surgical History / Comment(s): LUNG RESECTION TOP OF LEFT LUNG, LEFT WRIST ORIF 2007, HIP X 2 LEFT HIP, Past Anesthesia/Blood Transfusion Reactions: No Reported Reaction Date of Last Stent Placement:: Past Psychological History: No Psychological Hx Reported Smoking Status: Current every day smoker Past Alcohol Use History: None Reported, Rare Additional Past Alcohol Use History / Comment(s): quit smoking 2008 Past Drug Use History: None Reported - Past Family History Father Family Medical History: AICD/Pacemaker Medications and Allergies Home Medications Medication Instructions Recorded Confirmed Type Ascorbic Acid [Vitamin C] 500 mg PO DAILY 07/25/15 05/29/19 History Aspirin [Adult Low Dose Aspirin EC] 81 mg PO DAILY 07/25/15 05/29/19 History Atenolol 25 mg PO DAILY 07/25/15 05/29/19 History Atorvastatin [Lipitor] 40 mg PO HS 07/25/15 05/29/19 History Alendronate Sodium [Fosamax] 70 mg PO TU 03/21/18 05/29/19 History Cyclobenzaprine [Flexeril] 10 mg PO TID 03/21/18 05/29/19 History Gabapentin [Neurontin] 300 mg PO TID 03/21/18 05/29/19 History Meloxicam [Mobic] 7.5 mg PO BID 03/21/18 05/29/19 History Multivitamins, Thera [Multivitamin 1 tab PO DAILY 03/21/18 05/29/19 History (formulary)] Albuterol Sulfate [Albuterol 1 puff PO RT-QID PRN 05/29/19 05/29/19 History Sulfate Hfa] Budesonide/Formoterol Fumarate 2 puff INHALATION RT-BID 05/29/19 05/29/19 History [Symbicort 160-4.5 Mcg Inhaler] Levothyroxine Sodium [Synthroid] 75 mcg PO DAILY 05/29/19 05/29/19 History Lidocaine 5% Patch [Lidoderm] 1 patch TOPICAL DAILY 05/29/19 05/29/19 History Allergies Allergy/AdvReac Type Severity Reaction Status Date / Time No Known Allergies Allergy Verified 05/29/19 13:03 Physical Exam Vitals: Vital Signs Temp Pulse Resp BP Pulse Ox 06/09/19 12:00 97.9 F 93 19 115/78 100 06/09/19 11:34 108 H 05/01/20 11:24 111 H 06/09/19 11:00 95 13 113/68 100 06/09/19 10:00 93 20 106/87 97 06/09/19 09:00 98 16 101/70 96 06/09/19 08:35 86 06/09/19 08:19 87 06/09/19 08:00 98.3 F 96 16 113/62 06/09/19 07:00 89 20 101/59 94 L 06/09/19 06:00 93 20 101/51 98 06/09/19 05:00 90 12 106/64 96 06/09/19 04:00 97.8 F 80 14 109/67 97 06/09/19 03:00 98 14 103/79 97 06/09/19 02:00 91 14 106/75 97 06/09/19 01:00 86 18 102/64 97 06/09/19 00:00 97.8 F 89 17 102/70 98 06/08/19 23:00 103 H 20 104/63 98 06/08/19 22:00 101 H 19 109/77 100 06/08/19 21:00 134 H 17 109/77 100 06/08/19 20:00 97.6 F 126 H 20 134/84 100 06/08/19 19:35 109 H 06/08/19 19:24 125 H 06/08/19 19:00 116 H 15 139/88 99 06/08/19 18:00 93 16 145/84 99 06/08/19 17:00 86 12 148/99 100 06/08/19 16:00 84 12 142/85 99 06/08/19 15:41 98 06/08/19 15:00 84 16 158/81 97 06/08/19 14:00 82 16 137/86 98 06/08/19 13:00 81 11 L 147/85 99 Intake and Output 06/08/19 06/09/19 06/09/19 22:59 06:59 14:59 Intake Total 194 364 570.667 Output Total 595 360 665 Balance -401 4 -94.333 Intake: IV 194 364 463 Ampicillin-Sulbactam 3 gm 100 200 In Sodium Chloride 0.9% 100 ml @ 200 mls/hr IVPB Q6HR [facility] Rx#:[id number] Cardizem 10 80 45 Fluconazole in NaCl,Iso- 100 Osm 200 mg In Saline 1 100ml.bag @ 100 mls/hr IVPB DAILY [facility] Rx#: [id number] Sodium Chloride 0.9% 1, 160 160 100 000 ml @ 20 mls/hr IV . Q24H [facility] Rx#:[id number] pressure bag 24 24 18 Intake, IV Titration 107.667 Amount Diltiazem 125 mg In 107.667 Sodium Chloride 0.9% 100 ml @ 5 MG/HR 5 mls/hr IV .Q24H [facility] Rx#:[id number] Output: Urine 595 360 665 Other: Voiding Method Indwelling Catheter Indwelling Catheter Indwelling Catheter Weight 69.3 kg ABP, PAP, CO, CI - Last 8 Hours Arterial Blood Pressure 130/56 Arterial Blood Pressure 118/55 Arterial Blood Pressure 107/68 Arterial Blood Pressure 135/69 Arterial Blood Pressure 125/62 Arterial Blood Pressure 125/60 Arterial Blood Pressure 115/54 Arterial Blood Pressure 123/53 Results 06/09/19 04:50 06/09/19 04:50 CBC 06/09/19 Range/Units 04:50 WBC 55.9 H* (3.8-10.6) k/uL RBC 2.56 L (4.30-5.90) m/uL Hgb 8.0 L (13.0-17.5) gm/dL Hct 24.4 L (39.0-53.0) % Plt Count 241 (150-450) k/uL Comprehensive Metabolic Panel 06/09/19 Range/Units 04:50 Sodium 138 (137-145) mmol/L Potassium 4.6 (3.5-5.1) mmol/L Chloride 108 H (98-107) mmol/L Carbon Dioxide 31 H (22-30) mmol/L BUN 45 H (9-20) mg/dL Creatinine 0.68 (0.66-1.25) mg/dL Glucose 117 H (74-99) mg/dL Calcium 8.8 (8.4-10.2) mg/dL Current Medications Generic Name Dose Route Start Last Admin Trade Name Freq PRN Reason Stop Dose Admin Hydrocodone Bitart/Acetaminophen 1 each 05/29/19 12:28 06/05/19 20:06 Moran 10 PO 1 each Q6H PRN Administration Pain Al Hydroxide/Mg Hydroxide 30 ml 05/31/19 16:44 Maalox PO Q4HR PRN Indigestion Albuterol/Ipratropium 3 ml 06/02/19 13:00 06/09/19 11:24 Duoneb 0.5 Mg-3 Mg/3 Ml Soln INHALATION 3 ml RT-TID [facility] Administration Albuterol/Ipratropium 3 ml 06/02/19 12:00 06/06/19 00:22 Duoneb 0.5 Mg-3 Mg/3 Ml Soln INHALATION 3 ml RT-Q2H PRN Administration Shortness Of Breath Or Wheezing Aspirin 300 mg 06/09/19 12:00 Aspirin RECTAL DAILY [facility] Benzocaine/Menthol 1 each 05/31/19 16:43 Cepacol Lozenge MUCOUS MEM Q4HR PRN Sore Throat Dexamethasone Sodium Phosphate 6 mg 05/31/19 00:00 06/09/19 11:50 Decadron IV 6 mg Q6HR [facility] Administration Heparin Sodium (Porcine) 5,000 unit 05/29/19 21:00 06/09/19 08:26 Heparin SQ 5,000 unit Q12HR [facility] Administration Hydromorphone HCl 0.5 mg 05/31/19 16:43 06/07/19 07:46 Dilaudid IVP 0.5 mg Q4HR PRN Administration Pain Hydromorphone HCl 1 mg 05/31/19 16:43 06/09/19 11:49 Dilaudid IVP 1 mg Q4HR PRN Administration Pain Sodium Chloride 1,000 mls @ 20 mls/hr 05/31/19 16:45 06/08/19 17:06 Saline 0.9% IV 20 mls/hr .Q24H [facility] Administration Norepinephrine Bitartrate 4 mg 254 mls @ 12.357 mls/hr 06/03/19 15:00 06/08/19 21:47 / Sodium Chloride IV Not Given .[id number] [facility] Protocol 0.05 MCG/KG/MIN Fluconazole/Sodium Chloride 100 mls @ 100 mls/hr 06/05/19 17:00 06/09/19 08:27 200 mg/ IV Solution IVPB 100 mls/hr DAILY [facility] Administration Ampicillin Sodium/Sulbactam 100 mls @ 200 mls/hr 06/05/19 18:00 06/09/19 11:42 Sodium 3 gm/ Sodium Chloride IVPB 200 mls/hr Q6HR [facility] Administration Diltiazem HCl 125 mg/ Sodium 125 mls @ 5 mls/hr 06/08/19 21:30 06/09/19 08:26 Chloride IV 10 mg/hr .Q24H [facility] 10 mls/hr Administration 5 MG/HR Insulin Aspart 0 unit 06/03/19 18:00 06/09/19 06:53 Novolog SQ Not Given Q6HR [facility] Protocol Levothyroxine Sodium 37.5 mcg 06/09/19 09:15 06/09/19 09:55 Synthroid Ivp IV 37.5 mcg DAILY [facility] Administration Lidocaine 1 patch 05/30/19 09:00 06/09/19 08:28 Lidoderm TOPICAL 1 patch DAILY [facility] Administration Magnesium Hydroxide 2,400 mg 05/31/19 16:43 Milk Of Magnesia PO DAILY PRN Constipation Miscellaneous Information 1 each 06/05/19 04:56 Potassium Per Protocol MISCELLANE DAILY PRN Per Protocol Protocol Ondansetron HCl 4 mg 05/31/19 16:44 Zofran IVP Q8HR PRN Nausea And Vomiting Pantoprazole Sodium 40 mg 05/30/19 16:15 06/09/19 08:25 Protonix IVP 40 mg DAILY [facility] Administration Intake and Output 06/08/19 06/09/19 06/09/19 22:59 06:59 14:59 Intake Total 194 364 570.667 Output Total 595 360 665 Balance -401 4 -94.333 Intake: IV 194 364 463 Ampicillin-Sulbactam 3 gm 100 200 In Sodium Chloride 0.9% 100 ml @ 200 mls/hr IVPB Q6HR [facility] Rx#:[id number] Cardizem 10 80 45 Fluconazole in NaCl,Iso- 100 Osm 200 mg In Saline 1 100ml.bag @ 100 mls/hr IVPB DAILY [facility] Rx#: [id number] Sodium Chloride 0.9% 1, 160 160 100 000 ml @ 20 mls/hr IV . Q24H [facility] Rx#:[id number] pressure bag 24 24 18 Intake, IV Titration 107.667 Amount Diltiazem 125 mg In 107.667 Sodium Chloride 0.9% 100 ml @ 5 MG/HR 5 mls/hr IV .Q24H [facility] Rx#:[id number] Output: Urine 595 360 665 Other: Voiding Method Indwelling Catheter Indwelling Catheter Indwelling Catheter Weight 69.3 kg 06/09/19 04:50 06/09/19 04:50
--- NOTE | 2019-06-09 13:02 | P.GSCN ---
History of Present Illness Consult date: 06/09/19 Reason for Consult: PEG tube Requesting physician: Katia Pickett History of present illness: CHIEF COMPLAINT: PEG tube insertion HISTORY OF PRESENT ILLNESS: 79-year-old male who is currently admitted to the intensive care unit. Patient is status post C5-6 and C6-7 anterior cervical decompression and fusion with corpectomy of C6 with Dr. Flores. Patient also with aspiration pneumonia. General surgery was consulted for PEG tube placement. PAST MEDICAL HISTORY: See list. PAST SURGICAL HISTORY: See list. SOCIAL HISTORY: No illicit drug use. REVIEW OF SYSTEMS: CONSTITUTIONAL: Denies fever or chills. HEENT: Denies blurred vision, vision changes, or eye pain. Denies hemoptysis CARDIOVASCULAR: Denies chest pain or pressure. RESPIRATORY: No shortness of breath. GASTROINTESTINAL: Denies abdominal pain. HEMATOLOGIC: Denies bleeding disorders. GENITOURINARY: Denies any blood in urine. SKIN: Denies pruitis. Denies rash. PHYSICAL EXAM: VITAL SIGNS: Reviewed. GENERAL: Well-developed in no acute distress. HEENT: Cervical collar in place. No sclera icterus. Extraocular movements grossly intact. Moist buccal mucosa. Head is atraumatic, normocephalic. ABDOMEN: Soft. Nondistended. Nontender. NEUROLOGIC: Alert and oriented. Cranial nerves II through XII grossly intact. LABORATORY DATA: WBC 55.9. Hemoglobin 8.0. Platelet count 241. ASSESSMENT: 1. Aspiration pneumonia PLAN: Patient will be scheduled for PEG tube insertion with Dr. Han on Wednesday June 12, 2019 Nurse practitioner note has been reviewed by physician. Signing provider agrees with the documented findings, assessment, and plan of care. Past Medical History Past Medical History: Coronary Artery Disease (CAD), Cancer, Chest Pain / Angina, COPD, Hearing Disorder / Deafness, Hyperlipidemia, Hypertension, Osteoar thritis (OA), Thyroid Disorder Additional Past Medical History / Comment(s): LUNG CA History of Any Multi-Drug Resistant Organisms: None Reported Past Surgical History: Cholecystectomy, Heart Catheterization With Stent, Joint Replacement Additional Past Surgical History / Comment(s): LUNG RESECTION TOP OF LEFT LUNG, LEFT WRIST ORIF 2007, HIP X 2 LEFT HIP, Past Anesthesia/Blood Transfusion Reactions: No Reported Reaction Date of Last Stent Placement:: Past Psychological History: No Psychological Hx Reported Smoking Status: Current every day smoker Past Alcohol Use History: None Reported, Rare Additional Past Alcohol Use History / Comment(s): quit smoking 2008 Past Drug Use History: None Reported - Past Family History Father Family Medical History: AICD/Pacemaker Medications and Allergies Home Medications Medication Instructions Recorded Confirmed Type Ascorbic Acid [Vitamin C] 500 mg PO DAILY 07/25/15 05/29/19 History Aspirin [Adult Low Dose Aspirin EC] 81 mg PO DAILY 07/25/15 05/29/19 History Atenolol 25 mg PO DAILY 07/25/15 05/29/19 History Atorvastatin [Lipitor] 40 mg PO HS 07/25/15 05/29/19 History Alendronate Sodium [Fosamax] 70 mg PO TU 03/21/18 05/29/19 History Cyclobenzaprine [Flexeril] 10 mg PO TID 03/21/18 05/29/19 History Gabapentin [Neurontin] 300 mg PO TID 03/21/18 05/29/19 History Meloxicam [Mobic] 7.5 mg PO BID 03/21/18 05/29/19 History Multivitamins, Thera [Multivitamin 1 tab PO DAILY 03/21/18 05/29/19 History (formulary)] Albuterol Sulfate [Albuterol 1 puff PO RT-QID PRN 05/29/19 05/29/19 History Sulfate Hfa] Budesonide/Formoterol Fumarate 2 puff INHALATION RT-BID 05/29/19 05/29/19 History [Symbicort 160-4.5 Mcg Inhaler] Levothyroxine Sodium [Synthroid] 75 mcg PO DAILY 05/29/19 05/29/19 History Lidocaine 5% Patch [Lidoderm] 1 patch TOPICAL DAILY 05/29/19 05/29/19 History Allergies Allergy/AdvReac Type Severity Reaction Status Date / Time No Known Allergies Allergy Verified 05/29/19 13:03 Surgical - Exam Vital Signs Temp Pulse Resp BP Pulse Ox 97.5 F L 89 20 137/79 97 05/29/19 08:17 05/29/19 08:17 05/29/19 08:17 05/29/19 08:17 05/29/19 08:17 Results - Labs 06/09/19 04:50 06/09/19 04:50 Abnormal Lab Results - Last 24 Hours (Table) 06/08/19 06/08/19 06/08/19 Range/Units 17:16 18:21 23:39 WBC (3.8-10.6) k/uL RBC (4.30-5.90) m/uL Hgb (13.0-17.5) gm/dL Hct (39.0-53.0) % Neutrophils # (Manual) (1.3-7.7) k/uL Monocytes # (Manual) (0-1.0) k/uL Metamyelocytes # (Man) (0) k/uL ESR (0-15) mm/hr Chloride (98-107) mmol/L Carbon Dioxide (22-30) mmol/L BUN (9-20) mg/dL Glucose (74-99) mg/dL POC Glucose (mg/dL) 117 H 111 H 159 H (75-99) mg/dL 06/09/19 06/09/19 06/09/19 Range/Units 04:50 04:50 04:50 WBC 55.9 H* (3.8-10.6) k/uL RBC 2.56 L (4.30-5.90) m/uL Hgb 8.0 L (13.0-17.5) gm/dL Hct 24.4 L (39.0-53.0) % Neutrophils # (Manual) 50.30 H (1.3-7.7) k/uL Monocytes # (Manual) 3.91 H (0-1.0) k/uL Metamyelocytes # (Man) 0.56 H (0) k/uL ESR 32 H (0-15) mm/hr Chloride 108 H (98-107) mmol/L Carbon Dioxide 31 H (22-30) mmol/L BUN 45 H (9-20) mg/dL Glucose 117 H (74-99) mg/dL POC Glucose (mg/dL) (75-99) mg/dL 06/09/19 06/09/19 Range/Units 06:40 12:22 WBC (3.8-10.6) k/uL RBC (4.30-5.90) m/uL Hgb (13.0-17.5) gm/dL Hct (39.0-53.0) % Neutrophils # (Manual) (1.3-7.7) k/uL Monocytes # (Manual) (0-1.0) k/uL Metamyelocytes # (Man) (0) k/uL ESR (0-15) mm/hr Chloride (98-107) mmol/L Carbon Dioxide (22-30) mmol/L BUN (9-20) mg/dL Glucose (74-99) mg/dL POC Glucose (mg/dL) 130 H 137 H (75-99) mg/dL Microbiology - Last 24 Hours (Table) 06/05/19 18:20 Blood Culture - Preliminary Blood No Growth after 72 hours 06/03/19 19:15 Gram Stain - Final Sputum Sputum Culture - Final Mireya albicans Staphylococcus aureus Diabetes panel 06/09/19 Range/Units 04:50 Sodium 138 (137-145) mmol/L Potassium 4.6 (3.5-5.1) mmol/L Chloride 108 H (98-107) mmol/L Carbon Dioxide 31 H (22-30) mmol/L BUN 45 H (9-20) mg/dL Creatinine 0.68 (0.66-1.25) mg/dL Glucose 117 H (74-99) mg/dL Calcium 8.8 (8.4-10.2) mg/dL Calcium panel 06/09/19 Range/Units 04:50 Calcium 8.8 (8.4-10.2) mg/dL Pituitary panel 06/09/19 Range/Units 04:50 Sodium 138 (137-145) mmol/L Potassium 4.6 (3.5-5.1) mmol/L Chloride 108 H (98-107) mmol/L Carbon Dioxide 31 H (22-30) mmol/L BUN 45 H (9-20) mg/dL Creatinine 0.68 (0.66-1.25) mg/dL Glucose 117 H (74-99) mg/dL Calcium 8.8 (8.4-10.2) mg/dL Adrenal panel 06/09/19 Range/Units 04:50 Sodium 138 (137-145) mmol/L Potassium 4.6 (3.5-5.1) mmol/L Chloride 108 H (98-107) mmol/L Carbon Dioxide 31 H (22-30) mmol/L BUN 45 H (9-20) mg/dL Creatinine 0.68 (0.66-1.25) mg/dL Glucose 117 H (74-99) mg/dL Calcium 8.8 (8.4-10.2) mg/dL
--- NOTE | 2019-06-09 14:09 | PN ---
PROGRESS NOTE DATE OF SERVICE: 06/09/2019 This is a 79-year-old gentleman who was admitted with multiple medical issues including acute hypoxic respiratory failure and bilateral aspiration pneumonia. The patient mechanically extubated. The patient is rather drowsy at this time. The PEG tube placement is being planned at this time. Patient also developed atrial fibrillation with rapid ventricular rate. Patient on IV Cardizem, heparin has been on hold because of the multiple bruises at this time. 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 Radiation Oncology also has been consulted. Patient will be monitored closely in ICU. PAST MEDICAL HISTORY: Reviewed. REVIEW OF SYSTEMS: CARDIOVASCULAR SYSTEM: As mentioned earlier. RESPIRATORY: As mentioned earlier. GI: No nausea. No dysuria. NERVOUS SYSTEM: As mentioned earlier. CURRENT MEDICATIONS: 1. Alleman 10 mg q.6 p.r.n. 2. DuoNeb q.i.d. and p.r.n. 3. Unasyn 3 g IV q.8. 4. Aspirin 300 mg rectally daily. 5. Cepacol. 6. Decadron. 7. Cardizem drip. 8. Dilaudid. 9. NovoLog. 10.Lidoderm. 11.Milk of Magnesia. 12.Protonix. PHYSICAL EXAM: Patient is alert, oriented x2. Pulse is 103, irregular. Blood pressure 140/73, respiration 14, temperature 97.9, pulse ox 100% on 4 L. HEENT: Conjunctivae normal. Oral mucosa moist. NECK: Status post surgery, neck collar preset. CARDIOVASCULAR SYSTEM: Irregular, tachycardic, ejection murmur. RESPIRATION: Breath sounds at the bases, a few scattered rhonchi, no crackles. ABDOMEN: Soft, nontender. LEGS: No edema. No swelling. NERVOUS SYSTEM: Diffusely weak. Some minimal swelling also present. LABS: WBC 55.9, hemoglobin is 8 and sodium 130, potassium 4.6. ASSESSMENT: 1. Acute hypoxic respiratory failure secondary to bilateral aspiration pneumonia, status post mechanical ventilation with possible sepsis and hypotension with severe sepsis present on admission. 2. Propionibacterium acne from the anaerobic cultures from the surgery. 3. 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 4. Dysphagia for PEG tube placement. 5. Metabolic encephalopathy acute multifactorial. 6. Atrial fibrillation with fast ventricular rate. 7. Leukemoid reaction. 8. Staph hominis from the blood. 9. Mireya albicans from the sputum. 10.History of recent cervical decompression and diskectomy, C4-5, C6-7 with a suspected C6 pathology compression fracture as well as upper extremity weakness on the right side with previous cervical canal stenosis, bacteremia, neck pain and upper extremity pain. 11.History of coronary artery disease. 12.History of chronic obstructive pulmonary disease. 13.Hypertension. 14.Hyperlipidemia. 15.Rule out right lung cancer with mental status. 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 17.History of degenerative joint disease. 18.History of thyroid cancer. 19.History of coronary artery disease, stent. 20.History of nicotine dependence, continued ongoing. 21.FULL CODE. RECOMMENDATION: In this 79-year-old gentleman who presented with multiple complex medical issues, will monitor the patient closely. Continue with the current management and symptomatic treatment. Continue with the monitoring white count, white count is extremely elevated. Closely follow with Hematology/Oncology. I would also recommend repeat cultures of sputum, urine and blood at this point. Otherwise, continue the antibiotics. Patient is started on IV Cardizem. Monitor closely the heart rate. Cardiology has seen the patient. Heparin is on hold because of concerns of recent surgery, malignancy and as well as multiple ecchymoses. Rectal aspirin has been recommended. PEG tube placement for dysphagia. As mentioned earlier, the overall prognosis may be guarded because of multiple complex medical issues. Further recommendations to follow. MMODL / IJN: [id number] /
--- NOTE | 2019-06-09 14:11 | P.PN ---
Subjective Progress Note Date: 06/09/19 Principal diagnosis: Acute hypoxic respiratory failure secondary to aspiration pneumonia. 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 The patient is known to have history of lung cancer. The patient came into the hospital because of pain and numbness in his right upper extremity extending to his right thumb and this is been going on for the past 2 weeks to the point where the patient was unable to lift any objects because of the pain and numbness and tingling. His echo was elevated at 31. The calcium level is normal at 9.6. Lactic acid level at time of admission was 1.7. He had a CRP of 57.7 which is quite elevated and this is based on the previous blood work that was done on 05/17/2019. In the ED, the patient had a CAT scan of the brain that showed age-related atrophy and small vessel ischemic changes. An unenhanced CAT scan of the cervical spine also was done and it showed severe compression fracture of the C6 spine of an uncertain age/etiology with bony retropulsion of 3.5 mm. No evidence of any central canal stenosis or cord compression. Multilevel degenerative disc disease was seen with disc bulging and neurominal encroachment severe at the level of C3-C4 and there is also severe degenerative disc narrowing at the level of C5-C6. There is a 90% compression fracture of the T6 spine. Noted the patient was in the emergency department on 05/17/2023 with similar complaints of worsening shoulder and arm pain he was seen in emergency department and the patient underwent a CT angiogram of the upper extremity and it showed poor opacification of the radial and ulnar arteries at the level of the brachial bifurcation which was either technical in nature or high-grade stenosis/thrombosis which could not be completely ruled out. A CAT scan of the chest was also done utilizing a CT angios protocol and the CAT scan showed no evidence of any pulmonary embolism. Nevertheless, there were several for nodules, and a lung mass. There was a 3.4 cm right lower lobe pleural-based mass posteriorly in the right lower lobe area. There was another 7 mm right middle lobe pulmonary nodule, 5 mm left upper lobe pulmonary pleural-based nodule, 7 mm right upper lobe pulmonary nodule and a 4 mm right apical pulmonary nodule. There was extensive emphysema and some scattered subpleural fibrosis. The perihilar/peribronchial lymph nodes were identified. 4.1 cm suspicious lesion of the left adrenal gland was seen suspicious for metastases. This was a new finding monitor the patient's previous CAT scan from 03/22/2018 did not show any lung masses or nodules. There was however some scarring in the lung bases especially on the right in addition to emphysema and some elevation of left hemidiaphragm. S shaped scoliosis was also seen along with osseous demineralization. The patient is afebrile. The patient's pulse ox 99% on room air.: 19 evaluation was negative. Influenza A and B were negative. UA was negative. On today's evaluation of 05/30/2019, the patient was seen by spine surgery and the patient was given a neck brace. His pain is under good control. He is awaiting MRI of the cervical spine. The white cell count remains elevated. The pro-calcitonin level is low. He is still feeling weakness in the right upper extremity. A fine-needle aspirate of the lung metastatic to be considered and will going to consult interventional radiology. On 05/31/2019 patient seen in follow-up on general medical floor, still complaining of weakness in his arms and neck pain. Patient has a c-collar that he is wearing [id number], his imaging showed significant compression of his spinal cord. Patient was evaluated by orthopedic service and surgical decompression and spinal fusion was recommended and the patient is scheduled for his surgery today. Patient was also evaluated by radiation oncology, and he may need radiotherapy to the postoperative bed after completion of the above surgery, from pulmonary perspective, his breathing seems to be nonlabored, he is on room air, with a pulse ox of 96%, lung sounds are diminished, no rhonchi or wheezing, patient has been afebrile, today's labs have been reviewed showing white blood cell count of 32.8, hemoglobin 13.4, neutrophil count is 30.5, influenza and coronavirus PCR were negative, patient is receiving IV Decadron, patient is on vancomycin, blood culture showed coagulase-negative staph. On 06/01/2019 patient seen in follow-up on medical floor, he is postop day 1 status post anterior cervical decompression with discectomy and fusion of C5, C6 and C6 and C7. He is awake and alert, in no acute distress, room air pulse ox is 94%, he sitting up in the recliner, calm and comfortable, he is afebrile, vital signs are stable. Breathing is unlabored. Bone biopsy from the vertebral body of C6 and culture of vertebral body of the 6 are pending at this time. Today's labs have been reviewed showing white blood cell, 39.2, hemoglobin of 12.3, sodium 131, potassium is 4.3, chloride is 96, B1 is 30 creatinine 0.8. Patient is on cefepime and vancomycin for antibiotic coverage, ID service is following. Patient had blood culture with coagulase-negative staph, B blood cultures pending. On 06/02/2019 patient seen in follow-up on general medical floor, and today is postoperative day 2, status post anterior cervical decompression with discectomy and fusion of C5, 6, and C6 and C7, biopsy of the vertebral body of C6 and the culture of the vertebral body of C6. Biopsy results are still pending, cultures are negative thus far. Patient is afebrile, she is on 2 L of oxygen and the pulse ox of 96%, he still is complaining of some numbness and weakness in his right wrist, and some shortness of breath, and inability to clear phlegm, his lungs are clear, no wheezing, no rhonchi, he is already on Decadron. He is on cefepime and vancomycin for antibiotics, he is on breathing treatments, will add Mucinex. On 06/05/2019 patient seen in follow-up in the intensive care unit. Patient developed worsening respiratory failure requiring intubation and placement on mechanical ventilator on 06/03/2019 for suspected aspiration. Today on 06/05/2019 patient remains intubated, and sedated. Current vent settings are assist-control mode of ventilation with a rate of 22, tidal volume is 400, FiO2 is 35%, and PEEP of 5, this point his blood gases were reviewed showing pO2 45, pCO2 28, and pH of 7.47, and this was done on FiO2 of 35% and above-mentioned ventilator settings. This morning's chest x-ray has been reviewed, showing known right basilar lung mass, pronounced right paratracheal stripe, stable exam compared yesterday's chest x-ray. No acute pulmonary findings. She remains on empiric antibiotics in the form of Zosyn for possibility of aspiration pneumonia. Sputum culture so far only shows Mireya albicans. Cultures of the bony biopsy showing proprionibacterium acnes, final culture is pending, blood culture from 05/29/2019 showed staph hominis. Current antibiotics in the form of Zosyn, infectious disease is following. Today's labs have been reviewed showing blood blood cell count of 46.9, hemoglobin of 7.9, neutrophil count is 45.4, sodium is 132, potassium 3.8, CO2 is 21, B1 is 37 creatinine 0.76. Patient's hemodynamically stable, levo fed is on hold. Urine output is in the order of 50-60 ML per hour, he is tolerating tube feedings in the form of vital HP at a rate of 42 with a goal of 42 with standard water flushes. Bone biopsy of the vertebral body of C6 is still pending at this time Reevaluated today on 06/06/19. Patient remains intubated and mechanically ventilated. He is on assist control rate of 22 tidal volume is 400 FiO2 of 35% PEEP is 5. His peak airway pressure is 23 plateau pressure is 18. Patient is hemodynamically stable, requiring relatively good dose of propofol 60 mcg/kg/m. IV fluid is at KVO. Patient will be awakened today, and will at least try to address his mental status. We'll also try to assess weaning parameters if possible. Hence instructions were given to the nurses to hold his propofol, and at least assess mental status once the propofol is discontinued. ABG today showed a pO2 of 142 pCO2 of 36 pH of 7.41. Basic metabolic profile is normal. WBC count is significantly elevated at 53.4. Hemoglobin is 7.1. His WBC count has been elevated above 30,000 since admission. C-reactive protein is 16.8. The final pathology on his bone biopsy is still pending. Chest x-ray continues to show bilateral interstitial infiltrates and possibly a small left pleural effusion. Reevaluated today on 06/07/19, patient remains in the ICU, intubated, and mechanically ventilated. His ventilator settings are assist control rate of 22, tidal volume is 400 FiO2 is 35% and PEEP is 5. His ABG showed a pO2 of 142 pCO2 of 36 and pH of 7.41. Patient remains on propofol at 75 mcg/kg/m. He is hemodynamically stable. However he is quite sedated this morning. Patient seems to be double triggering the ventilator when sedation level is low. Today my plan is to hold sedation, assess mental status, and possibly consider a pressure support of 12 and CPAP trial. Chest x-ray is showing improvement in his by basilar infiltrates. Labs showed WBC count of 38.5 hemoglobin is 7 basic metabolic profile is relatively normal. Renal profile is normal. Bone biopsy is still pending. Reevaluated today on 06/08/19, patient remains intubated and mechanically ventilated. settings are assist control rate of 22 tidal volume is 400 FiO2 is 35% PEEP is 5. ABG showed a pO2 of 131 pCO2 of 35 pH of 7.48. Patient remains on propofol which I plan to discontinue today, and give the patient a weaning trial if possible. Patient remains on tube feeding, he is hemodynamically stable, and he is in sinus rhythm. 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 The findings do not point to metastatic lung cancer. Although the patient had previous history of lung cancer in the past, and he does have a right lower lobe mass which would have to be evaluated on outpatient basis may even need a CT- guided needle biopsy since the mass is peripheral. In the meantime the patient is being evaluated by oncology, and evaluated by radiation oncology. Chest x- ray today continues to show pneumonic process in both lungs more so in the left midlung. Patient did have documented aspiration pneumonia. Today if the patient tolerates weaning, may consider placing the patient on BiPAP post extubation. He will definitely need a swallow evaluation before any feeding could be initiated. Reevaluated today on 06/09/19, patient is now off mechanical ventilation, he is on few liters nasal cannula, doing relatively well. However his chest x-ray continues to show bilateral interstitial infiltrates, consistent with aspiration pneumonia, underlying interstitial edema is not entirely ruled out, hence the patient will be given a trial of diuresis. Patient is also on Cardizem at 10 mg per hour, patient developed atrial fibrillation with RVR yesterday. Cardiology was asked to see the patient. Patient is having difficulty swallowing, and could not perform a swallow evaluation on this patient, hence switched his oral medications to IV meds. And that's including his Synthroid, and his beta vida. Patient remains marginal at best while in the ICU. Objective - Vital Signs Vital signs: Vital Signs Temp 97.9 F 06/09/19 12:00 Pulse 103 H 06/09/19 13:00 Resp 14 06/09/19 13:00 BP 114/73 06/09/19 13:00 Pulse Ox 99 06/09/19 13:00 Intake & Output 06/08/19 06/09/19 06/09/19 18:59 06:59 18:59 Intake Total 615.938 466 570.667 Output Total 1145 680 665 Balance -529.062 -214 -94.333 Weight 69 kg 69.3 kg Intake: IV 276 466 463 Ampicillin-Sulbactam 3 gm 100 200 In Sodium Chloride 0.9% 100 ml @ 200 mls/hr IVPB Q6HR [facility] Rx#:[id number] Cardizem 90 45 Fluconazole in NaCl,Iso- 100 Osm 200 mg In Saline 1 100ml.bag @ 100 mls/hr IVPB DAILY [facility] Rx#: [id number] Sodium Chloride 0.9% 1, 240 240 100 000 ml @ 20 mls/hr IV . Q24H [facility] Rx#:[id number] pressure bag 36 36 18 Intake, IV Titration 99.938 107.667 Amount Diltiazem 125 mg In 107.667 Sodium Chloride 0.9% 100 ml @ 5 MG/HR 5 mls/hr IV .Q24H [facility] Rx#:[id number] Propofol 1,000 mg In 99.938 Empty Bag 1 bag @ Titrate IV .Q0M [facility] Rx#: [id number] Tube Feeding 210 Other 30 Output: Urine 1145 680 665 Other: Voiding Method Indwelling Catheter Indwelling Catheter Indwelling Catheter ABP, PAP, CO, CI - Last Documented Arterial Blood Pressure 133/55 - Exam GENERAL EXAM: Revealed a 79-year-old white male on nasal cannula, in no form of respiratory distress, cervical collar is in place. HEENT: PERRLA, EOMI, no icterus. NECK: No masses, no JVD, no thyroid enlargement, no adenopathy. Patient has a c-collar in place CHEST: No chest wall deformity. Symmetrical expansion. LUNGS: Symmetrical chest expansion, fine crackles at the bases. CVS: Irregular irregular rhythm, no S3 gallop. ABDOMEN: Soft, nontender. No hepatosplenomegaly, normal bowel sounds, no guarding or rigidity. EXTREMITIES: No clubbing, no edema, no cyanosis, 2+ pulses and upper and lower extremities. MUSCULOSKELETAL: No deformities, no limitation in range of motion. SPINE: Cervical collar remains in place. SKIN: No rashes CENTRAL NERVOUS SYSTEM: Alert oriented 3, no gross focal neurologic deficits. Psychiatric: Blunted affect, depressed mood, mental status seems to be intact. - Labs CBC & Chem 7: 06/09/19 04:50 06/09/19 04:50 Labs: Abnormal Lab Results - Last 24 Hours (Table) 06/08/19 06/08/19 06/08/19 Range/Units 17:16 18:21 23:39 WBC (3.8-10.6) k/uL RBC (4.30-5.90) m/uL Hgb (13.0-17.5) gm/dL Hct (39.0-53.0) % Neutrophils # (Manual) (1.3-7.7) k/uL Monocytes # (Manual) (0-1.0) k/uL Metamyelocytes # (Man) (0) k/uL ESR (0-15) mm/hr Chloride (98-107) mmol/L Carbon Dioxide (22-30) mmol/L BUN (9-20) mg/dL Glucose (74-99) mg/dL POC Glucose (mg/dL) 117 H 111 H 159 H (75-99) mg/dL 06/09/19 06/09/19 06/09/19 Range/Units 04:50 04:50 04:50 WBC 55.9 H* (3.8-10.6) k/uL RBC 2.56 L (4.30-5.90) m/uL Hgb 8.0 L (13.0-17.5) gm/dL Hct 24.4 L (39.0-53.0) % Neutrophils # (Manual) 50.30 H (1.3-7.7) k/uL Monocytes # (Manual) 3.91 H (0-1.0) k/uL Metamyelocytes # (Man) 0.56 H (0) k/uL ESR 32 H (0-15) mm/hr Chloride 108 H (98-107) mmol/L Carbon Dioxide 31 H (22-30) mmol/L BUN 45 H (9-20) mg/dL Glucose 117 H (74-99) mg/dL POC Glucose (mg/dL) (75-99) mg/dL 06/09/19 06/09/19 Range/Units 06:40 12:22 WBC (3.8-10.6) k/uL RBC (4.30-5.90) m/uL Hgb (13.0-17.5) gm/dL Hct (39.0-53.0) % Neutrophils # (Manual) (1.3-7.7) k/uL Monocytes # (Manual) (0-1.0) k/uL Metamyelocytes # (Man) (0) k/uL ESR (0-15) mm/hr Chloride (98-107) mmol/L Carbon Dioxide (22-30) mmol/L BUN (9-20) mg/dL Glucose (74-99) mg/dL POC Glucose (mg/dL) 130 H 137 H (75-99) mg/dL Microbiology - Last 24 Hours (Table) 06/05/19 18:20 Blood Culture - Preliminary Blood No Growth after 72 hours Assessment and Plan Assessment: Impression:Postoperative day #9status post anterior cervical decompression with corpectomy of C6 and fusion from C5 to C7 for his compression burst fracture at C6 and 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 Compression fracture of cervical spine/pathological fractures secondary to malignancy. History of lung cancer and previous left upper lobe resection. Patient does have a right lower lobe mass which will eventually require tissue diagnosis by CT-guided needle biopsy. This is to be done on outpatient basis. History of severe COPD. Interstitial lung disease is strongly suspected/pulmonary fibrosis. Coronary artery disease and previous coronary artery stenting. History of hypothyroidism. History of benign essential hypertension. Recommendation: Continue nasal cannula, titrate FiO2 down accordingly and keep O2 saturation above 90%. Continue Unasyn for aspiration pneumonia. Continue GI and DVT prophylaxis. Continue Decadron for his compression fracture and myelopathy. Continue bronchodilators. Oncology to evaluate again for his pathological finding on biopsy of the cervical bones Attempted placement of a nasogastric tube for feeding, however could not pass the tube into the esophagus. Coiling in the back of his throat.. Continue to monitor in the ICU. Remains critically ill, critical care time is 32 minutes Hopefully aerosol evaluation could be performed on this patient otherwise I will recommend a PEG tube placement. Time with Patient: Greater than 30
[2019-06-09] MEDS: NOREPINEPHRINE 4 MG in SODIUM CHLORIDE 0.9% 250 ML IV SCH (14:59)
[2019-06-09] MEDS: SODIUM CHLORIDE 0.9% 1,000 ML IV SCH (15:00)
[2019-06-09] MEDS: ASPIRIN 300 MG SUPP RECTAL SCH (15:00)
--- NOTE | 2019-06-09 16:02 | P.PN ---
Subjective Progress Note Date: 06/09/19 Principal diagnosis: impending cord compression, picture of metastatic cancer He has been extubated. His pathology has returned. 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 He still has weakness in right arm, distally able to move although lacking in range of motion. Objective - Vital Signs Vital signs: Vital Signs Temp 97.9 F 06/09/19 12:00 Pulse 115 H 06/09/19 15:00 Resp 16 06/09/19 15:00 BP 99/75 06/09/19 15:00 Pulse Ox 99 06/09/19 15:00 Intake & Output 06/08/19 06/09/19 06/09/19 18:59 06:59 18:59 Intake Total 615.938 466 654.667 Output Total 1145 680 980 Balance -529.062 -214 -325.333 Weight 69 kg 69.3 kg Intake: IV 276 466 547 Ampicillin-Sulbactam 3 gm 100 200 In Sodium Chloride 0.9% 100 ml @ 200 mls/hr IVPB Q6HR [facility] Rx#:[id number] Cardizem 90 60 Fluconazole in NaCl,Iso- 100 Osm 200 mg In Saline 1 100ml.bag @ 100 mls/hr IVPB DAILY [facility] Rx#: [id number] Sodium Chloride 0.9% 1, 240 240 160 000 ml @ 20 mls/hr IV . Q24H [facility] Rx#:[id number] pressure bag 36 36 27 Intake, IV Titration 99.938 107.667 Amount Diltiazem 125 mg In 107.667 Sodium Chloride 0.9% 100 ml @ 5 MG/HR 5 mls/hr IV .Q24H [facility] Rx#:[id number] Propofol 1,000 mg In 99.938 Empty Bag 1 bag @ Titrate IV .Q0M [facility] Rx#: [id number] Tube Feeding 210 Other 30 Output: Urine 1145 680 980 Other: Voiding Method Indwelling Catheter Indwelling Catheter Indwelling Catheter ABP, PAP, CO, CI - Last Documented Arterial Blood Pressure 98/76 - Exam Gen: awake and following directions. Head: NCNT Neck: Supple, C collar inplace ext: Right arm weakness Heart: Irr Lungs: Dimished Calm - Labs CBC & Chem 7: 06/09/19 04:50 06/09/19 04:50 Labs: Abnormal Lab Results - Last 24 Hours (Table) 06/08/19 06/08/19 06/08/19 Range/Units 17:16 18:21 23:39 WBC (3.8-10.6) k/uL RBC (4.30-5.90) m/uL Hgb (13.0-17.5) gm/dL Hct (39.0-53.0) % Neutrophils # (Manual) (1.3-7.7) k/uL Monocytes # (Manual) (0-1.0) k/uL Metamyelocytes # (Man) (0) k/uL ESR (0-15) mm/hr Chloride (98-107) mmol/L Carbon Dioxide (22-30) mmol/L BUN (9-20) mg/dL Glucose (74-99) mg/dL POC Glucose (mg/dL) 117 H 111 H 159 H (75-99) mg/dL Plasma Lactic Acid Jose (0.7-2.0) mmol/L 06/09/19 06/09/19 06/09/19 Range/Units 04:50 04:50 04:50 WBC 55.9 H* (3.8-10.6) k/uL RBC 2.56 L (4.30-5.90) m/uL Hgb 8.0 L (13.0-17.5) gm/dL Hct 24.4 L (39.0-53.0) % Neutrophils # (Manual) 50.30 H (1.3-7.7) k/uL Monocytes # (Manual) 3.91 H (0-1.0) k/uL Metamyelocytes # (Man) 0.56 H (0) k/uL ESR 32 H (0-15) mm/hr Chloride 108 H (98-107) mmol/L Carbon Dioxide 31 H (22-30) mmol/L BUN 45 H (9-20) mg/dL Glucose 117 H (74-99) mg/dL POC Glucose (mg/dL) (75-99) mg/dL Plasma Lactic Acid Jose (0.7-2.0) mmol/L 06/09/19 06/09/19 06/09/19 Range/Units 06:40 12:22 13:40 WBC (3.8-10.6) k/uL RBC (4.30-5.90) m/uL Hgb (13.0-17.5) gm/dL Hct (39.0-53.0) % Neutrophils # (Manual) (1.3-7.7) k/uL Monocytes # (Manual) (0-1.0) k/uL Metamyelocytes # (Man) (0) k/uL ESR (0-15) mm/hr Chloride (98-107) mmol/L Carbon Dioxide (22-30) mmol/L BUN (9-20) mg/dL Glucose (74-99) mg/dL POC Glucose (mg/dL) 130 H 137 H (75-99) mg/dL Plasma Lactic Acid Jose 2.8 H* (0.7-2.0) mmol/L Microbiology - Last 24 Hours (Table) 06/05/19 18:20 Blood Culture - Preliminary Blood No Growth after 72 hours Assessment and Plan Plan: Assessment and Recommendations: 1. Right Lobe Pulmonary Mass with additional smaller masses: - Pulmonary is following - With history of lung cancer will need biopsy tissue of new finding as concer katy for recurrent picture of cancer, malignancy - Will defer Bronch versus other to pulmonary for tissue biopsy Concern for cord compression: MRI pending - Possibility of malignancy involving the C-spine with secondary compression cannot be ruled out knowing that the patient has several pulmonary lesions. Dexamethasone is ordered and once tissue biopsy proven malignancy will consult radiation oncology - cT abdomen and pelvis reveal bilateral adrenal massess, appears picture of recurrent metastatic lung cancer. 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 With current need for IV abx will need to await resolution of infections prior to starting antibiotics, ok to initiate XRT. 2. Leukocytocytosis: - Neutrophilia, Lymphocytopenia - His labs show no alarming abnormality other than very slightly elevated monocytes which was present in past and increased WBC likely reactive to acute process - However light chain ratio and kappa light chain increased in past therefore will repeat. Check urine immunofixation - Underwent evaluation in 2011 and found to be benign at that time. 3. Respiratory Failure:Resolving - Intubated and now extubated 4. Leukocytosis: - Secondary to bacteremia 5. Normocytic Anemia: 7 today - Multifacotial likely - Monitor and transfuse less than 7 - Continued drop, check cmp to incorporate recheck of liver function - Iron studies rechecked today Plan: - Completion of abx and resolution of bacteremia and wound prior to initiation of chemotherapy - Ok for Radiation - Will need PT/OT for movement and strength of RUE Physician Attest: I have completed the full history and physical and developed the full assessment and recommendations, agree with dictation by Lyla Anaya NP. Dictated as a scribe
[2019-06-09 18:02] LABS: Glucose,Whole Blood 141 mg/dL (75-99)
[2019-06-09] MEDS ORDERED: ACETAMINOPHEN IV (For NPO) 1,000 MG in EMPTY BAG 1 BAG IVPB PRN (19:18)
--- NOTE | 2019-06-09 23:12 | PN ---
PROGRESS NOTE DATE OF SERVICE: 06/09/2019 REASON FOR FOLLOWUP: Aspiration pneumonia and C6 osteomyelitis. INTERVAL HISTORY: The patient is currently afebrile. The patient has been extubated. The patient has been breathing comfortably. Denies having chest pain. Some cough; no sputum. No vomiting. No abdominal pain or any worsening pain to the cervical spine area. PHYSICAL EXAMINATION: Blood pressure is 160/66, pulse of 99, temperature 97.8. He is 99% on 4 L nasal cannula. General description is an elderly male lying in bed in no distress. RESPIRATORY SYSTEM: Unlabored breathing. Coarse breath sounds at the bases. No wheeze. HEART: S1, S2. Regular rate and rhythm. ABDOMEN: Soft. No tenderness. LABS: Hemoglobin is 8.0, white count 55.9. BUN is 45, creatinine 0.68. CRP has normalized to 7.8. DIAGNOSTIC IMPRESSION AND PLAN: Patient with acute respiratory failure which is multifactorial with a component of aspiration pneumonia. Sputum has been MSSA in this patient who also has C6 spine osteomyelitis, status post surgery. Culture has been Propionibacterium acnes. Patient is covered with Unasyn and Diflucan. The patient has significant elevated white count, more likely related to steroid effect, as the patient's CRP has normalized. Will continue to monitor the patient closely and continue with supportive care. MMODL / IJN: [id number] /
[2019-06-09 23:14] LABS: Glucose,Whole Blood 159 mg/dL (75-99)
[2019-06-10] MEDS: HYDROmorphone 1 MG/ML 1 ML SYRINGE IVP PRN ×6 (01:22→23:40)
[2019-06-10 04:38] LABS: Basophils # (A) 0.1 k/uL (0-0.2); Basophils % (A) 0 %; Eosinophils % (A) 0 %; HCT 25.4 % (39.0-53.0); HGB 8.3 gm/dL (13.0-17.5); Lymphocytes # (A) 0.7 k/uL (1.0-4.8); Lymphocytes % (A) 1 %; MCH 31.3 pg (25.0-35.0); MCHC 32.8 g/dL (31.0-37.0); MCV 95.7 fL (80.0-100.0); Mean Platelet Volume 10.9; Monocytes # (A) 1.2 k/uL (0-1.0); Monocytes % (A) 2 %; Neutrophils # (A) 56.4 k/uL (1.3-7.7); Neutrophils % (A) 96 %; Platelet Count 201 k/uL (150-450); RBC 2.65 m/uL (4.30-5.90); RDW 15.1 % (11.5-15.5)
[2019-06-10 04:48] LABS: WBC 58.6 k/uL (3.8-10.6)
[2019-06-10 04:56] LABS: African American GFR (CKD) >90 (>60 ml/min/1.73 sqM); Anion Gap 3 mmol/L; Blood Urea Nitrogen 46 mg/dL (9-20); Carbon Dioxide 31 mmol/L (22-30); Chloride 107 mmol/L (98-107); Glucose 132 mg/dL (74-99); Non-African American GFR(CKD) 87 (>60 ml/min/1.73 sqM); Potassium 4.5 mmol/L (3.5-5.1); Sodium 141 mmol/L (137-145)
[2019-06-10 05:15] LABS: Glucose,Whole Blood 137 mg/dL (75-99)
[2019-06-10] MEDS: INSULIN ASPART (NovoLOG) 100 UNIT/ML VIAL SQ SCH ×4 (05:17→23:36)
[2019-06-10] MEDS: DEXAMETHASONE SOD PHOSPHATE 10 MG/ML 1 ML VIAL IV SCH ×4 (05:17→23:49)
[2019-06-10] MEDS: AMPICILLIN-SULBACTAM 3 GM in SODIUM CHLORIDE 0.9% 100 ML IVPB SCH ×4 (05:18→23:35)
[2019-06-10 05:53] LABS: Glucose,Whole Blood 146 mg/dL (75-99)
--- NOTE | 2019-06-10 06:25 | XR ---
EXAMINATION TYPE: XR chest 1V portable DATE OF EXAM: 06/10/2019 HISTORY: exertional dyspnea. REFERENCE: Previous study dated 06/09/2019. FINDINGS: There has been a previous ACDF of the lower cervical spine. Heart size upper limits of normal. There is vascular congestion and interstitial change. There is als o alveolar airspace disease, more marked on the right than left. This has worsened slightly. There is minimal blunting of both CP angles. I could not exclude small effusions. IMPRESSION: WORSENING CHANGES OF PULMONARY EDEMA, LIKELY ON THE BASIS OF HEART FAILURE. I COULD NOT EXCLUDE SUPER IMPOSED PNEUMONIA.
[2019-06-10] MEDS ORDERED: LIDOCAINE 1% (10MG/ML) FOR IV START INTRADERMA PRN (07:19)
[2019-06-10] MEDS: IPRATROPIUM-ALBUTEROL 3 ML NEB INHALATION SCH ×3 (08:53→20:00)
[2019-06-10] MEDS ORDERED: METOPROLOL TARTRATE 5 MG/5 ML VIAL IVP SCH (09:00)
[2019-06-10] MEDS: LIDOCAINE 5% PATCH TOPICAL SCH (09:03)
[2019-06-10] MEDS: HEPARIN SODIUM,PORCINE 5,000 UNIT/ML 1 ML VIAL SQ SCH ×2 (09:04→21:09)
[2019-06-10] MEDS: LEVOTHYROXINE IVP 100 MCG/5 ML VIAL IV SCH (09:04)
[2019-06-10] MEDS: PANTOPRAZOLE 40 MG/10 ML VIAL IVP SCH (09:05)
[2019-06-10] MEDS: LACTATED RINGERS 1,000 ML IV SCH (09:05)
[2019-06-10] MEDS: FLUCONAZOLE IN NACL,ISO-OSM 200 MG in SALINE 1 100ML.BAG IVPB SCH (09:05)
[2019-06-10] MEDS: ASPIRIN 300 MG SUPP RECTAL SCH (09:05)
--- NOTE | 2019-06-10 10:03 | P.PN ---
Subjective Progress Note Date: 06/10/19 Principal diagnosis: Aspiration Patient awake and alert. He is hungry and thirsty. Patient apparently is considering holding off on PEG tube placement and going with hospice measures. Objective - Vital Signs Vital signs: Vital Signs Temp 98.2 F 06/10/19 08:00 Pulse 105 H 06/10/19 09:02 Resp 16 06/10/19 09:00 BP 146/89 06/10/19 09:00 Pulse Ox 100 06/10/19 09:00 Intake & Output 06/09/19 06/10/19 06/10/19 18:59 06:59 18:59 Intake Total 738.667 398 112 Output Total 1201 1245 520 Balance -462.333 -847 -408 Weight 66.5 kg Intake: IV 631 276 112 Ampicillin-Sulbactam 3 gm 200 In Sodium Chloride 0.9% 100 ml @ 200 mls/hr IVPB Q6HR [facility] Rx#:[id number] Cardizem 75 60 20 Fluconazole in NaCl,Iso- 100 Osm 200 mg In Saline 1 100ml.bag @ 100 mls/hr IVPB DAILY [facility] Rx#: [id number] Sodium Chloride 0.9% 1, 220 180 80 000 ml @ 20 mls/hr IV . Q24H [facility] Rx#:[id number] pressure bag 36 36 12 Intake, IV Titration 107.667 122 Amount Diltiazem 125 mg In 107.667 122 Sodium Chloride 0.9% 100 ml @ 5 MG/HR 5 mls/hr IV .Q24H [facility] Rx#:[id number] Output: Urine 1201 1245 520 Other: Voiding Method Indwelling Catheter Indwelling Catheter Indwelling Catheter ABP, PAP, CO, CI - Last Documented Arterial Blood Pressure 169/74 - Exam Abdomen: Soft, nontender, nondistended - Labs CBC & Chem 7: 06/10/19 04:15 06/10/19 04:15 Labs: Abnormal Lab Results - Last 24 Hours (Table) 06/09/19 06/09/19 06/09/19 Range/Units 12:22 13:40 18:01 WBC (3.8-10.6) k/uL RBC (4.30-5.90) m/uL Hgb (13.0-17.5) gm/dL Hct (39.0-53.0) % Neutrophils # (1.3-7.7) k/uL Lymphocytes # (1.0-4.8) k/uL Monocytes # (0-1.0) k/uL Carbon Dioxide (22-30) mmol/L BUN (9-20) mg/dL Glucose (74-99) mg/dL POC Glucose (mg/dL) 137 H 141 H (75-99) mg/dL Plasma Lactic Acid Jose 2.8 H* (0.7-2.0) mmol/L 06/09/19 06/10/19 06/10/19 Range/Units 23:12 04:15 04:15 WBC 58.6 H* (3.8-10.6) k/uL RBC 2.65 L (4.30-5.90) m/uL Hgb 8.3 L (13.0-17.5) gm/dL Hct 25.4 L (39.0-53.0) % Neutrophils # 56.4 H (1.3-7.7) k/uL Lymphocytes # 0.7 L (1.0-4.8) k/uL Monocytes # 1.2 H (0-1.0) k/uL Carbon Dioxide 31 H (22-30) mmol/L BUN 46 H (9-20) mg/dL Glucose 132 H (74-99) mg/dL POC Glucose (mg/dL) 159 H (75-99) mg/dL Plasma Lactic Acid Jose (0.7-2.0) mmol/L 06/10/19 06/10/19 Range/Units 05:14 05:52 WBC (3.8-10.6) k/uL RBC (4.30-5.90) m/uL Hgb (13.0-17.5) gm/dL Hct (39.0-53.0) % Neutrophils # (1.3-7.7) k/uL Lymphocytes # (1.0-4.8) k/uL Monocytes # (0-1.0) k/uL Carbon Dioxide (22-30) mmol/L BUN (9-20) mg/dL Glucose (74-99) mg/dL POC Glucose (mg/dL) 137 H 146 H (75-99) mg/dL Plasma Lactic Acid Jose (0.7-2.0) mmol/L Microbiology - Last 24 Hours (Table) 04/27/20 18:20 Blood Culture - Preliminary Blood No Growth after 96 hours 06/09/19 13:45 Urine Culture - Preliminary Urine,Catheterized Assessment and Plan (1) Aspiration into airway Narrative/Plan: Continue nothing by mouth for now. Await patient and family decision regarding PEG tube placement for Wednesday. Current Visit: Yes Status: Acute Code(s): T17.908A - UNSP FB IN RESP TRACT, PART UNSP CAUSING OTH INJURY, INIT SNOMED Code(s): 895168913
[2019-06-10] MEDS: NICOTINE 14MG/24HR PATCH TRANSDERM SCH (11:28)
[2019-06-10] MEDS: NOREPINEPHRINE 4 MG in SODIUM CHLORIDE 0.9% 250 ML IV SCH (11:37)
[2019-06-10 11:47] LABS: Glucose,Whole Blood 138 mg/dL (75-99)
--- NOTE | 2019-06-10 12:50 | P.PN ---
Progress Note - Text Progress Note Date: 06/10/19 Orthopedic Spine: History of present illness: Patient is a pleasant 79-year-old male who is seen at the bedside following C5-6 and C6-7 anterior cervical decompression and fusion with corpectomy of C6 performed last 05/31/2019. The patient was able to be extubated 2 days ago. He is awake, alert, oriented in the ICU today. He has not had any change in his symptoms as compared to yesterday. He states he is not currently experiencing any significant pain with his upper extremities. He does have significant weakness greater on the right than the left. He feels his cervical pain has been adequately controlled but does admit to some soreness at his cervical spine. He has his hard cervical collar intact. Nursing states patient has been started on Cardizem. She states patient has also failed a swallow study. They're planning to repeat to swallow study and if he fails a second time they may plan for PEG tube placement. 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 He is known to have lung cancer. He continues to be seen and examined by multiple providers including oncology, pulmonology, medicine, general surgery, and cardiology. Patient is currently on Unasyn IV. Patient does have evidence of significant dark purple bruising in the arm pits bilaterally which was marked with a pen by another provider to monitor. The cause of the bruising is unknown. Physical Exam Cervical Fusion: Status post surgical day number 10 Patient is awake, alert, and oriented 3 Vital signs stable Adequate chest excursion with inspiration and expiration Patient does have significant difficulty with active range of motion of the deltoids bilaterally greater on the right than the left Patient is able to perform some biceps strength and triceps strength bilaterally Motor strength of the upper extremities is 4-/5 including senior software development engineer bilaterally Dressing has been removed over the surgical site Incision site remains dry without any active drainage and no obvious signs of infection at the surgical site Significant bruising around the surgical site and over the proximal part of the sternum Skin is firm to palpation around the surgical site Hard cervical collar is intact Evidence of significant dark purple bruising in the arm pits bilaterally Assessment: Status post C5-6 and C6-7 anterior cervical decompression and fusion with corpectomy of C6 C6 pathologic compression fracture Bilateral upper extremity weakness greater on the right than the left Surgical pathology report shows evidence of 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 Ambulate as tolerated; work with Physical Therapy to increase mobilization 2. Continue pain control with oral [place] and IV Dilaudid as needed 3. Dressing has been removed from the patient's surgical site. Patient may shower without a dressing intact at this time. Patient must keep hard cervical collar intact while bathing. 4. Patient must continue to keep hard cervical collar intact at all times; we will plan to keep his hard cervical collar intact postoperatively for approximately 12 weeks and may plan to transition to a soft cervical collar pending on the patient's progress. 5. Patient will continue to be seen and examined by multiple other medical providers including oncology, pulmonology, cardiology, general surgery, and medicine for his other significant medical diagnoses 6. Patient may continue with anticoagulation medication as needed as prescribed by cardiology or other medical providers 7. Following discharge, patient may follow-up with Ric Cunningham PA-C or Dr. Yamil Flores at [facility] in 1-2 weeks following discharge 7. We will continue to follow patient closely during his admission
--- NOTE | 2019-06-10 12:57 | P.PN ---
Subjective Progress Note Date: 06/09/19 Principal diagnosis: metastatic cancer, aspiration pneumonia Since our initial consultation the patient has been successfully extubated. Pathology returned as metastatic high grade neoplasm with epitheliod and spindle cell diff. The patient is still in ICU care. He was able to sit up at bedside today. Is able to converse a bit. Objective - Vital Signs Vital signs: Vital Signs Temp 98.7 F 06/10/19 12:00 Pulse 110 H 06/10/19 12:26 Resp 26 H 06/10/19 12:00 BP 141/89 06/10/19 12:00 Pulse Ox 100 06/10/19 12:00 Intake & Output 06/09/19 06/10/19 06/10/19 18:59 06:59 18:59 Intake Total 738.667 398 168 Output Total 1201 1245 735 Balance -462.333 -847 -567 Weight 66.5 kg Intake: IV 631 276 168 Ampicillin-Sulbactam 3 gm 200 In Sodium Chloride 0.9% 100 ml @ 200 mls/hr IVPB Q6HR [facility] Rx#:[id number] Cardizem 75 60 30 Fluconazole in NaCl,Iso- 100 Osm 200 mg In Saline 1 100ml.bag @ 100 mls/hr IVPB DAILY [facility] Rx#: [id number] Sodium Chloride 0.9% 1, 220 180 120 000 ml @ 20 mls/hr IV . Q24H [facility] Rx#:[id number] pressure bag 36 36 18 Intake, IV Titration 107.667 122 Amount Diltiazem 125 mg In 107.667 122 Sodium Chloride 0.9% 100 ml @ 5 MG/HR 5 mls/hr IV .Q24H [facility] Rx#:[id number] Output: Urine 1201 1245 735 Other: Voiding Method Indwelling Catheter Indwelling Catheter Indwelling Catheter ABP, PAP, CO, CI - Last Documented Arterial Blood Pressure 169/74 - Constitutional General appearance: Present: disheveled, no acute distress - EENT Eyes: Present: EOMI, PERRLA ENT: Present: hearing grossly normal - Neck Neck: Present: other (bruising from recent surgery) - Cardiovascular Rhythm: regular - Gastrointestinal General gastrointestinal: Present: soft - Integumentary Integumentary: Present: normal - Musculoskeletal Musculoskeletal: Present: right sided weakness (Patient is able to bull float finisher with right hand 4/5, left WNL) - Psychiatric Psychiatric: Present: appropriate affect - Labs CBC & Chem 7: 06/10/19 04:15 06/10/19 04:15 Labs: Abnormal Lab Results - Last 24 Hours (Table) 06/09/19 06/09/19 06/09/19 Range/Units 13:40 18:01 23:12 WBC (3.8-10.6) k/uL RBC (4.30-5.90) m/uL Hgb (13.0-17.5) gm/dL Hct (39.0-53.0) % Neutrophils # (1.3-7.7) k/uL Lymphocytes # (1.0-4.8) k/uL Monocytes # (0-1.0) k/uL Carbon Dioxide (22-30) mmol/L BUN (9-20) mg/dL Glucose (74-99) mg/dL POC Glucose (mg/dL) 141 H 159 H (75-99) mg/dL Plasma Lactic Acid Jose 2.8 H* (0.7-2.0) mmol/L 06/10/19 06/10/19 06/10/19 Range/Units 04:15 04:15 05:14 WBC 58.6 H* (3.8-10.6) k/uL RBC 2.65 L (4.30-5.90) m/uL Hgb 8.3 L (13.0-17.5) gm/dL Hct 25.4 L (39.0-53.0) % Neutrophils # 56.4 H (1.3-7.7) k/uL Lymphocytes # 0.7 L (1.0-4.8) k/uL Monocytes # 1.2 H (0-1.0) k/uL Carbon Dioxide 31 H (22-30) mmol/L BUN 46 H (9-20) mg/dL Glucose 132 H (74-99) mg/dL POC Glucose (mg/dL) 137 H (75-99) mg/dL Plasma Lactic Acid Jose (0.7-2.0) mmol/L 06/10/19 06/10/19 Range/Units 05:52 11:45 WBC (3.8-10.6) k/uL RBC (4.30-5.90) m/uL Hgb (13.0-17.5) gm/dL Hct (39.0-53.0) % Neutrophils # (1.3-7.7) k/uL Lymphocytes # (1.0-4.8) k/uL Monocytes # (0-1.0) k/uL Carbon Dioxide (22-30) mmol/L BUN (9-20) mg/dL Glucose (74-99) mg/dL POC Glucose (mg/dL) 146 H 138 H (75-99) mg/dL Plasma Lactic Acid Jose (0.7-2.0) mmol/L Microbiology - Last 24 Hours (Table) 06/05/19 18:20 Blood Culture - Preliminary Blood No Growth after 96 hours 06/09/19 13:45 Urine Culture - Preliminary Urine,Catheterized - Imaging and Cardiology CT scan - abdomen: report reviewed, image reviewed CT scan - chest: report reviewed, image reviewed CT scan - pelvis: report reviewed, image reviewed Assessment and Plan Plan: Patient is a 79 year old male with a prior history of non-small cell lung cancer treated with surgical resection in 2008. He now presents with metastatic high grade neoplasm with spindle cell differentiation - suspicion clinically is for lung primary. He presented with cord compression and RUE weakness due to C6 burst fraction. He is s/p resection of C6 soft tissue mass and C5-7 fixation. He developed VDRF due to aspiration pneumonia and has now been extubated. 1. Cord compression: Patient is POD #9 from his surgery. I explained to the patient that post-operative radiotherapy is often indicated to decrease the risk of recurrence locally. I explained this is typically delivered 2-3 weeks after the operation to allow adequate healing. I will continue to monitor the patient's progress. If he has adequate improvement in performance status we will certainly consider palliative RT. He is still recovering from his recent VDRF and aspiration pneumonia. 2. Metastatic cancer: Suspicion for lung primary; outpatient PET-CT may be helpful if patient improves clinically. Med-onc following. Time with Patient: Less than 30
[2019-06-10] MEDS: METOPROLOL TARTRATE 5 MG/5 ML VIAL IVP SCH ×2 (14:07→23:36)
--- NOTE | 2019-06-10 14:42 | P.PN ---
Subjective Progress Note Date: 06/10/19 Principal diagnosis: Acute hypoxic respiratory failure secondary to aspiration pneumonia. 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 The patient is known to have history of lung cancer. The patient came into the hospital because of pain and numbness in his right upper extremity extending to his right thumb and this is been going on for the past 2 weeks to the point where the patient was unable to lift any objects because of the pain and numbness and tingling. His echo was elevated at 31. The calcium level is normal at 9.6. Lactic acid level at time of admission was 1.7. He had a CRP of 57.7 which is quite elevated and this is based on the previous blood work that was done on 05/17/2019. In the ED, the patient had a CAT scan of the brain that showed age-related atrophy and small vessel ischemic changes. An unenhanced CAT scan of the cervical spine also was done and it showed severe compression fracture of the C6 spine of an uncertain age/etiology with bony retropulsion of 3.5 mm. No evidence of any central canal stenosis or cord compression. Multilevel degenerative disc disease was seen with disc bulging and neurominal encroachment severe at the level of C3-C4 and there is also severe degenerative disc narrowing at the level of C5-C6. There is a 90% compression fracture of the T6 spine. Noted the patient was in the emergency department on 05/17/2023 with similar complaints of worsening shoulder and arm pain he was seen in emergency department and the patient underwent a CT angiogram of the upper extremity and it showed poor opacification of the radial and ulnar arteries at the level of the brachial bifurcation which was either technical in nature or high-grade stenosis/thrombosis which could not be completely ruled out. A CAT scan of the chest was also done utilizing a CT angios protocol and the CAT scan showed no evidence of any pulmonary embolism. Nevertheless, there were several for nodules, and a lung mass. There was a 3.4 cm right lower lobe pleural-based mass posteriorly in the right lower lobe area. There was another 7 mm right middle lobe pulmonary nodule, 5 mm left upper lobe pulmonary pleural-based nodule, 7 mm right upper lobe pulmonary nodule and a 4 mm right apical pulmonary nodule. There was extensive emphysema and some scattered subpleural fibrosis. The perihilar/peribronchial lymph nodes were identified. 4.1 cm suspicious lesion of the left adrenal gland was seen suspicious for metastases. This was a new finding monitor the patient's previous CAT scan from 03/22/2018 did not show any lung masses or nodules. There was however some scarring in the lung bases especially on the right in addition to emphysema and some elevation of left hemidiaphragm. S shaped scoliosis was also seen along with osseous demineralization. The patient is afebrile. The patient's pulse ox 99% on room air.: 19 evaluation was negative. Influenza A and B were negative. UA was negative. On today's evaluation of 05/30/2019, the patient was seen by spine surgery and the patient was given a neck brace. His pain is under good control. He is awaiting MRI of the cervical spine. The white cell count remains elevated. The pro-calcitonin level is low. He is still feeling weakness in the right upper extremity. A fine-needle aspirate of the lung metastatic to be considered and will going to consult interventional radiology. On 05/31/2019 patient seen in follow-up on general medical floor, still complaining of weakness in his arms and neck pain. Patient has a c-collar that he is wearing [id number], his imaging showed significant compression of his spinal cord. Patient was evaluated by orthopedic service and surgical decompression and spinal fusion was recommended and the patient is scheduled for his surgery today. Patient was also evaluated by radiation oncology, and he may need radiotherapy to the postoperative bed after completion of the above surgery, from pulmonary perspective, his breathing seems to be nonlabored, he is on room air, with a pulse ox of 96%, lung sounds are diminished, no rhonchi or wheezing, patient has been afebrile, today's labs have been reviewed showing white blood cell count of 32.8, hemoglobin 13.4, neutrophil count is 30.5, influenza and coronavirus PCR were negative, patient is receiving IV Decadron, patient is on vancomycin, blood culture showed coagulase-negative staph. On 06/01/2019 patient seen in follow-up on medical floor, he is postop day 1 status post anterior cervical decompression with discectomy and fusion of C5, C6 and C6 and C7. He is awake and alert, in no acute distress, room air pulse ox is 94%, he sitting up in the recliner, calm and comfortable, he is afebrile, vital signs are stable. Breathing is unlabored. Bone biopsy from the vertebral body of C6 and culture of vertebral body of the 6 are pending at this time. Today's labs have been reviewed showing white blood cell, 39.2, hemoglobin of 12.3, sodium 131, potassium is 4.3, chloride is 96, B1 is 30 creatinine 0.8. Patient is on cefepime and vancomycin for antibiotic coverage, ID service is following. Patient had blood culture with coagulase-negative staph, B blood cultures pending. On 06/02/2019 patient seen in follow-up on general medical floor, and today is postoperative day 2, status post anterior cervical decompression with discectomy and fusion of C5, 6, and C6 and C7, biopsy of the vertebral body of C6 and the culture of the vertebral body of C6. Biopsy results are still pending, cultures are negative thus far. Patient is afebrile, she is on 2 L of oxygen and the pulse ox of 96%, he still is complaining of some numbness and weakness in his right wrist, and some shortness of breath, and inability to clear phlegm, his lungs are clear, no wheezing, no rhonchi, he is already on Decadron. He is on cefepime and vancomycin for antibiotics, he is on breathing treatments, will add Mucinex. On 06/05/2019 patient seen in follow-up in the intensive care unit. Patient developed worsening respiratory failure requiring intubation and placement on mechanical ventilator on 06/03/2019 for suspected aspiration. Today on 06/05/2019 patient remains intubated, and sedated. Current vent settings are assist-control mode of ventilation with a rate of 22, tidal volume is 400, FiO2 is 35%, and PEEP of 5, this point his blood gases were reviewed showing pO2 45, pCO2 28, and pH of 7.47, and this was done on FiO2 of 35% and above-mentioned ventilator settings. This morning's chest x-ray has been reviewed, showing known right basilar lung mass, pronounced right paratracheal stripe, stable exam compared yesterday's chest x-ray. No acute pulmonary findings. She remains on empiric antibiotics in the form of Zosyn for possibility of aspiration pneumonia. Sputum culture so far only shows Mireya albicans. Cultures of the bony biopsy showing proprionibacterium acnes, final culture is pending, blood culture from 05/29/2019 showed staph hominis. Current antibiotics in the form of Zosyn, infectious disease is following. Today's labs have been reviewed showing blood blood cell count of 46.9, hemoglobin of 7.9, neutrophil count is 45.4, sodium is 132, potassium 3.8, CO2 is 21, B1 is 37 creatinine 0.76. Patient's hemodynamically stable, levo fed is on hold. Urine output is in the order of 50-60 ML per hour, he is tolerating tube feedings in the form of vital HP at a rate of 42 with a goal of 42 with standard water flushes. Bone biopsy of the vertebral body of C6 is still pending at this time Reevaluated today on 06/06/19. Patient remains intubated and mechanically ventilated. He is on assist control rate of 22 tidal volume is 400 FiO2 of 35% PEEP is 5. His peak airway pressure is 23 plateau pressure is 18. Patient is hemodynamically stable, requiring relatively good dose of propofol 60 mcg/kg/m. IV fluid is at KVO. Patient will be awakened today, and will at least try to address his mental status. We'll also try to assess weaning parameters if possible. Hence instructions were given to the nurses to hold his propofol, and at least assess mental status once the propofol is discontinued. ABG today showed a pO2 of 142 pCO2 of 36 pH of 7.41. Basic metabolic profile is normal. WBC count is significantly elevated at 53.4. Hemoglobin is 7.1. His WBC count has been elevated above 30,000 since admission. C-reactive protein is 16.8. The final pathology on his bone biopsy is still pending. Chest x-ray continues to show bilateral interstitial infiltrates and possibly a small left pleural effusion. Reevaluated today on 06/07/19, patient remains in the ICU, intubated, and mechanically ventilated. His ventilator settings are assist control rate of 22, tidal volume is 400 FiO2 is 35% and PEEP is 5. His ABG showed a pO2 of 142 pCO2 of 36 and pH of 7.41. Patient remains on propofol at 75 mcg/kg/m. He is hemodynamically stable. However he is quite sedated this morning. Patient seems to be double triggering the ventilator when sedation level is low. Today my plan is to hold sedation, assess mental status, and possibly consider a pressure support of 12 and CPAP trial. Chest x-ray is showing improvement in his by basilar infiltrates. Labs showed WBC count of 38.5 hemoglobin is 7 basic metabolic profile is relatively normal. Renal profile is normal. Bone biopsy is still pending. Reevaluated today on 06/08/19, patient remains intubated and mechanically ventilated. settings are assist control rate of 22 tidal volume is 400 FiO2 is 35% PEEP is 5. ABG showed a pO2 of 131 pCO2 of 35 pH of 7.48. Patient remains on propofol which I plan to discontinue today, and give the patient a weaning trial if possible. Patient remains on tube feeding, he is hemodynamically stable, and he is in sinus rhythm. 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 The findings do not point to metastatic lung cancer. Although the patient had previous history of lung cancer in the past, and he does have a right lower lobe mass which would have to be evaluated on outpatient basis may even need a CT- guided needle biopsy since the mass is peripheral. In the meantime the patient is being evaluated by oncology, and evaluated by radiation oncology. Chest x- ray today continues to show pneumonic process in both lungs more so in the left midlung. Patient did have documented aspiration pneumonia. Today if the patient tolerates weaning, may consider placing the patient on BiPAP pos textubation. He will definitely need a swallow evaluation before any feeding could be initiated. Reevaluated today on 06/09/19, patient is now off mechanical ventilation, he is on few liters nasal cannula, doing relatively well. However his chest x-ray continues to show bilateral interstitial infiltrates, consistent with aspiration pneumonia, underlying interstitial edema is not entirely ruled out, hence the patient will be given a trial of diuresis. Patient is also on Cardizem at 10 mg per hour, patient developed atrial fibrillation with RVR yesterday. Cardiology was asked to see the patient. Patient is having difficulty swallowing, and could not perform a swallow evaluation on this patient, hence switched his oral medications to IV meds. And that's including his Synthroid, and his beta vida. Patient remains marginal at best while in the ICU. Reevaluated today on 06/10/19, patient remains in the ICU, tolerated the extubation over the last 2 days quite well. Continues to have neck pain, remains on Cardizem at 5 mg per hour, and that will likely be discontinued by cardiology today. Patient is in sinus rhythm today. Patient is unable to swallow, hence I have a strong feeling that the patient will eventually require a PEG tube placement. Specially that has been documentation of aspiration pneumonia based on previous bronchoscopy by Dr. Nogueira. I reviewed again the results of his bone biopsy, and it is not clear whether this is metastatic lung cancer or other form of cancer. The pathologist seems to be vague about the actual primary of this malignancy. At any rate that being addressed by oncology. I did review the CT of the abdomen and pelvis, and in the right lower lobe there is clearly a right lower lobe mass which is best accessible by CT- guided biopsy if a tissue diagnosis is felt to be necessary. Patient will eventually require chemotherapy and radiation therapy for sure. However he is still being treated for infection and aspiration pneumonia patient's initial presentation was mostly a presentation of cord compression. 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 Labs today showed again leukocytosis/leukemoid reaction with WBC count of 15.6 hemoglobin is 8.3 electrolytes are relatively normal. Chest x-ray continues to show interstitial lung disease/consistent with pulmonary fibrosis. Objective - Vital Signs Vital signs: Vital Signs Temp 98.7 F 06/10/19 12:00 Pulse 110 H 06/10/19 12:26 Resp 26 H 06/10/19 12:00 BP 141/89 06/10/19 12:00 Pulse Ox 100 06/10/19 12:00 Intake & Output 06/09/19 06/10/19 06/10/19 18:59 06:59 18:59 Intake Total 738.667 398 224 Output Total 1201 1245 1010 Balance -462.333 -847 -786 Weight 66.5 kg Intake: IV 631 276 224 Ampicillin-Sulbactam 3 gm 200 In Sodium Chloride 0.9% 100 ml @ 200 mls/hr IVPB Q6HR [facility] Rx#:[id number] Cardizem 75 60 40 Fluconazole in NaCl,Iso- 100 Osm 200 mg In Saline 1 100ml.bag @ 100 mls/hr IVPB DAILY [facility] Rx#: [id number] Sodium Chloride 0.9% 1, 220 180 160 000 ml @ 20 mls/hr IV . Q24H [facility] Rx#:[id number] pressure bag 36 36 24 Intake, IV Titration 107.667 122 Amount Diltiazem 125 mg In 107.667 122 Sodium Chloride 0.9% 100 ml @ 5 MG/HR 5 mls/hr IV .Q24H [facility] Rx#:[id number] Output: Urine 1201 1245 1010 Other: Voiding Method Indwelling Catheter Indwelling Catheter Indwelling Catheter ABP, PAP, CO, CI - Last Documented Arterial Blood Pressure 169/74 - Exam GENERAL EXAM: Revealed a 79-year-old white male on nasal cannula, in no form of respiratory distress, cervical collar is in place. HEENT: PERRLA, EOMI, no icterus. NECK: No masses, no JVD, no thyroid enlargement, no adenopathy. Patient has a c-collar in place CHEST: No chest wall deformity. Symmetrical expansion. LUNGS: Symmetrical chest expansion, fine crackles at the bases. CVS: Irregular irregular rhythm, no S3 gallop. ABDOMEN: Soft, nontender. No hepatosplenomegaly, normal bowel sounds, no guarding or rigidity. EXTREMITIES: No clubbing, no edema, no cyanosis, 2+ pulses and upper and lower extremities. MUSCULOSKELETAL: No deformities, no limitation in range of motion. SPINE: Cervical collar remains in place. SKIN: No rashes CENTRAL NERVOUS SYSTEM: Alert oriented 3, no gross focal neurologic deficits. Psychiatric: Blunted affect, depressed mood, mental status seems to be intact. - Labs CBC & Chem 7: 06/10/19 04:15 06/10/19 04:15 Labs: Abnormal Lab Results - Last 24 Hours (Table) 06/09/19 06/09/19 06/09/19 Range/Units 13:40 18:01 23:12 WBC (3.8-10.6) k/uL RBC (4.30-5.90) m/uL Hgb (13.0-17.5) gm/dL Hct (39.0-53.0) % Neutrophils # (1.3-7.7) k/uL Lymphocytes # (1.0-4.8) k/uL Monocytes # (0-1.0) k/uL Carbon Dioxide (22-30) mmol/L BUN (9-20) mg/dL Glucose (74-99) mg/dL POC Glucose (mg/dL) 141 H 159 H (75-99) mg/dL Plasma Lactic Acid Jose 2.8 H* (0.7-2.0) mmol/L 06/10/19 06/10/19 06/10/19 Range/Units 04:15 04:15 05:14 WBC 58.6 H* (3.8-10.6) k/uL RBC 2.65 L (4.30-5.90) m/uL Hgb 8.3 L (13.0-17.5) gm/dL Hct 25.4 L (39.0-53.0) % Neutrophils # 56.4 H (1.3-7.7) k/uL Lymphocytes # 0.7 L (1.0-4.8) k/uL Monocytes # 1.2 H (0-1.0) k/uL Carbon Dioxide 31 H (22-30) mmol/L BUN 46 H (9-20) mg/dL Glucose 132 H (74-99) mg/dL POC Glucose (mg/dL) 137 H (75-99) mg/dL Plasma Lactic Acid Jose (0.7-2.0) mmol/L 06/10/19 06/10/19 Range/Units 05:52 11:45 WBC (3.8-10.6) k/uL RBC (4.30-5.90) m/uL Hgb (13.0-17.5) gm/dL Hct (39.0-53.0) % Neutrophils # (1.3-7.7) k/uL Lymphocytes # (1.0-4.8) k/uL Monocytes # (0-1.0) k/uL Carbon Dioxide (22-30) mmol/L BUN (9-20) mg/dL Glucose (74-99) mg/dL POC Glucose (mg/dL) 146 H 138 H (75-99) mg/dL Plasma Lactic Acid Jose (0.7-2.0) mmol/L Microbiology - Last 24 Hours (Table) 06/05/19 18:20 Blood Culture - Preliminary Blood No Growth after 96 hours 06/09/19 13:45 Urine Culture - Preliminary Urine,Catheterized Assessment and Plan Assessment: Impression:Postoperative day #10 status post anterior cervical decompression with corpectomy of C6 and fusion from C5 to C7 for his compression burst fracture at C6 and 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 Compression fracture of cervical spine/pathological fractures secondary to malignancy. 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 Not quite certain that this is truly lung primary. History of lung cancer and previous left upper lobe resection. This was over 9 years ago. Patient does have a right lower lobe mass which will eventually require tissue diagnosis by CT-guided needle biopsy. This is to be done on outpatient basis. History of severe COPD. Interstitial lung disease is strongly suspected/pulmonary fibrosis. Coronary artery disease and previous coronary artery stenting. History of hypothyroidism. History of benign essential hypertension. Recommendation: Continue nasal cannula, titrate FiO2 down accordingly and keep O2 saturation above 90%. Continue Unasyn for aspiration pneumonia. Continue GI and DVT prophylaxis. Continue Decadron for his compression fracture and myelopathy. Continue bronchodilators. Patient was already seen by medical oncology and by radiation oncology. Obviously the patient will need significant outpatient treatment with radiation and chemotherapy. Consider a PEG tube placement on Wednesday if the patient continues to have issues related to swallowing. Continue to monitor in the ICU. At least for the next 24 hours. We'll continue to follow. Time with Patient: Less than 30
--- NOTE | 2019-06-10 14:53 | P.PN ---
Subjective Progress Note Date: 06/10/19 Principal diagnosis: The patient is a 79-year-old gentleman with a past medical history significant for chronic pulmonary disease, coronary artery disease status post stenting, hyp ertension, hypothyroidism, lung cancer, bone cancer, who underwent an anterior cervical decompression of C6 and fusion of C5 to C7 for compression fracture of C6 and cervical stenosis and myelopathy. A cardiology consult was placed for management of his atrial fibrillation. He has had atrial fibrillation with mild rapid ventricular response, rates in the 90s to 100 which was treated with IV Cardizem. He is currently unable to swallow and is awaiting a PEG tube placement which is scheduled for 06/12/2019. The patient is alert, and oriented denies any complaints of chest pain or shortness of breath. The patient was seen in follow-up on 06/10/2019 at his bedside in the intensive care unit. The patient is awake, alert and oriented 3. Denies any complaints of shortness of breath or pain at this time. He remains hemodynamically stable and is currently on no inotropic or pressor support. Cardizem is at 5 mg per hour and his bedside telemetry is currently showing sinus tachycardia heart rate 102. Chest x-ray was completed this morning which demonstrates worsening changes of pulmonary edema. Laboratory results this morning show a WBC count 58.6, hemoglobin 8.3, hematocrit 25.4, BUN 46 and creatinine 0.75. Swallow study is pending by speech pathology and currently he is scheduled for a PEG tube placement on 06/12/2019. Objective - Vital Signs Vital signs: Vital Signs Temp 98.7 F 06/10/19 12:00 Pulse 110 H 06/10/19 12:26 Resp 26 H 06/10/19 12:00 BP 141/89 06/10/19 12:00 Pulse Ox 100 06/10/19 12:00 Intake & Output 06/09/19 06/10/19 06/10/19 18:59 06:59 18:59 Intake Total 738.667 398 224 Output Total 1201 1245 1010 Balance -462.333 -847 -786 Weight 66.5 kg Intake: IV 631 276 224 Ampicillin-Sulbactam 3 gm 200 In Sodium Chloride 0.9% 100 ml @ 200 mls/hr IVPB Q6HR [facility] Rx#:[id number] Cardizem 75 60 40 Fluconazole in NaCl,Iso- 100 Osm 200 mg In Saline 1 100ml.bag @ 100 mls/hr IVPB DAILY [facility] Rx#: [id number] Sodium Chloride 0.9% 1, 220 180 160 000 ml @ 20 mls/hr IV . Q24H [facility] Rx#:[id number] pressure bag 36 36 24 Intake, IV Titration 107.667 122 Amount Diltiazem 125 mg In 107.667 122 Sodium Chloride 0.9% 100 ml @ 5 MG/HR 5 mls/hr IV .Q24H [facility] Rx#:[id number] Output: Urine 1201 1245 1010 Other: Voiding Method Indwelling Catheter Indwelling Catheter Indwelling Catheter ABP, PAP, CO, CI - Last Documented Arterial Blood Pressure 169/74 - Exam This is a 79-year-old gentleman in the intensive care unit who is in no acute distress. He currently has a cervical collar in place. Oxygen saturation are 100% on 4 L nasal cannula. - EENT Eyes: Present: PERRLA, normal appearance. Absent: scleral icterus - Neck Details: Cervical collar in place. - Respiratory Details: Lung sounds with scattered fine crackles throughout, diminished to his bilateral bases. Respirations are symmetrical and nonlabored. - Cardiovascular Details: Regular rhythm and tachycardic rate. S1 and S2 to present, negative for S3, gallop or murmur. Bedside telemetry showing sinus tachycardia heart rate 102. - Gastrointestinal Gastrointestinal Comment(s): Abdomen is soft, nontender and nondistended. Normal bowel sounds. No guarding or rigidity. No organomegaly appreciated. - Integumentary Integumentary Comment(s): Skin is warm and dry. No clubbing or cyanosis. No rash. - Neurologic Neurologic: Present: CNII-XII intact - Musculoskeletal Musculoskeletal: Present: generalized weakness, strength equal bilaterally - Psychiatric Psychiatric: Present: A&O x's 3, appropriate affect, intact judgment & insight - Allied health notes Allied health notes reviewed: nursing - Labs CBC & Chem 7: 06/10/19 04:15 06/10/19 04:15 Labs: Abnormal Lab Results - Last 24 Hours (Table) 06/09/19 06/09/19 06/09/19 Range/Units 13:40 18:01 23:12 WBC (3.8-10.6) k/uL RBC (4.30-5.90) m/uL Hgb (13.0-17.5) gm/dL Hct (39.0-53.0) % Neutrophils # (1.3-7.7) k/uL Lymphocytes # (1.0-4.8) k/uL Monocytes # (0-1.0) k/uL Carbon Dioxide (22-30) mmol/L BUN (9-20) mg/dL Glucose (74-99) mg/dL POC Glucose (mg/dL) 141 H 159 H (75-99) mg/dL Plasma Lactic Acid Jose 2.8 H* (0.7-2.0) mmol/L 06/10/19 06/10/19 06/10/19 Range/Units 04:15 04:15 05:14 WBC 58.6 H* (3.8-10.6) k/uL RBC 2.65 L (4.30-5.90) m/uL Hgb 8.3 L (13.0-17.5) gm/dL Hct 25.4 L (39.0-53.0) % Neutrophils # 56.4 H (1.3-7.7) k/uL Lymphocytes # 0.7 L (1.0-4.8) k/uL Monocytes # 1.2 H (0-1.0) k/uL Carbon Dioxide 31 H (22-30) mmol/L BUN 46 H (9-20) mg/dL Glucose 132 H (74-99) mg/dL POC Glucose (mg/dL) 137 H (75-99) mg/dL Plasma Lactic Acid Jose (0.7-2.0) mmol/L 06/10/19 06/10/19 Range/Units 05:52 11:45 WBC (3.8-10.6) k/uL RBC (4.30-5.90) m/uL Hgb (13.0-17.5) gm/dL Hct (39.0-53.0) % Neutrophils # (1.3-7.7) k/uL Lymphocytes # (1.0-4.8) k/uL Monocytes # (0-1.0) k/uL Carbon Dioxide (22-30) mmol/L BUN (9-20) mg/dL Glucose (74-99) mg/dL POC Glucose (mg/dL) 146 H 138 H (75-99) mg/dL Plasma Lactic Acid Jose (0.7-2.0) mmol/L Microbiology - Last 24 Hours (Table) 06/05/19 18:20 Blood Culture - Preliminary Blood No Growth after 96 hours 06/09/19 13:45 Urine Culture - Preliminary Urine,Catheterized - Imaging and Cardiology Chest x-ray: report reviewed, image reviewed Assessment and Plan Assessment: 1. Paroxysmal atrial fibrillation 2. Status post anterior cervical decompression of C6 and fusion of C5 to C7 for compression fracture of C6 and cervical stenosis and myelopathy 3. History of lung cancer and bone cancer 4. Chronic obstructive pulmonary disease 5. History of CAD status post stenting 6. Hypertension 7. Hypothyroidism 8. Anemia Plan: 1. Discontinue IV Cardizem and start metoprolol tartrate 5 mg IV every 8 hours. 2. Patient is currently sinus tachycardia, hold off on anticoagulation for now. Patient is scheduled for a PEG tube placement on 06/12/2019. 3. The patient is a poor candidate for long-term anticoagulation. 4. More recommendations to follow based on patient's clinical course. Nurse practitioner note has been reviewed, I agree with a documented findings and plan of care. Patient was seen and examined. Time with Patient: Less than 30
--- NOTE | 2019-06-10 17:16 | PN ---
PROGRESS NOTE DATE OF SERVICE: 06/10/2019 This 79-year-old gentleman who was initially admitted with multiple medical issues including acute hypoxic respiratory failure secondary to aspiration pneumonia after surgery is being closely monitored. Patient extubated. Patient is still confused at this time. The patient also had atrial fibrillation. Patient is on Cardizem drip at this time. Normal sinus rhythm at rest. PEG tube has been planned at this time. Otherwise, the most recent chest x-ray which was reviewed personally by me showed bilateral lesions as well as aspiration pneumonia. The patient is also on IV steroids. White count is elevated, indicating a leukemoid reaction. Patient evaluated by Oncology and as well as Radiation Oncology also because of the possibility of metastatic malignancy. PAST MEDICAL HISTORY: Reviewed. REVIEW OF SYSTEMS: CARDIOVASCULAR: As mentioned earlier. RESPIRATORY: As mentioned earlier. GI: As mentioned earlier. no dysuria. NERVOUS SYSTEMS: Diffusely weak. CURRENT MEDICATIONS: Reviewed and include: 1. Tylenol p.r.n. 2. [place] 10 mg q.6h. 3. Maalox. 4. DuoNeb q.i.d. and p.r.n. 5. Unasyn 3 grams IV q.8. 6. Aspirin. 7. Cepacol. 8. Decadron 6 mg IV q.6. 9. Fluconazole. 10.Heparin. 11.Dilaudid. 12.Synthroid. 13.Lidoderm. 14.Lopressor. 15.Zofran. 16.Protonix. 17.Doses are reviewed. PHYSICAL EXAM: Patient is alert, oriented x2. Pulse is 102. Blood pressure is 141/89. Respiration 26, temperature 98.7, pulse ox 100 percent on 4 L. HEENT is conjunctivae normal. NECK is status post surgery. CARDIOVASCULAR system: S1, S2, tachycardia. Ejection systolic murmur. RESPIRATIONS: Breath sounds diminished in the bases. A few scattered rhonchi and crackles. ABDOMEN: Soft, nontender. LEGS are no edema. CENTRAL NERVOUS SYSTEM: Diffusely weak. LAB STUDIES: WBC 58.6, hemoglobin is 8.3, sodium 142, potassium 3.5. Accu-Cheks noted. ASSESSMENT: 1. Acute hypoxic respiratory failure secondary to bilateral aspiration pneumonia, status post mechanical ventilation with possible sepsis and hypotension with severe sepsis present on admission. 2. Propionibacterium acne from the anaerobic cultures from the surgical site. 3. 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 4. Dysphagia for PEG tube placement. 5. Metabolic encephalopathy, acute, multifactorial. 6. Atrial fibrillation with fast ventricular rate, paroxysmal on Cardizem. 7. Leukemoid reaction secondary to steroids, possibly per Hematology/Oncology. 8. Staph hominis from the blood. 9. Mireya albicans from the sputum. 10.History of recent cervical decompression and discectomy, C4-5, C6-7 with a suspected C6 pathology compression fracture as well as upper extremity weakness on the right side with previous cervical canal stenosis, bacteremia, neck pain and upper extremity pain. 11.History of coronary artery disease. 12.History of chronic obstructive pulmonary disease. 13.Hypertension. 14.Hyperlipidemia. 15.Rule out right lung cancer with METS. 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 17.History of degenerative joint disease. 18.History of thyroid cancer. 19.History of coronary artery disease, stent. 20.History of nicotine dependence, continued ongoing. 21.FULL CODE. RECOMMENDATIONS AND DISCUSSION: In this 79-year-old gentleman who presented with multiple complex medical issues, we will monitor the patient closely, continue the current medications, management and symptomatic treatment. Continue with IV steroids. Continue with the broad-spectrum IV antibiotics. Otherwise PEG tube placement per surgery. Closely follow with multiple consultants. Radiation Oncology has seen the patient and recommend postop radiation therapy after 2-3 weeks to allow for adequate healing. Otherwise, we will closely monitor with Orthopedic surgery and surgery. Prognosis extremely guarded because of multiple complex medical issues. The patient might require PT/OT evaluation, possible ECF rehab once the patient's general status is improving. Discussed with staff. Further recommendations to follow. MMODL / IJN: [id number] /
[2019-06-10 17:50] LABS: Glucose,Whole Blood 132 mg/dL (75-99)
[2019-06-10] MEDS: SODIUM CHLORIDE 0.9% 1,000 ML IV SCH (19:00)
--- NOTE | 2019-06-10 19:07 | PN ---
PROGRESS NOTE DATE OF SERVICE: 06/10/2019 REASON FOR FOLLOWUP: Aspiration pneumonia and C6 osteomyelitis. INTERVAL HISTORY: The patient is currently afebrile. Patient is breathing comfortably on room air. Denies any chest pain. Some cough. No vomiting or diarrhea has been reported. PHYSICAL EXAMINATION: Blood pressure 140/89 with a pulse of 102, temperature 98.7. He is 100% on 4 L nasal cannula. General description is an elderly male lying in bed in no distress. Respiratory system: Unlabored breathing. Coarse breath sounds bilaterally. No wheeze. Heart S1, S2. Regular rate and rhythm. Abdomen soft, no tenderness. LABS: Hemoglobin 8.8, white count of 38.6, BUN of 46, creatinine 0.75. DIAGNOSTIC IMPRESSION AND PLAN: Patient with aspiration pneumonia, sputum has been MSSA in this patient who hospital with C6 fracture status post decompression, fusion with corpectomy. Culture from this area is showing Propionibacterium. The patient is currently covered with Unasyn and Diflucan. The patient did have persistent elevated white count more likely steroid effect which should be cut back, see response and monitor clinical course closely. MMODL / IJN: [id number] /
[2019-06-10] MEDS: HYDROmorphone 0.5 MG/0.5 ML SYRINGE IVP PRN (21:40)
[2019-06-10 23:31] LABS: Glucose,Whole Blood 128 mg/dL (75-99)
[2019-06-11] MEDS: HYDROmorphone 1 MG/ML 1 ML SYRINGE IVP PRN ×6 (02:42→21:02)
[2019-06-11 04:39] LABS: Basophils # (A) 0.1 k/uL (0-0.2); Basophils % (A) 0 %; Eosinophils % (A) 0 %; HCT 25.4 % (39.0-53.0); HGB 8.1 gm/dL (13.0-17.5); Lymphocytes # (A) 0.3 k/uL (1.0-4.8); Lymphocytes % (A) 1 %; MCH 30.8 pg (25.0-35.0); MCHC 31.9 g/dL (31.0-37.0); MCV 96.5 fL (80.0-100.0); Mean Platelet Volume 11.1; Monocytes % (A) 2 %; Neutrophils # (A) 48.4 k/uL (1.3-7.7); Neutrophils % (A) 97 %; Platelet Count 168 k/uL (150-450); RBC 2.63 m/uL (4.30-5.90); RDW 15.6 % (11.5-15.5)
[2019-06-11 05:10] LABS: African American GFR (CKD) >90 (>60 ml/min/1.73 sqM); Anion Gap 3 mmol/L; Blood Urea Nitrogen 44 mg/dL (9-20); Calcium 9.2 mg/dL (8.4-10.2); Carbon Dioxide 33 mmol/L (22-30); Chloride 106 mmol/L (98-107); Glucose 121 mg/dL (74-99); Non-African American GFR(CKD) >90 (>60 ml/min/1.73 sqM); Potassium 4.3 mmol/L (3.5-5.1); Sodium 142 mmol/L (137-145)
[2019-06-11] MEDS: INSULIN ASPART (NovoLOG) 100 UNIT/ML VIAL SQ SCH ×3 (05:54→18:18)
[2019-06-11] MEDS: DEXAMETHASONE SOD PHOSPHATE 10 MG/ML 1 ML VIAL IV SCH ×2 (06:15→13:21)
[2019-06-11] MEDS: AMPICILLIN-SULBACTAM 3 GM in SODIUM CHLORIDE 0.9% 100 ML IVPB SCH ×3 (06:15→17:53)
--- NOTE | 2019-06-11 06:31 | XR ---
EXAMINATION TYPE: XR chest 1V portable DATE OF EXAM: 06/11/2019 HISTORY: exertional dyspnea. REFERENCE: Previous study dated 06/10/2019. FINDINGS: There has been a previous ACDF of the lower cervical spine. There is a moderate S-shaped scoliosis convex to the right in the upper thoracic region and to the le ft in the lower thoracic region. There continues be vascular congestion and interstitial change. The heart is not enlarged. No definit e pleural fluid is seen. If anything, the overall appearance may have worsened slightly. IMPRESSION: CONTINUING CHANGES OF PULMONARY EDEMA.
[2019-06-11] MEDS: IPRATROPIUM-ALBUTEROL 3 ML NEB INHALATION SCH ×4 (07:38→19:49)
[2019-06-11] MEDS ORDERED: HYDROmorphone 0.5 MG/0.5 ML SYRINGE IVP PRN (08:21)
[2019-06-11] MEDS: NOREPINEPHRINE 4 MG in SODIUM CHLORIDE 0.9% 250 ML IV SCH (08:29)
[2019-06-11] MEDS: PANTOPRAZOLE 40 MG/10 ML VIAL IVP SCH (08:33)
[2019-06-11] MEDS: HEPARIN SODIUM,PORCINE 5,000 UNIT/ML 1 ML VIAL SQ SCH ×2 (08:33→21:02)
[2019-06-11] MEDS: METOPROLOL TARTRATE 5 MG/5 ML VIAL IVP SCH ×2 (08:33→15:29)
[2019-06-11] MEDS: NICOTINE 14MG/24HR PATCH TRANSDERM SCH (08:33)
[2019-06-11] MEDS: LEVOTHYROXINE IVP 100 MCG/5 ML VIAL IV SCH (08:33)
[2019-06-11] MEDS: FLUCONAZOLE IN NACL,ISO-OSM 200 MG in SALINE 1 100ML.BAG IVPB SCH (08:34)
[2019-06-11] MEDS: ASPIRIN 300 MG SUPP RECTAL SCH (08:34)
[2019-06-11] MEDS: LIDOCAINE 5% PATCH TOPICAL SCH (08:34)
[2019-06-11] MEDS: LACTATED RINGERS 1,000 ML IV SCH (09:36)
--- NOTE | 2019-06-11 10:31 | P.PN ---
Subjective Progress Note Date: 06/11/19 The patient is a 79-year-old gentleman with a past medical history significant for chronic pulmonary disease, coronary artery disease status post stenting, hypertension, hypothyroidism, lung cancer, bone cancer, who underwent an anterior cervical decompression of C6 and fusion of C5 to C7 for compression f racture of C6 and cervical stenosis and myelopathy. A cardiology consult was placed for management of his atrial fibrillation. He has had atrial fibrillation with mild rapid ventricular response, rates in the 90s to 100 which was treated with IV Cardizem. He is currently unable to swallow and is awaiting a PEG tube placement which is scheduled for 06/12/2019. The patient is alert, and oriented denies any complaints of chest pain or shortness of breath. The patient was seen in follow-up on 06/10/2019 at his bedside in the intensive care unit. The patient is awake, alert and oriented 3. Denies any complaints of shortness of breath or pain at this time. He remains hemodynamically stable and is currently on no inotropic or pressor support. Cardizem is at 5 mg per hour and his bedside telemetry is currently showing sinus tachycardia heart rate 102. Chest x-ray was completed this morning which demonstrates worsening changes of pulmonary edema. Laboratory results this morning show a WBC count 58.6, hemoglobin 8.3, hematocrit 25.4, BUN 46 and creatinine 0.75. Swallow xavier dy is pending by speech pathology and currently he is scheduled for a PEG tube placement on 06/12/2019. 06/11/2019 Patient was seen in follow-up today at his bedside in the intensive care unit. He remains hemodynamically stable. He remains on metoprolol tartrate 5 mg IV push every 8 hours. Follow study pending. He remains scheduled for PEG tube placement on June. Chest x-ray shows changes of pulmonary edema upon reviewing chest x-rays, appears to have underlying pulmonary fibrosis. Labs this morning show white blood cell count 50, hemoglobin 8.1, hematocrit 25.4, platelet count 168, calcium 4.3, BUN 44, creatinine 0.65. Urine output is good. Objective - Vital Signs Vital signs: Vital Signs Temp 98 F 06/11/19 08:00 Pulse 128 H 06/11/19 08:00 Resp 19 06/11/19 08:00 BP 156/103 06/11/19 08:00 Pulse Ox 96 06/11/19 08:00 Intake & Output 06/10/19 06/11/19 06/11/19 18:59 06:59 18:59 Intake Total 349 276 146 Output Total 1560 1215 205 Balance -1211 -939 -59 Weight 64.9 kg 64.9 kg Intake: IV 349 276 146 Cardizem 50 Fluconazole in NaCl,Iso- 100 Osm 200 mg In Saline 1 100ml.bag @ 100 mls/hr IVPB DAILY [facility] Rx#: [id number] Sodium Chloride 0.9% 1, 260 240 40 000 ml @ 20 mls/hr IV . Q24H [facility] Rx#:[id number] pressure bag 39 36 6 Tube Feeding 0 Output: Urine 1560 1215 205 Other: Voiding Method Indwelling Catheter Indwelling Catheter Indwelling Catheter ABP, PAP, CO, CI - Last Documented Arterial Blood Pressure 169/74 - Constitutional General appearance: Present: no acute distress - Respiratory Details: faint crackles throughout Respiratory: bilateral: diminished (bases) - Cardiovascular Rhythm: regular - Psychiatric Psychiatric: Present: A&O x's 3 - Labs CBC & Chem 7: 06/11/19 04:25 06/11/19 04:25 Labs: Abnormal Lab Results - Last 24 Hours (Table) 06/10/19 06/10/19 06/10/19 Range/Units 11:45 17:49 23:29 WBC (3.8-10.6) k/uL RBC (4.30-5.90) m/uL Hgb (13.0-17.5) gm/dL Hct (39.0-53.0) % RDW (11.5-15.5) % Neutrophils # (1.3-7.7) k/uL Lymphocytes # (1.0-4.8) k/uL Carbon Dioxide (22-30) mmol/L BUN (9-20) mg/dL Creatinine (0.66-1.25) mg/dL Glucose (74-99) mg/dL POC Glucose (mg/dL) 138 H 132 H 128 H (75-99) mg/dL 06/11/19 06/11/19 Range/Units 04:25 04:25 WBC 50.0 H (3.8-10.6) k/uL RBC 2.63 L (4.30-5.90) m/uL Hgb 8.1 L (13.0-17.5) gm/dL Hct 25.4 L (39.0-53.0) % RDW 15.6 H (11.5-15.5) % Neutrophils # 48.4 H (1.3-7.7) k/uL Lymphocytes # 0.3 L (1.0-4.8) k/uL Carbon Dioxide 33 H (22-30) mmol/L BUN 44 H (9-20) mg/dL Creatinine 0.65 L (0.66-1.25) mg/dL Glucose 121 H (74-99) mg/dL POC Glucose (mg/dL) (75-99) mg/dL Microbiology - Last 24 Hours (Table) 06/05/19 18:20 Blood Culture - Preliminary Blood No Growth after 120 hours 06/09/19 13:45 Urine Culture - Final Urine,Catheterized 06/09/19 13:40 Blood Culture - Preliminary Blood No Growth after 24 hours Assessment and Plan Assessment: 1. Paroxysmal atrial fibrillation 2. Status post anterior cervical decompression of C6 and fusion of C5 to C7 for compression fracture of C6 and cervical stenosis and myelopathy 3. History of lung cancer and bone cancer 4. Chronic obstructive pulmonary disease 5. History of CAD status post stenting 6. Hypertension 7. Hypothyroidism 8. Anemia Plan: From sign artist perspective, we'll obtain a 2-D echo with Doppler. Hold off on anticoagulation for now. Patient is scheduled for PEG tube placement on Wednesday. Patient is a poor candidate for long-term anticoagulation. Depending on echocardiogram results we may consider switching metoprolol to calcium channel vida for heart rate control due to chest x-ray showing probable underlying pulmonary fibrosis. We'll continue to follow the patient for further recommendations accordingly. ENVELOPE CUTTER note has been reviewed, I agree with a documented findings and plan of care. Patient was seen and examined.
[2019-06-11 10:45] LABS: Magnesium 2.3 mg/dL (1.6-2.3); Phosphorus 4.2 mg/dL (2.5-4.5)
--- NOTE | 2019-06-11 10:46 | P.PN ---
Subjective Progress Note Date: 06/11/19 Principal diagnosis: Aspiration Patient slightly confused today. Pulmonary status appears stable. He is afebrile. Objective - Vital Signs Vital signs: Vital Signs Temp 98 F 06/11/19 08:00 Pulse 117 H 06/11/19 10:00 Resp 11 L 06/11/19 10:00 BP 149/100 06/11/19 10:00 Pulse Ox 96 06/11/19 10:00 Intake & Output 06/10/19 06/11/19 06/11/19 18:59 06:59 18:59 Intake Total 349 276 146 Output Total 1560 1215 205 Balance -1211 -939 -59 Weight 64.9 kg 64.9 kg Intake: IV 349 276 146 Cardizem 50 Fluconazole in NaCl,Iso- 100 Osm 200 mg In Saline 1 100ml.bag @ 100 mls/hr IVPB DAILY [facility] Rx#: [id number] Sodium Chloride 0.9% 1, 260 240 40 000 ml @ 20 mls/hr IV . Q24H [facility] Rx#:[id number] pressure bag 39 36 6 Tube Feeding 0 Output: Urine 1560 1215 205 Other: Voiding Method Indwelling Catheter Indwelling Catheter Indwelling Catheter ABP, PAP, CO, CI - Last Documented Arterial Blood Pressure 169/74 - Exam Abdomen: Soft, nontender, nondistended - Labs CBC & Chem 7: 06/11/19 04:25 06/11/19 04:25 Labs: Abnormal Lab Results - Last 24 Hours (Table) 06/10/19 06/10/19 06/10/19 Range/Units 11:45 17:49 23:29 WBC (3.8-10.6) k/uL RBC (4.30-5.90) m/uL Hgb (13.0-17.5) gm/dL Hct (39.0-53.0) % RDW (11.5-15.5) % Neutrophils # (1.3-7.7) k/uL Lymphocytes # (1.0-4.8) k/uL Carbon Dioxide (22-30) mmol/L BUN (9-20) mg/dL Creatinine (0.66-1.25) mg/dL Glucose (74-99) mg/dL POC Glucose (mg/dL) 138 H 132 H 128 H (75-99) mg/dL Triglycerides (<150) mg/dL 06/11/19 06/11/19 06/11/19 Range/Units 04:25 04:25 04:25 WBC 50.0 H (3.8-10.6) k/uL RBC 2.63 L (4.30-5.90) m/uL Hgb 8.1 L (13.0-17.5) gm/dL Hct 25.4 L (39.0-53.0) % RDW 15.6 H (11.5-15.5) % Neutrophils # 48.4 H (1.3-7.7) k/uL Lymphocytes # 0.3 L (1.0-4.8) k/uL Carbon Dioxide 33 H (22-30) mmol/L BUN 44 H (9-20) mg/dL Creatinine 0.65 L (0.66-1.25) mg/dL Glucose 121 H (74-99) mg/dL POC Glucose (mg/dL) (75-99) mg/dL Triglycerides 245 H (<150) mg/dL Microbiology - Last 24 Hours (Table) 06/05/19 18:20 Blood Culture - Preliminary Blood No Growth after 120 hours 06/09/19 13:45 Urine Culture - Final Urine,Catheterized 06/09/19 13:40 Blood Culture - Preliminary Blood No Growth after 24 hours Assessment and Plan (1) Aspiration into airway Narrative/Plan: Patient more confused today. Plans are underway for swallow evaluation tomorrow. If he fails that study would proceed with PEG tube placement. Current Visit: Yes Status: Acute Code(s): T17.908A - UNSP FB IN RESP TRACT, PART UNSP CAUSING OTH INJURY, INIT SNOMED Code(s): 790980036
--- NOTE | 2019-06-11 11:41 | P.PN ---
Subjective Progress Note Date: 06/11/19 Principal diagnosis: Acute hypoxic respiratory failure secondary to aspiration pneumonia. 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 The patient is known to have history of lung cancer. The patient came into the hospital because of pain and numbness in his right upper extremity extending to his right thumb and this is been going on for the past 2 weeks to the point where the patient was unable to lift any objects because of the pain and numbness and tingling. His echo was elevated at 31. The calcium level is normal at 9.6. Lactic acid level at time of admission was 1.7. He had a CRP of 57.7 which is quite elevated and this is based on the previous blood work that was done on 05/17/2019. In the ED, the patient had a CAT scan of the brain that showed age-related atrophy and small vessel ischemic changes. An unenhanced CAT scan of the cervical spine also was done and it showed severe compression fracture of the C6 spine of an uncertain age/etiology with bony retropulsion of 3.5 mm. No evidence of any central canal stenosis or cord compression. Multilevel degenerative disc disease was seen with disc bulging and neurominal encroachment severe at the level of C3-C4 and there is also severe degenerative disc narrowing at the level of C5-C6. There is a 90% compression fracture of the T6 spine. Noted the patient was in the emergency department on 05/17/2023 with similar complaints of worsening shoulder and arm pain he was seen in emergency department and the patient underwent a CT angiogram of the upper extremity and it showed poor opacification of the radial and ulnar arteries at the level of the brachial bifurcation which was either technical in nature or high-grade stenosis/thrombosis which could not be completely ruled out. A CAT scan of the chest was also done utilizing a CT angios protocol and the CAT scan showed no evidence of any pulmonary embolism. Nevertheless, there were several for nodules, and a lung mass. There was a 3.4 cm right lower lobe pleural-based mass posteriorly in the right lower lobe area. There was another 7 mm right middle lobe pulmonary nodule, 5 mm left upper lobe pulmonary pleural-based nodule, 7 mm right upper lobe pulmonary nodule and a 4 mm right apical pulmonary nodule. There was extensive emphysema and some scattered subpleural fibrosis. The perihilar/peribronchial lymph nodes were identified. 4.1 cm suspicious lesion of the left adrenal gland was seen suspicious for metastases. This was a new finding monitor the patient's previous CAT scan from 03/22/2018 did not show any lung masses or nodules. There was however some scarring in the lung bases especially on the right in addition to emphysema and some elevation of left hemidiaphragm. S shaped scoliosis was also seen along with osseous demineralization. The patient is afebrile. The patient's pulse ox 99% on room air.: 19 evaluation was negative. Influenza A and B were negative. UA was negative. On today's evaluation of 05/30/2019, the patient was seen by spine surgery and the patient was given a neck brace. His pain is under good control. He is awaiting MRI of the cervical spine. The white cell count remains elevated. The pro-calcitonin level is low. He is still feeling weakness in the right upper extremity. A fine-needle aspirate of the lung metastatic to be considered and will going to consult interventional radiology. On 05/31/2019 patient seen in follow-up on general medical floor, still complaining of weakness in his arms and neck pain. Patient has a c-collar that he is wearing [id number], his imaging showed significant compression of his spinal cord. Patient was evaluated by orthopedic service and surgical decompression and spinal fusion was recommended and the patient is scheduled for his surgery today. Patient was also evaluated by radiation oncology, and he may need radiotherapy to the postoperative bed after completion of the above surgery, from pulmonary perspective, his breathing seems to be nonlabored, he is on room air, with a pulse ox of 96%, lung sounds are diminished, no rhonchi or wheezing, patient has been afebrile, today's labs have been reviewed showing white blood cell count of 32.8, hemoglobin 13.4, neutrophil count is 30.5, influenza and coronavirus PCR were negative, patient is receiving IV Decadron, patient is on vancomycin, blood culture showed coagulase-negative staph. On 06/01/2019 patient seen in follow-up on medical floor, he is postop day 1 status post anterior cervical decompression with discectomy and fusion of C5, C6 and C6 and C7. He is awake and alert, in no acute distress, room air pulse ox is 94%, he sitting up in the recliner, calm and comfortable, he is afebrile, vital signs are stable. Breathing is unlabored. Bone biopsy from the vertebral body of C6 and culture of vertebral body of the 6 are pending at this time. Today's labs have been reviewed showing white blood cell, 39.2, hemoglobin of 12.3, sodium 131, potassium is 4.3, chloride is 96, B1 is 30 creatinine 0.8. Patient is on cefepime and vancomycin for antibiotic coverage, ID service is following. Patient had blood culture with coagulase-negative staph, B blood cultures pending. On 06/02/2019 patient seen in follow-up on general medical floor, and today is postoperative day 2, status post anterior cervical decompression with discectomy and fusion of C5, 6, and C6 and C7, biopsy of the vertebral body of C6 and the culture of the vertebral body of C6. Biopsy results are still pending, cultures are negative thus far. Patient is afebrile, she is on 2 L of oxygen and the pulse ox of 96%, he still is complaining of some numbness and weakness in his right wrist, and some shortness of breath, and inability to clear phlegm, his lungs are clear, no wheezing, no rhonchi, he is already on Decadron. He is on cefepime and vancomycin for antibiotics, he is on breathing treatments, will add Mucinex. On 06/05/2019 patient seen in follow-up in the intensive care unit. Patient developed worsening respiratory failure requiring intubation and placement on mechanical ventilator on 06/03/2019 for suspected aspiration. Today on 06/05/2019 patient remains intubated, and sedated. Current vent settings are assist-control mode of ventilation with a rate of 22, tidal volume is 400, FiO2 is 35%, and PEEP of 5, this point his blood gases were reviewed showing pO2 45, pCO2 28, and pH of 7.47, and this was done on FiO2 of 35% and above-mentioned ventilator settings. This morning's chest x-ray has been reviewed, showing known right basilar lung mass, pronounced right paratracheal stripe, stable exam compared yesterday's chest x-ray. No acute pulmonary findings. She remains on empiric antibiotics in the form of Zosyn for possibility of aspiration pneumonia. Sputum culture so far only shows Mireya albicans. Cultures of the bony biopsy showing proprionibacterium acnes, final culture is pending, blood culture from 05/29/2019 showed staph hominis. Current antibiotics in the form of Zosyn, infectious disease is following. Today's labs have been reviewed showing blood blood cell count of 46.9, hemoglobin of 7.9, neutrophil count is 45.4, sodium is 132, potassium 3.8, CO2 is 21, B1 is 37 creatinine 0.76. Patient's hemodynamically stable, levo fed is on hold. Urine output is in the order of 50-60 ML per hour, he is tolerating tube feedings in the form of vital HP at a rate of 42 with a goal of 42 with standard water flushes. Bone biopsy of the vertebral body of C6 is still pending at this time Reevaluated today on 06/06/19. Patient remains intubated and mechanically ventilated. He is on assist control rate of 22 tidal volume is 400 FiO2 of 35% PEEP is 5. His peak airway pressure is 23 plateau pressure is 18. Patient is hemodynamically stable, requiring relatively good dose of propofol 60 mcg/kg/m. IV fluid is at KVO. Patient will be awakened today, and will at least try to address his mental status. We'll also try to assess weaning parameters if possible. Hence instructions were given to the nurses to hold his propofol, and at least assess mental status once the propofol is discontinued. ABG today showed a pO2 of 142 pCO2 of 36 pH of 7.41. Basic metabolic profile is normal. WBC count is significantly elevated at 53.4. Hemoglobin is 7.1. His WBC count has been elevated above 30,000 since admission. C-reactive protein is 16.8. The final pathology on his bone biopsy is still pending. Chest x-ray continues to show bilateral interstitial infiltrates and possibly a small left pleural effusion. Reevaluated today on 06/07/19, patient remains in the ICU, intubated, and mechanically ventilated. His ventilator settings are assist control rate of 22, tidal volume is 400 FiO2 is 35% and PEEP is 5. His ABG showed a pO2 of 142 pCO2 of 36 and pH of 7.41. Patient remains on propofol at 75 mcg/kg/m. He is hemodynamically stable. However he is quite sedated this morning. Patient seems to be double triggering the ventilator when sedation level is low. Today my plan is to hold sedation, assess mental status, and possibly consider a pressure support of 12 and CPAP trial. Chest x-ray is showing improvement in his by basilar infiltrates. Labs showed WBC count of 38.5 hemoglobin is 7 basic metabolic profile is relatively normal. Renal profile is normal. Bone biopsy is still pending. Reevaluated today on 06/08/19, patient remains intubated and mechanically ventilated. settings are assist control rate of 22 tidal volume is 400 FiO2 is 35% PEEP is 5. ABG showed a pO2 of 131 pCO2 of 35 pH of 7.48. Patient remains on propofol which I plan to discontinue today, and give the patient a weaning trial if possible. Patient remains on tube feeding, he is hemodynamically stable, and he is in sinus rhythm. 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 The findings do not point to metastatic lung cancer. Although the patient had previous history of lung cancer in the past, and he does have a right lower lobe mass which would have to be evaluated on outpatient basis may even need a CT- guided needle biopsy since the mass is peripheral. In the meantime the patient is being evaluated by oncology, and evaluated by radiation oncology. Chest x- ray today continues to show pneumonic process in both lungs more so in the left midlung. Patient did have documented aspiration pneumonia. Today if the patient tolerates weaning, may consider placing the patient on BiPAP pos textubation. He will definitely need a swallow evaluation before any feeding could be initiated. Reevaluated today on 06/09/19, patient is now off mechanical ventilation, he is on few liters nasal cannula, doing relatively well. However his chest x-ray continues to show bilateral interstitial infiltrates, consistent with aspiration pneumonia, underlying interstitial edema is not entirely ruled out, hence the patient will be given a trial of diuresis. Patient is also on Cardizem at 10 mg per hour, patient developed atrial fibrillation with RVR yesterday. Cardiology was asked to see the patient. Patient is having difficulty swallowing, and could not perform a swallow evaluation on this patient, hence switched his oral medications to IV meds. And that's including his Synthroid, and his beta vida. Patient remains marginal at best while in the ICU. Reevaluated today on 06/10/19, patient remains in the ICU, tolerated the extubation over the last 2 days quite well. Continues to have neck pain, remains on Cardizem at 5 mg per hour, and that will likely be discontinued by cardiology today. Patient is in sinus rhythm today. Patient is unable to swallow, hence I have a strong feeling that the patient will eventually require a PEG tube placement. Specially that has been documentation of aspiration pneumonia based on previous bronchoscopy by Dr. Nogueira. I reviewed again the results of his bone biopsy, and it is not clear whether this is metastatic lung cancer or other form of cancer. The pathologist seems to be vague about the actual primary of this malignancy. At any rate that being addressed by oncology. I did review the CT of the abdomen and pelvis, and in the right lower lobe there is clearly a right lower lobe mass which is best accessible by CT- guided biopsy if a tissue diagnosis is felt to be necessary. Patient will eventually require chemotherapy and radiation therapy for sure. However he is still being treated for infection and aspiration pneumonia patient's initial presentation was mostly a presentation of cord compression. 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 Labs today showed again leukocytosis/leukemoid reaction with WBC count of 15.6 hemoglobin is 8.3 electrolytes are relatively normal. Chest x-ray continues to show interstitial lung disease/consistent with pulmonary fibrosis. Reevaluated today on 06/11/19. Patient remains in the ICU, remains on few liters nasal cannula, in no distress, however the patient seems to be confused. Continues to have significant amount of pain in his cervical region, and I recommended increasing the Dilaudid to 1 mg every 2 hours when necessary. Continues to have persistent leukocytosis/leukemoid reaction. Patient will be placed on TPN today, and I believe the patient will eventually need a PICC line placement, he would also need a PEG tube placement, and eventually rehab placement. With the plan to receive chemotherapy and radiation treatment on outpatient basis. In the meantime the patient is generally weak, confused, not sleeping well, and in pain which I will address. Labs were reviewed WBC count is 50 hemoglobin is 8.1 electrolytes are normal renal profile is normal chest x- ray clearly shows evidence of interstitial lung disease, and possible underlying interstitial infiltrates. Patient did have aspiration pneumonia at one point, and this was noted on bronchoscopy with food noted in the airways. Objective - Vital Signs Vital signs: Vital Signs Temp 98 F 06/11/19 08:00 Pulse 117 H 06/11/19 10:00 Resp 11 L 06/11/19 10:00 BP 149/100 06/11/19 10:00 Pulse Ox 96 06/11/19 10:00 Intake & Output 06/10/19 06/11/19 06/11/19 18:59 06:59 18:59 Intake Total 349 276 146 Output Total 1560 1215 205 Balance -1211 -939 -59 Weight 64.9 kg 64.9 kg Intake: IV 349 276 146 Cardizem 50 Fluconazole in NaCl,Iso- 100 Osm 200 mg In Saline 1 100ml.bag @ 100 mls/hr IVPB DAILY [facility] Rx#: [id number] Sodium Chloride 0.9% 1, 260 240 40 000 ml @ 20 mls/hr IV . Q24H [facility] Rx#:[id number] pressure bag 39 36 6 Tube Feeding 0 Output: Urine 1560 1215 205 Other: Voiding Method Indwelling Catheter Indwelling Catheter Indwelling Catheter ABP, PAP, CO, CI - Last Documented Arterial Blood Pressure 169/74 - Exam GENERAL EXAM: Revealed a 79-year-old white male on nasal cannula, in no form of respiratory distress, cervical collar is in place. HEENT: PERRLA, EOMI, no icterus. NECK: No masses, no JVD, no thyroid enlargement, no adenopathy. Patient has a c-collar in place CHEST: No chest wall deformity. Symmetrical expansion. LUNGS: Symmetrical chest expansion, fine crackles at the bases. CVS: Irregular irregular rhythm, no S3 gallop. ABDOMEN: Soft, nontender. No hepatosplenomegaly, normal bowel sounds, no guarding or rigidity. EXTREMITIES: No clubbing, no edema, no cyanosis, 2+ pulses and upper and lower extremities. MUSCULOSKELETAL: No deformities, no limitation in range of motion. SPINE: Cervical collar remains in place. SKIN: No rashes CENTRAL NERVOUS SYSTEM: Arousable, but confused, follows simple instructions. Psychiatric: Blunted affect, depressed mood, confused. Complaining mostly of pain and unable to sleep well. - Labs CBC & Chem 7: 06/11/19 04:25 06/11/19 04:25 Labs: Abnormal Lab Results - Last 24 Hours (Table) 06/10/19 06/10/19 06/10/19 Range/Units 11:45 17:49 23:29 WBC (3.8-10.6) k/uL RBC (4.30-5.90) m/uL Hgb (13.0-17.5) gm/dL Hct (39.0-53.0) % RDW (11.5-15.5) % Neutrophils # (1.3-7.7) k/uL Lymphocytes # (1.0-4.8) k/uL Carbon Dioxide (22-30) mmol/L BUN (9-20) mg/dL Creatinine (0.66-1.25) mg/dL Glucose (74-99) mg/dL POC Glucose (mg/dL) 138 H 132 H 128 H (75-99) mg/dL Triglycerides (<150) mg/dL 06/11/19 06/11/19 06/11/19 Range/Units 04:25 04:25 04:25 WBC 50.0 H (3.8-10.6) k/uL RBC 2.63 L (4.30-5.90) m/uL Hgb 8.1 L (13.0-17.5) gm/dL Hct 25.4 L (39.0-53.0) % RDW 15.6 H (11.5-15.5) % Neutrophils # 48.4 H (1.3-7.7) k/uL Lymphocytes # 0.3 L (1.0-4.8) k/uL Carbon Dioxide 33 H (22-30) mmol/L BUN 44 H (9-20) mg/dL Creatinine 0.65 L (0.66-1.25) mg/dL Glucose 121 H (74-99) mg/dL POC Glucose (mg/dL) (75-99) mg/dL Triglycerides 245 H (<150) mg/dL Microbiology - Last 24 Hours (Table) 06/05/19 18:20 Blood Culture - Preliminary Blood No Growth after 120 hours 06/09/19 13:45 Urine Culture - Final Urine,Catheterized 06/09/19 13:40 Blood Culture - Preliminary Blood No Growth after 24 hours Assessment and Plan Assessment: Impression:Postoperative day #11 status post anterior cervical decompression with corpectomy of C6 and fusion from C5 to C7 for his compression burst fracture at C6 and 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 Compression fracture of cervical spine/pathological fractures secondary to malignancy. 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 Not quite certain that this is truly lung primary. History of lung cancer and previous left upper lobe resection. This was over 9 years ago. Patient does have a right lower lobe mass which will eventually require tissue diagnosis by CT-guided needle biopsy. This is to be done on outpatient basis. History of severe COPD. Interstitial lung disease is strongly suspected/pulmonary fibrosis. Coronary artery disease and previous coronary artery stenting. History of hypothyroidism. History of benign essential hypertension. Recommendation: Continue nasal cannula, titrate FiO2 down accordingly and keep O2 saturation above 90%. Continue Unasyn for aspiration pneumonia. Continue GI and DVT prophylaxis. Continue Decadron for his compression fracture and myelopathy. Continue bronchodilators. Patient was already seen by medical oncology and by radiation oncology. Obviously the patient will need significant outpatient treatment with radiation and chemotherapy. Patient is to have another swallow evaluation in the morning, however I am inclined to strongly recommend PEG tube placement on this patient. Patient is to receive a PICC line placement and possibly have his femoral triple-lumen catheter removed. Patient is to be started on TPN. Patient is to have frequent doses of Dilaudid for pain control. Continue to monitor the patient in the ICU. Prognosis is extremely poor and guarded. Knowing that the patient has high- grade malignancy in the cervical spine. We'll continue to follow. Time with Patient: Less than 30
[2019-06-11] MEDS ORDERED: MVI, ADULT NO.4 WITH VIT K 10 ML, TRACE (CONC-1ML/DOSE) 1 ML in AMINO ACID 5%-D15W+LYTE... IV ONE ×3 (12:00)
[2019-06-11 12:11] LABS: Glucose,Whole Blood 111 mg/dL (75-99)
--- NOTE | 2019-06-11 12:43 | P.PN ---
Progress Note - Text Progress Note Date: 06/11/19 Orthopedic Spine: History of present illness: Patient is a pleasant 79-year-old male who is seen at the bedside following C5-6 and C6-7 anterior cervical decompression and fusion with corpectomy of C6 performed last 05/31/2019. The patient was able to be extubated 3 days ago. He is awake, alert, oriented in the ICU today. He has not had any change in his symptoms as compared to yesterday. He states he is not currently experiencing any significant pain with his upper extremities. He does have significant weakness greater on the right than the left. He feels his cervical pain has been adequately controlled but does admit to some soreness at his cervical spine. He has his hard cervical collar intact. Nursing states patient has been started on Cardizem. She states patient has also failed a swallow study. They're planning to repeat to swallow study tomorrow and if he fails a second time they may plan for PEG tube placement. 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 He is known to have lung cancer. He continues to be seen and examined by multiple providers including oncology, pulmonology, medicine, general surgery, and cardiology. Patient is currently on Unasyn IV. Patient does have evidence of significant dark purple bruising in the arm pits bilaterally which was marked with a pen by another provider to monitor. The cause of the bruising is unknown. Physical Exam Cervical Fusion: Status post surgical day number 11 Patient is awake, alert, and oriented 3 Vital signs stable Adequate chest excursion with inspiration and expiration Patient does have significant difficulty with active range of motion of the deltoids bilaterally greater on the right than the left Patient is able to perform some biceps strength and triceps strength bilaterally Motor strength of the upper extremities is 4-/5 including high voltage electrician bilaterally Dressing has been removed over the surgical site Incision site remains dry without any active drainage and no obvious signs of infection at the surgical site Significant bruising around the surgical site and over the proximal part of the sternum Skin is firm to palpation around the surgical site Hard cervical collar is intact Evidence of significant dark purple bruising in the arm pits bilaterally Assessment: Status post C5-6 and C6-7 anterior cervical decompression and fusion with cor pectomy of C6 C6 pathologic compression fracture Bilateral upper extremity weakness greater on the right than the left Surgical pathology report shows evidence of 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 Ambulate as tolerated; work with Physical Therapy to increase mobilization 2. Continue pain control with oral [place] and IV Dilaudid as needed 3. Dressing has been removed from the patient's surgical site. Patient may shower without a dressing intact at this time. Patient must keep hard cervical collar intact while bathing. 4. Patient must continue to keep hard cervical collar intact at all times; we will plan to keep his hard cervical collar intact postoperatively for approximately 12 weeks and may plan to transition to a soft cervical collar pending on the patient's progress. 5. Patient will continue to be seen and examined by multiple other medical providers including oncology, pulmonology, cardiology, general surgery, and medicine for his other significant medical diagnoses 6. Patient may continue with anticoagulation medication as needed as prescribed by cardiology or other medical providers 7. Following discharge, patient may follow-up with Ric Cunningham PA-C or Dr. Yamil Flores at [facility] in 1-2 weeks following discharge 7. We will continue to follow patient closely during his admission
[2019-06-11] MEDS: FAT EMULSION 20% 250 ML in EMPTY BAG 1 BAG IV SCH (13:20)
[2019-06-11] MEDS: DEXAMETHASONE SOD PHOSPHATE 4 MG/ML 1 ML VIAL IV SCH (15:29)
[2019-06-11] MEDS: SODIUM CHLORIDE 0.9% 1,000 ML IV SCH (15:35)
--- NOTE | 2019-06-11 16:25 | PN ---
PROGRESS NOTE DATE OF SERVICE: 06/11/2019 This 79-year-old gentleman who was admitted with acute hypoxic respiratory failure secondary to bilateral aspiration pneumonia, had mechanical ventilation. Patient also had recent neck surgery. The patient had multiple organisms grown from the culture. The patient on broad spectrum IV antibiotics. Sensorium appears to be confused. His most recent chest x-ray which was personally reviewed by me showed evidence of bilateral aspiration pneumonia. The patient is slated to have a swallow evaluation tomorrow and possibly PEG tube placement after that. The patient is being closely monitored. Surgery also following the patient closely as well general surgery and as well as Pulmonary. PAST MEDICAL HISTORY: Reviewed. REVIEW OF SYSTEM: Could not be taken the patient still confused. CURRENT MEDICATIONS: Reviewed and include: 1. Capulin 10 mg q.6 p.r.n. 2. Maalox. 3. DuoNeb q.i.d. and p.r.n. 4. Unasyn 3 g q.6h. 5. Aspirin 300 mg. 6. Decadron. 7. Dilaudid. 8. NovoLog. 9. Synthroid. 10.Lidoderm. 11.Lopressor. 12.Habitrol. 13.Protonix. PHYSICAL EXAM: Patient is alert, oriented x3. Pulse is 114. Blood pressure is 140/99, respiration 11. Temperature 98.4, pulse ox 100 percent on 2 L. HEENT is conjunctivae normal. NECK: No JVD. CARDIOVASCULAR: S1, S2 muffled. RESPIRATORY: Breath sounds diminished in the bases. Bilateral scattered rhonchi and crackles. ABDOMEN: Soft, nontender. LEGS no edema. CENTRAL NERVOUS SYSTEM: Diffusely weak. LABS: WBC 15.8, hemoglobin is 8.1, sodium 142, triglycerides 245. ASSESSMENT: 1. Acute hypoxic respiratory failure secondary to bilateral aspiration pneumonia, status post mechanical ventilation with possible sepsis, hypotension with severe sepsis present on admission. 2. Propionibacterium acne from anaerobic cultures from the surgical site. 3. 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 Grace. 4. Dysphagia for PEG tube placement. 5. Metabolic encephalopathy, acute, multifactorial. 6. Atrial fibrillation with fast ventricular rate, paroxysmal on Cardizem. 7. Leukemoid reaction secondary to steroids possibly per Hematology/Oncology. 8. Staph hominis from the blood. 9. Mireya albicans from the sputum. 10.History of recent cervical decompression with discectomy, C4-5, C6-7 with suspected C6 pathology compression fracture as well as upper extremity weakness on the right side with previous cervical canal stenosis, bacteremia, neck pain and upper extremity pain. 11.History of coronary artery disease. 12.History of chronic obstructive pulmonary disease. 13.Hypertension. 14.Hyperlipidemia. 15.Rule out right lung cancer with METS. 16.Right upper lobe malignancy, status post lobectomy previously. 17.History of degenerative joint disease. 18.History of thyroid cancer. 19.History of coronary artery disease/stent. 20.History of nicotine dependence continued ongoing. 21.FULL CODE. RECOMMENDATIONS AND DISCUSSION: This 79-year-old gentleman who presented with multiple complex medical issues, I recommend to continue the antibiotics. Continue the bronchodilators. Ensure oxygenation. Symptomatic treatment. Otherwise, swallow evaluation. Possible PEG tube. PT/OT evaluation. Eventual rehab. Closely follow with multiple consultants. Guarded prognosis. Further recommendations to follow. MMODL / IJN: [id number] /
[2019-06-11] MEDS ORDERED: DILTIAZEM DRIP BOLUS FROM BAG 1 MG SOLN IV ONE (17:41)
[2019-06-11 17:46] LABS: Glucose,Whole Blood 168 mg/dL (75-99)
[2019-06-11] MEDS: DILTIAZEM 125 MG in SODIUM CHLORIDE 0.9% 100 ML IV SCH (18:03)
--- NOTE | 2019-06-11 23:13 | PN ---
PROGRESS NOTE DATE OF SERVICE: 06/11/2019 REASON FOR FOLLOWUP: Aspiration pneumonia and C6 osteomyelitis. INTERVAL HISTORY: The patient is currently afebrile. The patient is more awake, alert. He is breathing comfortably. He did have some cough but no sputum. No vomiting. No abdominal pain or any diarrhea. PHYSICAL EXAMINATION: Blood pressure 148/100 with a pulse of 138, temperature 98.2. He is 98% on 2 L nasal cannula. General description is an elderly male lying in bed in no distress. RESPIRATORY SYSTEM: Unlabored breathing decreased breath sounds in the bases. No wheeze. HEART: S1, S2. Regular rate and rhythm. ABDOMEN: Soft, no tenderness. EXTREMITIES: No edema of feet. LABS: Hemoglobin 8.1, white count of 50,000, BUN of 44, creatinine 0.65. Blood culture repeat has been negative. DIAGNOSTIC IMPRESSION AND PLAN: Patient with aspiration pneumonia, sputum has been MSSA, Mireya albicans. also have C6 osteomyelitis as the culture from that site showing Proprionibacterium. Patient is covered with Unasyn and Diflucan to continue. has been cut back. Will see the white count slowly coming down. Monitor clinical course closely. MMODL / IJN: [id number] /
[2019-06-12 00:07] LABS: Glucose,Whole Blood 189 mg/dL (75-99)
[2019-06-12] MEDS: INSULIN ASPART (NovoLOG) 100 UNIT/ML VIAL SQ SCH ×5 (00:21→23:12)
[2019-06-12] MEDS: HYDROmorphone 1 MG/ML 1 ML SYRINGE IVP PRN ×4 (00:22→17:19)
[2019-06-12] MEDS: METOPROLOL TARTRATE 5 MG/5 ML VIAL IVP SCH ×4 (00:24→23:01)
[2019-06-12] MEDS: DEXAMETHASONE SOD PHOSPHATE 4 MG/ML 1 ML VIAL IV SCH ×4 (00:24→23:01)
[2019-06-12] MEDS: AMPICILLIN-SULBACTAM 3 GM in SODIUM CHLORIDE 0.9% 100 ML IVPB SCH ×5 (00:25→23:01)
[2019-06-12] MEDS: NOREPINEPHRINE 4 MG in SODIUM CHLORIDE 0.9% 250 ML IV SCH (03:55)
[2019-06-12 05:11] LABS: INR 1.1 (<1.2); Prothrombin Time 10.9 sec (9.0-12.0)
[2019-06-12 05:12] LABS: Anisocytosis Slight; Basophils # (A) 0.1 k/uL (0-0.2); Basophils % (A) 0 %; Eosinophils # (A) 0.1 k/uL (0-0.7); Eosinophils % (A) 0 %; HCT 24.5 % (39.0-53.0); HGB 7.9 gm/dL (13.0-17.5); Hypochromasia Slight; Lymphocytes # (A) 0.5 k/uL (1.0-4.8); Lymphocytes % (A) 1 %; MCHC 32.3 g/dL (31.0-37.0); MCV 98.9 fL (80.0-100.0); Macrocytosis Slight; Mean Platelet Volume 10.2; Monocytes # (A) 0.8 k/uL (0-1.0); Monocytes % (A) 2 %; Neutrophils # (A) 45.3 k/uL (1.3-7.7); Neutrophils % (A) 97 %; Platelet Count 168 k/uL (150-450); RBC 2.47 m/uL (4.30-5.90); WBC 46.8 k/uL (3.8-10.6)
[2019-06-12 05:20] LABS: ALT 51 U/L (4-49); AST 103 U/L (17-59); African American GFR (CKD) >90 (>60 ml/min/1.73 sqM); Albumin 3.1 g/dL (3.5-5.0); Alkaline Phosphatase 118 U/L (38-126); Anion Gap 3 mmol/L; Blood Urea Nitrogen 47 mg/dL (9-20); Calcium 8.8 mg/dL (8.4-10.2); Carbon Dioxide 32 mmol/L (22-30); Chloride 108 mmol/L (98-107); Glucose 129 mg/dL (74-99); Magnesium 2.2 mg/dL (1.6-2.3); Non-African American GFR(CKD) >90 (>60 ml/min/1.73 sqM); Potassium 3.8 mmol/L (3.5-5.1); Sodium 143 mmol/L (137-145); Total Bilirubin 1.6 mg/dL (0.2-1.3); Total Protein 5.9 g/dL (6.3-8.2)
[2019-06-12] MEDS: POTASSIUM CHLORIDE 10 MEQ in WATER FOR INJECTION 1 100ML.BAG IVPB SCH ×2 (05:43→07:15)
[2019-06-12] MEDS: IPRATROPIUM-ALBUTEROL 3 ML NEB INHALATION SCH ×3 (07:23→19:57)
--- NOTE | 2019-06-12 07:50 | XR ---
EXAMINATION TYPE: XR chest 1V portable DATE OF EXAM: 06/12/2019 COMPARISON: 06/11/2019 HISTORY: Insertional dyspnea TECHNIQUE: Single frontal view of the chest is obtained. FINDINGS: Redemonstration of scoliotic curvature of the thoracic spine. The patient's chin obscures the lung apices particularly on the left. Diffuse interstitial prominence is redemonstrated. Central vascular congestion has improved. No new focal consolidation or pleural effusion. Cervical fusion dev ice is partially seen. The subcentimeter pulmonary nodules noted on the prior CT of 05/17/2019 are not well seen radiographically. The pleural-based mass of the right lung base is also not well visualized radiographically. Surgical clips at the left hilum are again noted. IMPRESSION: Improved pulmonary vascular congestion. Diffuse interstitial change may be on the basis of pulmonary fibrosis an interstitial lung disease. No new focal consolidation.
[2019-06-12] MEDS: LEVOTHYROXINE IVP 100 MCG/5 ML VIAL IV SCH (08:04)
[2019-06-12] MEDS: PANTOPRAZOLE 40 MG/10 ML VIAL IVP SCH (08:05)
[2019-06-12] MEDS: ASPIRIN 300 MG SUPP RECTAL SCH (08:05)
[2019-06-12] MEDS: HEPARIN SODIUM,PORCINE 5,000 UNIT/ML 1 ML VIAL SQ SCH (08:05)
[2019-06-12] MEDS: NICOTINE 14MG/24HR PATCH TRANSDERM SCH (08:05)
[2019-06-12] MEDS: FLUCONAZOLE IN NACL,ISO-OSM 200 MG in SALINE 1 100ML.BAG IVPB SCH (08:05)
[2019-06-12] MEDS: LIDOCAINE 5% PATCH TOPICAL SCH (08:05)
[2019-06-12] MEDS: LACTATED RINGERS 1,000 ML IV SCH (08:12)
[2019-06-12] MEDS ORDERED: DEXTROSE 5% IN WATER 250 ML with AMIODARONE 300 MG IV ONE (09:45)
[2019-06-12] MEDS: DILTIAZEM 125 MG in SODIUM CHLORIDE 0.9% 100 ML IV SCH ×2 (09:52→19:01)
--- NOTE | 2019-06-12 10:34 | ECHOF ---
Referral Reason:PAF, pulmonary edema on CXR MEASUREMENTS -------- HEIGHT: 167.6 cm WEIGHT: 62.1 kg BP: 150/85 RVIDd: 3.1 cm (< 3.3) IVSd: 1.2 cm (0.6 - 1.1) LVIDd: 3.0 cm (3.9 - 5.3) LVPWd: 1.2 cm (0.6 - 1.1) IVSs: 1.5 cm LVIDs: 2.3 cm LVPWs: 1.6 cm LA Diam: 3.1 cm (2.7 - 3.8) LAESV Index (A-L): 15.09 ml/m Ao Diam: 3.5 cm (2.0 - 3.7) AV Cusp: 2.3 cm (1.5 - 2.6) MV EXCURSION: 15.293 mm (> 18.000) MV EF SLOPE: 45 mm/s (70 - 150) EPSS: 1.0 cm MV E Javed: 0.90 m/s MV DecT: 211 ms MV A Javed: 1.10 m/s MV E/A Ratio: 0.82 AR PHT: 375 ms RAP: 5.00 mmHg RVSP: 37.58 mmHg FINDINGS -------- Sinus rhythm. This was a technically good study. Suboptimal image quality - poor subcostal views. The left ventricular size is normal. There is borderline concentric left ventricular hypertrophy. Overall left ventricular systolic function is normal with, an EF between 60 - 65 %. The right ventricle is normal in size. Normal LA size by volume 22+/-6 ml/m2. The right atrium is normal in size. Interatrial and interventricular septum intact. The aortic valve is trileaflet and appears structurally normal. There is mild aortic regurgitation. The mitral valve leaflets are mildly thickened. Mild tricuspid regurgitation present. There is mild pulmonary hypertension. The right ventricular systolic pressure, as measured by Doppler, is 37.58mmHg. Trace/mild (physiologic) pulmonic regurgitation. The aortic root size is normal. IVC Not well visulized. There is no pericardial effusion. CONCLUSIONS -------- 1. Sinus rhythm. 2. This was a technically good study. 3. Suboptimal image quality - poor subcostal views. 4. The left ventricular size is normal. 5. There is borderline concentric left ventricular hypertrophy. 6. Overall left ventricular systolic function is normal with, an EF between 60 - 65 %. 7. The right ventricle is normal in size. 8. Normal LA size by volume 22+/-6 ml/m2. 9. The right atrium is normal in size. 10. Interatrial and interventricular septum intact. 11. The aortic valve is trileaflet and appears structurally normal. 12. There is mild aortic regurgitation. 13. The mitral valve leaflets are mildly thickened. 14. Mild tricuspid regurgitation present. 15. There is mild pulmonary hypertension. 16. The right ventricular systolic pressure, as measured by Doppler, is 37.58mmHg. 17. Trace/mild (physiologic) pulmonic regurgitation. 18. The aortic root size is normal. 19. IVC Not well visulized. 20. There is no pericardial effusion. BOAT PULLER: Dagmar Davila RDCS
[2019-06-12] MEDS ORDERED: LIDOCAINE 1% INJ 10MG/ML (20 ML MDV) SQ ONE (11:03)
--- NOTE | 2019-06-12 11:37 | XR ---
EXAMINATION TYPE: XR chest 1V portable DATE OF EXAM: 06/12/2019 COMPARISON: 06/12/2019 HISTORY: Line placement TECHNIQUE: Single frontal view of the chest is obtained. FINDINGS: Left-sided PICC has been inserted terminating in the proximal superior vena cava. No postp rocedural pneumothorax is remainder of the exam appears overall unchanged earlier on the same date. IMPRESSION: Left-sided PICC terminates in the occipital aspect of the superior vena cava without nany reciable postprocedural pneumothorax.
[2019-06-12 11:58] LABS: Glucose,Whole Blood 175 mg/dL (75-99)
[2019-06-12] MEDS: 1: MVI, ADULT NO.4 WITH VIT K 10 ML, TRACE (CONC-1ML/DOSE) 1 ML in AMINO ACID 5%-D15W+LY IV SCH ×3 (11:59)
[2019-06-12] MEDS: FAT EMULSION 20% 250 ML in EMPTY BAG 1 BAG IV SCH (11:59)
--- NOTE | 2019-06-12 12:21 | IR ---
PICC LINE PLACEMENT: HISTORY: Infection requiring long-term antibiotic therapy PROCEDURE: Ultrasound guidance of PICC line placement. JOINT SETTER: Dr. Stallworth. COMPLICATIONS: None ANESTHESIA: 1. 1% Lidocaine locally. FINDINGS/TECHNIQUE: The procedure was explained to the patient. The risks, complications, benefits and alternatives were discussed and any questions were answered. Informed consent was obtained. The patient was placed supine on the fluoroscopic table and prepped and draped in the usual sterile [facility] ion. Utilizing a 21 gauge needle and sonographic guidance, access in the left brachial vein was ach ieved and there is placement of a 0.018 guidewire. The vein is patent. A 5-F. sheath was placed ove r the guidewire. The guidewire and dilator were removed and a 5-F. Double lumen PICC line was placed through the sheath with the chest x-ray confirming the tip at the level of the SVC. The sheath was removed, the catheter was flushed and sutured into position. The patient was stable throughout the p rocedure and remained stable upon discharge from the Department of Radiology. The vein puncture was patent under ultrasound. A harman scale image was obtained to document patency of the vein punctured. All elements of the maximal barrier technique were utilized. IMPRESSION: 1. Successful PICC line placement under ultrasound performed bedside within the ICU.
[2019-06-12] MEDS ORDERED: PROPOFOL 10 MG/ML 20 ML VIAL IV ONE (12:41)
--- NOTE | 2019-06-12 12:47 | P.PN ---
Subjective This is Rosa Maria Cornejo PA-C scribing on behalf of Dr. Morales The patient was interviewed and examined by Dr. Morales HPI/interval history Patient is a 79-year-old male with a history significant for COPD, CAD status post stenting, hypertension, hypothyroidism, lung cancer, bone cancer who underwent anterior cervical decompression of C6 and fusion of C5 to C7 for compression fracture of C6 cervical stenosis and myelopathy. Cardiology is consulted for atrial fibrillation management. He converted to sinus rhythm this morning. He is currently unable to take anything by mouth. He will be going for PEG tube placement today. EXAMINATION Patient is afebrile, pulse in the 90s, respirations 18, blood pressure 120s to 130s over 80s, oxygen saturation 97% Dr. Morales and examined the patient in the ICU Air entry equal bilaterally Heart is regular, no audible murmurs REVIEW OF LABS, ECG WBC 46.8, hemoglobin 7.9, platelets 168, potassium 3.8, BUN 47, creatinine 0.6 Echocardiogram shows EF 60-65% IMPRESSION / ASSESSMENT: #Status post anterior cervical decompression of C6 and fusion of C5 to C7 for compression fracture of C6 cervical stenosis and myelopathy #Paroxysmal Atrial fibrillation with RVR, currently in sinus rhythm #Echocardiogram showing EF 60-65% #History of lung cancer and bone cancer #COPD #History of CAD status post stenting #Hypertension #Hypothyroidism #Anemia PLAN: Recommend amiodarone bolus to suppress atrial fibrillation Continue holding anticoagulation, poor candidate for long-term anticoagulation May switch to to oral calcium channel vida or beta vida once patient has a PEG tube placed Objective - Vital Signs Vital signs: Vital Signs Temp 98 F 06/12/19 04:00 Pulse 94 06/12/19 07:35 Resp 15 06/12/19 07:00 BP 150/85 06/12/19 07:00 Pulse Ox 97 06/12/19 07:00 Intake & Output 06/11/19 06/12/19 06/12/19 18:59 06:59 18:59 Intake Total 730 585.167 106 Output Total 1140 1085 250 Balance -410 -499.833 -144 Weight 64.9 kg 62.4 kg Intake: IV 730 563 106 Ampicillin-Sulbactam 3 gm 100 In Sodium Chloride 0.9% 100 ml @ 200 mls/hr IVPB Q6HR [facility] Rx#:[id number] Fat Emulsion 20% 250 ml 84 In Empty Bag 1 bag @ 21 mls/hr IV DAILY@1200 [facility] Rx#:[id number] Fluconazole in NaCl,Iso- 100 Osm 200 mg In Saline 1 100ml.bag @ 100 mls/hr IVPB DAILY [facility] Rx#: [id number] Mvi, Adult No.4 with Vit 210 330 60 K 10 ml Trace (Conc-1Ml/ Dose) 1 ml In Amino Acid 5%-D15w+Lytes*E* 1,000 ml @ 30 mls/hr IV .Q24H [facility] Rx#:[id number] Sodium Chloride 0.9% 1, 200 200 40 000 ml @ 20 mls/hr IV . Q24H [facility] Rx#:[id number] pressure bag 36 33 6 Intake, IV Titration 22.167 Amount Diltiazem 125 mg In 22.167 Sodium Chloride 0.9% 100 ml @ 10 MG/HR 10 mls/hr IV .[id number] [facility] Rx#: [id number] Output: Urine 1140 1085 250 Other: Voiding Method Indwelling Catheter Indwelling Catheter Indwelling Catheter ABP, PAP, CO, CI - Last Documented Arterial Blood Pressure 169/74 - Labs CBC & Chem 7: 06/13/19 04:06 06/13/19 04:06 Labs: Abnormal Lab Results - Last 24 Hours (Table) 06/11/19 06/11/19 06/11/19 Range/Units 04:25 12:10 17:44 WBC (3.8-10.6) k/uL RBC (4.30-5.90) m/uL Hgb (13.0-17.5) gm/dL Hct (39.0-53.0) % RDW (11.5-15.5) % Neutrophils # (1.3-7.7) k/uL Lymphocytes # (1.0-4.8) k/uL Chloride (98-107) mmol/L Carbon Dioxide (22-30) mmol/L BUN (9-20) mg/dL Creatinine (0.66-1.25) mg/dL Glucose (74-99) mg/dL POC Glucose (mg/dL) 111 H 168 H (75-99) mg/dL Total Bilirubin (0.2-1.3) mg/dL AST (17-59) U/L ALT (4-49) U/L Total Protein (6.3-8.2) g/dL Albumin (3.5-5.0) g/dL Triglycerides 245 H (<150) mg/dL 06/12/19 06/12/19 06/12/19 Range/Units 00:05 04:33 04:33 WBC 46.8 H (3.8-10.6) k/uL RBC 2.47 L (4.30-5.90) m/uL Hgb 7.9 L (13.0-17.5) gm/dL Hct 24.5 L (39.0-53.0) % RDW 16.0 H (11.5-15.5) % Neutrophils # 45.3 H (1.3-7.7) k/uL Lymphocytes # 0.5 L (1.0-4.8) k/uL Chloride 108 H (98-107) mmol/L Carbon Dioxide 32 H (22-30) mmol/L BUN 47 H (9-20) mg/dL Creatinine 0.60 L (0.66-1.25) mg/dL Glucose 129 H (74-99) mg/dL POC Glucose (mg/dL) 189 H (75-99) mg/dL Total Bilirubin 1.6 H (0.2-1.3) mg/dL AST 103 H (17-59) U/L ALT 51 H (4-49) U/L Total Protein 5.9 L (6.3-8.2) g/dL Albumin 3.1 L (3.5-5.0) g/dL Triglycerides (<150) mg/dL Microbiology - Last 24 Hours (Table) 06/05/19 18:20 Blood Culture - Final Blood No Growth after 144 hours 06/09/19 13:40 Blood Culture - Preliminary Blood No Growth after 48 hours
--- NOTE | 2019-06-12 13:06 | P.OP ---
Date of Procedure: 06/12/19 Preoperative Diagnosis: Malnutrition Postoperative Diagnosis: Malnutrition Severe swelling of pharynx Procedure(s) Performed: Attempted EGD Anesthesia: MAC Surgeon: Ascencion Han Pathology: none sent Condition: stable Disposition: PACU Description of Procedure: The patient's placed on the ICU bed in the supine position. He received IV sedation. Patient has c-collar due to his previous neck surgery. Patient's oropharynx was aspirated. Next the gastroscope placed oropharynx and there was severe swelling seen in the hypopharynx the cord surgery visualized. However the patient was unable to swallow the gastroscope. Due to the significant edema was decided not to aggressively placed the gastroscope esophagus. In order to prevent injury to the esophagus. At this point the scope was withdrawn. Patient top she'll well. We will attempt repeat EGD and PEG tube and 48 hours
--- NOTE | 2019-06-12 13:45 | P.PN ---
Progress Note - Text Progress Note Date: 06/12/19 Postoperative day #13 Patient is seen and examined today at bedside. The patient has been extubated and is breathing on room air. He has not been able. He is able to talk very whispered voice to some degree. He will follow commands. He is his collar intact. He had attempted procedure today to evaluate his esophagus but they're unable to pass the scope appropriately. And the procedure was abandoned. Physical Exam Afebrile with stable vital signs Abdomen is soft nontender. Chest has good excursion deep and space expiration The incision site has significant ecchymosis anteriorly. The fluid buildup that had been present was soft but has firmed up considerably. There is no dehisc ence of the incision. The swelling is much more firm. There is no active drainage. There is no erythema. Extremities have not had neurologic change from prior to surgery. He still has weakness in his upper extremities, particularly on the right. He is unable to flex his biceps against gravity. He is able to move his hand well bilaterally. Calves and thighs were soft nontender without evidence of DVT. Assessment/Plan Postoperative day #13 status post anterior cervical corpectomy for a pathologic burst fracture of C6 with fusion from C5 to C7. Postoperative for respiratory failure with aspiration, with recovery of his respiratory status Hematoma anterior cervical spine Aspiration with swelling esophagus The hematoma had been soft of the cervical spine but has firmed up considerably. He does not seem to be enlarging and is actually breathing better now than it was a few days ago. He has had respiratory arrest and is now extubated and breathing on room air with relative stability. Though the hematoma is firm, with his were controlled breathing is difficult to determine if we should try to evacuate the wound site surgically. He does have swelling around his esophagus which may be due to the hematoma as well but surgical procedure to reintubate him for evacuation of the surgical site certainly causes significant risk for him as well. He may have some benefit with a warm compress over his anterior cervical area. He was started on blood thinners which I think is appropriate. He should continue to wear his hard cervical collar. He will continue his medical management with critical care and swells with surgery and we will follow them closely.
--- NOTE | 2019-06-12 14:45 | P.PN ---
Progress Note - Text Progress Note Date: 06/12/19 The patient had attempted PEG tube placement today. Patient's significant swelling in his oropharynx which made placing the gastroscope and possible. The patient will stop heparin. We will reattempt PEG tube placement in 48 hours.
--- NOTE | 2019-06-12 15:00 | P.PN ---
Subjective Progress Note Date: 06/12/19 Principal diagnosis: metastatic lung cancer to the bone In follow-up today patient does not seem to be exactly clear on his diagnosis, he didn't remember he had a right neck biopsy/mass removed, he did remember that he has lung cancer. He denies fevers, nausea or vomiting, he thinks he can still swallow but I believe he has been aspirating, denies chest pain or difficulty breathing, has had a few episodes of hemoptysis (RN reports rather large amount yesterday), patient has generalized weakness. Objective - Vital Signs Vital signs: Vital Signs Temp 98.5 F 06/12/19 12:00 Pulse 93 06/12/19 12:00 Resp 15 06/12/19 12:00 BP 127/76 06/12/19 12:00 Pulse Ox 99 06/12/19 12:00 Intake & Output 06/11/19 06/12/19 06/12/19 18:59 06:59 18:59 Intake Total 730 585.167 420.833 Output Total 1140 1085 800 Balance -410 -499.833 -379.167 Weight 64.9 kg 62.4 kg 62.4 kg Intake: IV 730 563 318 Ampicillin-Sulbactam 3 gm 100 In Sodium Chloride 0.9% 100 ml @ 200 mls/hr IVPB Q6HR [facility] Rx#:[id number] Fat Emulsion 20% 250 ml 84 In Empty Bag 1 bag @ 21 mls/hr IV DAILY@1200 [facility] Rx#:[id number] Fluconazole in NaCl,Iso- 100 Osm 200 mg In Saline 1 100ml.bag @ 100 mls/hr IVPB DAILY [facility] Rx#: [id number] Mvi, Adult No.4 with Vit 210 330 180 K 10 ml Trace (Conc-1Ml/ Dose) 1 ml In Amino Acid 5%-D15w+Lytes*E* 1,000 ml @ 30 mls/hr IV .Q24H [facility] Rx#:[id number] Sodium Chloride 0.9% 1, 200 200 120 000 ml @ 20 mls/hr IV . Q24H [facility] Rx#:[id number] pressure bag 36 33 18 Intake, IV Titration 22.167 102.833 Amount Diltiazem 125 mg In 22.167 102.833 Sodium Chloride 0.9% 100 ml @ 10 MG/HR 10 mls/hr IV .[id number] [facility] Rx#: [id number] Output: Urine 1140 1085 800 Other: Voiding Method Indwelling Catheter Indwelling Catheter Indwelling Catheter ABP, PAP, CO, CI - Last Documented Arterial Blood Pressure 169/74 - Constitutional General appearance: Present: cooperative, no acute distress, thin - EENT Eyes: Present: anicteric sclerae, EOMI, poor dentition ENT: Present: hearing grossly normal - Respiratory Respiratory: bilateral: diminished - Cardiovascular Details: severe clubbing of fingers and toes, cyanotic fingertips, cool to touch Rhythm: regular Heart sounds: normal: S1, S2 Abnormal Heart Sounds: Absent: systolic murmur, diastolic murmur, rub, S3 Gallop, S4 Gallop, click, other - Peripheral edema leg Peripheral Edema: absent: Trace (mottling) - Gastrointestinal General gastrointestinal: Present: normal bowel sounds, scaphoid, soft - Neurologic Neurologic: Present: CNII-XII intact - Musculoskeletal Musculoskeletal: Present: generalized weakness - Psychiatric Psychiatric: Present: A&O x's 3, appropriate affect - Labs CBC & Chem 7: 06/12/19 04:33 06/12/19 04:33 Labs: Abnormal Lab Results - Last 24 Hours (Table) 06/11/19 06/12/19 06/12/19 Range/Units 17:44 00:05 04:33 WBC (3.8-10.6) k/uL RBC (4.30-5.90) m/uL Hgb (13.0-17.5) gm/dL Hct (39.0-53.0) % RDW (11.5-15.5) % Neutrophils # (1.3-7.7) k/uL Lymphocytes # (1.0-4.8) k/uL Chloride 108 H (98-107) mmol/L Carbon Dioxide 32 H (22-30) mmol/L BUN 47 H (9-20) mg/dL Creatinine 0.60 L (0.66-1.25) mg/dL Glucose 129 H (74-99) mg/dL POC Glucose (mg/dL) 168 H 189 H (75-99) mg/dL Total Bilirubin 1.6 H (0.2-1.3) mg/dL AST 103 H (17-59) U/L ALT 51 H (4-49) U/L Total Protein 5.9 L (6.3-8.2) g/dL Albumin 3.1 L (3.5-5.0) g/dL 06/12/19 06/12/19 Range/Units 04:33 11:55 WBC 46.8 H (3.8-10.6) k/uL RBC 2.47 L (4.30-5.90) m/uL Hgb 7.9 L (13.0-17.5) gm/dL Hct 24.5 L (39.0-53.0) % RDW 16.0 H (11.5-15.5) % Neutrophils # 45.3 H (1.3-7.7) k/uL Lymphocytes # 0.5 L (1.0-4.8) k/uL Chloride (98-107) mmol/L Carbon Dioxide (22-30) mmol/L BUN (9-20) mg/dL Creatinine (0.66-1.25) mg/dL Glucose (74-99) mg/dL POC Glucose (mg/dL) 175 H (75-99) mg/dL Total Bilirubin (0.2-1.3) mg/dL AST (17-59) U/L ALT (4-49) U/L Total Protein (6.3-8.2) g/dL Albumin (3.5-5.0) g/dL Microbiology - Last 24 Hours (Table) 06/05/19 18:20 Blood Culture - Final Blood No Growth after 144 hours 06/09/19 13:40 Blood Culture - Preliminary Blood No Growth after 48 hours Assessment and Plan (1) Aspiration into airway Narrative/Plan: Secondary to infection/swelling of removal of tumor from right neck. PEG being placed for nutrition. Current Visit: Yes Status: Acute Priority: High Code(s): T17.908A - UNSP FB IN RESP TRACT, PART UNSP CAUSING OTH INJURY, INIT SNOMED Code(s): 349680817 (2) Compression fracture of C6 vertebra Narrative/Plan: Secondary to malignancy. Cannot have bisphosphonate/rank ligand due to poor dentition. Ca++ adequate. Rad Onc seeing pt for palliative radiation planning Current Visit: Yes Status: Acute Priority: High Code(s): S12.590A - OTH DISP FX OF SIXTH CERVICAL VERTEBRA, INIT FOR CLOS FX SNOMED Code(s): 915642695 Plan: DIC labs ordered secondary to cyanotic fingers and toes which is new today Dr. Grace spoke with family on the phone. Discussed case with IM Pt will not be a candidate for systemic palliative treatment of his malignancy until wound has healed, infection resolved and he has rehabilitated. Will request NGS on tumor specimen
--- NOTE | 2019-06-12 15:11 | PN ---
PROGRESS NOTE PULMONARY/CRITICAL CARE PROGRESS NOTE: DATE OF SERVICE: 06/12/2019 CRITICAL CARE TIME: 31 minutes. This is a 79-year-old male who is postop day #12, status post anterior cervical decompression with corpectomy of C6 and fusion from C5-C7 for his compression burst fracture, C6 and mass of C6 with cervical stenosis and myelopathy. In addition, the patient has a history of acute hypoxemic respiratory failure secondary to aspiration pneumonia, underlying COPD. The patient does have a previous history of lung cancer, non-small cell type, with surgical intervention back in 2008 as well as a history of severe COPD and interstitial lung disease. Anyway, the patient is currently on 2 L nasal cannula. The patient remains on saline at KVO and TPN at 30 mL an hour because of chronic aspiration and Cardizem at 10 mg an hour for atrial fibrillation/RVR. A PEG tube is anticipated today on June 11. The patient had a previous episode of intubation and mechanical ventilation. He was intubated on June 02 because of aspiration and extubated successfully on June 07. Currently, the patient is sitting up in a chair. He has a cervical collar in place. His major complaint is having difficulty swallowing. He has a very congested, wet sounding cough. Current vital signs are reviewed. Temperature 98.5, heart rate 93, respiratory rate 15, blood pressure 127/76 mean 93, 2 L saturation between 93% and 96%. Appears mildly tachypneic and dyspneic. Again a very wet, congested cough. HEENT: Examination is grossly unremarkable. Nasal O2 in place. Neck cannot be properly evaluated. Cervical collar is noted. CARDIOVASCULAR: Examination reveals regular rhythm and rate. Heart rate 90. S1, S2 normal. The patient is currently in sinus rhythm. No murmur. Heart sounds are distant. LUNGS: Reveal coarse bilateral rhonchi. Breath sounds equal. No wheezes or crackles. ABDOMEN: Soft. Bowel sounds are not noted. EXTREMITIES: Intact. No edema. SKIN: Without rash. NEUROLOGIC: Examination is brief but nonfocal. LABS: Reviewed. White count 46.8, hemoglobin 7.9, hematocrit 24.5, platelet count 168,000. PT, INR were normal. Sodium 143, potassium 3.8, chloride 108, CO2 of 32, anion gap is 3. BUN and creatinine were 47 and 0.60 suggesting prerenal azotemia. Albumin 3.1. Microbiology shows evidence of blood cultures positive for Staph hominis and a sputum positive for Staph aureus. A chest x-ray from June 11 shows a left-sided PICC which terminates in the occipital aspect of superior vena cava without appreciable postprocedural pneumothorax. MEDICATIONS: Reviewed. Currently, the patient is on TPN at 30 mL an hour, Unasyn, aspirin, Cepacol lozenges, Cardizem drip, Decadron, lipids, fluconazole, heparin, [place], Dilaudid IV, insulin, DuoNeb, lactated Ringer's, levothyroxine IV, Lidoderm patch, Maalox, milk of magnesia, Lopressor, nicotine patch, Zofran, Protonix, potassium protocol, and norepinephrine, which will be discontinued from the patient's MAR. ASSESSMENT: 1. Postoperative day #12, status post anterior cervical decompression with corpectomy of C6 and fusion from C5-C7 for his compression burst fracture, C6 and mass at C6 with cervical stenosis and myelopathy. 2. Acute hypoxemic respiratory failure secondary to aspiration and COPD, with intubation on June 02 and successful extubation on June 07. 3. Compression fracture of cervical spine/pathologic fracture, secondary to malignancy. 4. 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 5. Prior history of lung cancer, non-small cell type, status post left upper lobe resection. 6. Right lower lobe lung mass. 7. History of severe chronic obstructive pulmonary disease. 8. Interstitial lung disease. 9. Coronary artery disease with previous coronary artery stenting. 10.History of hypothyroidism. 11.History of benign essential hypertension. PLAN: Currently, the patient is on 2 L. He remains on TPN and Cardizem drip a 10 mg an hour. The patient may get a PEG tube placed today on June 11. The patient has extensive surgery was discussed above. His biopsies are consistent with probable non-small cell lung cancer, in a patient with a prior history of same. Will continue to follow. Prognosis is guarded. The patient has got aspiration precautions. Head of bed elevated at all times. Additional recommendations and suggestions are forthcoming. CRITICAL CARE TIME: 31 minutes. MMLEWISL / NICKOLASN: [id number] /
--- NOTE | 2019-06-12 15:41 | PN ---
PROGRESS NOTE DATE OF SERVICE: 06/12/2019 This 79-year-old gentleman who was admitted with acute hypoxic respiratory failure secondary to bilateral aspiration pneumonia was on mechanical ventilation. The patient had neck surgery and the biopsy report shows possible metastasis, possible lung malignancy. Patient is being closely monitored. The patient also had change in mental status, which is also improving. Patient also had atrial fibrillation. Patient is off Cardizem drip. The patient also failed a swallow evaluation. PEG tube placement is being planned today. The patient has got extremity cyanosis at this time. Patient is being closely monitored. Past medical history reviewed. Review of systems could not be taken. The patient is still confused. CURRENT MEDICATIONS: Reviewed. They include: 1. [place] 10 mg q.6 p.r.n. 2. Maalox 30 mL q.4 p.r.n. 3. DuoNeb q.i.d. and p.r.n. 4. TPN. 5. Unasyn 3 grams IV q.6. 6. Aspirin 300 mg. 7. Cepacol. 8. Decadron. 9. Diltiazem. 10.Fat emulsion. 11.Fluconazole. 12.Heparin. 13.Dilaudid. 14.Lactated Ringer. 15.Lidoderm. 16.Lopressor. 17.Habitrol. 18.Zofran. 19.Protonix. Doses are reviewed. PHYSICAL EXAMINATION: Patient is alert, oriented x2. Pulse is 93, blood pressure 120/77, respiration 15, temperature 98.4, pulse ox 99% on 2 L. HEENT: Conjunctivae normal. NECK: No jugular venous distention. CARDIOVASCULAR SYSTEM: S1, S2 muffled. RESPIRATORY SYSTEM: Breath sounds diminished at the bases. A few scattered rhonchi and crackles. ABDOMEN: Soft, non-tender. LEGS: No edema. No swelling. NERVOUS SYSTEM: No focal deficit. LABS: WBC 46.8, hemoglobin 7.9. Sodium 143, potassium 3.8. ASSESSMENT: 1. Acute hypoxic respiratory failure secondary to bilateral aspiration pneumonia, status post mechanical ventilation with possible sepsis, hypotension with severe sepsis, present on admission. 2. Propionibacterium acnes from anaerobe cultures from the surgical site. 3. 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 Grace. 4. Dysphagia for PEG tube placement today. 5. Metabolic encephalopathy, acute, multifactorial. 6. Atrial fibrillation with a fast ventricular rate, paroxysmal, on Cardizem. 7. Leukemoid reaction secondary to steroids possibly, per Hematology/Oncology. 8. Staphylococcus hominis from the blood. 9. Mireya albicans from the sputum. 10.History of recent cervical decompression and discectomy, C4-5, C6-7, with suspected C6 pathology compression fracture as well as upper extremity weakness on the right side with previous cervical canal stenosis, bacteremia, neck pain and upper extremity pain. 11.History of coronary artery disease. 12.History of chronic obstructive pulmonary disease. 13.Dyslipidemia. 14.Hypertension. 15.Rule out lung cancer with metastases. 16.Right upper lobe malignancy history, status post lobectomy previously. 17.History of degenerative joint disease. 18.History of thyroid cancer. 19.History of coronary artery disease, stent. 20.History of nicotine dependence, continued, ongoing. 21.FULL CODE. RECOMMENDATIONS AND DISCUSSION: I recommend to continue current medications, continue with the monitoring, symptomatic treatment. Otherwise, continue with the antibiotics. Continue with PT/OT evaluation. PEG tube placement. Address nutrition. Repeat labs. Closely monitor. Follow closely with Oncology, who is going to talk to the family regarding further plans. Receptor testing has been underway. Further recommendations to follow. MMODL / IJN: [id number] /
[2019-06-12] MEDS: SODIUM CHLORIDE 0.9% 1,000 ML IV SCH (17:32)
[2019-06-12 17:36] LABS: Glucose,Whole Blood 192 mg/dL (75-99)
--- NOTE | 2019-06-12 18:26 | PN ---
PROGRESS NOTE DATE OF SERVICE: 06/12/2019 REASON FOR FOLLOWUP: Aspiration pneumonia and C6 osteomyelitis. INTERVAL HISTORY: The patient is currently afebrile. The patient has been breathing comfortably. The patient denies having any chest pain; did have some cough. No sputum, no nausea, no vomiting. No abdominal pain or diarrhea. PHYSICAL EXAMINATION: Blood pressure 136/81 with a pulse of 97, temperature 98.5. He is 100% on 6 L nasal cannula. General description is an elderly male lying in bed in no distress. RESPIRATORY SYSTEM: Unlabored breathing. Coarse breath sounds bilaterally. No wheeze. HEART: S1, S2. Regular rate and rhythm. ABDOMEN: Soft. No tenderness. LABS: Hemoglobin 7.9, white count 46.8. BUN of 47, creatinine 0.60. Blood culture repeat has been negative. DIAGNOSTIC IMPRESSION AND PLAN: Patient with aspiration pneumonia. Sputum has been MSSA. Also with C6 spine osteomyelitis with the culture positive for propionibacterium. Patient is covered with Unasyn and Diflucan. White count showing a downward trend with decrease in his steroids. Monitor his clinical course closely. MMODL / IJN: [id number] /
[2019-06-12 23:08] LABS: Glucose,Whole Blood 183 mg/dL (75-99)
[2019-06-13] MEDS: 1: MVI, ADULT NO.4 WITH VIT K 10 ML, TRACE (CONC-1ML/DOSE) 1 ML in AMINO ACID 5%-D15W+LY IV SCH ×6 (01:08→12:18)
[2019-06-13] MEDS: HYDROmorphone 1 MG/ML 1 ML SYRINGE IVP PRN ×2 (03:19→20:34)
[2019-06-13 04:54] LABS: HCT 26.7 % (39.0-53.0); HGB 8.5 gm/dL (13.0-17.5); MCH 31.3 pg (25.0-35.0); MCHC 31.8 g/dL (31.0-37.0); MCV 98.4 fL (80.0-100.0); Macrocytosis Slight; Mean Platelet Volume 10.8; Platelet Count 120 k/uL (150-450); RBC 2.71 m/uL (4.30-5.90)
[2019-06-13 04:58] LABS: African American GFR (CKD) >90 (>60 ml/min/1.73 sqM); Anion Gap 4 mmol/L; Blood Urea Nitrogen 43 mg/dL (9-20); Calcium 9.2 mg/dL (8.4-10.2); Carbon Dioxide 33 mmol/L (22-30); Chloride 102 mmol/L (98-107); Glucose 179 mg/dL (74-99); Magnesium 2.1 mg/dL (1.6-2.3); Non-African American GFR(CKD) >90 (>60 ml/min/1.73 sqM); Phosphorus 3.3 mg/dL (2.5-4.5); Potassium 4.1 mmol/L (3.5-5.1); Sodium 139 mmol/L (137-145)
[2019-06-13 05:02] LABS: WBC 51.3 k/uL (3.8-10.6)
[2019-06-13 05:22] LABS: Lymphocytes # (M) 1.03 k/uL (1.0-4.8); Monocytes # (M) 0.51 k/uL (0-1.0); Neutrophils # (M) 50.27 k/uL (1.3-7.7); Neutrophils % (M) 98 %; Nucleated Red Blood Cells 0 /100 WBC (0-0); Total Cells Counted 200
[2019-06-13] MEDS: DILTIAZEM 125 MG in SODIUM CHLORIDE 0.9% 100 ML IV SCH ×2 (05:28→22:32)
[2019-06-13] MEDS: AMPICILLIN-SULBACTAM 3 GM in SODIUM CHLORIDE 0.9% 100 ML IVPB SCH ×3 (05:28→17:50)
[2019-06-13] MEDS: INSULIN ASPART (NovoLOG) 100 UNIT/ML VIAL SQ SCH ×3 (05:28→17:50)
--- NOTE | 2019-06-13 07:34 | XR ---
EXAMINATION TYPE: XR chest 1V DATE OF EXAM: 06/13/2019 HISTORY: Shortness of breath. COMPARISON: 06/12/2019 TECHNIQUE: Single view of the chest is submitted. FINDINGS: Demonstrated are scattered senescent parenchymal change. Persistent bilateral interstitial infiltrates with more confluent process left lower lobe. Findings a ppear progressed slightly in the interval. The heart is stable. Hilar and mediastinal structures are within normal limits. Degenerative changes are seen of the dorsal spine. IMPRESSION: 1. Persistent bilateral interstitial infiltrates with more confluent process left lower lobe. Findin gs appear progressed slightly in the interval.
[2019-06-13] MEDS: IPRATROPIUM-ALBUTEROL 3 ML NEB INHALATION SCH ×4 (07:35→20:04)
[2019-06-13] MEDS: NICOTINE 14MG/24HR PATCH TRANSDERM SCH (08:01)
[2019-06-13] MEDS: METOPROLOL TARTRATE 5 MG/5 ML VIAL IVP SCH ×3 (08:01→17:52)
[2019-06-13] MEDS: LEVOTHYROXINE IVP 100 MCG/5 ML VIAL IV SCH (08:02)
[2019-06-13] MEDS: DEXAMETHASONE SOD PHOSPHATE 4 MG/ML 1 ML VIAL IV SCH ×2 (08:02→15:41)
[2019-06-13] MEDS: LIDOCAINE 5% PATCH TOPICAL SCH (08:02)
[2019-06-13] MEDS: PANTOPRAZOLE 40 MG/10 ML VIAL IVP SCH (08:02)
[2019-06-13] MEDS: ASPIRIN 300 MG SUPP RECTAL SCH (08:02)
[2019-06-13] MEDS: FLUCONAZOLE IN NACL,ISO-OSM 200 MG in SALINE 1 100ML.BAG IVPB SCH (08:23)
[2019-06-13] MEDS: LACTATED RINGERS 1,000 ML IV SCH (10:37)
--- NOTE | 2019-06-13 11:09 | P.PN ---
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 I asked pt if he wanted to go home and be with his family and he said yes. Objective - Vital Signs Vital signs: Vital Signs Temp 97.5 F L 06/13/19 08:00 Pulse 100 06/13/19 10:45 Resp 17 06/13/19 10:00 BP 108/76 06/13/19 10:00 Pulse Ox 100 06/13/19 10:00 Intake & Output 06/12/19 06/13/19 06/13/19 18:59 06:59 18:59 Intake Total 3555.220 6091.5 430 Output Total 1500 1310 375 Balance -144.167 9.5 55 Weight 62.4 kg 60.4 kg Intake: IV 1253 1215 430 Amino Acid 5%-D15w+Lytes* 450 525 300 E* 1,000 ml @ 75 mls/hr IV .BY DURATION [facility] Rx#: [id number] Ampicillin-Sulbactam 3 gm 200 100 In Sodium Chloride 0.9% 100 ml @ 200 mls/hr IVPB Q6HR [facility] Rx#:[id number] Fat Emulsion 20% 250 ml 126 105 In Empty Bag 1 bag @ 21 mls/hr IV DAILY@1200 [facility] Rx#:[id number] Fluconazole in NaCl,Iso- 100 Osm 200 mg In Saline 1 100ml.bag @ 100 mls/hr IVPB DAILY [facility] Rx#: [id number] Mvi, Adult No.4 with Vit 270 K 10 ml Trace (Conc-1Ml/ Dose) 1 ml In Amino Acid 5%-D15w+Lytes*E* 1,000 ml @ 30 mls/hr IV .Q24H [facility] Rx#:[id number] Mvi, Adult No.4 with Vit 375 K 10 ml Trace (Conc-1Ml/ Dose) 1 ml In Amino Acid 5%-D15w+Lytes*E* 1,000 ml @ 75 mls/hr IV .BY DURATION [facility] Rx#: [id number] Sodium Chloride 0.9% 1, 180 110 30 000 ml @ 20 mls/hr IV . Q24H [facility] Rx#:[id number] pressure bag 27 Intake, IV Titration 102.833 104.5 Amount Diltiazem 125 mg In 102.833 104.5 Sodium Chloride 0.9% 100 ml @ 10 MG/HR 10 mls/hr IV .[id number] [facility] Rx#: [id number] Output: Urine 1500 1310 375 Other: Voiding Method Indwelling Catheter Indwelling Catheter Indwelling Catheter ABP, PAP, CO, CI - Last Documented Arterial Blood Pressure 169/74 - Constitutional General appearance: Present: cooperative, no acute distress, thin - EENT EENT Comment(s): left neck incision healing, swelling moderate Eyes: Present: anicteric sclerae, EOMI ENT: Present: hearing grossly normal - Respiratory Details: respirations even and unlabored - Cardiovascular Details: cyanosis of the fingers is less today, warmer to touch. Severe clubbing - Gastrointestinal General gastrointestinal: Present: normal bowel sounds, soft - Musculoskeletal Musculoskeletal: Present: generalized weakness - Psychiatric Psychiatric: Present: A&O x's 3, appropriate affect - Labs CBC & Chem 7: 06/13/19 04:06 06/13/19 04:06 Labs: Abnormal Lab Results - Last 24 Hours (Table) 06/12/19 06/12/19 06/12/19 Range/Units 11:55 17:35 23:07 WBC (3.8-10.6) k/uL RBC (4.30-5.90) m/uL Hgb (13.0-17.5) gm/dL Hct (39.0-53.0) % RDW (11.5-15.5) % Plt Count (150-450) k/uL Neutrophils # (Manual) (1.3-7.7) k/uL Carbon Dioxide (22-30) mmol/L BUN (9-20) mg/dL Creatinine (0.66-1.25) mg/dL Glucose (74-99) mg/dL POC Glucose (mg/dL) 175 H 192 H 183 H (75-99) mg/dL 06/13/19 06/13/19 Range/Units 04:06 04:06 WBC 51.3 H* (3.8-10.6) k/uL RBC 2.71 L (4.30-5.90) m/uL Hgb 8.5 L (13.0-17.5) gm/dL Hct 26.7 L (39.0-53.0) % RDW 16.0 H (11.5-15.5) % Plt Count 120 L (150-450) k/uL Neutrophils # (Manual) 50.27 H (1.3-7.7) k/uL Carbon Dioxide 33 H (22-30) mmol/L BUN 43 H (9-20) mg/dL Creatinine 0.52 L (0.66-1.25) mg/dL Glucose 179 H (74-99) mg/dL POC Glucose (mg/dL) (75-99) mg/dL Microbiology - Last 24 Hours (Table) 06/12/19 15:40 Catheter Tip Culture - Preliminary Catheter Tip 06/09/19 13:40 Blood Culture - Preliminary Blood No Growth after 72 hours - Imaging and Cardiology Chest x-ray: report reviewed Assessment and Plan (1) Aspiration into airway Narrative/Plan: Secondary to infection/swelling of removal of tumor from right neck. PEG being placed for nutrition. Current Visit: Yes Status: Acute Priority: High Code(s): T17.908A - UNSP FB IN RESP TRACT, PART UNSP CAUSING OTH INJURY, INIT SNOMED Code(s): 639175666 (2) Compression fracture of C6 vertebra Narrative/Plan: Secondary to malignancy. Cannot have bisphosphonate/rank ligand due to poor dentition. Ca++ adequate. Rad Onc intervention on hold at this time as pt may be going home with hospice Current Visit: Yes Status: Acute Priority: High Code(s): S12.590A - OTH DISP FX OF SIXTH CERVICAL VERTEBRA, INIT FOR CLOS FX SNOMED Code(s): 786337423 Plan: DIC labs ordered, no evidence to suggest at this time. Cyanosis better today Per Nursing, pt family having hospice info meeting today. Pt will not be a candidate for systemic palliative treatment of his malignancy until wound has healed, infection resolved and he has rehabilitated. NGS on tumor specimen has been sent
--- NOTE | 2019-06-13 11:22 | P.PN ---
Subjective Progress Note Date: 06/13/19 Principal diagnosis: Right upper extremity weakness/pain related to a mild bony retropulsion of the cervical spine at the level of C6, patient has severe degenerative spine disease with disc space narrowing at the C3-C4 with posterior disc bulge 79-year-old male patient is being seen in consultation for lung mass. The patient is known to have history of lung cancer. The patient came into the hospital because of pain and numbness in his right upper extremity extending to his right thumb and this is been going on for the past 2 weeks to the point where the patient was unable to lift any objects because of the pain and numbness and tingling. His echo was elevated at 31. The calcium level is normal at 9.6. Lactic acid level at time of admission was 1.7. He had a CRP of 57.7 which is quite elevated and this is based on the previous blood work that was done on 05/17/2019. In the ED, the patient had a CAT scan of the brain that showed age-related atrophy and small vessel ischemic changes. An unenhanced CAT scan of the cervical spine also was done and it showed severe compression fracture of the C6 spine of an uncertain age/etiology with bony retropulsion of 3.5 mm. No evidence of any central canal stenosis or cord compression. Multilevel degenerative disc disease was seen with disc bulging and neurominal encroachment severe at the level of C3-C4 and there is also severe degenerative disc narrowing at the level of C5-C6. There is a 90% compression fracture of the T6 spine. Noted the patient was in the emergency department on 05/17/2023 with similar complaints of worsening shoulder and arm pain he was seen in emergency department and the patient underwent a CT angiogram of the upper extremity and it showed poor opacification of the radial and ulnar arteries at the level of the brachial bifurcation which was either technical in nature or high-grade stenosis/thrombosis which could not be completely ruled out. A CAT scan of the chest was also done utilizing a CT angios protocol and the CAT scan showed no evidence of any pulmonary embolism. Nevertheless, there were several for nodules, and a lung mass. There was a 3.4 cm right lower lobe pleural-based mass posteriorly in the right lower lobe area. There was another 7 mm right mid dle lobe pulmonary nodule, 5 mm left upper lobe pulmonary pleural-based nodule, 7 mm right upper lobe pulmonary nodule and a 4 mm right apical pulmonary nodule. There was extensive emphysema and some scattered subpleural fibrosis. The perihilar/peribronchial lymph nodes were identified. 4.1 cm suspicious lesion of the left adrenal gland was seen suspicious for metastases. This was a new finding monitor the patient's previous CAT scan from 03/22/2018 did not show any lung masses or nodules. There was however some scarring in the lung bases especially on the right in addition to emphysema and some elevation of left hemidiaphragm. S shaped scoliosis was also seen along with osseous demine ralization. The patient is afebrile. The patient's pulse ox 99% on room air.: 19 evaluation was negative. Influenza A and B were negative. UA was negative. The patient is seen today 06/13/2019 in follow-up in the intensive care unit. Surgical services attempted PEG tube placement yesterday however based on the trauma, who seen and difficulty passing the endoscope the surgery was aborted. He is currently resting fairly comfortably in bed. He is awake. He is on 2 L/m per nasal cannula maintaining O2 saturations in the 90s. He had some atrial fibrillation/flutter and is currently on Cardizem at 10 mg per hour. He is being nourished with TPN at 75 ML's per hour. 0.9 normal saline at 10 MLS per hour. White count 51.3. Hemoglobin 8.5. Platelets 120. Sodium 139. Potassium 4.1. Creatinine 0.52. He is currently on bronchodilators and Unasyn. He is a DO NOT RESUSCITATE CODE STATUS. The family is considering hospice. Objective - Vital Signs Vital signs: Vital Signs Temp 97.5 F L 06/13/19 08:00 Pulse 105 H 06/13/19 10:58 Resp 17 06/13/19 10:00 BP 108/76 06/13/19 10:00 Pulse Ox 100 06/13/19 10:00 Intake & Output 06/12/19 06/13/19 06/13/19 18:59 06:59 18:59 Intake Total 0808.506 8469.5 430 Output Total 1500 1310 375 Balance -144.167 9.5 55 Weight 62.4 kg 60.4 kg Intake: IV 1253 1215 430 Amino Acid 5%-D15w+Lytes* 450 525 300 E* 1,000 ml @ 75 mls/hr IV .BY DURATION [facility] Rx#: [id number] Ampicillin-Sulbactam 3 gm 200 100 In Sodium Chloride 0.9% 100 ml @ 200 mls/hr IVPB Q6HR [facility] Rx#:[id number] Fat Emulsion 20% 250 ml 126 105 In Empty Bag 1 bag @ 21 mls/hr IV DAILY@1200 [facility] Rx#:[id number] Fluconazole in NaCl,Iso- 100 Osm 200 mg In Saline 1 100ml.bag @ 100 mls/hr IVPB DAILY [facility] Rx#: [id number] Mvi, Adult No.4 with Vit 270 K 10 ml Trace (Conc-1Ml/ Dose) 1 ml In Amino Acid 5%-D15w+Lytes*E* 1,000 ml @ 30 mls/hr IV .Q24H [facility] Rx#:[id number] Mvi, Adult No.4 with Vit 375 K 10 ml Trace (Conc-1Ml/ Dose) 1 ml In Amino Acid 5%-D15w+Lytes*E* 1,000 ml @ 75 mls/hr IV .BY DURATION [facility] Rx#: [id number] Sodium Chloride 0.9% 1, 180 110 30 000 ml @ 20 mls/hr IV . Q24H [facility] Rx#:[id number] pressure bag 27 Intake, IV Titration 102.833 104.5 Amount Diltiazem 125 mg In 102.833 104.5 Sodium Chloride 0.9% 100 ml @ 10 MG/HR 10 mls/hr IV .[id number] [facility] Rx#: [id number] Output: Urine 1500 1310 375 Other: Voiding Method Indwelling Catheter Indwelling Catheter Indwelling Catheter ABP, PAP, CO, CI - Last Documented Arterial Blood Pressure 169/74 - Exam GENERAL EXAM: Alert, frail, cachectic 79-year-old male patient, in the c-collar, appears chronically ill, but no acute distress, on 2 L nasal cannula, with a pulse ox of 95%. HEAD: Normocephalic/atraumatic. EYES: Normal reaction of pupils, equal size. Conjunctiva pink, sclera white. NOSE: Clear with pink turbinates. THROAT: No erythema or exudates. NECK: No masses, no JVD, no thyroid enlargement, no adenopathy. Patient has a c-collar in place CHEST: No chest wall deformity. Symmetrical expansion. LUNGS: Equal air entry with bilateral scattered rhonchi CVS: Regular rate and rhythm, normal S1 and S2, no gallops, no murmurs, no rubs ABDOMEN: Soft, nontender. No hepatosplenomegaly, normal bowel sounds, no guarding or rigidity. EXTREMITIES: No clubbing, no edema, no cyanosis, 2+ pulses and upper and lower extremities. MUSCULOSKELETAL: Muscle strength and tone normal. SPINE: No scoliosis or deformity SKIN: No rashes CENTRAL NERVOUS SYSTEM: No focal deficits, tone is normal in all 4 extremities. PSYCHIATRIC: Alert and oriented -2. Appropriate affect. Intact judgment and insight. - Labs CBC & Chem 7: 06/13/19 04:06 06/13/19 04:06 Labs: Abnormal Lab Results - Last 24 Hours (Table) 06/12/19 06/12/19 06/12/19 Range/Units 11:55 17:35 23:07 WBC (3.8-10.6) k/uL RBC (4.30-5.90) m/uL Hgb (13.0-17.5) gm/dL Hct (39.0-53.0) % RDW (11.5-15.5) % Plt Count (150-450) k/uL Neutrophils # (Manual) (1.3-7.7) k/uL Carbon Dioxide (22-30) mmol/L BUN (9-20) mg/dL Creatinine (0.66-1.25) mg/dL Glucose (74-99) mg/dL POC Glucose (mg/dL) 175 H 192 H 183 H (75-99) mg/dL 06/13/19 06/13/19 Range/Units 04:06 04:06 WBC 51.3 H* (3.8-10.6) k/uL RBC 2.71 L (4.30-5.90) m/uL Hgb 8.5 L (13.0-17.5) gm/dL Hct 26.7 L (39.0-53.0) % RDW 16.0 H (11.5-15.5) % Plt Count 120 L (150-450) k/uL Neutrophils # (Manual) 50.27 H (1.3-7.7) k/uL Carbon Dioxide 33 H (22-30) mmol/L BUN 43 H (9-20) mg/dL Creatinine 0.52 L (0.66-1.25) mg/dL Glucose 179 H (74-99) mg/dL POC Glucose (mg/dL) (75-99) mg/dL Microbiology - Last 24 Hours (Table) 06/12/19 15:40 Catheter Tip Culture - Preliminary Catheter Tip 06/09/19 13:40 Blood Culture - Preliminary Blood No Growth after 72 hours Assessment and Plan Assessment: 1 right upper extremity weakness/pain related to C6 compression fracture, and significant compression of the spinal cord awaiting surgical intervention. Preliminary evaluation with a CAT scan of the cervical spine showed C6 vertebral body compression fracture, at least 90% with a mild bony retropulsion noted to be around 3.5 mm in size and the patient has severe degenerative disc space narrowing at the level of C3-C4 with posterior disc bulge with mild effacement and bilateral foraminal encroachment and C5-C6 without any herniation or canal stenosis. Presence of leukocytosis is obviously raises the concern for infection along with an elevated CRP. Possibility of malignancy involving the C-spine with secondary compression cannot be ruled out knowing that the patient has several pulmonary lesions. The patient has severe degenerative disc disease along with posterior disc bulge at the level of C3-C4. 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 3 Right lower lobe mass, pleural based measuring 3.9 cm in addition to several other smaller pulmonary nodules scattered focal lung mahan bilaterally in addition to a left adrenal mass, consider metastatic lung cancer/malignancy. 4 previous history of lung cancer with a previous left upper lobe resection 5 COPD with diffuse emphysematous changes bilaterally 6 pulmonary fibrosis 7 coronary artery disease with previous coronary stenting 8 hyperlipidemia 9 hypertension 10 hypothyroidism 11 impaired hearing Plan: The patient was seen and evaluated by Dr. Duran Currently DO NOT RESUSCITATE/DO NOT INTUBATE CODE STATUS PEG tube unable to be placed yesterday TPN and lipids continue Family is considering hospice In the interim, we'll continue the current treatment plan We'll continue to follow make further recommendations based on his clinical status I, the cosigning physician, performed a history & physical examination of the patient. Lungs sounds with bilateral scattered rhonchi. Maintaining good O2 saturations in the 90s on 2 L/m per nasal cannula. I discussed the assessment and plan of care with my nurse practitioner, Lorna Carrasco. I attest to the above note as dictated by her.
--- NOTE | 2019-06-13 11:33 | P.PN ---
Progress Note - Text Progress Note Date: 06/13/19 Orthopedic Spine: History of present illness: Patient is a pleasant 79-year-old male who is seen at the bedside following C5-6 and C6-7 anterior cervical decompression and fusion with corpectomy of C6 performed last 05/31/2019. The patient was able to be extubated 5 days ago. He is awake, alert, oriented in the ICU today. He has not had any change in his symptoms as compared to yesterday in regards to pain or weakness. He does have some improvement in the swelling of his right upper extremity. He states he is not currently experiencing any significant pain with his upper extremities. He does have significant weakness greater on the right than the left. He feels his cervical pain has been adequately controlled but does admit to some soreness at his cervical spine. He has his hard cervical collar intact. He does have a hematoma with firmness to palpation over the surgical site of the cervical spine. Yesterday he attempted to have attempted PEG tube placement which was unable to be performed due to significant swelling in his oropharynx. Nursing states they're discussed the possibility of consultation with hospice care. Patient's daughter is at the bedside today and states they would like to find a way for him to receive nutrition so they can have him discharged home. Gen. surgery is planning to reattempt PEG tube placement approximately 48 hours from the original time of attempt. They're planning to hold the heparin. 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 He is known to have lung cancer. He continues to be seen and examined by multiple providers including oncology, pulmonology, medicine, general surgery, and cardiology. Patient is currently on Unasyn IV. Patient does have evidence of significant dark purple bruising in the arm pits brian aterally which was marked with a pen by another provider to monitor. Nursing states he has significant bruising over the bilateral lower extremities as well. Physical Exam Cervical Fusion: Status post surgical day number 13 Patient is awake, alert, and oriented 3 Vital signs stable Adequate chest excursion with inspiration and expiration Patient does have significant difficulty with active range of motion of the deltoids bilaterally greater on the right than the left Patient is able to perform some biceps strength and triceps strength bilaterally Motor strength of the upper extremities is 4-/5 including duty engineer bilaterally Incision site remains dry without any active drainage and no obvious signs of infection at the surgical site Significant bruising around the surgical site, over the proximal part of the sternum, and extending across the chest towards the arm pits Evidence of hematoma at the surgical site which is firm to palpation Hard cervical collar is intact Evidence of significant dark purple bruising in the arm pits bilaterally Oneill catheter intact Assessment: Status post C5-6 and C6-7 anterior cervical decompression and fusion with corpectomy of C6 C6 pathologic compression fracture Bilateral upper extremity weakness greater on the right than the left Surgical pathology report shows evidence of high-grade malignancy from the cervical spine History of lung cancer Episode of atrial fibrillation and RVR Failed PEG tube placement; general surgery will reattempt Plan: 1. Ambulate as tolerated; work with Physical Therapy to increase mobilization 2. Continue pain control with oral [place] and IV Dilaudid as needed 3. Dressing was previously removed from the patient's surgical site. Patient may shower without a dressing intact at this time. Patient must keep hard cervical collar intact while bathing. 4. Patient must continue to keep hard cervical collar intact at all times; we will plan to keep his hard cervical collar intact postoperatively for approximately 12 weeks and may plan to transition to a soft cervical collar pending on the patient's progress. 5. Patient does have evidence of a hematoma which is firm to palpation of the surgical site. Patient has been seen and examined by Dr. Flores yesterday. At this time, we are not currently planning for further surgical intervention at his cervical spine. He has not had any increased swelling at his surgical site. The swelling in his esophagus may be due to the hematoma but surgical intervention to be intubated him for evacuation at the surgical site would put him at significant risk. He may continue with warm compresses over the surgical site. 6. Patient will continue be seeing exam by general surgery who was planning for a reattempt PEG tube placement after failed attempt yesterday due to oropharynx swelling 7. Patient will continue to be seen and examined by multiple other medical providers including oncology, pulmonology, cardiology, general surgery, and medicine for his other significant medical diagnoses 8. Patient may continue with anticoagulation medication as needed as prescribed by cardiology or other medical providers; heparin is currently planning to be held by general surgery prior to reattempt at PEG tube placement 9. Following discharge, patient may follow-up with Ric Cunningham PA-C or Dr. Yamil Flores at [facility] in 1-2 weeks following discharge 10. We will continue to follow patient closely during his admission
--- NOTE | 2019-06-13 11:47 | CDI ---
Documentation Clarification Form Date: 06/13/2019 11:32:59 AM From: Marissa Hurt RN, CCDS Admit Date: 05/29/2019 10:29:00 AM Patient Name: Geoffrey Cohen Visit Number: [id number] ATTENTION: The Clinical Documentation Specialists (CDI) and [facility] Coding Staff appreciate your assistance in clarifying documentation. Please respond to the clarification below the line at the bottom and electronically sign. The CDI & [facility] Coding staff will review the response and follow-up if needed. Please note: Queries are made part of the Legal Health Record. If you have any questions, please contact the author of this message via ITS. Dr. Donald Blevins Anemia is documented in the progress notes and requires further specificity. History/Risk Factors 06/11 Attending Progress Note: "Acute hypoxic respiratory failure secondary to bilateral aspiration pneumonia, status post mechanical ventilation with possible sepsis, hypotension with severe sepsis, present on admission. 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 Grace." Clinical indicators: 06/04- 06/06 Oncology Progress notes: "Normocytic Anemia: - Multifactorial likely - Monitor and transfuse less than 7." 06/09-06/11 Pulmonary Progress note: "Anemia." 05/28-06/12 Hemoglobin: 13.1/12.6/13.4/12.3/11.4/11.8/8.7/7.9/7.1/7/8/8.3/8.1/7.9/8.5 05/28-06/12 Hematocrit: 38.8/38.7/40.3/38.6/34.3/35.8/25.2/24/20.9/21.2/24.4/25.4/26.7 05/30 Procedure Note: "EBL Approximately 100ml" 06/11 OA Progress Note: "Hematoma anterior cervical spine the hematoma had been soft of the cervical spine but has firmed up considerably." 06/11 Oncology progress note: has had a few episodes of hemoptysis." Treatment: 06/02 1L 0.9% NS IVF bolus Labs Am Daily Monitoring by Oncology In order to capture the severity of condition, please clarify the type of anemia and etiology if known: Acute blood loss anemia Acute on chronic blood loss anemia Chronic blood loss anemia Iron deficiency anemia Anemia due to malignancy Nutritional anemia Anemia of chronic disease Unable to determine Other, please specify (Last Form Revision: April 2019) Unable to determine MTDD
[2019-06-13 11:53] LABS: Glucose,Whole Blood 169 mg/dL (75-99)
--- NOTE | 2019-06-13 11:56 | P.PN ---
Subjective This is Rosa Maria Cornejo PA-C scribing on behalf of Dr. Morales Chart review only, Dr. Morales discussed the case with the patient's nurse HPI/interval history Patient is a 79-year-old male with a history significant for COPD, CAD status post stenting, hypertension, hypothyroidism, lung cancer, bone cancer who underwent anterior cervical decompression of C6 and fusion of C5 to C7 for compression fracture of C6 cervical stenosis and myelopathy. Cardiology is consulted for atrial fibrillation management. Yesterday surgery attempted to p lace a PEG tube however there was too much edema and they were unable to pass the endoscope therefore he still unable to take any medications by mouth. He went back into atrial fibrillation and is currently in atrial fibrillation with rates in the 100s. Currently on a Cardizem drip. Family is considering hospice. EXAMINATION Patient is afebrile, pulse in the 100s, respirations 26, blood pressure 96/62, oxygen saturation 95% on 2 L nasal cannula Chart review only, no physical exam was done REVIEW OF LABS, ECG WBC 51.3, hemoglobin 8.5, platelets 120, potassium 4.1, BUN 43, creatinine 0.52 Echocardiogram shows EF 60-65% IMPRESSION / ASSESSMENT: #Status post anterior cervical decompression of C6 and fusion of C5 to C7 for compression fracture of C6 cervical stenosis and myelopathy #Paroxysmal Atrial fibrillation with RVR, currently in A. fib with rates in the 100s #Echocardiogram showing EF 60-65% #History of lung cancer and bone cancer #COPD #History of CAD status post stenting #Hypertension #Hypothyroidism #Anemia PLAN: Continue IV Cardizem, increase IV metoprolol 5 mg to every 6 hours for rate control Continue holding anticoagulation, poor candidate for long-term anticoagulation Objective - Vital Signs Vital signs: Vital Signs Temp 97.5 F L 06/13/19 08:00 Pulse 114 H 06/13/19 11:00 Resp 26 H 06/13/19 11:00 BP 96/62 06/13/19 11:00 Pulse Ox 95 06/13/19 11:00 Intake & Output 06/12/19 06/13/19 06/13/19 18:59 06:59 18:59 Intake Total 2374.119 9367.5 505 Output Total 1500 1310 425 Balance -144.167 9.5 80 Weight 62.4 kg 60.4 kg Intake: IV 1253 1215 505 Amino Acid 5%-D15w+Lytes* 450 525 375 E* 1,000 ml @ 75 mls/hr IV .BY DURATION [facility] Rx#: [id number] Ampicillin-Sulbactam 3 gm 200 100 In Sodium Chloride 0.9% 100 ml @ 200 mls/hr IVPB Q6HR [facility] Rx#:[id number] Fat Emulsion 20% 250 ml 126 105 In Empty Bag 1 bag @ 21 mls/hr IV DAILY@1200 [facility] Rx#:[id number] Fluconazole in NaCl,Iso- 100 Osm 200 mg In Saline 1 100ml.bag @ 100 mls/hr IVPB DAILY [facility] Rx#: [id number] Mvi, Adult No.4 with Vit 270 K 10 ml Trace (Conc-1Ml/ Dose) 1 ml In Amino Acid 5%-D15w+Lytes*E* 1,000 ml @ 30 mls/hr IV .Q24H [facility] Rx#:[id number] Mvi, Adult No.4 with Vit 375 K 10 ml Trace (Conc-1Ml/ Dose) 1 ml In Amino Acid 5%-D15w+Lytes*E* 1,000 ml @ 75 mls/hr IV .BY DURATION [facility] Rx#: [id number] Sodium Chloride 0.9% 1, 180 110 30 000 ml @ 20 mls/hr IV . Q24H [facility] Rx#:[id number] pressure bag 27 Intake, IV Titration 102.833 104.5 Amount Diltiazem 125 mg In 102.833 104.5 Sodium Chloride 0.9% 100 ml @ 10 MG/HR 10 mls/hr IV .[id number] [facility] Rx#: [id number] Output: Urine 1500 1310 425 Other: Voiding Method Indwelling Catheter Indwelling Catheter Indwelling Catheter ABP, PAP, CO, CI - Last Documented Arterial Blood Pressure 169/74 - Labs CBC & Chem 7: 06/13/19 04:06 06/13/19 04:06 Labs: Abnormal Lab Results - Last 24 Hours (Table) 06/12/19 06/12/19 06/12/19 Range/Units 11:55 17:35 23:07 WBC (3.8-10.6) k/uL RBC (4.30-5.90) m/uL Hgb (13.0-17.5) gm/dL Hct (39.0-53.0) % RDW (11.5-15.5) % Plt Count (150-450) k/uL Neutrophils # (Manual) (1.3-7.7) k/uL Carbon Dioxide (22-30) mmol/L BUN (9-20) mg/dL Creatinine (0.66-1.25) mg/dL Glucose (74-99) mg/dL POC Glucose (mg/dL) 175 H 192 H 183 H (75-99) mg/dL 06/13/19 06/13/19 06/13/19 Range/Units 04:06 04:06 11:52 WBC 51.3 H* (3.8-10.6) k/uL RBC 2.71 L (4.30-5.90) m/uL Hgb 8.5 L (13.0-17.5) gm/dL Hct 26.7 L (39.0-53.0) % RDW 16.0 H (11.5-15.5) % Plt Count 120 L (150-450) k/uL Neutrophils # (Manual) 50.27 H (1.3-7.7) k/uL Carbon Dioxide 33 H (22-30) mmol/L BUN 43 H (9-20) mg/dL Creatinine 0.52 L (0.66-1.25) mg/dL Glucose 179 H (74-99) mg/dL POC Glucose (mg/dL) 169 H (75-99) mg/dL Microbiology - Last 24 Hours (Table) 06/12/19 15:40 Catheter Tip Culture - Preliminary Catheter Tip 06/09/19 13:40 Blood Culture - Preliminary Blood No Growth after 72 hours
[2019-06-13] MEDS: FAT EMULSION 20% 250 ML in EMPTY BAG 1 BAG IV SCH (12:18)
--- NOTE | 2019-06-13 12:54 | P.PN ---
Subjective Progress Note Date: 06/13/19 CHIEF COMPLAINT: Dysphasia HISTORY OF PRESENT ILLNESS: Patient is status post attempted PEG tube insertion yesterday. Nursing reports no further bleeding from his oral cavity. Family is considering hospice. PHYSICAL EXAM: VITAL SIGNS: Reviewed. GENERAL: Well-developed in no acute distress. HEENT: No sclera icterus. Extraocular movements grossly intact. Moist buccal mucosa. Head is atraumatic, normocephalic. ABDOMEN: Soft. Nondistended. Nontender. NEUROLOGIC: Alert and oriented. ASSESSMENT: 1. Aspiration pneumonia PLAN: Patient will be scheduled for repeat attempted PEG tube tomorrow with Dr. Han, unless family decides to pursue hospice Nurse practitioner note has been reviewed by physician. Signing provider agrees with the documented findings, assessment, and plan of care. Objective - Vital Signs Vital signs: Vital Signs Temp 97.5 F L 06/13/19 08:00 Pulse 101 H 06/13/19 12:00 Resp 21 06/13/19 12:00 BP 113/67 06/13/19 12:00 Pulse Ox 100 06/13/19 12:00 Intake & Output 06/12/19 06/13/19 06/13/19 18:59 06:59 18:59 Intake Total 0195.266 7365.5 580 Output Total 1500 1310 475 Balance -138.738 7922.5 105 Weight 62.4 kg 60.4 kg Intake: IV 1253 1215 580 Amino Acid 5%-D15w+Lytes* 450 525 450 E* 1,000 ml @ 75 mls/hr IV .BY DURATION [facility] Rx#: [id number] Ampicillin-Sulbactam 3 gm 200 100 In Sodium Chloride 0.9% 100 ml @ 200 mls/hr IVPB Q6HR [facility] Rx#:[id number] Fat Emulsion 20% 250 ml 126 105 In Empty Bag 1 bag @ 21 mls/hr IV DAILY@1200 [facility] Rx#:[id number] Fluconazole in NaCl,Iso- 100 Osm 200 mg In Saline 1 100ml.bag @ 100 mls/hr IVPB DAILY [facility] Rx#: [id number] Mvi, Adult No.4 with Vit 270 K 10 ml Trace (Conc-1Ml/ Dose) 1 ml In Amino Acid 5%-D15w+Lytes*E* 1,000 ml @ 30 mls/hr IV .Q24H [facility] Rx#:[id number] Mvi, Adult No.4 with Vit 375 K 10 ml Trace (Conc-1Ml/ Dose) 1 ml In Amino Acid 5%-D15w+Lytes*E* 1,000 ml @ 75 mls/hr IV .BY DURATION [facility] Rx#: [id number] Sodium Chloride 0.9% 1, 180 110 30 000 ml @ 20 mls/hr IV . Q24H [facility] Rx#:[id number] pressure bag 27 Intake, IV Titration 231.678 2856.5 Amount Diltiazem 125 mg In 102.833 104.5 Sodium Chloride 0.9% 100 ml @ 10 MG/HR 10 mls/hr IV .[id number] [facility] Rx#: [id number] Mvi, Adult No.4 with Vit 1011 K 10 ml Trace (Conc-1Ml/ Dose) 1 ml In Amino Acid 5%-D15w+Lytes*E* 1,000 ml @ 75 mls/hr IV .BY DURATION [facility] Rx#: [id number] Output: Urine 1500 1310 475 Other: Voiding Method Indwelling Catheter Indwelling Catheter Indwelling Catheter ABP, PAP, CO, CI - Last Documented Arterial Blood Pressure 169/74 - Labs CBC & Chem 7: 06/13/19 04:06 06/13/19 04:06 Labs: Abnormal Lab Results - Last 24 Hours (Table) 06/12/19 06/12/19 06/13/19 Range/Units 17:35 23:07 04:06 WBC (3.8-10.6) k/uL RBC (4.30-5.90) m/uL Hgb (13.0-17.5) gm/dL Hct (39.0-53.0) % RDW (11.5-15.5) % Plt Count (150-450) k/uL Neutrophils # (Manual) (1.3-7.7) k/uL Carbon Dioxide 33 H (22-30) mmol/L BUN 43 H (9-20) mg/dL Creatinine 0.52 L (0.66-1.25) mg/dL Glucose 179 H (74-99) mg/dL POC Glucose (mg/dL) 192 H 183 H (75-99) mg/dL 06/13/19 06/13/19 Range/Units 04:06 11:52 WBC 51.3 H* (3.8-10.6) k/uL RBC 2.71 L (4.30-5.90) m/uL Hgb 8.5 L (13.0-17.5) gm/dL Hct 26.7 L (39.0-53.0) % RDW 16.0 H (11.5-15.5) % Plt Count 120 L (150-450) k/uL Neutrophils # (Manual) 50.27 H (1.3-7.7) k/uL Carbon Dioxide (22-30) mmol/L BUN (9-20) mg/dL Creatinine (0.66-1.25) mg/dL Glucose (74-99) mg/dL POC Glucose (mg/dL) 169 H (75-99) mg/dL Microbiology - Last 24 Hours (Table) 06/12/19 15:40 Catheter Tip Culture - Preliminary Catheter Tip 06/09/19 13:40 Blood Culture - Preliminary Blood No Growth after 72 hours
--- NOTE | 2019-06-13 13:14 | P.PN ---
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 Patient has bacteremia with Procuren bacterium as well as MSSA patient is also being treated for aspiration pneumonia for all these bacteria patient is on IV Unasyn. Patient is also on. Patient has metastatichigh-grade non-small cell lung cancer. Patient and family are still the process of deciding whether he wanted to be hospice. Patient has poor by mouth intake and the general surgery attempted to place a PEG tube but has significant swelling in the throat because of which that failed. Patient has cervical collar is on nasal cannula oxygen. She does have history of COPD and pulmonary fibrosis. Constitutional: Denied any fatigue denied any fever. Cardio vascular: denied any chest pain, palpitations Gastrointestinal denied any nausea vomiting Pulmonary: Denied any shortness of breath cough Neurologic denied any new focal deficits All inpatient medications were reviewed and appropriate changes in these medications as dictated in the interval history and assessment and plan. Objective - Vital Signs Vital signs: Vital Signs Temp 97.5 F L 06/13/19 08:00 Pulse 101 H 06/13/19 12:00 Resp 21 06/13/19 12:00 BP 113/67 06/13/19 12:00 Pulse Ox 100 06/13/19 12:00 Intake & Output 06/12/19 06/13/19 06/13/19 18:59 06:59 18:59 Intake Total 1826.800 3330.5 580 Output Total 1500 1310 475 Balance -416.631 2555.5 105 Weight 62.4 kg 60.4 kg Intake: IV 1253 1215 580 Amino Acid 5%-D15w+Lytes* 450 525 450 E* 1,000 ml @ 75 mls/hr IV .BY DURATION [facility] Rx#: [id number] Ampicillin-Sulbactam 3 gm 200 100 In Sodium Chloride 0.9% 100 ml @ 200 mls/hr IVPB Q6HR [facility] Rx#:[id number] Fat Emulsion 20% 250 ml 126 105 In Empty Bag 1 bag @ 21 mls/hr IV DAILY@1200 [facility] Rx#:[id number] Fluconazole in NaCl,Iso- 100 Osm 200 mg In Saline 1 100ml.bag @ 100 mls/hr IVPB DAILY [facility] Rx#: [id number] Mvi, Adult No.4 with Vit 270 K 10 ml Trace (Conc-1Ml/ Dose) 1 ml In Amino Acid 5%-D15w+Lytes*E* 1,000 ml @ 30 mls/hr IV .Q24H [facility] Rx#:[id number] Mvi, Adult No.4 with Vit 375 K 10 ml Trace (Conc-1Ml/ Dose) 1 ml In Amino Acid 5%-D15w+Lytes*E* 1,000 ml @ 75 mls/hr IV .BY DURATION [facility] Rx#: [id number] Sodium Chloride 0.9% 1, 180 110 30 000 ml @ 20 mls/hr IV . Q24H [facility] Rx#:[id number] pressure bag 27 Intake, IV Titration 217.920 6577.5 Amount Diltiazem 125 mg In 102.833 104.5 Sodium Chloride 0.9% 100 ml @ 10 MG/HR 10 mls/hr IV .[id number] [facility] Rx#: [id number] Mvi, Adult No.4 with Vit 1011 K 10 ml Trace (Conc-1Ml/ Dose) 1 ml In Amino Acid 5%-D15w+Lytes*E* 1,000 ml @ 75 mls/hr IV .BY DURATION [facility] Rx#: [id number] Output: Urine 1500 1310 475 Other: Voiding Method Indwelling Catheter Indwelling Catheter Indwelling Catheter ABP, PAP, CO, CI - Last Documented Arterial Blood Pressure 169/74 - Exam PHYSICAL EXAMINATION: GENERAL: The patient is alert and oriented x3, not in any acute distress. agent is thin built has a c-collar as mentioned above on 2 L of mask cannula oxygen HEENT: Pupils are round and equally reacting to light. EOMI. No scleral icterus. No conjunctival pallor. Normocephalic, atraumatic. No pharyngeal erythema. No thyromegaly. CARDIOVASCULAR: S1 and S2 present. No murmurs, rubs, or gallops. PULMONARY:diffuse bilateral rhonchi ABDOMEN: Soft, nontender, nondistended, normoactive bowel sounds. No palpable organomegaly. MUSCULOSKELETAL: No joint swelling or deformity. EXTREMITIES: No cyanosis, clubbing, or pedal edema. NEUROLOGICAL: Gross neurological examination did not reveal any focal deficits. SKIN: No rashes. - Labs CBC & Chem 7: 06/13/19 04:06 06/13/19 04:06 Labs: Abnormal Lab Results - Last 24 Hours (Table) 06/12/19 06/12/19 06/13/19 Range/Units 17:35 23:07 04:06 WBC (3.8-10.6) k/uL RBC (4.30-5.90) m/uL Hgb (13.0-17.5) gm/dL Hct (39.0-53.0) % RDW (11.5-15.5) % Plt Count (150-450) k/uL Neutrophils # (Manual) (1.3-7.7) k/uL Carbon Dioxide 33 H (22-30) mmol/L BUN 43 H (9-20) mg/dL Creatinine 0.52 L (0.66-1.25) mg/dL Glucose 179 H (74-99) mg/dL POC Glucose (mg/dL) 192 H 183 H (75-99) mg/dL 06/13/19 06/13/19 Range/Units 04:06 11:52 WBC 51.3 H* (3.8-10.6) k/uL RBC 2.71 L (4.30-5.90) m/uL Hgb 8.5 L (13.0-17.5) gm/dL Hct 26.7 L (39.0-53.0) % RDW 16.0 H (11.5-15.5) % Plt Count 120 L (150-450) k/uL Neutrophils # (Manual) 50.27 H (1.3-7.7) k/uL Carbon Dioxide (22-30) mmol/L BUN (9-20) mg/dL Creatinine (0.66-1.25) mg/dL Glucose (74-99) mg/dL POC Glucose (mg/dL) 169 H (75-99) mg/dL Microbiology - Last 24 Hours (Table) 06/12/19 15:40 Catheter Tip Culture - Preliminary Catheter Tip 06/09/19 13:40 Blood Culture - Preliminary Blood No Growth after 72 hours Assessment and Plan Plan: pathological fracture at C6 level patient is a status post a fusion procedure status post extubation for respiratory failure. -Non-small cell lung cancer metastatic disease -sepsis and bacteremia secondary to osteomyelitis, aspiration pneumonia continue with Unasyn and Diflucan patient has Propionibacterium and MSSA. -poor by mouth Intake PEG tube will be attempted tomorrow again -Acute hypoxic respiratory failure. Patient was extubated on 07 of June presently is requiring 2 L of oxygen -COPD without any acute exacerbation -Pulmonary fibrosis -Coronary artery disease with previous stenting -Hyperlipidemia -Hypertension -Hypothyroidism -Hearing impairment Plan: Continue with present medications continue with supportive care possible PEG tube placement tomorrow. Awaiting family's decision regarding his overall goals of care which includes hospice. Patient is presently DO NOT RESUSCITATE
[2019-06-13] MEDS: SODIUM CHLORIDE 0.9% 1,000 ML IV SCH (15:41)
--- NOTE | 2019-06-13 17:16 | PN ---
PROGRESS NOTE DATE OF SERVICE: 06/13/2019 REASON FOR FOLLOWUP: 1. Aspiration pneumonia. 2. C6 osteomyelitis. INTERVAL HISTORY: The patient is currently afebrile, patient is breathing comfortably. The patient denies having any chest pain. Occasional cough. No sputum. No nausea, no vomiting, no abdominal pain, no diarrhea. PHYSICAL EXAMINATION: Blood pressure 128/72 with a pulse of 96, temperature is 97.5. General description is an elderly male, up in the bed in no distress. RESPIRATORY SYSTEM: Unlabored breathing, coarse breath sounds. No wheeze. HEART: S1, S2. Regular rate and rhythm. ABDOMEN: Soft, nontender. LABS: Hemoglobin 8.4, white count 21.8. BUN of 43, creatinine 0.52. DIAGNOSTIC IMPRESSION AND PLAN: Patient with aspiration pneumonia, sputum has been MSSA and this patient did have a C6 spine surgery for concern for pathologic infection. Culture has been positive for . Clinically, the patient is covered with Unasyn and Diflucan. White count remain to be persistent elevated, question of steroid effect. Monitor clinically course closely and continue supportive care. MMODL / IJN: [id number] /
[2019-06-13 17:46] LABS: Glucose,Whole Blood 257 mg/dL (75-99)
[2019-06-14 00:05] LABS: Glucose,Whole Blood 176 mg/dL (75-99)
[2019-06-14] MEDS: METOPROLOL TARTRATE 5 MG/5 ML VIAL IVP SCH ×2 (00:06→05:40)
[2019-06-14] MEDS: AMPICILLIN-SULBACTAM 3 GM in SODIUM CHLORIDE 0.9% 100 ML IVPB SCH ×2 (00:06→05:40)
[2019-06-14] MEDS: DEXAMETHASONE SOD PHOSPHATE 4 MG/ML 1 ML VIAL IV SCH (00:06)
[2019-06-14] MEDS: INSULIN ASPART (NovoLOG) 100 UNIT/ML VIAL SQ SCH ×2 (00:07→05:40)
[2019-06-14] MEDS: HYDROmorphone 1 MG/ML 1 ML SYRINGE IVP PRN ×2 (00:07→11:51)
[2019-06-14] MEDS: 1: MVI, ADULT NO.4 WITH VIT K 10 ML, TRACE (CONC-1ML/DOSE) 1 ML in AMINO ACID 5%-D15W+LY IV SCH ×3 (02:32)
[2019-06-14 05:38] LABS: Glucose,Whole Blood 167 mg/dL (75-99)
[2019-06-14] MEDS: IPRATROPIUM-ALBUTEROL 3 ML NEB INHALATION SCH (08:25)
[2019-06-14] MEDS: LEVOTHYROXINE IVP 100 MCG/5 ML VIAL IV SCH (10:00)
[2019-06-14] MEDS: LIDOCAINE 5% PATCH TOPICAL SCH (10:03)
[2019-06-14] MEDS: DILTIAZEM 125 MG in SODIUM CHLORIDE 0.9% 100 ML IV SCH (10:04)
[2019-06-14 10:16] VITALS: BMI 22.7
[2019-06-14 10:29] VITALS: BP 138/72; PULSE 108; RESP 28; TEMP 97.8
--- NOTE | 2019-06-14 11:12 | CDI ---
Documentation Clarification Form Date: 06/14/2019 10:40:17 AM From: Mairssa Hurt RN, CCDS Admit Date: 05/29/2019 10:29:00 AM Patient Name: Geoffrey Cohen Visit Number: [id number] ATTENTION: The Clinical Documentation Specialists (CDI) and [employer] Coding Staff appreciate your assistance in clarifying documentation. Please respond to the clarification below the line at the bottom and electronically sign. The CDI & [employer] Coding staff will review the response and follow-up if needed. Please note: Queries are made part of the Legal Health Record. If you have any questions, please contact the author of this message via ITS. Dr. Michelle Zhang Malnutrition has been documented in 06/11 Procedure note and requires further specificity. History/Risk Factors: CAD, Hyperlipidemia, HTN, Lung CA Clinical Indicators: 06/02 Pulmonary progress note: "The patient could've had significant aspiration and this white material was present in his posterior oropharynx, larynx, epiglottis and the cords." 06/02 Attending Progress Note: "C6 compression fracture: status post corpectomy of C6, with discectomy and fusion of C5-6 and C6-7,with excision of soft tissue mass anterior to C6 Right arm pain weakness and numbness, patient followed closely by surgery team -Worsening acute hypoxic respiratory failure suspicious for aspiration pneumonitis." 06/08 Attending Progress Note: "PEG tube placement for dysphagia." 06/08 Pulmonary Progress note: "Patient remains on tube feeding, he is hemodynamically stable, and he is in sinus rhythm." 06/12 Pulmonary Progress Note: "GENERAL EXAM: Alert, frail, cachectic 79-year-old male patient, in the c-collar, appears chronically ill, but no acute distress, on 2 L nasal cannula, with a pulse ox of 95%." 05/28-06/13 Labs: Albumin 3.6/2.3/3.1 Albumin (PEP) 2.91, Total Protein 7.1/4.9/5.9 Current BMI: 22.7 Insufficient energy intake: Dysphagia, aspiration, receiving tube feeding and PPN 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 Mild Protein-Calorie Malnutrition Moderate Protein-Calorie Malnutrition Severe Protein-Calorie Malnutrition Other condition, please specify Unable to determine (Last Revision: August 2018) No protein calorie malnutrition MTDD
--- NOTE | 2019-06-14 11:21 | P.PN ---
Subjective Progress Note Date: 06/14/19 Principal diagnosis: Right upper extremity weakness/pain related to a mild bony retropulsion of the cervical spine at the level of C6, patient has severe degenerative spine disease with disc space narrowing at the C3-C4 with posterior disc bulge 79-year-old male patient is being seen in consultation for lung mass. The patient is known to have history of lung cancer. The patient came into the hospital because of pain and numbness in his right upper extremity extending to his right thumb and this is been going on for the past 2 weeks to the point where the patient was unable to lift any objects because of the pain and numbness and tingling. His echo was elevated at 31. The calcium level is normal at 9.6. Lactic acid level at time of admission was 1.7. He had a CRP of 57.7 which is quite elevated and this is based on the previous blood work that was done on 05/17/2019. In the ED, the patient had a CAT scan of the brain that showed age-related atrophy and small vessel ischemic changes. An unenhanced CAT scan of the cervical spine also was done and it showed severe compression fracture of the C6 spine of an uncertain age/etiology with bony retropulsion of 3.5 mm. No evidence of any central canal stenosis or cord compression. Multilevel degenerative disc disease was seen with disc bulging and neurominal encroachment severe at the level of C3-C4 and there is also severe degenerative disc narrowing at the level of C5-C6. There is a 90% compression fracture of the T6 spine. Noted the patient was in the emergency department on 05/17/2023 with similar complaints of worsening shoulder and arm pain he was seen in emergency department and the patient underwent a CT angiogram of the upper extremity and it showed poor opacification of the radial and ulnar arteries at the level of the brachial bifurcation which was either technical in nature or h igh-grade stenosis/thrombosis which could not be completely ruled out. A CAT scan of the chest was also done utilizing a CT angios protocol and the CAT scan showed no evidence of any pulmonary embolism. Nevertheless, there were several for nodules, and a lung mass. There was a 3.4 cm right lower lobe pleural-based mass posteriorly in the right lower lobe area. There was another 7 mm right middle lobe pulmonary nodule, 5 mm left upper lobe pulmonary pleural-based nodule, 7 mm right upper lobe pulmonary nodule and a 4 mm right apical pulmonary nodule. There was extensive emphysema and some scattered subpleural fibrosis. The perihilar/peribronchial lymph nodes were identified. 4.1 cm suspicious lesion of the left adrenal gland was seen suspicious for metastases. This was a new finding monitor the patient's previous CAT scan from 03/22/2018 did not show any lung masses or nodules. There was however some scarring in the lung bases especially on the right in addition to emphysema and some elevation of left hemidiaphragm. S shaped scoliosis was also seen along with osseous deminer alization. The patient is afebrile. The patient's pulse ox 99% on room air.: 19 evaluation was negative. Influenza A and B were negative. UA was negative. On today's evaluation of 05/30/2019, the patient was seen by spine surgery and the patient was given a neck brace. His pain is under good control. He is awaiting MRI of the cervical spine. The white cell count remains elevated. The pro-calcitonin level is low. He is still feeling weakness in the right upper extremity. A fine-needle aspirate of the lung metastatic to be considered and will going to consult interventional radiology. On 05/31/2019 patient seen in follow-up on general medical floor, still complaining of weakness in his arms and neck pain. Patient has a c-collar that he is wearing [id number], his imaging showed significant compression of his spinal cord. Patient was evaluated by orthopedic service and surgical decompression and spinal fusion was recommended and the patient is scheduled for his surgery today. Patient was also evaluated by radiation oncology, and he may need radiotherapy to the postoperative bed after completion of the above surgery, from pulmonary perspective, his breathing seems to be nonlabored, he is on room air, with a pulse ox of 96%, lung sounds are diminished, no rhonchi or wheezing, patient has been afebrile, today's labs have been reviewed showing white blood cell count of 32.8, hemoglobin 13.4, neutrophil count is 30.5, influenza and coronavirus PCR were negative, patient is receiving IV Decadron, patient is on vancomycin, blood culture showed coagulase-negative staph. On 06/01/2019 patient seen in follow-up on medical floor, he is postop day 1 status post anterior cervical decompression with discectomy and fusion of C5, C6 and C6 and C7. He is awake and alert, in no acute distress, room air pulse ox is 94%, he sitting up in the recliner, calm and comfortable, he is afebrile, vital signs are stable. Breathing is unlabored. Bone biopsy from the vertebral body of C6 and culture of vertebral body of the 6 are pending at this time. Today's labs have been reviewed showing white blood cell, 39.2, hemoglobin of 12.3, sodium 131, potassium is 4.3, chloride is 96, B1 is 30 creatinine 0.8. Patient is on cefepime and vancomycin for antibiotic coverage, ID service is following. Patient had blood culture with coagulase-negative staph, B blood cultures pending. On 06/02/2019 patient seen in follow-up on general medical floor, and today is postoperative day 2, status post anterior cervical decompression with discectomy and fusion of C5, 6, and C6 and C7, biopsy of the vertebral body of C6 and the culture of the vertebral body of C6. Biopsy results are still pending, cultures are negative thus far. Patient is afebrile, she is on 2 L of oxygen and the pulse ox of 96%, he still is complaining of some numbness and weakness in his right wrist, and some shortness of breath, and inability to clear phlegm, his lungs are clear, no wheezing, no rhonchi, he is already on Decadron. He is on cefepime and vancomycin for antibiotics, he is on breathing treatments, will add Mucinex. On 06/05/2019 patient seen in follow-up in the intensive care unit. Patient developed worsening respiratory failure requiring intubation and placement on mechanical ventilator on 06/03/2019 for suspected aspiration. Today on 06/05/2019 patient remains intubated, and sedated. Current vent settings are assist-control mode of ventilation with a rate of 22, tidal volume is 400, FiO2 is 35%, and PEEP of 5, this point his blood gases were reviewed showing pO2 45, pCO2 28, and pH of 7.47, and this was done on FiO2 of 35% and above-mentioned ventilator settings. This morning's chest x-ray has been reviewed, showing known right basilar lung mass, pronounced right paratracheal stripe, stable exam compared yesterday's chest x-ray. No acute pulmonary findings. She remains on empiric antibiotics in the form of Zosyn for possibility of aspiration pneumonia. Sputum culture so far only shows Mireya albicans. Cultures of the bony biopsy showing proprionibacterium acnes, final culture is pending, blood culture from 05/29/2019 showed staph hominis. Current antibiotics in the form of Zosyn, infectious disease is following. Today's labs have been reviewed [facility] blood blood cell count of 46.9, hemoglobin of 7.9, neutrophil count is 45.4, sodium is 132, potassium 3.8, CO2 is 21, B1 is 37 creatinine 0.76. Patient's hemodynamically stable, levo fed is on hold. Urine output is in the order of 50-60 ML per hour, he is tolerating tube feedings in the form of vital HP at a rate of 42 with a goal of 42 with standard water flushes. Bone biopsy of the vertebral body of C6 is still pending at this time On 06/14/2019 patient seen in follow-up in the intensive care unit, he is lethargic, but opens eyes to voice, does not seem to be in any acute distress, he is on 40% per Ventimask, he is afebrile, hemodynamically patient is stable, remains in atrial fibrillation, for which she is on Cardizem drip at 10 mg per hour, other IVs include 0.9 normal saline at a rate of KVO, TPN at 75 mL an hour, and lipid infusion 12 hours on 12 hours off. Patient has failed multiple swallowing evaluations, and surgery was not able to place a PEG tube, he is also considered a very poor candidate for any treatment for his metastatic cancer, yesterday was spoke to patient's family members and updated them on patient's condition and decision has been made to move the patient into hospice care. Hospice has been consulted, their anticipated to be in the hospital today and transition patient care to hospice. No other acute events overnight, patient has not been able to eat anything by mouth, he is receiving pain medications IV push for discomfort. He is on antibiotics for evidence o Proprionibacterium acnes on his wound culture, ID service is following. He has been afebrile. Objective - Vital Signs Vital signs: Vital Signs Temp 97.8 F 06/14/19 08:00 Pulse 108 H 06/14/19 10:00 Resp 28 H 06/14/19 10:00 BP 138/72 05/06/20 08:00 Pulse Ox 94 L 06/14/19 10:00 Intake & Output 06/13/19 06/14/19 06/14/19 18:59 06:59 18:59 Intake Total 2435 810 115.333 Output Total 925 810 Balance 1510 0 115.333 Weight 63.82 kg 63.82 kg Intake: IV 1310 810 Amino Acid 5%-D15w+Lytes* 900 750 E* 1,000 ml @ 75 mls/hr IV .BY DURATION [facility] Rx#: [id number] Ampicillin-Sulbactam 3 gm 200 In Sodium Chloride 0.9% 100 ml @ 200 mls/hr IVPB Q6HR [facility] Rx#:[id number] Fluconazole in NaCl,Iso- 100 Osm 200 mg In Saline 1 100ml.bag @ 100 mls/hr IVPB DAILY [facility] Rx#: [id number] Sodium Chloride 0.9% 1, 110 60 000 ml @ 20 mls/hr IV . Q24H [facility] Rx#:[id number] Intake, IV Titration 1125 115.333 Amount Amino Acid 5%-D15w+Lytes* 1000 E* 1,000 ml @ 75 mls/hr IV .BY DURATION [facility] Rx#: [id number] Diltiazem 125 mg In 125 115.333 Sodium Chloride 0.9% 100 ml @ 10 MG/HR 10 mls/hr IV .[id number] [facility] Rx#: [id number] Output: Urine 925 810 Other: Voiding Method Indwelling Catheter Indwelling Catheter ABP, PAP, CO, CI - Last Documented Arterial Blood Pressure 169/74 - Exam GENERAL EXAM: Frail 79-year-old white male in the c-collar, appears chronically ill, lethargic, but opens eyes to verbal stimulation, bun 40% vent mask but no acute distress, with orogastric and orotracheal tube in place HEAD: Normocephalic/atraumatic. EYES: Normal reaction of pupils, equal size. Conjunctiva pink, sclera white. NOSE: Clear with pink turbinates. THROAT: No erythema or exudates. NECK: No masses, no JVD, no thyroid enlargement, no adenopathy. Patient has a c-collar in place CHEST: No chest wall deformity. Symmetrical expansion. LUNGS: Equal air entry with no crackles, wheeze, rhonchi or dullness. CVS: Regular rate and rhythm, normal S1 and S2, no gallops, no murmurs, no rubs ABDOMEN: Soft, nontender. No hepatosplenomegaly, normal bowel sounds, no gu arding or rigidity. EXTREMITIES: No clubbing, no edema, no cyanosis, 2+ pulses and upper and lower e xtremities. MUSCULOSKELETAL: Muscle strength and tone normal. SPINE: No scoliosis or deformity SKIN: No rashes CENTRAL NERVOUS SYSTEM: Sedated, comfortable No focal deficits, tone is normal in all 4 extremities. - Labs CBC & Chem 7: 06/13/19 04:06 06/13/19 04:06 Labs: Abnormal Lab Results - Last 24 Hours (Table) 06/13/19 06/13/19 06/14/19 Range/Units 11:52 17:44 00:03 POC Glucose (mg/dL) 169 H 257 H 176 H (75-99) mg/dL 06/14/19 Range/Units 05:36 POC Glucose (mg/dL) 167 H (75-99) mg/dL Microbiology - Last 24 Hours (Table) 06/12/19 15:40 Catheter Tip Culture - Preliminary Catheter Tip 06/09/19 13:40 Blood Culture - Preliminary Blood No Growth after 96 hours Assessment and Plan Plan: Assessment: #1. Acute hypoxic respiratory failure secondary to aspiration and COPD exacerbation with intubation on 06/03/2019 and successful extubation on 06/08/2019. The patient had significant aspiration and this was noted on a bronchoscopy that was done in the intensive care unit where food material and milk was seen in the upper airway and therapy care was suctioning was done and all of these foreign bodies was aspirated from the upper airway. Subsequently, the patient continued to be short of breath. Airway inspection of the upper airways showed no evidence of any vocal cord paralysis. The arytenoids were slightly swollen, nevertheless, the vocal cord function was adequate. The patient was intubated and placed on a mechanical ventilator on all 06/03/2019 and currently is being treated for a COPD exacerbation and aspiration. Chest x- ray is free of any acute pulmonary infiltrates. #2. right upper extremity weakness/pain related to C6 compression fracture, and significant compression of the spinal cord awaiting surgical intervention. Preliminary evaluation with a CAT scan of the cervical spine showed C6 vertebral body compression fracture, at least 90% with a mild bony retropulsion noted to be around 3.5 mm in size and the patient has severe degenerative disc space narrowing at the level of C3-C4 with posterior disc bulge with mild effacement and bilateral foraminal encroachment and C5-C6 without any herniation or canal stenosis. Presence of leukocytosis is obviously raises the concern for infection along with an elevated CRP. Possibility of malignancy involving the C-spine with secondary compression cannot be ruled out knowing that the patient has several pulmonary lesions. The patient has severe degenerative disc disease along with posterior disc bulge at the level of C3-C4. Patient is status post anterior cervical decompression with discectomy and fusion of C5, 6, and C6 and 7, biopsy of the vertebral body of C6, and culture of the vertebral body of C6 collected and sent, and are pending at this time. 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 right lower lobe mass, pleural based measuring 3.9 cm in addition to several other smaller pulmonary nodules scattered focal lung mahan bilaterally in addition to a left adrenal mass, consider metastatic lung cancer/malignancy. He is not is no knowing that the patient's previous CAT scan of the chest from 2019 up much of any pulmonary lesions #4. Previous history of lung cancer with a previous left upper lobe resection #5. COPD with diffuse emphysematous changes bilaterally #6. Pulmonary fibrosis #7. Coronary artery disease with previous coronary stenting #8. Scoliosis of the thoracolumbar spine #9. Hyperlipidemia #10. Hypertension #11. Hypothyroidism #12. Impaired hearing #13. Blood culture with coagulase-negative staph on 05/29/2019, follow-up blood cultures pending, negative thus far. Plan: We spoke with the family yesterday updated on patient's condition, patient is a poor candidate for treatment for his metastatic cancer related to his multiple morbid conditions and medical debility, decision has been made to make the patient DO NOT RESUSCITATE, and proceed with hospice care. Expect patient to be transitioned into hospice care today, and possibly discharge to under the hospice care. Continue IV medications for pain, we'll stop the antibiotics, we will stop the chest x-rays and lab work. Allow family visitation I performed a history & physical examination of the patient and discussed their management with my nurse practitioner, Opal Alcantar. I reviewed the nurse practitioner's note and agree with the documented findings and plan of care. Lung sounds are positive for clear breath sounds. The findings and the impression was discussed with the patient. I attest to the documentation by the nurse practitioner. Time with Patient: Less than 30
--- NOTE | 2019-06-14 11:32 | P.PN ---
Progress Note - Text Progress Note Date: 06/14/19 The patient is being currently made comfort care today. His PEG tube will be canceled.
--- NOTE | 2019-06-14 11:55 | P.DS ---
Providers Date of admission: 05/29/19 10:29 Attending physician: Michelle Zhang Consults: 05/29/19 12:29 Consult Physician Routine Consulting Provider: Rob Flores Consult Reason/Comments: Compression fracture Do you want consulting provider notified?: Yes 05/29/19 13:54 Consult Physician Routine Consulting Provider: Lashae Nogueira Consult Reason/Comments: Hypoxia and possible aspiration Do you want consulting provider notified?: Yes Consult Physician Routine Consulting Provider: Lashae Nogueira Consult Reason/Comments: pul nodules and recurrance of lung cancer Do you want consulting provider notified?: Yes 05/30/19 12:51 Consult Physician Routine Consulting Provider: Keith Grace Consult Reason/Comments: Leukocytosis and metamyelocyte and blunt Do you want consulting provider notified?: Yes 05/30/19 14:26 Consult Physician Routine Consulting Provider: Vance Kaur Consult Reason/Comments: positive blood cultures - gram cocci in clusters Do you want consulting provider notified?: Yes 05/30/19 16:34 Consult Physician Routine Consulting Provider: Hector Wynn Consult Reason/Comments: compression c6 Do you want consulting provider notified?: Yes 06/09/19 09:03 Consult Physician Routine Consulting Provider: Saurabh Morales Consult Reason/Comments: afib rvr Do you want consulting provider notified?: Yes 06/09/19 09:04 Consult Physician Routine Consulting Provider: Manjinder Jones Consult Reason/Comments: metastatic malignancy, spine lesion Do you want consulting provider notified?: Yes 06/09/19 09:14 Consult Physician Urgent Consulting Provider: Ascencion Han Consult Reason/Comments: peg tube insetion Do you want consulting provider notified?: Yes Primary care physician: [facility] Course: 79-year-old the male came in with C6 compression fracture found to have ostial myelitis as well as a 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 Patient has bacteremia with Procuren bacterium as well as MSSA patient is also being treated for aspiration pneumonia for all these bacteria patient is on IV Unasyn. Patient is also on. Patient has metastatichigh-grade non-small cell lung cancer. Patient and family are still the process of deciding whether he wanted to be hospice. Patient has poor by mouth intake and the general surgery attempted to place a PEG tube but has significant swelling in the throat because of which that failed. Patient has cervical collar is on nasal cannula oxygen. She does have history of COPD and pulmonary fibrosis. 06/14/2019 Patient has metastatic squamous cell lung cancer prognosis is poor patient is a poor candidate for chemotherapy because of which patient and family decided on hospice and patient is discharged being discharged on hospice today PHYSICAL EXAMINATION: GENERAL: The patient is alert and oriented x3, not in any acute distress. agent is thin built has a c-collar as mentioned above on 2 L of mask cannula oxygen HEENT: Pupils are round and equally reacting to light. EOMI. No scleral icterus. No conjunctival pallor. Normocephalic, atraumatic. No pharyngeal erythema. No thyromegaly. CARDIOVASCULAR: S1 and S2 present. No murmurs, rubs, or gallops. PULMONARY:diffuse bilateral rhonchi ABDOMEN: Soft, nontender, nondistended, normoactive bowel sounds. No palpable organomegaly. MUSCULOSKELETAL: No joint swelling or deformity. EXTREMITIES: No cyanosis, clubbing, or pedal edema. NEUROLOGICAL: Gross neurological examination did not reveal any focal deficits. SKIN: No rashes. Assessment and Plan Plan: pathological fracture at C6 level patient is a status post a fusion procedure status post extubation for respiratory failure. -Non-small cell lung cancer metastatic disease -sepsis and bacteremia secondary to osteomyelitis, aspiration pneumonia patient has Propionibacterium and MSSA. -poor by mouth Intake but she will not be placed as patient will be hospice -Acute hypoxic respiratory failure. Patient was extubated on 07 of June presently is requiring 2 L of oxygen -COPD without any acute exacerbation -Pulmonary fibrosis -Coronary artery disease with previous stenting -Hyperlipidemia -Hypertension -Hypothyroidism -Hearing impairment Patient is being discharged home with hospice Plan - Discharge Summary Discharge Rx Participant: No New Discharge Prescriptions: Discontinued Atorvastatin [Lipitor] 40 mg PO HS Aspirin [Adult Low Dose Aspirin EC] 81 mg PO DAILY Ascorbic Acid [Vitamin C] 500 mg PO DAILY Alendronate Sodium [Fosamax] 70 mg PO TU Levothyroxine Sodium [Synthroid] 75 mcg PO DAILY No Action Atenolol 25 mg PO DAILY Multivitamins, Thera [Multivitamin (formulary)] 1 tab PO DAILY Meloxicam [Mobic] 7.5 mg PO BID Gabapentin [Neurontin] 300 mg PO TID Cyclobenzaprine [Flexeril] 10 mg PO TID Lidocaine 5% Patch [Lidoderm] 1 patch TOPICAL DAILY Budesonide/Formoterol Fumarate [Symbicort 160-4.5 Mcg Inhaler] 2 puff INHALATION RT-BID Albuterol Sulfate [Albuterol Sulfate Hfa] 1 puff PO RT-QID PRN PRN Reason: Shortness Of Breath Discharge Medication List Atenolol 25 mg PO DAILY 07/25/15 [History] Cyclobenzaprine [Flexeril] 10 mg PO TID 03/21/18 [History] Gabapentin [Neurontin] 300 mg PO TID 03/21/18 [History] Meloxicam [Mobic] 7.5 mg PO BID 03/21/18 [History] Multivitamins, Thera [Multivitamin (formulary)] 1 tab PO DAILY 03/21/18 [History] Albuterol Sulfate [Albuterol Sulfate Hfa] 1 puff PO RT-QID PRN 05/29/19 [History] Budesonide/Formoterol Fumarate [Symbicort 160-4.5 Mcg Inhaler] 2 puff INHALATION RT-BID 05/29/19 [History] Lidocaine 5% Patch [Lidoderm] 1 patch TOPICAL DAILY 05/29/19 [History] Follow up Appointment(s)/Referral(s): Keith Grace MD [STAFF PHYSICIAN] - 07/06/19 1:30 pm (This appt is at the office located at [facility], [facility] 2nd floor FAMILY, WAGNER, STATED SHe would make any appointments needed) Rob Flores, [Doctor of Osteopathic Medicine] - 1 Week (Patient may follow-up with Ric Cunningham PA-C or Dr. Yamil Flores at [facility] in 1-2 weeks following discharge. ) [facility], [NON-STAFF] - 1-2 Days Lashae Nogueira MD [STAFF PHYSICIAN] - 2 Weeks [facility] - 1-2 days Patient Instructions/Handouts: Comfort Measures (GEN) Activity/Diet/Wound Care/Special Instructions: Contact CM at [facility] for indigent funds 1. Patient may shower with Tegaderm dressing intact. 2. Patient may remove Tegaderm dressing in 3 days and shower without a dressing at that time. 3. Patient should keep hard cervical collar intact at all times 4. Patient should refrain from driving until at least after their first follow- up appointment in the office. 5. Patient should avoid excessive ROM of the cervical spine; Avoid overhead lifting; No lifting greater than 10 pounds 6. Take medications as prescribed 7. Do not soak in tub Discharge Disposition: HOME WITH HOSPICE
== END 2019-06-14 12:05 | disposition hospice, home (50) | DRG 853 ==
LOC: EC 08:14 → 4SSUR 10:29 → 2SICU 06-03 12:50
PROVIDERS: ADMIT Internal Medicine; ATTEND Internal Medicine
PROC: 0RG20A0 Fusion of 2 or more Cervical Vertebral Joints with Interbody Fusion Device, Anterior Approach, Anterior Column, Open Approach (ICD-10-PCS; principal; 2019-05-31 14:00)
PROC: 0PB30ZX Excision of Cervical Vertebra, Open Approach, Diagnostic (ICD-10-PCS; principal; 2019-05-31 14:00)
PROC: 0RT30ZZ Resection of Cervical Vertebral Disc, Open Approach (ICD-10-PCS; principal; 2019-05-31 14:00)
PROC: 5A1955Z Respiratory Ventilation, Greater than 96 Consecutive Hours (ICD-10-PCS; 2019-06-03)
PROC: 0BH17EZ Insertion of Endotracheal Airway into Trachea, Via Natural or Artificial Opening (ICD-10-PCS; 2019-06-03)
PROC: 06HM33Z Insertion of Infusion Device into Right Femoral Vein, Percutaneous Approach (ICD-10-PCS; 2019-06-03)
PROC: 0B918ZZ Drainage of Trachea, Via Natural or Artificial Opening Endoscopic (ICD-10-PCS; 2019-06-03)
PROC: 03HY32Z Insertion of Monitoring Device into Upper Artery, Percutaneous Approach (ICD-10-PCS; 2019-06-03)
PROC: 0CHY8BZ Insertion of Airway into Mouth and Throat, Via Natural or Artificial Opening Endoscopic (ICD-10-PCS; 2019-06-03)
PROC: 3E0336Z Introduction of Nutritional Substance into Peripheral Vein, Percutaneous Approach (ICD-10-PCS; 2019-06-11)
PROC: 02HV33Z Insertion of Infusion Device into Superior Vena Cava, Percutaneous Approach (ICD-10-PCS; 2019-06-12)
DX: A41.89 Other specified sepsis (principal); R65.21 Severe sepsis with septic shock; G93.41 Metabolic encephalopathy; J69.0 Pneumonitis due to inhalation of food and vomit; J15.211 Pneumonia due to Methicillin susceptible Staphylococcus aureus; B37.1 Pulmonary candidiasis; J96.01 Acute respiratory failure with hypoxia; C34.31 Malignant neoplasm of lower lobe, right bronchus or lung; C79.51 Secondary malignant neoplasm of bone; C79.72 Secondary malignant neoplasm of left adrenal gland; M84.58XA Pathological fracture in neoplastic disease, other specified site, initial encounter for fracture; E87.1 Hypo-osmolality and hyponatremia; I48.92 Unspecified atrial flutter; M46.22 Osteomyelitis of vertebra, cervical region; G95.20 Unspecified cord compression; J90 Pleural effusion, not elsewhere classified; A41.01 Sepsis due to Methicillin susceptible Staphylococcus aureus; J39.8 Other specified diseases of upper respiratory tract; Z51.5 Encounter for palliative care; Z66 Do not resuscitate; Z20.828 Contact with and (suspected) exposure to other viral communicable diseases; M50.11 Cervical disc disorder with radiculopathy, high cervical region; M48.02 Spinal stenosis, cervical region; T88.4XXA Failed or difficult intubation, initial encounter; J84.10 Pulmonary fibrosis, unspecified; J43.9 Emphysema, unspecified; R13.10 Dysphagia, unspecified; J98.6 Disorders of diaphragm; D64.9 Anemia, unspecified; M79.81 Nontraumatic hematoma of soft tissue; D72.823 Leukemoid reaction; E03.9 Hypothyroidism, unspecified; E78.00 Pure hypercholesterolemia, unspecified; E78.5 Hyperlipidemia, unspecified; F17.200 Nicotine dependence, unspecified, uncomplicated; G62.9 Polyneuropathy, unspecified; H91.90 Unspecified hearing loss, unspecified ear; I10 Essential (primary) hypertension; I25.10 Atherosclerotic heart disease of native coronary artery without angina pectoris; I48.0 Paroxysmal atrial fibrillation; M19.90 Unspecified osteoarthritis, unspecified site; M41.9 Scoliosis, unspecified; M81.0 Age-related osteoporosis without current pathological fracture; T38.0X5A Adverse effect of glucocorticoids and synthetic analogues, initial encounter; R60.9 Edema, unspecified; Z53.9 Procedure and treatment not carried out, unspecified reason; Z79.1 Long term (current) use of non-steroidal anti-inflammatories (NSAID); Z79.51 Long term (current) use of inhaled steroids; Z79.82 Long term (current) use of aspirin; Z79.83 Long term (current) use of bisphosphonates; Z79.890 Hormone replacement therapy; Z79.899 Other long term (current) drug therapy; Z96.642 Presence of left artificial hip joint; Z95.5 Presence of coronary angioplasty implant and graft; Z90.2 Acquired absence of lung [part of]; Z85.850 Personal history of malignant neoplasm of thyroid; Z85.118 Personal history of other malignant neoplasm of bronchus and lung; Z90.49 Acquired absence of other specified parts of digestive tract; Z82.49 Family history of ischemic heart disease and other diseases of the circulatory system
CPT/HCPCS: 31645; 36415; 36573; 36600; 43235; 70450; 70553; 71045; 71046; 72020; 72040; 72125; 72156; 72157; 74178; 80048; 80053; 80202; 81001; 81003; 82330; 82570; 82607; 82728; 82746; 82784; 82805; 83540; 83550; 83605; 83615; 83735; 83883; 83921; 83930; 83935; 84100; 84145; 84165; 84300; 84443; 84478; 84550; 85025; 85027; 85045; 85384; 85610; 85652; 85730; 86140; 86334; 87040; 87070; 87075; 87077; 87086; 87186; 87205; 87502; 87635; 88307; 88311; 88341; 88342; 93306; 94002; 94003; 94640; 94660; 96361; 96374; 96375; 96376; 99285